=== PATIENT | female | born 1950 | race Caucasian/White ===

== ENCOUNTER 2019-10-10 17:31 | Emergency (ER) | payer MEDICARE, OTHER, SELFPAY ==
[2019-10-10 17:43] VITALS: BP 116/79; PULSE 88; RESP 16; TEMP 36.4; O2SAT 100; BMI 23.3
--- NOTE | 2019-10-10 17:59 | ED_ITS ---
Entered by Sami Constantino LPN, acting as scribe for Kendra Juarez MD HPI - General Adult General: Chief complaint: General Medical Stated complaint: LOW BLOOD SUGAR Time Seen by Provider: 10/10/19 17:56 Source: patient Mode of arrival: ambulatory Limitations: no limitations History of Present Illness: HPI narrative: 69 yo female presents with c/o increased HR around 120bpm and SOB for the past couple days. She states she was sent over by her heart doctor for evaluation before he made any med changes. She is taking Cardizem for rate control. Family reports on the way to the hospital her sugar was 49, she was not feeling well in the car so they thought they should check it. She also had a low sugar of 29 last night. Upon arrival to ER pt's sugar is 89. PCP- Johan. Cardio- Socorro. Endo- Krishna Banda Branson. Severity: moderate Associated symptoms: Reports dyspnea and palpitations (increased HR); Deny chest pain, headache(s), nausea, rash or vomiting Review of Systems Const: Reports: other (low blood sugar); Denies: fever, chills, body aches or change in appetite Eyes: Denies: blurry vision or eye discomfort ENMT: Denies: throat pain or dental pain Card: Reports: palpitations (increased HR); Denies: chest pain Resp: Reports: shortness of breath GI: Denies: abdominal pain, nausea, vomiting or diarrhea : Denies: painful urination Musc: Denies: neck pain or back pain Skin/Breast: Denies: rash Neuro: Denies: headache Jose M/Lymph: Denies: easy bruising All/Imm: Denies: hives PFSH ED PFSH: Statuses (acute, chronic, etc) shown below reflect problem list status as previously entered and may not be historically accurate Social History Smoking and tobacco status: never smoked Physical Exam Const: COMMON NORMALS: no apparent distress, oriented x3 and healthy appearing HENMT: COMMON NORMALS: normocephalic and head/scalp atraumatic HEAD & SCALP: normocephalic and atraumatic Eye: COMMON NORMALS: PERRL and EOMs intact bilaterally PUPIL: Yes PERRL Neck/C-Spine: COMMON NORMALS: full ROM and supple Chest: COMMONS NORMALS: inspection of chest normal and palpation of chest normal Resp: COMMON NORMALS: normal respiratory effort, no retractions, no use of accessory muscles and clear to auscultation bilaterally AUSCULTATION: clear to auscultation bilaterally Cardio: COMMON NORMALS: regular rate, regular rhythm and no murmurs RATE: regular rate RHYTHM: regular rhythm OTHER: HR 90bpm during exam GI: COMMON NORMALS: soft to palpation, non-tender and no masses PALPATION: Yes soft Extremity: COMMON NORMALS: normal to inspection and full ROM Neuro: COMMON NORMALS: oriented x3, moves all extremities and no focal motor deficits Psych: COMMON NORMALS: mental status grossly normal, thought process normal and cooperative THOUGHT PROCESS: normal thought process Skin: COMMON NORMALS: no rashes or lesions noted and no wounds GENERAL SKIN EXAM: no rashes or lesions noted Course Vital Signs: Vital signs: Vital Signs Temperature 97.5 F L 10/10/19 17:43 Pulse Rate 80 10/10/19 21:17 Respiratory Rate 16 10/10/19 21:17 Blood Pressure 116/76 10/10/19 21:17 Pulse Oximetry 98 10/10/19 21:17 MDM - General Adult MDM Narrative: Medical decision making narrative: Patient presents here with palpitations. Patient's EKG here shows normal sinus rhythm and has been in normal sinus rhythm the whole time here. Patient has no signs of A. fib here. Patient also had hyperglycemia that is since resolved. Patient's blood sugars here been normal. Patient is stable for discharge and is return if worsening. Lab Data: Labs: Lab Results 10/10/19 10/10/19 10/10/19 Range/Units 18:03 18:39 18:39 WBC (4.0-10.0) 10^3/ uL RBC (4.1-5.3) 10^6/u L Hgb (11.5-15.3) g/dL Hct (37.0-47.0) % MCV (81-99) fL MCH (28.0-34.0) pg MCHC (30.0-36.0) g/dL RDW (12.1-15.1) % Plt Count (130-400) 10^3/c mm MPV (7.4-10.4) fL Neut % (Auto) % Lymph % (Auto) % Wilcox % (Auto) % Eos % (Auto) % Baso % (Auto) % Neut # (Auto) (1.8-7.7) 10^3/u L Lymph # (Auto) (0.8-4.8) 10^3/u L Wilcox # (Auto) (0.2-0.9) 10^3/u L Eos # (Auto) (0.0-0.8) 10^3/u L Baso # (Auto) (0.0-0.1) 10^3/u L Nucleated RBC % (a uto) % Nucleated RBCs # /100WBC Sodium 137 (136-145) mmol/L Potassium 4.0 (3.5-5.1) mmol/L Chloride 97 L (98-107) mmol/L Carbon Dioxide 26 (22-29) mmol/L Anion Gap 18.0 (5-19) BUN 21 (8-23) mg/dL Creatinine 0.7 (0.5-0.9) mg/dL GFR Calculation 83.2 L (90-130) mL/min Glucose 74 (65-115) mg/dL POC Glucose 83 (70-110) mg/dL Calculated Osmolal ity 279 L (285-295) mOsm/k g Calcium 9.9 (8.5-10.5) mg/dL Troponin T Baselin e 11 H (0-10) ng/mL Troponin T 120 Min terrell (0-10) ng/mL Delta Troponin T (0-10) ABS# 10/10/19 10/10/19 10/10/19 Range/Units 19:36 20:22 20:56 WBC 4.9 (4.0-10.0) 10^3/ uL RBC 3.82 L (4.1-5.3) 10^6/u L Hgb 10.5 L (11.5-15.3) g/dL Hct 33.0 L (37.0-47.0) % MCV 86.4 (81-99) fL MCH 27.5 L (28.0-34.0) pg MCHC 31.8 (30.0-36.0) g/dL RDW 14.8 (12.1-15.1) % Plt Count 214 (130-400) 10^3/c mm MPV 9.3 (7.4-10.4) fL Neut % (Auto) 59.6 % Lymph % (Auto) 22.5 % Wilcox % (Auto) 10.4 % Eos % (Auto) 6.5 % Baso % (Auto) 0.8 % Neut # (Auto) 2.9 (1.8-7.7) 10^3/u L Lymph # (Auto) 1.1 (0.8-4.8) 10^3/u L Wilcox # (Auto) 0.5 (0.2-0.9) 10^3/u L Eos # (Auto) 0.3 (0.0-0.8) 10^3/u L Baso # (Auto) 0.0 (0.0-0.1) 10^3/u L Nucleated RBC % (a uto) 0 % Nucleated RBCs # 0.0 /100WBC Sodium (136-145) mmol/L Potassium (3.5-5.1) mmol/L Chloride (98-107) mmol/L Carbon Dioxide (22-29) mmol/L Anion Gap (5-19) BUN (8-23) mg/dL Creatinine (0.5-0.9) mg/dL GFR Calculation (90-130) mL/min Glucose (65-115) mg/dL POC Glucose 96 (70-110) mg/dL Calculated Osmolal ity (285-295) mOsm/k g Calcium (8.5-10.5) mg/dL Troponin T Baselin e (0-10) ng/mL Troponin T 120 Min terrell 10.32 H (0-10) ng/mL Delta Troponin T -0.68 L (0-10) ABS# Imaging Data^: CXR: Attestation: I personally reviewed and interpreted this imaging study as follows: My impression: no acute abnormality EKG Data^: EKG 1: Attestation: I personally reviewed and interpreted this EKG as follows: EKG interpretation date: 10/10/19 EKG interpretation time: 19:02 Interpretation: nsr hr [address] or t wave abnormailties qrs 105 qtc 444 Discharge Plan Discharge Patient Disposition: Home, Self-Care Clinical Impression: Hypoglycemia, Palpitations Condition: Stable Discharge Orders: Discharge Order (Routine); Ordered 10/10/19 Ordered By: Korby Ann Referrals: Vitaly Prado DO [Primary Care Provider] - 4-7 days Discharge Diet: Advance as tolerated Discharge Activity: Resume usual activity Patient Instructions: Palpitations (ED), Diabetic Hypoglycemia (ED) Discharge Date/Time: 10/10/19 21:17 Coding Level of Care Code ED Felt Carbonizer for Chg Fwd Exam Problem Focused The documentation recorded by the Vira merritt Dani Elizabeth, LPN, accurately reflects the service I personally performed and the decisions made by Ann chapa Korby, MD Oct 10, 2019 17:31
[2019-10-10 18:09] LABS: Glucose Point of Care 83 mg/dL (70-110)
--- NOTE | 2019-10-10 18:17 | XRR_ITS ---
PROCEDURE INFORMATION: Exam: XR Chest, 1 View Exam date and time: 10/10/2019 7:21 PM Age: 69 years old Clinical indication: Shortness of breath; Additional info: Palpitation TECHNIQUE: Imaging protocol: XR of the chest Views: 1 view. COMPARISON: CR Chest 1 [place] [id number] 07/25/2019 3:55 PM FINDINGS: Lungs: Unremarkable. No consolidation. Pleural space: Unremarkable. No pleural effusion. No pneumothorax. Heart/Mediastinum: Unremarkable. No cardiomegaly. Bones/joints: Unremarkable. XR/XR chest 1V portable [id number] IMPRESSION: No acute findings.
--- NOTE | 2019-10-10 18:17 | ECG_ITS ---
Measurements Intervals [place] Rate: 87 P: 59 WV: 117 QRS: 67 QRSD: 105 T: 58 QT: 399 QTc: 482 SINUS RHYTHM WITH SHORT WV INTERVAL Compared to ECG 07/25/2019 22:54:38 Short WV interval now present T-wave abnormality no longer present Possible ischemia no longer present Electronically Signed On 10-10-2019 20:03:07 DISINTEGRATOR OPERATOR by Destiny Salinas M.D. [email or web address]
[2019-10-10 19:35] LABS: Blood Urea Nitrogen 21 mg/dL (8-23); Calcium 9.9 mg/dL (8.5-10.5); Carbon Dioxide 26 mmol/L (22-29); Chloride 97 mmol/L (98-107); Glomerular Filtration Rate 83.2 mL/min (90-130); Glucose 74 mg/dL (65-115); Osmolality Calculated 279 mOsm/kg (285-295); Sodium 137 mmol/L (136-145); Troponin(5th) Baseline 11 ng/mL (0-10)
[2019-10-10 19:41] LABS: Basophils % 0.8 %; Eosinophils # 0.3 10^3/uL (0.0-0.8); Eosinophils % 6.5 %; Hemoglobin 10.5 g/dL (11.5-15.3); Lymphocytes # 1.1 10^3/uL (0.8-4.8); Lymphocytes % 22.5 %; Mean Corpuscular HGB Conc 31.8 g/dL (30.0-36.0); Mean Corpuscular Hemoglobin 27.5 pg (28.0-34.0); Mean Corpuscular Volume 86.4 fL (81-99); Mean Platelet Volume 9.3 fL (7.4-10.4); Monocytes # 0.5 10^3/uL (0.2-0.9); Monocytes % 10.4 %; Neutrophils # 2.9 10^3/uL (1.8-7.7); Neutrophils % 59.6 %; Nucleated Red Blood Cells % 0 %; Platelet Count 214 10^3/cmm (130-400); Red Blood Count 3.82 10^6/uL (4.1-5.3); Red Cell Distribution Width 14.8 % (12.1-15.1); White Blood Count 4.9 10^3/uL (4.0-10.0)
[2019-10-10 20:43] LABS: Troponin 5 2HR 10.32 ng/mL (0-10)
[2019-10-10 20:58] LABS: Troponin 5 2HR Delta -0.68 ABS# (0-10)
--- NOTE | 2019-10-10 20:59 | PC.NURSE ---
Blood glucose 96, Dr. Juarez advised, okayed to discharge patient
[2019-10-10 21:00] LABS: Glucose Point of Care 96 mg/dL (70-110)
[2019-10-10 21:17] VITALS: BP 116/76; PULSE 80; RESP 16; O2SAT 98
== END 2019-10-10 21:17 | disposition home or self-care (01) ==
PROVIDERS: Emergency Provider Emergency Medicine; Family Provider Electrodiagnostic Medicine; PCP Electrodiagnostic Medicine
DX: R00.2 Palpitations (principal); E16.2 Hypoglycemia, unspecified
CPT/HCPCS: 36415; 36416; 71045; 80048; 82962; 84484; 85025; 93005; 99282; 99283

== ENCOUNTER 2020-05-09 13:11 | Outpatient (CLI) | payer MEDICARE, OTHER, SELFPAY ==
[2020-05-09 14:10] LABS: Estmated Average Glucose 174; Hemoglobin A1C 7.7 % (4.0-6.0)
[2020-05-09 14:17] LABS: Anion Gap 16.1 (5-19); Blood Urea Nitrogen 19 mg/dL (8-23); Calcium 9.7 mg/dL (8.5-10.5); Carbon Dioxide 24 mmol/L (22-29); Chloride 101 mmol/L (98-107); Glomerular Filtration Rate 83.2 mL/min (90-130); Glucose 193 mg/dL (65-115); Osmolality Calculated 286 mOsm/kg (285-295); Potassium 4.1 mmol/L (3.5-5.1); Sodium 137 mmol/L (136-145); Thyroid Stimulating Hormone 1.73 uIU/mL (0.27-4.20)
== END 2020-05-09 13:12 | disposition home or self-care (01) ==
LOC: LAB 13:16
PROVIDERS: PCP Nurse Practitioner Family; Visit Provider Nurse Practitioner Family
DX: E03.9 Hypothyroidism, unspecified (principal); E10.65 Type 1 diabetes mellitus with hyperglycemia
CPT/HCPCS: 36415; 80048; 83036; 84439; 84443

== ENCOUNTER 2020-06-03 14:48 | Outpatient (CLI) | payer MEDICARE, OTHER, SELFPAY ==
--- NOTE | 2020-06-03 14:55 | MM_ITS ---
WS: [id number] Bilateral screening digital mammogram, 06/03/2020 Clinical Data: SCREENING Comparison: 03/18/2015, 11/25/2010, 07/05/2003. Findings: The breast parenchymal pattern shows fibroglandular tissue No spiculated masses or clustered calcific ations are seen. There are no secondary signs of carcinoma. MM/[id number] Impression: 1. Negative bilateral mammogram unchanged. 2. Recommend annual screening mammograms. BIRADS: 1-Negative FOLLOW UP: 1 Year Follow-up The [facility] [facility] was used.
--- NOTE | 2020-06-03 15:35 | XR_ITS ---
WS: [id number] Bone mineral density performed on a [employer], [place]. Clinical data: ASYMPTOMATIC MENOPAUSAL STATE, SPECIFIED DISORDERS OF BONE S Findings: The first 4 lumbar vertebral bodies demonstrated the bone mineral density of 0.925 g/cm2 for a young adult T score of -2.1. Measurement of the left hip reveals a bone mineral density of 0.719 g/cm2 with a young adult T score of -2.3. Measurement of the right hip reveals the bone mineral density of 0.742 g/cm2 for young adult T score of -2.1. XR/XR DEXA axial skeleton* [id number] Impression: Osteopenia of the lumbar spine and both hips.
== END 2020-06-03 14:49 | disposition home or self-care (01) ==
LOC: RADSHAW 14:53
PROVIDERS: PCP Nurse Practitioner Family; Visit Provider Nurse Practitioner Family
DX: Z12.31 Encounter for screening mammogram for malignant neoplasm of breast (principal); Z78.0 Asymptomatic menopausal state
CPT/HCPCS: 77067; 77080

== ENCOUNTER → 2020-06-06 10:34 | Outpatient (BNVA) | payer MEDICARE, OTHER, SELFPAY | PROVIDERS: PCP Nurse Practitioner Family; Visit Provider Nurse Practitioner Family | DX: Z11.59 Encounter for screening for other viral diseases (principal); Z20.828 Contact with and (suspected) exposure to other viral communicable diseases; J06.9 Acute upper respiratory infection, unspecified | CPT/HCPCS: 87635 ==

== ENCOUNTER 2020-06-16 22:28 | Inpatient (IN) | payer MEDICARE, OTHER, SELFPAY ==
[2020-06-16] VITALS (7 sets, daily range): BP systolic 105–112; BP diastolic 60–74; PULSE 83–87; RESP 10–18; TEMP 36.8; O2SAT 90–99; BMI 26.2
--- NOTE | 2020-06-16 23:06 | XRR_ITS ---
PROCEDURE INFORMATION: Exam: XR Chest, 1 View Exam date and time: 06/16/2020 11:39 PM Age: 69 years old Clinical indication: Shortness of breath; Patient HX: N/v, SOB, covid + TECHNIQUE: Imaging protocol: XR of the chest Views: 1 view. COMPARISON: CR XR chest 1V portable [id number] 10/10/2019 7:11 PM FINDINGS: Lungs: Unremarkable. No consolidation. Pleural space: Unremarkable. No pleural effusion. No pneumothorax. Heart/Mediastinum: Unremarkable. No cardiomegaly. Bones/joints: Unremarkable. XR/XR chest 1V portable [id number] IMPRESSION: No acute findings.
[2020-06-16 23:29] LABS: ABG PCO2 36.4 mmHg (35-45); ABG PH Result 7.17 (7.35-7.45); Base Excess ABG -14.5 mmol/L (-2.0-2.0); Blood Gas Allen Test Pos; Blood Gas Sample Site Radial, left; Blood Gas Sample Type Arterial; HCO3 ABG 13.2 mmol/L (22-26); Oxygen Device NC
[2020-06-16] MEDS: ondansetron 2 mg/ML SDV 2 mL 4 MG IVP (23:32)
[2020-06-16] MEDS: sodium chloride 0.9% 1,000 ML 999 ML IV (23:32)
[2020-06-16] MEDS: insulin regular-human 100 units/1 mL 10 UNIT IVP (23:33)
[2020-06-16 23:34] LABS: Basophils % 0.2 %; Hematocrit 39.7 % (37.0-47.0); Hemoglobin 12.5 g/dL (11.5-15.3); Lymphocytes # 1.1 10^3/uL (0.8-4.8); Lymphocytes % 12.9 %; Mean Corpuscular HGB Conc 31.5 g/dL (30.0-36.0); Mean Corpuscular Hemoglobin 29.3 pg (28.0-34.0); Monocytes # 0.5 10^3/uL (0.2-0.9); Monocytes % 5.9 %; Neutrophils # 6.59 10^3/uL (1.8-7.7); Neutrophils % 79.8 %; Nucleated Red Blood Cells % 0 %; Platelet Count 172 10^3/cmm (130-400); Red Blood Count 4.27 10^6/uL (4.1-5.3); Red Cell Distribution Width 14.1 % (12.1-15.1); White Blood Count 8.3 10^3/uL (4.0-10.0)
--- NOTE | 2020-06-16 23:40 | W.ED.NAVMDI ---
HPI - Nausea/Vomiting/Diarrhea General: Chief complaint: Nausea/Vomiting/Diarrhea Stated complaint: N/V Time Seen by Provider: 06/16/20 22:37 History of Present Illness: HPI Narrative: 69-year-old female with a history of insulin-dependent diabetes presents with nausea and vomiting. She tested positive for COVID on the eighth of this month as well. She is not experiencing significant shortness of breath, but has been experiencing significant nausea and vomiting multiple times the last couple of days. She states that her blood sugars have been high, at least in the 400s. She has an insulin pump that appears to be functioning. She had taken steroids for her COVID-19 last week. She denies any fever for the past 48 hours at least. MD elicited complaint: nausea, vomiting and diarrhea Associated nausea: Yes Associated symtoms: Reports nausea; Denies anxiety, change in vision, chest pain, dizziness, dysuria, headache(s) or palpitations Review of Systems Const: Denies: fever(s) Eyes: Denies: change in vision ENMT: Denies: odynophagia, swelling of lips/tongue, post nasal drip or sinus pain Card: Denies: chest pain, palpitations or irregular heart rhythm Resp: Denies: dyspnea, productive cough or wheezing GI: Reports: abdominal pain, nausea and vomiting; Denies: rectal pain : Denies: dysuria or hematuria Musc: Denies: back pain or joint warmth Skin/Breast: Denies: rash or erythema Neuro: Denies: headache(s), dizziness or vertigo Psych: Denies: anxiety PFSH ED PFSH: Medical History Atrial fibrillation Dyslipidemia HTN (hypertension) Hypothyroidism Mitral regurgitation Scleroderma Family History Father CAD (coronary artery disease) Mother Hypertension CAD (coronary artery disease) Hyperlipidemia Sister Hypertension Diabetes Grandfather CAD (coronary artery disease) PATERNAL Social History Smoking and tobacco status: never smoked Physical Exam Const: GENERAL APPEARANCE: cooperative and ill appearing ORIENTATION/CONSCIOUSNESS: Yes oriented to person, Yes oriented to place and Yes oriented to time HENMT: COMMON NORMALS: normocephalic, external ears normal and Normal external nose present HEAD & SCALP: normocephalic FACE & SINUS: normal facial exam NOSE: Normal external nose present and No nasal discharge present EXTERNAL EAR: Yes external ears normal Eye: COMMON NORMALS: Equal, round and reactive pupils present, EOMs intact bilaterally and conjunctivae normal EYELID: eyelids normal CONJUNCTIVA: Yes conjunctivae normal PUPIL: Yes Equal, round and reactive pupils present Neck/C-Spine: GENERAL: No tracheal deviation Chest: COMMONS NORMALS: normal inspection of the chest CHEST: No tenderness Resp: COMMON NORMALS: clear to auscultation bilaterally EFFORT & INSPECTION: No tachypneic, No respiratory distress, No retractions, No uses accessory muscles and No tracheal deviation AUSCULTATION: clear to auscultation bilaterally, no rhonchi, no wheezes and lung sounds not diminished Cardio: COMMON NORMALS: regular rate and regular rhythm RATE: regular rate RHYTHM: regular rhythm HEART SOUNDS: no murmurs PERIPHERAL PULSES: radial pulses present GI: INSPECTION: No abdominal distension AUSCULTATION: No Hyperactive bowel sounds present and No Hypoactive bowel sounds present PALPATION: No Guarding due to palpation present (GI) and No Rigid due to palpation PERCUSSION: no dullness to percussion and no tympanic to percussion Neuro: SENSORIUM/ORIENTATION: Yes oriented to person, Yes oriented to place and Yes oriented to time Psych: COMMON NORMALS: mental status grossly normal Skin: COMMON NORMALS: no rashes or lesions noted GENERAL SKIN EXAM: no rashes or lesions noted Course Consultations: Consultation #1: angel Time: 01:03 Vital Signs: Vital signs: Vital Signs Temperature 98.3 F 06/16/20 22:36 Pulse Rate 80 06/17/20 01:00 Respiratory Rate 18 06/17/20 01:13 Blood Pressure 120/70 06/17/20 01:00 Pulse Oximetry 97 06/17/20 01:13 MDM - Nausea/Vomiting/Diarrhea MDM Narrative: Medical decision making narrative: 69-year-old female with a history of insulin-dependent diabetes on insulin pump. She also has had COVID, but is clearing no symptoms, she has not had a fever in more than 48 hours. She presents with vomiting and some diarrhea. She has blood sugars in the 400s. It does not appear that her insulin pump was turned on are working appropriately. She was given IV insulin, IV fluids, for pH of 7.17 with serum ketones present. She has early DKA. Her bicarbonate level is 13. Her blood sugar is coming down nicely. Hopefully we will be able to get her off the insulin drip and back onto her pump insulin quickly as her gap closes. Lab Data: Labs: Lab Results 06/16/20 06/16/20 06/16/20 Range/Units 22:00 22:00 23:20 WBC 8.3 (4.0-10.0) 10^3/ uL RBC 4.27 (4.1-5.3) 10^6/u L Hgb 12.5 (11.5-15.3) g/dL Hct 39.7 (37.0-47.0) % MCV 93.0 (81-99) fL MCH 29.3 (28.0-34.0) pg MCHC 31.5 (30.0-36.0) g/dL RDW 14.1 (12.1-15.1) % Plt Count 172 (130-400) 10^3/c mm MPV 11.0 H (7.4-10.4) fL Neut % (Auto) 79.8 % Lymph % (Auto) 12.9 % [place] % (Auto) 5.9 % Eos % (Auto) 0.0 % Baso % (Auto) 0.2 % Neut # (Auto) 6.59 (1.8-7.7) 10^3/u L Lymph # (Auto) 1.1 (0.8-4.8) 10^3/u L [place] # (Auto) 0.5 (0.2-0.9) 10^3/u L Eos # (Auto) 0.0 (0.0-0.8) 10^3/u L Baso # (Auto) 0.0 (0.0-0.1) 10^3/u L Nucleated RBC % (a uto) 0 % Nucleated RBCs # 0.0 /100WBC Specimen Type Arterial Sample Site Radial, left ABG pH 7.17 L* (7.35-7.45) ABG pCO2 36.4 (35-45) mmHg ABG pO2 172.0 H (80.0-100.0) mmH g ABG HCO3 13.2 L (22-26) mmol/L ABG Base Excess -14.5 L (-2.0-2.0) mmol/ L Stephen Test Pos Hematocrit 35.0 L (37-47) % O2 Delivery Device Nc O2 Liters/Min 2.0 % Bell Attendant ID [email or web address] Sodium 133 L (136-145) mmol/L Potassium 4.8 (3.5-5.1) mmol/L Chloride 95 L (98-107) mmol/L Carbon Dioxide 13 L (22-29) mmol/L Anion Gap 29.8 H (5-19) BUN 28 H (8-23) mg/dL Creatinine 0.7 (0.5-0.9) mg/dL GFR Calculation 83.2 L (90-130) mL/min Glucose 402 H (65-115) mg/dL Calculated Osmolal ity 298 H (285-295) mOsm/k g Lactate (0.5-2.2) mmol/L Calcium 9.1 (8.5-10.5) mg/dL Magnesium 1.9 (1.7-2.3) mg/dL Total Bilirubin 0.4 (0.15-1.2) mg/dL AST 27 (0-32) U/L ALT 15 (0-33) U/L Alkaline Phosphata se 74 (35-105) IU/L C-Reactive Protein 14.5 H (0.0-4.9) mg/L Total Protein 7.0 (6.6-8.7) g/dL Albumin 3.9 (3.5-5.2) g/dL Globulin 3.1 (1.3-4.6) g/dL Lipase 13 (13-60) U/L Procalcitonin 0.08 (0-0.5) ng/mL Urine Color (Yellow) Urine Appearance (CLEAR) Urine pH (5-7) Ur Specific Gravit y (1.005-1.030) Urine Protein (Negative) Urine Glucose (UA) (Normal) Urine Ketones (Negative) Urine Blood (Negative) Urine Nitrate (Negative) Urine Bilirubin (Negative) Urine Urobilinogen (Negative) mg/dL Ur Leukocyte Abimbola ase (Negative) Serum Ketones Positive H (Negative) 06/16/20 06/17/20 Range/Units 23:53 01:00 WBC (4.0-10.0) 10^3/ uL RBC (4.1-5.3) 10^6/u L Hgb (11.5-15.3) g/dL Hct (37.0-47.0) % MCV (81-99) fL MCH (28.0-34.0) pg MCHC (30.0-36.0) g/dL RDW (12.1-15.1) % Plt Count (130-400) 10^3/c mm MPV (7.4-10.4) fL Neut % (Auto) % Lymph % (Auto) % [place] % (Auto) % Eos % (Auto) % Baso % (Auto) % Neut # (Auto) (1.8-7.7) 10^3/u L Lymph # (Auto) (0.8-4.8) 10^3/u L [place] # (Auto) (0.2-0.9) 10^3/u L Eos # (Auto) (0.0-0.8) 10^3/u L Baso # (Auto) (0.0-0.1) 10^3/u L Nucleated RBC % (a uto) % Nucleated RBCs # /100WBC Specimen Type Sample Site ABG pH (7.35-7.45) ABG pCO2 (35-45) mmHg ABG pO2 (80.0-100.0) mmH g ABG HCO3 (22-26) mmol/L ABG Base Excess (-2.0-2.0) mmol/ L Stephen Test Hematocrit (37-47) % O2 Delivery Device O2 Liters/Min % Bell Attendant ID Sodium (136-145) mmol/L Potassium (3.5-5.1) mmol/L Chloride (98-107) mmol/L Carbon Dioxide (22-29) mmol/L Anion Gap (5-19) BUN (8-23) mg/dL Creatinine (0.5-0.9) mg/dL GFR Calculation (90-130) mL/min Glucose (65-115) mg/dL Calculated Osmolal ity (285-295) mOsm/k g Lactate 1.6 (0.5-2.2) mmol/L Calcium (8.5-10.5) mg/dL Magnesium (1.7-2.3) mg/dL Total Bilirubin (0.15-1.2) mg/dL AST (0-32) U/L ALT (0-33) U/L Alkaline Phosphata se (35-105) IU/L C-Reactive Protein (0.0-4.9) mg/L Total Protein (6.6-8.7) g/dL Albumin (3.5-5.2) g/dL Globulin (1.3-4.6) g/dL Lipase (13-60) U/L Procalcitonin (0-0.5) ng/mL Urine Color Yellow (Yellow) Urine Appearance Clear (CLEAR) Urine pH 5 (5-7) Ur Specific Gravit y 1.020 (1.005-1.030) Urine Protein Neg (Negative) Urine Glucose (UA) 4+ H (Normal) Urine Ketones 3+ H (Negative) Urine Blood Neg (Negative) Urine Nitrate Negative (Negative) Urine Bilirubin Neg (Negative) Urine Urobilinogen Norm (Negative) mg/dL Ur Leukocyte Abimbola ase Negative (Negative) Serum Ketones (Negative) Discharge Plan Discharge Patient Disposition: Admitted As Inpatient Clinical Impression: Diabetic ketoacidosis Qualifiers: Diabetes mellitus type: type 1 Diabetes mellitus complication detail: without coma Qualified Code(s): E10.10 - Type 1 diabetes mellitus with ketoacidosis without coma Condition: Stable Referrals: Abilio Romero RN, PALLIATIVE CARE PHYSICIAN [Primary Care Provider] - Coding Level of Care Code ED Mattress Filling Machine Tender for [facility] Fwd Exam Comprehensive
[2020-06-16 23:44] LABS: Ketone (Acetest) Serum Positive (Negative)
[2020-06-17] VITALS (29 sets, daily range): BP systolic 93–162; BP diastolic 47–90; PULSE 78–103; RESP 5–20; TEMP 37.2–37.4; O2SAT 91–98
[2020-06-17 00:22] LABS: Lactate (Lactic Acid level) 1.6 mmol/L (0.5-2.2)
[2020-06-17 00:29] LABS: Procalcitonin 0.08 ng/mL (0-0.5)
[2020-06-17 00:49] LABS: Alanine Aminotransferase 15 U/L (0-33); Albumin Level 3.9 g/dL (3.5-5.2); Alkaline Phosphatase 74 IU/L (35-105); Aspartate Amino Transferase 27 U/L (0-32); Blood Urea Nitrogen 28 mg/dL (8-23); C Reactive Protein 14.5 mg/L (0.0-4.9); Calcium 9.1 mg/dL (8.5-10.5); Carbon Dioxide 13 mmol/L (22-29); Chloride 95 mmol/L (98-107); Globulin 3.1 g/dL (1.3-4.6); Glomerular Filtration Rate 83.2 mL/min (90-130); Glucose 402 mg/dL (65-115); Lipase 13 U/L (13-60); Magnesium 1.9 mg/dL (1.7-2.3); Osmolality Calculated 298 mOsm/kg (285-295); Sodium 133 mmol/L (136-145); Total Bilirubin 0.4 mg/dL (0.15-1.2)
[2020-06-17 00:50] LABS: Anion Gap 29.8 (5-19); Potassium 4.8 mmol/L (3.5-5.1)
[2020-06-17] MEDS: insulin regular-human 250 UNIT in sodium chloride 0.9% 250 ML IV (01:02)
--- NOTE | 2020-06-17 01:02 | P.HP_ITS ---
Providers/Chief Complaint Primary Care Provider: Abilio Romero RN, ASSOCIATE MEDIA DIRECTOR Chief Complaint: N/V History of Present Illness Kaylee Cardoso is a 69 year old female with history of type 1 diabetes, hypothyroidism, atrial fibrillation not on anticoagulation, came in today for recurrent episodes of nausea and vomiting. Patient is stating that she contracted COVID-19 pneumonia on 06/06, after attending a , she was put on Decadron, recently also finished doxycycline for her facial ulcer. She has insulin pump for management of type 1 diabetes. She is endorsing that for last few days she has not been paying attention to blood sugar levels, today started experiencing recurrent episodes of nausea and vomiting, and total she had 3-4 episodes she is denying fever, dysuria, chest pain, shortness of breath. Diagnosis in the ER revealed DKA, her blood sugar improved within hours, however as still high anion gap for which she is on insulin gtt, I have started D5 half- normal with [id number] because of rapid decrease in blood sugar, Covid antigen positive, no source of infection, procalcitonin normal, no signs of UTI, chest x-ray unremarkable, she has been requiring 2 L of nasal cannula to keep her saturation above 90, no active distress Review of Systems Const: Reports: chills, body aches and fatigue; Denies: fever(s) Eyes: Denies: change in vision ENMT: Denies: throat pain Card: Denies: chest pain Resp: Denies: dyspnea GI: Reports: abdominal pain, nausea and vomiting : Denies: flank pain Musc: Denies: neck pain Skin/Breast: Denies: rash Neuro: Denies: headache(s) Psych: Reports: anxiety Endo: Denies: polyuria Jose M/Lymph: Denies: easy bruising All/Imm: Denies: urticaria Medications/Allergies Home Medications Medication Instructions Recorded Confirmed Last Taken Type aspirin 81 mg tablet,delayed 81 mg PO DAILY 10/24/19 05/27/20 Unknown History release insulin NPH isoph U-100 human 100 See Rx Instructions SUBCUT DAILY 10/24/19 05/27/20 Unknown History unit/mL subcutaneous suspension nitroglycerin 0.4 mg sublingual 0.4 mg SUBLINGUAL Q5M PRN 10/24/19 05/27/20 Unknown History tablet psyllium PO DAILY PRN 10/24/19 05/27/20 Unknown History insulin degludec 100 unit/mL (3 26 unit SUBCUT DAILY ml 10/26/19 05/27/20 Unknown History mL) subcutaneous pen carvedilol 3.125 mg tablet 12.5 mg PO BID tab 05/27/20 05/27/20 Unknown History doxycycline hyclate 100 mg 200 mg PO DAILY tab 05/27/20 05/27/20 Unknown History tablet,delayed release duloxetine 60 mg capsule,delayed 60 mg PO DAILY 05/27/20 05/27/20 Unknown History release furosemide 20 mg tablet 40 mg PO QAM PRN tab 05/27/20 05/27/20 Unknown History levothyroxine 175 mcg capsule 125 mcg PO DAILY cap 05/27/20 05/27/20 Unknown History ondansetron HCl 4 mg tablet 4 mg PO Q8H 05/27/20 05/27/20 Unknown History sertraline 50 mg tablet 100 mg PO DAILY tab 05/27/20 05/27/20 Unknown History Allergies Allergy/AdvReac Type Severity Reaction Status Date / Time diphenhydramine Allergy ADR-Muscle Verified 06/06/20 09:20 [From Benadryl] Pain Penicillins Allergy ALGY-Anaphy Verified 06/06/20 09:20 laxis Tetanus Vaccines and Toxoid Allergy ALGY-Rash Verified 06/06/20 09:20 trazodone Allergy ALGY-Joint Verified 06/06/20 09:20 Pain zolpidem [From Ambien] Allergy Unconscious Verified 06/06/20 09:20 PFSH Acute PFSH: Medical History (Updated 06/17/20 @ 03:06 by Abida Dolan MD) Atrial fibrillation DVT (deep venous thrombosis) Dyslipidemia HTN (hypertension) Hypothyroidism Mild cognitive impairment Mitral regurgitation Peripheral vascular disease Scleroderma Type 1 diabetes Surgical History (Updated 06/17/20 @ 03:06 by Abida Dolan MD) H/O cardiac catheterization 2015, moderate disease no flow-limiting H/O dilation and curettage Status post endovenous radiofrequency ablation of saphenous vein Family History Father CAD (coronary artery disease) Mother Hypertension CAD (coronary artery disease) Hyperlipidemia Sister Hypertension Diabetes Grandfather CAD (coronary artery disease) PATERNAL Social History (Updated 06/17/20 @ 03:06 by Abida Dolan MD) Smoking and tobacco status: never smoked Alcohol intake: never Substance/Drug Use: never Lives independently: Yes Housing: House Vitals/I&O/Wt Last Vital Signs Temp 98.3 F 06/16/20 22:36 Pulse 82 06/17/20 00:30 Resp 13 06/17/20 00:30 BP 110/64 06/17/20 00:30 Pulse Ox 96 06/17/20 00:30 Weight last 48 hrs Weight 71.668 kg Physical Exam Narrative: EXAM NARRATIVE: This is a pleasant middle-age female Currently not in any active distress sitting comfortably in her bed Saturating well on 2 L nasal cannula Insulin pump patient blood sugar 253 Appears stated age, no signs of dehydration S1, S2 variable in normal hemodynamics Abdomen soft nontender Neurologically no focal deficit Mood appears to be anxious and irritable Lower extremity no edema gangrene or ulcer EOMI, PERRLA Malar rash face Data : 06/16/20 22:00 06/16/20 22:00 A&P Assessment and plan (1) Diabetic ketoacidosis: Status: Acute Qualifiers: Diabetes mellitus complication detail: without coma Diabetes mellitus type: type 1 Qualified Code(s): E10.10 - Type 1 diabetes mellitus with ketoacidosis without coma (2) Type 1 diabetes: Status: Acute (3) Viral URI: Status: Acute (4) COVID-19 determined by clinical diagnostic criteria: Status: Acute Additional A&P Information DKA secondary to Decadron use Blood sugar improved quickly with fluid resuscitation and insulin regimen, high anion gap metabolic acidosis, I have started her on D5 half-normal saline 40 mEq KCl for rapid decline in blood sugar Continue insulin GTT until anion gap closes, n.p.o. for now, I have asked her to turn off her insulin pump in order to avoid erroneous insulin administration Check A1c level, No chest pain dysuria or abdominal pain She will need investigation of her insulin pump, kindly consider endocrinology consult in the morning Positive COVID-19 antigen Status post steroid regimen at home No acute distress however requiring 2 L nasal cannula at rest Paroxysmal A. fib without anticoagulation Patient has refused anticoagulant usage has seen Dr. Quintanilla and Dr. Carrasquillo this year Currently heart rate 70, variable, continue AV cliff blocking agent Full code N.p.o. DVT prophylaxis Lovenox Attestations Medical Necessity Statement*: Patient requiring insulin drip for DKA, an ticipating stay in the hospital cross more than 2 midnights continued ICU, Covid antigen positive as well Time Spent in Patient Care: (>than 50% of time spent in counselling and/or direct pt care on unit) . 50mins Coding Level of Care Code Acute Production Laborer for g Fwd Diagnoses Diabetic ketoacidosis E10.10 Diabetes mellitus complication detail: without coma Diabetes mellitus type: type 1 Type 1 diabetes E10.9 Viral URI J06.9 COVID-19 determined by clinical diagnostic criteria U07.1
[2020-06-17 01:09] LABS: Add Urine Microscopic? NO
--- NOTE | 2020-06-17 01:09 | PC.NURSE ---
when insulin drip started pts glucose on her implanted monitor was 277. will recheck in 15 minutes.
[2020-06-17 01:10] LABS: Urine Appearance Clear (CLEAR); Urine Color Yellow (Yellow); pH Urine 5 (5-7)
[2020-06-17 01:11] LABS: Bilirubin Urine Neg (Negative); Blood Urine Neg (Negative); Glucose Urine UA 4+ (Normal); Ketones Urine 3+ (Negative); Leukocyte Esterase Urine Negative (Negative); Nitrate Urine Negative (Negative); Protein Urine Neg (Negative); Urobilinogen Urine Norm (Negative)
[2020-06-17] MEDS: sodium chloride 0.9% 1,000 ML 999 ML IV (01:12)
[2020-06-17] MEDS: morphine 4 mg/mL SDV 1 mL IVP (01:13)
[2020-06-17] MEDS: ondansetron 2 mg/ML SDV 2 mL 4 MG IVP ×4 (01:13→22:22)
--- NOTE | 2020-06-17 01:51 | PC.NURSE ---
Pts blood sugar per implanted device is 272 at this time. stopped new liter of NS and stopped insulin drip.
[2020-06-17 01:52] LABS: SARS Covid-2 Antigen Positive (Negative)
[2020-06-17 01:53] LABS: Glucose Point of Care 253 mg/dL (70-110)
[2020-06-17] MEDS: dextrose 5%-ns 0.45% + KCl 40 1,000 ML 100 MEQ IV (03:22)
[2020-06-17 03:55] LABS: Anion Gap 18.4 (5-19); Blood Urea Nitrogen 25 mg/dL (8-23); Calcium 8.1 mg/dL (8.5-10.5); Carbon Dioxide 18 mmol/L (22-29); Chloride 106 mmol/L (98-107); Glomerular Filtration Rate 99.4 mL/min (90-130); Glucose 241 mg/dL (65-115); Osmolality Calculated 298 mOsm/kg (285-295); Potassium 4.4 mmol/L (3.5-5.1); Sodium 138 mmol/L (136-145)
[2020-06-17 06:46] LABS: Glucose Point of Care 259 mg/dL (70-110)
[2020-06-17] MEDS: sodium chloride 0.9% 1,000 ML 75 ML IV (08:06)
[2020-06-17] MEDS: enoxaparin 40 mg/0.4 mL Syringe SUBCUT (08:07)
[2020-06-17] MEDS: acetaminophen-codeine 300-30mg Tablet 1 TAB PO ×3 (08:19→22:34)
--- NOTE | 2020-06-17 10:11 | PC.CHAP ---
Pastoral Care Encounter/Spiritual Assessment Type of Contact [] Declined software requirements engineer visit [] Patient/Family/Request visit [] Outpatient visit [] Follow-up visit [] Physician referral [] Code/Alert [x] Routine visit [] Staff referral [] Actively dying [] Patient sleeping [] Family support [] [] Out of room [] Palliative care [] [x] Receiving care in room [] Pre-surgical visit [] Trauma [] Long length of stay [] ICU visit [] Other: Relational/Emotional Strength [] Patient feels connected with others/family/visitors/staff [] Distress [] Loneliness/isolation [] Abandonment Spirituality of Patient [] Person of [place] [] Attends Mosque of their [place] [] Believes in Prayer [] Reads Bible or Hoahaoism materials [] There are Spiritual issues to be addressed Hi Lo Driver Interventions [x] Prayer [] Active listening [] Non-anxious presence [] Spiritual/emotional support [] Crisis/trauma care [] Spiritual counseling [] Bereavement support [] Provided bereavement packet [] Provided Bible/devotional materials [] Provided toy/stuffed animal, coloring book to patient or family member [] Provided Communion [] Anointing/[place] [] Salvation [x] Completed spiritual assessment [] Other: Impact on Illness or Injury [] Angry [] Fearful [] Anxious [] Often cries [] Exhaustion [] Unable to work [] Unable to attend religious [] Unable to walk/stand [] Unable to read [] Unable to drive [] Unable to eat/drink [] Unable to sleep [] Unable to be with family [] Patient intubated [] Other: Summary patient tested positive... 2nd time around Time spent with patient 5 min
[2020-06-17 11:25] LABS: Glucose Point of Care 206 mg/dL (70-110)
--- NOTE | 2020-06-17 12:08 | PM.PN ---
Subjective Subjective: Interval history: She is still complaining of nausea and chronic back pain. Insulin drip has been discontinued. Currently on medium dose sliding scale insulin. Vitals and labs have been reviewed. Medications: Reviewed: Yes Vitals/I&O/Wt Last Vital Signs Temp 98.9 F 06/17/20 08:00 Pulse 92 06/17/20 08:00 Resp 18 06/17/20 08:00 BP 162/90 06/17/20 08:00 Pulse Ox 98 06/17/20 08:00 06/16/20 06/17/20 06/17/20 22:59 06:59 14:59 Intake Total 1635.1 / 1635.1 Balance 1635.1 / 1635.1 Weight last 48 hrs Weight 71.668 kg Physical Exam Const: COMMON NORMALS: patient oriented x3 HENMT: COMMON NORMALS: normocephalic, atraumatic, hearing grossly normal bilaterally and external ears normal HEAD & SCALP: normocephalic and atraumatic EXTERNAL EAR: Yes external ears normal Eye: COMMON NORMALS: no scleral icterus GENERAL EYE: appearance normal, both eyes and all related structures Chest: COMMONS NORMALS: normal inspection of the chest and normal palpation of entire chest wall CHEST: Yes Symmetrical chest wall rise Resp: COMMON NORMALS: normal respiratory effort, No retractions, No use of accessory muscles and clear to auscultation bilaterally EFFORT & INSPECTION: Yes symmetric chest movement AUSCULTATION: clear to auscultation bilaterally Cardio: COMMON NORMALS: regular rate, regular rhythm, S1 normal heart sound present, S2 normal heart sound present, No gallops present (Cardio), No murmurs present (Cardio), No rub (Cardio) and Peripheral pulses 2+ throughout RATE: regular rate RHYTHM: regular rhythm HEART SOUNDS: S1 normal heart sound present and S2 normal heart sound present PERIPHERAL PULSES: Peripheral pulses 2+ throughout GI: COMMON NORMALS: Normal to inspection, nondistended, normoactive bowel sounds present, Soft to palpation, non-tender, No hepatosplenomegaly present and no masses AUSCULTATION: Yes normoactive bowel sounds PALPATION: Yes Soft to palpation and Yes No hepatosplenomegaly present RECTAL EXAM: deferred Extremity: COMMON NORMALS: no clubbing, cyanosis or edema and no pedal edema Neuro: COMMON NORMALS: patient oriented x3 Data : 06/16/20 22:00 10/19/20 03:33 A&P Assessment and plan (1) Type 1 diabetes: Status: Acute (2) Viral URI: Status: Acute (3) Diabetic ketoacidosis: Status: Acute Qualifiers: Diabetes mellitus complication detail: without coma Diabetes mellitus type: type 1 Qualified Code(s): E10.10 - Type 1 diabetes mellitus with ketoacidosis without coma (4) COVID-19 determined by clinical diagnostic criteria: Status: Acute Additional A&P Information DKA secondary to Decadron use: Resolved: Insulin drip has been discontinued: Currently on medium dose sliding scale insulin. Check A1c level, No chest pain dysuria or abdominal pain insulin pump is working: She has cartridge at home. Positive COVID-19 antigen Rapid Covid test: Is positive Status post steroid regimen at home Currently saturating well on room air. No need to start steroids. Paroxysmal A. fib without anticoagulation Patient has refused anticoagulant usage has seen Dr. Quintanilla and Dr. Carrasquillo this year Currently heart rate 70, variable, continue AV cliff blocking agent Full code DVT prophylaxis Lovenox Attestations Medical Necessity Statement*: Patient is to be in hospital for management uncontrolled diabetes likely secondary to steroid use. Coding Level of Care Code Acute Tar Distributor Operator for [facility] Fwd Diagnoses Type 1 diabetes E10.9 Viral URI J06.9 Diabetic ketoacidosis E10.10 Diabetes mellitus complication detail: without coma Diabetes mellitus type: type 1 COVID-19 determined by clinical diagnostic criteria U07.1
[2020-06-17 16:40] LABS: Glucose Point of Care 56 mg/dL (70-110)
--- NOTE | 2020-06-17 17:06 | PC.NURSE ---
Just learned that patient's blood sugar is 56. Patient is A&Ox3. 2 Rains Juices given at this time. Patient is able to drink them and is talking to this nurse at this time. Patient has her own insulin pump which she states is turned off. Patient states that she does not feel like she can get because she is to nauseated. Nausea mediation given to patient before the orange juice. Asked patient to eat a sandwich at this time to which she replied, I do not feel like I could hold it down so I am not going to eat it. Patient returned to 68 after 8 ounces of orange juice 1715 25 mg of Dextrose given at this time. Will continue to monitor patient and recheck sugar in 15 minutes.
[2020-06-17] MEDS: dextrose 50% syringe 50 mL 25 ML IVP (17:15)
[2020-06-17 17:33] LABS: Glucose Point of Care 117 mg/dL (70-110)
--- NOTE | 2020-06-17 19:16 | PC.NURSE ---
Report to Martha FOUNTAIN
[2020-06-17 21:32] LABS: Glucose Point of Care 312 mg/dL (70-110)
[2020-06-17] MEDS: dextrose 5%-sod chloride 0.45% 1,000 ML 50 ML IV (22:35)
[2020-06-18] VITALS: BP 101/67; PULSE 99; RESP 18; TEMP 36.6; O2SAT 95
[2020-06-18] MEDS: acetaminophen-codeine 300-30mg Tablet 1 TAB PO ×3 (02:02→17:50)
[2020-06-18] MEDS: ondansetron 2 mg/ML SDV 2 mL 4 MG IVP ×2 (02:27→12:20)
[2020-06-18 04:00] VITALS: BP 105/57; PULSE 81; RESP 19; TEMP 37.1; O2SAT 95
[2020-06-18 04:58] LABS: Glucose Point of Care 163 mg/dL (70-110)
[2020-06-18 05:54] LABS: Basophils % 0.1 %; Hematocrit 31.9 % (37.0-47.0); Hemoglobin 10.3 g/dL (11.5-15.3); Lymphocytes # 0.8 10^3/uL (0.8-4.8); Lymphocytes % 7.2 %; Mean Corpuscular HGB Conc 32.3 g/dL (30.0-36.0); Mean Corpuscular Hemoglobin 29.3 pg (28.0-34.0); Mean Corpuscular Volume 90.9 fL (81-99); Monocytes # 0.2 10^3/uL (0.2-0.9); Monocytes % 1.8 %; Neutrophils % 90.4 %; Nucleated Red Blood Cells % 0 %; Platelet Count 144 10^3/cmm (130-400); Red Blood Count 3.51 10^6/uL (4.1-5.3); Red Cell Distribution Width 14.1 % (12.1-15.1); White Blood Count 10.5 10^3/uL (4.0-10.0)
[2020-06-18] MEDS: ibuprofen 800 mg tablet PO (06:25)
[2020-06-18] MEDS: metoclopramide 5 mg/mL SDV 2 mL 10 MG IVP (06:25)
[2020-06-18 06:45] LABS: Glucose Point of Care 170 mg/dL (70-110)
[2020-06-18 06:49] LABS: Estmated Average Glucose 183
[2020-06-18 08:00] VITALS: BP 109/64; PULSE 79; RESP 18; TEMP 37.6; O2SAT 95
[2020-06-18] MEDS: carvedilol 12.5 mg Tablet PO ×2 (09:38→17:40)
[2020-06-18] MEDS: duloxetine 60 mg Capsule PO (09:38)
[2020-06-18] MEDS: levothyroxine 125 mcg Tablet PO (09:38)
[2020-06-18] MEDS: aspirin 81 mg EC Tablet PO (09:38)
[2020-06-18] MEDS: enoxaparin 40 mg/0.4 mL Syringe SUBCUT (09:38)
--- NOTE | 2020-06-18 11:04 | P.DS_ITS ---
Discharge Providers Date of Admission: 06/17/20 19:04 Date of Discharge: June 18, 2020 Attending Provider at Admission: Abida Dolan MD Attending Provider at Discharge: Nathaniel Zazueta MD Primary Care Provider: Abilio Romero RN, SUPERVISOR TOY PARTS FORMER Diagnoses at Discharge Discharge Diagnosis (1) Type 1 diabetes: Status: Chronic (2) Viral URI: Status: Resolved (3) Diabetic ketoacidosis: Status: Resolved Qualifiers: Diabetes mellitus complication detail: without coma Diabetes mellitus type: type 1 Qualified Code(s): E10.10 - Type 1 diabetes mellitus with ketoacidosis without coma (4) COVID-19 determined by clinical diagnostic criteria: Status: Resolved Reason for Visit Reason for Visit: N/V Hospital Course Hospital Course: 69-year-old female with past medical history of hypertension, uncontrolled type 1 diabetes, atrial fibrillation(not on anticoagulation) , hypothyroidism, PVD, DVT, Covid pneumonia, was admitted with complaint of recurrent nausea and vomiting. She was diagnosed with DKA on arrival in the ER likely secondary to dexamethasone use upon discharge for Covid.She was managed as per DKA protocol. She had no symptoms of ongoing Covid pneumonia. Hence she is not being discharged on any steroid. She will continue to use the inhaler at home. Patient is being discharged in stable condition. Physical Exam Const: COMMON NORMALS: patient oriented x3 HENMT: COMMON NORMALS: normocephalic, atraumatic, hearing grossly normal bilaterally and external ears normal HEAD & SCALP: normocephalic and atraumatic EXTERNAL EAR: Yes external ears normal Eye: COMMON NORMALS: no scleral icterus GENERAL EYE: appearance normal, both eyes and all related structures Chest: COMMONS NORMALS: normal inspection of the chest and normal palpation of entire chest wall CHEST: Yes Symmetrical chest wall rise Resp: COMMON NORMALS: normal respiratory effort, No retractions, No use of accessory muscles and clear to auscultation bilaterally EFFORT & INSPECTION: Yes symmetric chest movement AUSCULTATION: clear to auscultation bilaterally Cardio: COMMON NORMALS: regular rate, regular rhythm, S1 normal heart sound present, S2 normal heart sound present, No gallops present (Cardio), No murmurs present (Cardio), No rub (Cardio) and Peripheral pulses 2+ throughout RATE: regular rate RHYTHM: regular rhythm HEART SOUNDS: S1 normal heart sound present and S2 normal heart sound present PERIPHERAL PULSES: Peripheral pulses 2+ throughout GI: COMMON NORMALS: Normal to inspection, nondistended, normoactive bowel sounds present, Soft to palpation, non-tender, No hepatosplenomegaly present and no masses AUSCULTATION: Yes normoactive bowel sounds PALPATION: Yes Soft to palpation and Yes No hepatosplenomegaly present RECTAL EXAM: deferred Extremity: COMMON NORMALS: no clubbing, cyanosis or edema and no pedal edema Neuro: COMMON NORMALS: patient oriented x3 Discharge Data Data Completed and Pending: Completed Studies During Hospitalization Category Date Time Status XR chest 1V yessi ble [id number] Urgent Exams 06/16/20 23:06 Completed Labs from last 24 hours 06/18/20 06/18/20 06/18/20 06:40 05:00 05:00 WBC 10.5 H RBC 3.51 L Hgb 10.3 L Hct 31.9 L MCV 90.9 MCH 29.3 MCHC 32.3 RDW 14.1 Plt Count 144 MPV 10.0 Neut % (Auto) 90.4 Lymph % (Auto) 7.2 [place] % (Auto) 1.8 Eos % (Auto) 0.0 Baso % (Auto) 0.1 Neut # (Auto) 9.50 H Lymph # (Auto) 0.8 [place] # (Auto) 0.2 Eos # (Auto) 0.0 Baso # (Auto) 0.0 Nucleated RBC % (a uto) 0 Nucleated RBCs # 0.0 POC Glucose 170 Estimat Average Gl ucose 183 Hemoglobin A1c 8.0 H 06/18/20 06/17/20 06/17/20 04:48 21:09 17:30 WBC RBC Hgb Hct MCV MCH MCHC RDW Plt Count MPV Neut % (Auto) Lymph % (Auto) [place] % (Auto) Eos % (Auto) Baso % (Auto) Neut # (Auto) Lymph # (Auto) [place] # (Auto) Eos # (Auto) Baso # (Auto) Nucleated RBC % (a uto) Nucleated RBCs # POC Glucose 163 312 117 Estimat Average Gl ucose Hemoglobin A1c 06/17/20 06/17/20 16:36 11:15 WBC RBC Hgb Hct MCV MCH MCHC RDW Plt Count MPV Neut % (Auto) Lymph % (Auto) [place] % (Auto) Eos % (Auto) Baso % (Auto) Neut # (Auto) Lymph # (Auto) [place] # (Auto) Eos # (Auto) Baso # (Auto) Nucleated RBC % (a uto) Nucleated RBCs # POC Glucose 56 206 Estimat Average Gl ucose Hemoglobin A1c Vitals: Last Vital Signs Temp 99.7 F H 06/18/20 08:00 Pulse 79 06/18/20 08:00 Resp 18 06/18/20 08:00 BP 109/64 06/18/20 08:00 Pulse Ox 95 06/18/20 08:00 Discharge Plan Discharge Patient Disposition: Home Condition: Stable Prescriptions: Continued nitroglycerin [Nitrostat] 0.4 mg tablet, sublingual 0.4 mg SUBLINGUAL Q5M PRNRF: 0 Novolin N NPH U-100 Insulin 100 unit/mL suspension See Rx Instructions SUBCUT DAILY RF: 0 aspirin [Aspir-81] 81 mg tablet,delayed release (DR/EC) 81 mg PO DAILY RF: 0 psyllium PO DAILY PRNRF: 0 furosemide 20 mg tablet 40 mg PO QAM PRNRF: 0 levothyroxine 175 mcg capsule 125 mcg PO DAILY RF: 0 sertraline 50 mg tablet 100 mg PO DAILY RF: 0 Tresiba FlexTouch U-100 100 unit/mL (3 mL) insulin pen 26 unit SUBCUT DAILY RF: 0 carvedilol 3.125 mg tablet 12.5 mg PO BID RF: 0 ondansetron HCl 4 mg tablet 4 mg PO Q8H RF: 0 duloxetine 60 mg capsule,delayed release(DR/EC) 60 mg PO DAILY RF: 0 Discontinued doxycycline hyclate 100 mg tablet,delayed release (DR/EC) 200 mg PO DAILY RF: 0 Discharge Orders: Discharge Order (Routine); Ordered 06/19/20 Ordered By: Nathaniel Zazueta Referrals: Abilio Romero RN, SUPERVISOR TOY PARTS FORMER [Primary Care Provider] - 2 weeks (follow up with Dr Karl Romero on WednesdayJuly 05 at 10:45) Discharge Diet: Diabetic Discharge Activity: Resume usual activity Patient Instructions: Type 2 Diabetes, Diabetic Ketoacidosis (GEN), Meal Planning with Diabetes Exchanges (GEN) Discharge Attestations Time Spent in Discharge Care*: greater than 30 min Specific Discharge Activities: Specific discharge activities: educating patient, educating and/or supporting family/caregiver, discussing with upper caser/social workers/dc planners, documenting/other paperwork and evaluating patient/reviewing data Status at Discharge: Cognitive status at discharge: cognitively intact , Behavioral status at discharge: cooperative , Functional status at discharge: independent ambulation Overall status at discharge: patient is back to baseline Quality Metrics Clinical Quality Measures During this hospital stay, did patient experience: None Coding Level of Care Code Acute Stonecutter Apprentice Hand for g Fwd Diagnoses Type 1 diabetes E10.9 Viral URI J06.9 Diabetic ketoacidosis E10.10 Diabetes mellitus complication detail: without coma Diabetes mellitus type: type 1 COVID-19 determined by clinical diagnostic criteria U07.1
[2020-06-18 11:10] LABS: Glucose Point of Care 407 mg/dL (70-110)
[2020-06-18 11:13] VITALS: BP 111/67; PULSE 77; RESP 18; TEMP 37.3; O2SAT 96
[2020-06-18 15:56] VITALS: BP 109/62; PULSE 77; RESP 17; TEMP 37.2; O2SAT 95
[2020-06-18 17:52] LABS: Glucose Point of Care 147 mg/dL (70-110)
[2020-06-18] MEDS: dextrose 5%-sod chloride 0.45% 1,000 ML 50 ML IV (17:56)
--- NOTE | 2020-06-18 19:04 | P.PN_ITS ---
Subjective Subjective: Interval history: Patient was not complaining of any nausea vomiting this morning. She has started tolerating diet we will advance the diet as tolerated. Vitals and labs have been reviewed. Medications: Reviewed: Yes Vitals/I&O/Wt Last Vital Signs Temp 99.0 F 06/18/20 15:56 Pulse 77 06/18/20 15:56 Resp 17 06/18/20 15:56 BP 109/62 06/18/20 15:56 Pulse Ox 95 06/18/20 15:56 06/18/20 06/18/20 06/18/20 06:59 14:59 22:59 Intake Total 540 / 540 967.5 / 1507.5 Output Total 1500 / 2300 Balance -1500 / -2300 540 / 540 967.5 / 1507.5 Weight last 48 hrs Weight 71.668 kg Physical Exam 2 Const: COMMON NORMALS: patient oriented x3 HENMT: COMMON NORMALS: normocephalic, atraumatic, hearing grossly normal bilaterally and external ears normal HEAD & SCALP: normocephalic and atraumatic EXTERNAL EAR: Yes external ears normal Eye: COMMON NORMALS: no scleral icterus GENERAL EYE: appearance normal, both eyes and all related structures Chest: COMMONS NORMALS: normal inspection of the chest and normal palpation of entire chest wall CHEST: Yes Symmetrical chest wall rise Resp: COMMON NORMALS: normal respiratory effort, No retractions, No use of accessory muscles and clear to auscultation bilaterally EFFORT & INSPECTION: Yes symmetric chest movement AUSCULTATION: clear to auscultation bilaterally Cardio: COMMON NORMALS: regular rate, regular rhythm, S1 normal heart sound present, S2 normal heart sound present, No gallops present (Cardio), No murmurs present (Cardio), No rub (Cardio) and Peripheral pulses 2+ throughout RATE: regular rate RHYTHM: regular rhythm HEART SOUNDS: S1 normal heart sound present and S2 normal heart sound present PERIPHERAL PULSES: Peripheral pulses 2+ throughout GI: COMMON NORMALS: Normal to inspection, nondistended, normoactive bowel s ounds present, Soft to palpation, non-tender, No hepatosplenomegaly present and no masses AUSCULTATION: Yes normoactive bowel sounds PALPATION: Yes Soft to palpation and Yes No hepatosplenomegaly present RECTAL EXAM: deferred Extremity: COMMON NORMALS: no clubbing, cyanosis or edema and no pedal edema Neuro: COMMON NORMALS: patient oriented x3 Data : 06/18/20 05:00 06/17/20 03:33 A&P Assessment and plan (1) Type 1 diabetes: Status: Acute (2) Viral URI: Status: Acute (3) Diabetic ketoacidosis: Status: Acute Qualifiers: Diabetes mellitus complication detail: without coma Diabetes mellitus type: type 1 Qualified Code(s): E10.10 - Type 1 diabetes mellitus with ketoacidosis without coma (4) COVID-19 determined by clinical diagnostic criteria: Status: Acute Additional A&P Information DKA secondary to Decadron use: Resolved: Insulin drip has been discontinued: Currently on medium dose sliding scale insulin. Check A1c :8 No chest pain dysuria or abdominal pain insulin pump is working: She has cartridge at home. Positive COVID-19 antigen Rapid Covid test: Is positive Status post steroid regimen at home Currently saturating well on room air. No need to start steroids. Paroxysmal A. fib without anticoagulation Patient has refused anticoagulant usage has seen Dr. Quintanilla and Dr. Carrasquillo this year Currently heart rate 70, variable, continue AV cliff blocking agent Full code DVT prophylaxis Lovenox Attestations Medical Necessity Statement*: Patient needs to be in hospital for management of uncontrolled diabetes. Coding Level of Care Code Acute Stripping Machine Operator for [facility] Diagnoses Type 1 diabetes E10.9 Viral URI J06.9 Diabetic ketoacidosis E10.10 Diabetes mellitus complication detail: without coma Diabetes mellitus type: type 1 COVID-19 determined by clinical diagnostic criteria U07.1
[2020-06-18 19:29] VITALS: BP 96/60; PULSE 76; RESP 17; TEMP 37; O2SAT 94
[2020-06-18 21:21] LABS: Glucose Point of Care 126 mg/dL (70-110)
[2020-06-19] VITALS: BP 129/70; PULSE 76; RESP 16; TEMP 37.1; O2SAT 93
[2020-06-19] MEDS: acetaminophen-codeine 300-30mg Tablet 1 TAB PO (01:55)
[2020-06-19 04:00] VITALS: BP 143/79; PULSE 77; RESP 18; TEMP 36.9; O2SAT 90
[2020-06-19 06:41] LABS: Glucose Point of Care 480 mg/dL (70-110)
[2020-06-19 08:00] VITALS: BP 147/82; PULSE 81; RESP 18; TEMP 37.2; O2SAT 91
[2020-06-19] MEDS: carvedilol 12.5 mg Tablet PO (08:32)
[2020-06-19] MEDS: aspirin 81 mg EC Tablet PO (08:32)
[2020-06-19] MEDS: duloxetine 60 mg Capsule PO (08:32)
[2020-06-19] MEDS: levothyroxine 125 mcg Tablet PO (08:32)
[2020-06-19] MEDS: enoxaparin 40 mg/0.4 mL Syringe SUBCUT (08:32)
[2020-06-19 10:19] VITALS: BP 147/82; PULSE 81; RESP 18; TEMP 37.2; O2SAT 91
[2020-06-19 11:40] VITALS: BP 136/74; PULSE 77; RESP 18; TEMP 37.1; O2SAT 93
== END 2020-06-19 12:43 | disposition home or self-care (01) | DRG 637 ==
LOC: ER 06-17 01:26 → MEDSURG 06-17 08:00
PROVIDERS: Admitting Provider Internal Medicine; Emergency Provider Emergency Medicine; PCP Nurse Practitioner Family; Visit Provider Internal Medicine
DX: E10.10 Type 1 diabetes mellitus with ketoacidosis without coma (principal); U07.1 COVID-19; J12.89 Other viral pneumonia; I10 Essential (primary) hypertension; I48.91 Unspecified atrial fibrillation; E03.9 Hypothyroidism, unspecified; Z86.718 Personal history of other venous thrombosis and embolism; Z79.82 Long term (current) use of aspirin
CPT/HCPCS: 12345; 36415; 36416; 36600; 71045; 80048; 80053; 81003; 82009; 82803; 82962; 83036; 83605; 83690; 83735; 84145; 85025; 86140; 87426; 96372; 96375; 99284; G0378; J1650; J1815; J2270; J2405; J2765; J7030; J7050; J7799

== ENCOUNTER 2020-06-22 22:20 | Inpatient (IN) | payer MEDICARE, OTHER, SELFPAY ==
[2020-06-22 22:32] VITALS: BP 112/66; PULSE 93; RESP 16; TEMP 36.7; O2SAT 97; BMI 22.4
--- NOTE | 2020-06-22 22:40 | XRR_ITS ---
PROCEDURE INFORMATION: Exam: XR Chest, 1 View Exam date and time: 06/22/2020 10:43 PM Age: 69 years old Clinical indication: Other: Weakness TECHNIQUE: Imaging protocol: XR of the chest Views: 1 view. COMPARISON: CR XR chest 1V portable [id number] 06/16/2020 11:26 PM FINDINGS: Lungs: Unremarkable. No consolidation. Pleural space: Unremarkable. No pleural effusion. No pneumothorax. Heart/Mediastinum: Unremarkable. No cardiomegaly. Bones/joints: Unremarkable. XR/XR chest 1V portable [id number] IMPRESSION: No acute findings.
[2020-06-22 22:41] LABS: Glucose Point of Care 589 mg/dL (70-110)
--- NOTE | 2020-06-22 22:41 | ECG_ITS ---
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 Measurements Intervals [place] Rate: 94 P: 76 OH: 148 QRS: 85 QRSD: 90 T: 53 QT: 370 QTc: 463 Interpretive Statements SINUS RHYTHM ST DEVIATION AND MODERATE T-WAVE ABNORMALITY, CONSIDER INFERIOR ISCHEMIA [-0.1+ mV T WAVE IN II/aVF] Compared to ECG 10/10/2019 19:02:20 T-wave abnormality now present Possible ischemia now present Short OH interval no longer present Electronically Signed On 06-23-2020 14:26:40 CDT by Sandee Mark M.D. [id number]
[2020-06-22] MEDS: ondansetron 2 mg/ML SDV 2 mL 4 MG IM (22:50)
[2020-06-22] MEDS: insulin regular-human 100 units/1 mL 12 UNIT IVP (22:51)
[2020-06-22 22:58] VITALS: BP 112/66; PULSE 97; RESP 16; O2SAT 96
[2020-06-22 23:05] LABS: Basophils % 0.2 %; Hematocrit 40.1 % (37.0-47.0); Hemoglobin 11.8 g/dL (11.5-15.3); Lymphocytes # 0.5 10^3/uL (0.8-4.8); Lymphocytes % 4.5 %; Mean Corpuscular HGB Conc 29.4 g/dL (30.0-36.0); Mean Corpuscular Hemoglobin 28.9 pg (28.0-34.0); Monocytes # 0.2 10^3/uL (0.2-0.9); Monocytes % 1.8 %; Neutrophils # 10.61 10^3/uL (1.8-7.7); Neutrophils % 92.9 %; Nucleated Red Blood Cells % 0 %; Platelet Count 262 10^3/cmm (130-400); Red Blood Count 4.09 10^6/uL (4.1-5.3); Red Cell Distribution Width 14.7 % (12.1-15.1); White Blood Count 11.4 10^3/uL (4.0-10.0)
[2020-06-22] MEDS: sodium chloride 0.9% 1,000 ML 999 ML IV (23:07)
[2020-06-22 23:30] LABS: Ketone (Acetest) Serum Positive (Negative)
[2020-06-22 23:41] LABS: ABG PCO2 32.1 mmHg (35-45); Arterial Blood Gas Hematocrit 39.7 % (37-47); Base Excess ABG -16.8 mmol/L (-2.0-2.0); Blood Gas Sample Type Arterial; PO2 ABG 81.1 mmHg (80.0-100.0)
[2020-06-22 23:42] LABS: Alanine Aminotransferase 12 U/L (0-33); Albumin Level 3.5 g/dL (3.5-5.2); Alkaline Phosphatase 82 IU/L (35-105); Anion Gap 35.4 (5-19); Aspartate Amino Transferase 14 U/L (0-32); Blood Urea Nitrogen 32 mg/dL (8-23); Carbon Dioxide 14 mmol/L (22-29); Chloride 101 mmol/L (98-107); Globulin 3.2 g/dL (1.3-4.6); Glomerular Filtration Rate 40.7 mL/min (90-130); Magnesium 2.2 mg/dL (1.7-2.3); Osmolality Calculated 341 mOsm/kg (285-295); Potassium 5.4 mmol/L (3.5-5.1); Sodium 145 mmol/L (136-145); Total Bilirubin 0.2 mg/dL (0.15-1.2); Total Protein 6.7 g/dL (6.6-8.7)
[2020-06-22 23:42] LABS: Blood Gas Sample Site Brachial, left; Fractionated Inspired Oxygen 0.2 %; Oxygen Device ROOM AIR
[2020-06-22 23:43] LABS: ABG PH Result 7.14 (7.35-7.45)
[2020-06-22 23:44] LABS: Glucose 709 mg/dL (65-115)
--- NOTE | 2020-06-22 23:55 | PM.HP ---
Providers/Chief Complaint Primary Care Provider: Abilio Romero RN, RESIDENTIAL SPECIALIST Chief Complaint: WEAKNESS History of Present Illness Kaylee Cardoso is a 69 year old female with a history of type 1 diabetes, currently on insulin pump was recently discharged from the hospital after management of DKA, she was tested positive for COVID-19 on 06/06 and again on 19 s/pdexamethasone, at the time of discharge she was given instructions to continue Tresiba(26 units) along her short acting insulin pump came back today for worsening lethargy, fatigue and diarrhea. Patient is very lethargic and fatigued, sister is at the bedside who is endorsing that she has been having diarrhea since her discharge from the hospital, she is not sure whether her insulin pump is working correctly at this time, she has not followed up with psychologists yet, patient is stating that she has not noticed any fever, she experienced 1 episode of emesis today, she has been having 2-3 loose stools every day, she is denying dysuria, chest pain, shortness of breath, endorsing headache. Her sugar has been fluctuating between low was 57 to high as 400s, mostly in the morning her blood sugar was staying 50s and then run high all day. Diagnosis in the ER revealed normal hemodynamics, she is afebrile, mild leukocytosis, Covid antigen positive, DKA, on arrival blood sugar 709, after fluid resuscitation at the time of evaluation blood sugar 253, we just started insulin drip, Review of Systems Const: Reports: chills, body aches, change in appetite, fatigue and malaise; Denies: fever(s) Eyes: Denies: change in vision ENMT: Denies: throat pain Card: Denies: chest pain, swelling of feet/ankles or orthopnea Resp: Denies: dyspnea GI: Reports: abdominal pain, nausea, vomiting and diarrhea; Denies: constipation : Denies: flank pain, dysuria, urinary urgency or urinary hesitancy Musc: Denies: neck pain Skin/Breast: Denies: rash Neuro: Reports: headache(s); Denies: confusion Psych: Reports: sleeping more Endo: Denies: polyuria Jose M/Lymph: Denies: easy bruising All/Imm: Denies: urticaria Medications/Allergies Home Medications Medication Instructions Recorded Confirmed Last Taken Type aspirin 81 mg tablet,delayed 81 mg PO DAILY 10/24/19 06/17/20 06/16/20 History release insulin NPH isoph U-100 human 100 See Rx Instructions SUBCUT DAILY 10/24/19 05/27/20 Unknown History unit/mL subcutaneous suspension nitroglycerin 0.4 mg sublingual 0.4 mg SUBLINGUAL Q5M PRN 10/24/19 05/27/20 Unknown History tablet psyllium PO DAILY PRN 10/24/19 05/27/20 Unknown History insulin degludec 100 unit/mL (3 26 unit SUBCUT DAILY ml 10/26/19 05/27/20 Unknown History mL) subcutaneous pen carvedilol 3.125 mg tablet 12.5 mg PO BID tab 05/27/20 05/27/20 Unknown History duloxetine 60 mg capsule,delayed 60 mg PO DAILY 05/27/20 05/27/20 Unknown History release furosemide 20 mg tablet 40 mg PO QAM PRN tab 05/27/20 05/27/20 Unknown History levothyroxine 175 mcg capsule 125 mcg PO DAILY cap 05/27/20 05/27/20 Unknown History ondansetron HCl 4 mg tablet 4 mg PO Q8H 05/27/20 05/27/20 Unknown History sertraline 50 mg tablet 100 mg PO DAILY tab 05/27/20 05/27/20 Unknown History Allergies Allergy/AdvReac Type Severity Reaction Status Date / Time diphenhydramine Allergy ADR-Muscle Verified 06/22/20 22:37 [From Benadryl] Pain Penicillins Allergy ALGY-Anaphy Verified 06/22/20 22:37 laxis Tetanus Vaccines and Toxoid Allergy ALGY-Rash Verified 06/22/20 22:37 trazodone Allergy ALGY-Joint Verified 06/22/20 22:37 Pain zolpidem [From Ambien] Allergy Unconscious Verified 06/22/20 22:37 PFSH Acute PFSH: Medical History Atrial fibrillation COVID-19 determined by clinical diagnostic criteria Diabetic ketoacidosis DVT (deep venous thrombosis) Dyslipidemia HTN (hypertension) Hypothyroidism Mild cognitive impairment Mitral regurgitation Peripheral vascular disease Scleroderma Type 1 diabetes Viral URI Surgical History H/O cardiac catheterization 2015, moderate disease no flow-limiting H/O dilation and curettage Status post endovenous radiofrequency ablation of saphenous vein Family History Father CAD (coronary artery disease) Mother Hypertension CAD (coronary artery disease) Hyperlipidemia Sister Hypertension Diabetes Grandfather CAD (coronary artery disease) PATERNAL Social History Smoking and tobacco status: never smoked Alcohol intake: never Lives independently: Yes Housing: House Vitals/I&O/Wt Last Vital Signs Temp 98.0 F 06/22/20 22:32 Pulse 97 06/22/20 22:58 Resp 16 06/22/20 22:58 BP 112/66 06/22/20 22:58 Pulse Ox 96 06/22/20 22:58 06/22/20 06/22/20 06/23/20 14:59 22:59 06:59 Intake Total 1000 / 1000 Balance 1000 / 1000 Weight last 48 hrs Weight 61.235 kg Physical Exam Narrative: EXAM NARRATIVE: Very lethargic and fatigued middle-aged female lying comfortably in her bed Saturating well on room air Normal hemodynamics She is afebrile No acute respiratory distress Looks mildly dehydrated Variable S1-S2 no tachyarrhythmia EOMI, PERRLA She appears lethargic however response to verbal commands appropriately, oriented times place person No meningeal signs Facial rash has improved from last admission, Lower extremity no edema gangrene or ulcer Abdomen soft, I have asked to turn off her insulin pump, mild left lower quadrant tenderness on deep palpation Data : 06/22/20 22:55 06/22/20 22:55 A&P Assessment and plan (1) DKA, type 1: Status: Acute (2) Hypothyroidism: Status: Acute (3) Hyperkalemia: Status: Acute (4) OPAL (acute kidney injury): Status: Acute (5) Dehydration: Status: Acute Additional A&P Information DKA Patient is type I diabetic Second admission in last 2 weeks I do suspect insulin pump malfunctioning at this point, patient is endorsing labile blood sugar lowest 57, highest 400mg/dl She has not been using long-acting insulin at all Mild leukocytosis no signs of sepsis, with diarrhea I would obtain CT abdomen pelvis without contrast to rule out gastroenteritis, will check C. difficile panel No active chest pain, check troponin No symptoms of UTI Would recommend endocrinology consult Hyperkalemia with OPAL Most likely cause is dehydration due to diarrhea N.p.o. Continue fluid resuscitation for now Obtain UA Dehydration secondary to diarrhea Anticipating improvement with fluid resuscitation Full code DVT prophylaxis Heparin N.p.o. A. fib without RVR: Patient has refused anticoagulant agents, would continue AV cliff blocking agent once she is able to tolerate diet Hypothyroidism: Continue levothyroxine dose once she is able to tolerate p.o. diet, TSH normal check 05/09 Attestations Medical Necessity Statement*: Anticipating stay in the hospital cross more than 2 midnights continued management for DKA, Covid antigen positive, OPAL, Time Spent in Patient Care: (>than 50% of time spent in counselling and/or direct pt care on unit). 50mins Coding Level of Care Code Acute Stoker Installation Mechanic for Chg Fwd Diagnoses DKA, type 1 E10.10 Hypothyroidism E03.9 Hyperkalemia E87.5 OPAL (acute kidney injury) N17.9 Dehydration E86.0
[2020-06-23] VITALS (60 sets, daily range): BP systolic 93–144; BP diastolic 55–87; PULSE 83–111; RESP 0–143; TEMP 36.3–37.3; O2SAT 79–98
[2020-06-23] MEDS: sodium chloride 0.9% 1,000 ML 999 ML IV (00:10)
[2020-06-23 00:11] LABS: Glucose Point of Care 497 mg/dL (70-110)
[2020-06-23] MEDS: insulin regular-human 250 UNIT in sodium chloride 0.9% 250 ML 10 UNIT IV (00:48)
[2020-06-23 00:50] LABS: SARS Covid-2 Antigen Positive (Negative)
--- NOTE | 2020-06-23 00:56 | PC.NURSE ---
0050 FSBS 483 mg/dl Insulin drip started at 10/hr Dr Zazueta in room patients confusion persists
--- NOTE | 2020-06-23 01:28 | PC.NURSE ---
FSBS 340mg/dl
[2020-06-23 01:29] LABS: Glucose Point of Care 340 mg/dL (70-110)
--- NOTE | 2020-06-23 01:54 | ED_ITS ---
HPI - General Adult General: Chief complaint: General Medical Stated complaint: WEAKNESS Time Seen by Provider: 06/22/20 22:40 History of Present Illness: HPI narrative: 69-year-old diabetic female presenting with generalized weakness and lethargy as well as multiple episodes of vomiting today. He was admitted last week for diabetic ketoacidosis. She has felt weak since her discharge, but got much worse today. No fever. She is not had overt shortness of breath. She tested positive for COVID-19 on 06/06, but does not carry any evidence of active virulence or infection now. Onset (ago): day(s) Location: back and abdomen Radiation: non-radiation Quality: other Relieving factors: none Exacerbating factors: none Associated symptoms: Reports confusion, decreased appetite, nausea and vomiting; Deny chest pain, cough, dyspnea, fevers/chills, headache(s), rash or palpitations Review of Systems Const: Denies: fever(s) or chills Eyes: Denies: change in vision ENMT: Denies: odynophagia, swelling of lips/tongue, post nasal drip or sinus pain Card: Denies: chest pain, palpitations, irregular heart rhythm or dyspnea on exertion Resp: Denies: dyspnea GI: Reports: nausea and vomiting : Reports: urinary frequency; Denies: dysuria or hematuria Musc: Reports: back pain; Denies: neck pain Skin/Breast: Denies: rash or erythema Neuro: Reports: dizziness and confusion; Denies: headache(s), vertigo or seizure-like activity Psych: Denies: anxiety PFS ED PFSH: Medical History (Updated 06/23/20 @ 01:59 by Aaron Garcia DO) Atrial fibrillation Patient refused anticoagulant agents in the past currently following up with heart care service COVID-19 determined by clinical diagnostic criteria Diabetic ketoacidosis DVT (deep venous thrombosis) Dyslipidemia HTN (hypertension) Hypothyroidism Mild cognitive impairment Mitral regurgitation Peripheral vascular disease Scleroderma Type 1 diabetes Viral URI Surgical History H/O cardiac catheterization 2014, moderate disease no flow-limiting H/O dilation and curettage Status post endovenous radiofrequency ablation of saphenous vein Family History Father CAD (coronary artery disease) Mother Hypertension CAD (coronary artery disease) Hyperlipidemia Sister Hypertension Diabetes Grandfather CAD (coronary artery disease) PATERNAL Social History Smoking and tobacco status: never smoked Alcohol intake: never Lives independently: Yes Housing: House Physical Exam Const: GENERAL APPEARANCE: lethargic and ill appearing ORIENTATION/CONSCIOUSNESS: Yes oriented to person, Yes oriented to place, Yes oriented to time and Yes lethargic HENMT: COMMON NORMALS: normocephalic, external ears normal and Normal external nose present HEAD & SCALP: normocephalic FACE & SINUS: normal facial exam NOSE: Normal external nose present and No nasal discharge present EXTERNAL EAR: Yes external ears normal Eye: COMMON NORMALS: Equal, round and reactive pupils present, EOMs intact bilaterally and conjunctivae normal EYELID: eyelids normal CONJUNCTIVA: Yes conjunctivae normal PUPIL: Yes Equal, round and reactive pupils present Neck/C-Spine: GENERAL: No tracheal deviation CERVICAL SPINE: Yes normal cervical lordosis and No Cervical spine tenderness Chest: COMMONS NORMALS: normal inspection of the chest CHEST: No tenderness Resp: COMMON NORMALS: clear to auscultation bilaterally EFFORT & INSPECTION : Yes tachypneic, No respiratory distress, No retractions, No uses accessory muscles and No tracheal deviation AUSCULTATION: clear to auscultation bilaterally, no rhonchi, no wheezes and lung sounds not diminished Cardio: COMMON NORMALS: regular rate and regular rhythm RATE: regular rate RHYTHM: regular rhythm HEART SOUNDS: no murmurs PERIPHERAL PULSES: radial pulses present GI: INSPECTION: No abdominal distension AUSCULTATION: No Hyperactive bowel sounds present and No Hypoactive bowel sounds present PALPATION: No Guarding due to palpation present (GI) and No Rigid due to palpation PERCUSSION: no dullness to percussion and no tympanic to percussion Neuro: SENSORIUM/ORIENTATION: Yes oriented to person, Yes oriented to place, Yes oriented to time and Yes lethargic Psych: COMMON NORMALS: mental status grossly normal Skin: COMMON NORMALS: no rashes or lesions noted GENERAL SKIN EXAM: no rashes or lesions noted Course Vital Signs: Vital signs: Vital Signs Temperature 99.1 F 06/23/20 01:37 Pulse Rate 96 06/23/20 01:37 Respiratory Rate 143 H 06/23/20 01:37 Blood Pressure 93/55 06/23/20 01:37 Pulse Oximetry 92 06/23/20 01:37 MDM - General Adult MDM Narrative: Medical decision making narrative: pH 7.14. Serum ketones are positive. Her blood sugars in the 700s. Her bicarbonate level is low. She is obviously in DKA again. She was given 12 units of IV insulin, 2 L of fluid, and started on insulin drip in an attempt to close her gap. She will go to the ICU. Lab Data: Labs: Lab Results 06/22/20 06/22/20 06/22/20 Range/Units 22:31 22:55 22:55 WBC 11.4 H (4.0-10.0) 10^3/ uL RBC 4.09 L (4.1-5.3) 10^6/u L Hgb 11.8 (11.5-15.3) g/dL Hct 40.1 (37.0-47.0) % MCV 98.0 (81-99) fL MCH 28.9 (28.0-34.0) pg MCHC 29.4 L (30.0-36.0) g/dL RDW 14.7 (12.1-15.1) % Plt Count 262 (130-400) 10^3/c mm MPV 10.0 (7.4-10.4) fL Neut % (Auto) 92.9 % Lymph % (Auto) 4.5 % Craig % (Auto) 1.8 % Eos % (Auto) 0.0 % Baso % (Auto) 0.2 % Neut # (Auto) 10.61 H (1.8-7.7) 10^3/u L Lymph # (Auto) 0.5 L (0.8-4.8) 10^3/u L Craig # (Auto) 0.2 (0.2-0.9) 10^3/u L Eos # (Auto) 0.0 (0.0-0.8) 10^3/u L Baso # (Auto) 0.0 (0.0-0.1) 10^3/u L Nucleated RBC % (a uto) 0 % Nucleated RBCs # 0.0 /100WBC Specimen Type Sample Site ABG pH (7.35-7.45) ABG pCO2 (35-45) mmHg ABG pO2 (80.0-100.0) mmH g ABG HCO3 (22-26) mmol/L ABG Base Excess (-2.0-2.0) mmol/ L Stephen Test Hematocrit (37-47) % O2 Delivery Device FiO2 % Extrusion Operator ID Sodium 145 (136-145) mmol/L Potassium 5.4 H (3.5-5.1) mmol/L Chloride 101 (98-107) mmol/L Carbon Dioxide 14 L (22-29) mmol/L Anion Gap 35.4 H (5-19) BUN 32 H (8-23) mg/dL Creatinine 1.3 H (0.5-0.9) mg/dL GFR Calculation 40.7 L (90-130) mL/min Glucose 709 H* (65-115) mg/dL POC Glucose 589 (70-110) mg/dL Calculated Osmolal ity 341 H (285-295) mOsm/k g Calcium 10.0 (8.5-10.5) mg/dL Phosphorus 6.0 H (2.5-4.5) mg/dL Magnesium 2.2 (1.7-2.3) mg/dL Total Bilirubin 0.2 (0.15-1.2) mg/dL AST 14 (0-32) U/L ALT 12 (0-33) U/L Alkaline Phosphata se 82 (35-105) IU/L Total Protein 6.7 (6.6-8.7) g/dL Albumin 3.5 (3.5-5.2) g/dL Globulin 3.2 (1.3-4.6) g/dL Serum Ketones Positive H (Negative) 06/22/20 06/23/20 Range/Units 23:30 00:07 WBC (4.0-10.0) 10^3/ uL RBC (4.1-5.3) 10^6/u L Hgb (11.5-15.3) g/dL Hct (37.0-47.0) % MCV (81-99) fL MCH (28.0-34.0) pg MCHC (30.0-36.0) g/dL RDW (12.1-15.1) % Plt Count (130-400) 10^3/c mm MPV (7.4-10.4) fL Neut % (Auto) % Lymph % (Auto) % Craig % (Auto) % Eos % (Auto) % Baso % (Auto) % Neut # (Auto) (1.8-7.7) 10^3/u L Lymph # (Auto) (0.8-4.8) 10^3/u L Craig # (Auto) (0.2-0.9) 10^3/u L Eos # (Auto) (0.0-0.8) 10^3/u L Baso # (Auto) (0.0-0.1) 10^3/u L Nucleated RBC % (a uto) % Nucleated RBCs # /100WBC Specimen Type Arterial Sample Site Brachial, left ABG pH 7.14 L* (7.35-7.45) ABG pCO2 32.1 L (35-45) mmHg ABG pO2 81.1 (80.0-100.0) mmH g ABG HCO3 11.0 L (22-26) mmol/L ABG Base Excess -16.8 L (-2.0-2.0) mmol/ L Stephen Test N/a Hematocrit 39.7 (37-47) % O2 Delivery Device Room air FiO2 0.2 % Extrusion Operator ID [email or web address] Sodium (136-145) mmol/L Potassium (3.5-5.1) mmol/L Chloride (98-107) mmol/L Carbon Dioxide (22-29) mmol/L Anion Gap (5-19) BUN (8-23) mg/dL Creatinine (0.5-0.9) mg/dL GFR Calculation (90-130) mL/min Glucose (65-115) mg/dL POC Glucose 497 (70-110) mg/dL Calculated Osmolal ity (285-295) mOsm/k g Calcium (8.5-10.5) mg/dL Phosphorus (2.5-4.5) mg/dL Magnesium (1.7-2.3) mg/dL Total Bilirubin (0.15-1.2) mg/dL AST (0-32) U/L ALT (0-33) U/L Alkaline Phosphata se (35-105) IU/L Total Protein (6.6-8.7) g/dL Albumin (3.5-5.2) g/dL Globulin (1.3-4.6) g/dL Serum Ketones (Negative) Discharge Plan Discharge Patient Disposition: Admitted As Inpatient Admit Provider: Abida Dolan Clinical Impression: DKA, type 1 Qualifiers: Diabetes mellitus complication detail: without coma Qualified Code(s): E10.10 - Type 1 diabetes mellitus with ketoacidosis without coma Condition: Stable Interventions: ED Discharge Assessment Last Done: 06/23/20 01:37 ED Charges Last Done: 06/23/20 01:37 Coding Level of Care Code ED Dock Boss for Chg Fwd Exam Comprehensive
[2020-06-23] MEDS: sodium chloride 0.9% 1,000 ML 100 ML IV (03:08)
[2020-06-23] MEDS: heparin 5,000 unit/mL INJ 1 mL 5000 UNIT SUBCUT ×3 (03:08→17:50)
[2020-06-23 03:19] LABS: Glucose Point of Care 272 mg/dL (70-110)
[2020-06-23] MEDS: dextrose 5%-sod chloride 0.45% 1,000 ML 100 ML IV (03:55)
[2020-06-23 04:09] LABS: Glucose Point of Care 237 mg/dL (70-110)
[2020-06-23 04:09] LABS: Add Urine Microscopic? NO
[2020-06-23 04:25] LABS: Bilirubin Urine Neg (Negative); Blood Urine Neg (Negative); Glucose Urine UA 4+ (Normal); Ketones Urine 3+ (Negative); Leukocyte Esterase Urine Negative (Negative); Nitrate Urine Negative (Negative); Protein Urine Neg (Negative); Urine Appearance Clear (CLEAR); Urine Color Yellow (Yellow); Urobilinogen Urine Norm (Negative); pH Urine 5 (5-7)
[2020-06-23 05:08] LABS: Basophils % 0.2 %; Hematocrit 35.8 % (37.0-47.0); Hemoglobin 11.6 g/dL (11.5-15.3); Lymphocytes # 0.7 10^3/uL (0.8-4.8); Mean Corpuscular HGB Conc 32.4 g/dL (30.0-36.0); Mean Corpuscular Hemoglobin 29.1 pg (28.0-34.0); Mean Corpuscular Volume 89.7 fL (81-99); Mean Platelet Volume 9.6 fL (7.4-10.4); Monocytes # 0.7 10^3/uL (0.2-0.9); Monocytes % 5.7 %; Neutrophils # 10.66 10^3/uL (1.8-7.7); Neutrophils % 87.4 %; Nucleated Red Blood Cells % 0 %; Platelet Count 238 10^3/cmm (130-400); Red Blood Count 3.99 10^6/uL (4.1-5.3); Red Cell Distribution Width 14.6 % (12.1-15.1); White Blood Count 12.2 10^3/uL (4.0-10.0)
[2020-06-23 05:41] LABS: Anion Gap 21.8 (5-19); Blood Urea Nitrogen 25 mg/dL (8-23); Calcium 9.3 mg/dL (8.5-10.5); Carbon Dioxide 19 mmol/L (22-29); Chloride 113 mmol/L (98-107); Glomerular Filtration Rate 55.1 mL/min (90-130); Glucose 229 mg/dL (65-115); Osmolality Calculated 322 mOsm/kg (285-295); Potassium 3.8 mmol/L (3.5-5.1); Sodium 150 mmol/L (136-145)
[2020-06-23 05:45] LABS: Glucose Point of Care 181 mg/dL (70-110)
[2020-06-23] MEDS: potassium chloride premix 100 ML 25 MEQ IV (06:30)
[2020-06-23 06:47] LABS: Glucose Point of Care 160 mg/dL (70-110)
[2020-06-23 08:10] LABS: Glucose Point of Care 140 mg/dL (70-110)
[2020-06-23] MEDS: insulin glargine 100 units/1 mL 20 UNIT SUBCUT ×2 (08:15→22:12)
[2020-06-23 09:03] LABS: Glucose Point of Care 85 mg/dL (70-110)
[2020-06-23 11:00] LABS: Blood Urea Nitrogen 24 mg/dL (8-23); Calcium 8.7 mg/dL (8.5-10.5); Carbon Dioxide 22 mmol/L (22-29); Chloride 113 mmol/L (98-107); Glomerular Filtration Rate 83.2 mL/min (90-130); Glucose 125 mg/dL (65-115); Osmolality Calculated 310 mOsm/kg (285-295); Sodium 147 mmol/L (136-145)
[2020-06-23 11:54] LABS: Glucose Point of Care 158 mg/dL (70-110)
[2020-06-23 16:37] LABS: Glucose Point of Care 216 mg/dL (70-110)
[2020-06-23] MEDS: sodium chloride 0.9% 500 ML 250 ML IV (18:29)
--- NOTE | 2020-06-23 18:45 | PC.NURSE ---
Received report on patient from Carmine FOUNTAIN. Assumed care at this time.
[2020-06-23 20:42] LABS: Glucose Point of Care 148 mg/dL (70-110)
--- NOTE | 2020-06-23 21:44 | PM.PN ---
Subjective Subjective: Interval history: Complaining of back pain.AG has closed she has been transitioned to long and short acting insulin.Insulin Drip is off. Has no nausea,vomiting,is tolerating diet well. Vitals and labs have been reviewed Medications: Reviewed: Yes Vitals/I&O/Wt Last Vital Signs Temp 97.5 F L 06/23/20 16:00 Pulse 102 H 06/23/20 18:00 Resp 18 06/23/20 18:00 BP 144/87 06/23/20 18:00 Pulse Ox 93 06/23/20 18:00 06/23/20 06/23/20 06/23/20 06:59 14:59 22:59 Intake Total 1022.333 / 6959.951 9457.000 / 1444.000 250 / 1694.000 Output Total 150 / 150 0 / 0 0 / 0 Balance 872.333 / 807.769 8093.000 / 1444.000 250 / 1694.000 Weight last 48 hrs Weight 61.235 kg Physical Exam Const: COMMON NORMALS: patient oriented x3 HENMT: COMMON NORMALS: normocephalic, atraumatic, hearing grossly normal bilaterally and external ears normal HEAD & SCALP: normocephalic and atraumatic EXTERNAL EAR: Yes external ears normal Eye: COMMON NORMALS: no scleral icterus GENERAL EYE: appearance normal, both eyes and all related structures Chest: COMMONS NORMALS: normal inspection of the chest and normal palpation of entire chest wall CHEST: Yes Symmetrical chest wall rise Resp: COMMON NORMALS: normal respiratory effort, No retractions, No use of accessory muscles and clear to auscultation bilaterally EFFORT & INSPECTION: Yes symmetric chest movement AUSCULTATION: clear to auscultation bilaterally Cardio: COMMON NORMALS: regular rate, regular rhythm, S1 normal heart sound present, S2 normal heart sound present, No gallops present (Cardio), No murmurs present (Cardio), No rub (Cardio) and Peripheral pulses 2+ throughout RATE: regular rate RHYTHM: regular rhythm HEART SOUNDS: S1 normal heart sound present and S2 normal heart sound present PERIPHERAL PULSES: Peripheral pulses 2+ throughout GI: COMMON NORMALS: Normal to inspection, nondistended, normoactive bowel sounds present, Soft to palpation, non-tender, No hepatosplenomegaly present and no masses AUSCULTATION: Yes normoactive bowel sounds PALPATION: Yes Soft to palpation and Yes No hepatosplenomegaly present RECTAL EXAM: deferred Extremity: COMMON NORMALS: no clubbing, cyanosis or edema and no pedal edema Neuro: COMMON NORMALS: patient oriented x3 Data : 06/24/20 04:20 06/23/20 09:23 A&P Assessment and plan (1) DKA, type 1: Status: Acute Qualifiers: Diabetes mellitus complication detail: without coma Qualified Code(s): E10.10 - Type 1 diabetes mellitus with ketoacidosis without coma (2) Hypothyroidism: Status: Acute (3) Hyperkalemia: Status: Acute (4) OPAL (acute kidney injury): Status: Acute (5) Dehydration: Status: Acute Additional A&P Information Type 1 DM : Currently on lantus 20 u LDSSI Monitor FSG Diabetic diet #DKA ( Resolved ) Second admission in last 2 weeks Possible insulin pump malfunctioning. Diabetes management Training. Consider endocrine consult. #Mild leukocytosis: Likely 2/2 to dehydration due to DKA. No concern for sepsis. #Hyperkalemia:Resolved #OPAL:Resolved #Hypothyroidism: Continue levothyroxine 175mcg oral daily #H/O A. fib : Currently rate controlled Continue Carvedilol 3.125 mg q12 h daily Patient has refused anticoagulant agents in past #DVT prophylaxis Heparin #Full code Attestations Medical Necessity Statement*: She needs to be in hospital for management of DKA Coding Level of Care Code Acute Rounding And Backing Machine Operator for [facility] Diagnoses DKA, type 1 E10.10 Diabetes mellitus complication detail: without coma Hypothyroidism E03.9 Hyperkalemia E87.5 OPAL (acute kidney injury) N17.9 Dehydration E86.0
[2020-06-24] VITALS (30 sets, daily range): BP systolic 116–160; BP diastolic 64–103; PULSE 74–94; RESP 0–19; TEMP 36.6–37.3; O2SAT 89–97
[2020-06-24] MEDS: sodium chloride 0.9% 1,000 ML 100 ML IV (02:18)
[2020-06-24] MEDS: heparin 5,000 unit/mL INJ 1 mL 5000 UNIT SUBCUT ×3 (02:18→17:53)
[2020-06-24 04:31] LABS: Basophils % 0.2 %; Eosinophils # 0.1 10^3/uL (0.0-0.8); Eosinophils % 0.8 %; Hematocrit 28.1 % (37.0-47.0); Hemoglobin 8.9 g/dL (11.5-15.3); Lymphocytes # 1.3 10^3/uL (0.8-4.8); Lymphocytes % 19.5 %; Mean Corpuscular HGB Conc 31.7 g/dL (30.0-36.0); Mean Corpuscular Hemoglobin 29.1 pg (28.0-34.0); Mean Corpuscular Volume 91.8 fL (81-99); Mean Platelet Volume 9.8 fL (7.4-10.4); Monocytes # 0.4 10^3/uL (0.2-0.9); Monocytes % 5.3 %; Neutrophils # 4.86 10^3/uL (1.8-7.7); Neutrophils % 73.9 %; Nucleated Red Blood Cells % 0 %; Platelet Count 206 10^3/cmm (130-400); Red Blood Count 3.06 10^6/uL (4.1-5.3); Red Cell Distribution Width 14.6 % (12.1-15.1); White Blood Count 6.6 10^3/uL (4.0-10.0)
[2020-06-24 04:54] LABS: Anion Gap 9.4 (5-19); Blood Urea Nitrogen 16 mg/dL (8-23); Calcium 8.1 mg/dL (8.5-10.5); Carbon Dioxide 27 mmol/L (22-29); Chloride 109 mmol/L (98-107); Glomerular Filtration Rate 99.4 mL/min (90-130); Glucose 165 mg/dL (65-115); Osmolality Calculated 299 mOsm/kg (285-295); Potassium 3.4 mmol/L (3.5-5.1); Sodium 142 mmol/L (136-145)
[2020-06-24 07:38] LABS: Glucose Point of Care 152 mg/dL (70-110)
[2020-06-24] MEDS: carvedilol 3.125 mg Tablet PO ×2 (07:48→17:53)
[2020-06-24] MEDS: levothyroxine 25 mcg Tablet PO (07:49)
[2020-06-24] MEDS: levothyroxine 150 mcg Tablet PO (07:49)
--- NOTE | 2020-06-24 09:35 | PC.CHAP ---
Pastoral Care Encounter/Spiritual Assessment Type of Contact [] Declined nps visit [] Patient/Family/Request visit [] Outpatient visit [] Follow-up visit [] Physician referral [] Code/Alert [] Routine visit [] Staff referral [] Actively dying [] Patient sleeping [] Family support [] [] Out of room [] Palliative care [] [] Receiving care in room [] Pre-surgical visit [] Trauma [] Long length of stay [] ICU visit [] Other: Relational/Emotional Strength [] Patient feels connected with others/family/visitors/staff [] Distress [] Loneliness/isolation [] Abandonment Spirituality of Patient [] Person of Andreea [] Attends Denominational of their Andreea [] Believes in Prayer [] Reads Bible or Confucianism materials [] There are Spiritual issues to be addressed Shoe Sewing Machine Operator And Tender Interventions [x] Prayer [] Active listening [] Non-anxious presence [] Spiritual/emotional support [] Crisis/trauma care [] Spiritual counseling [] Bereavement support [] Provided bereavement packet [] Provided Bible/devotional materials [] Provided toy/stuffed animal, coloring book to patient or family member [] Provided Communion [] Anointing/[place] [] Salvation [x] Completed spiritual assessment [] Other: Impact on Illness or Injury [] Angry [] Fearful [] Anxious [] Often cries [] Exhaustion [] Unable to work [] Unable to attend buddhism [] Unable to walk/stand [] Unable to read [] Unable to drive [] Unable to eat/drink [] Unable to sleep [] Unable to be with family [] Patient intubated [] Other: Summary patient resting Time spent with patient
--- NOTE | 2020-06-24 10:24 | PC.NURSE ---
patient very tired today. patient wanted lights out so she could rest this morning. video games storywriter woke patient up 3 times to tell her her breakfast was here. video games storywriter now has turned on the lights and positioned patient in bed to eat.
[2020-06-24 10:53] LABS: Glucose Point of Care 96 mg/dL (70-110)
[2020-06-24] MEDS: dextrose 5%-sod chloride 0.45% 1,000 ML 100 ML IV (13:33)
--- NOTE | 2020-06-24 15:34 | P.PN_ITS ---
Subjective Subjective: Interval history: Resting quietly in bed, no apparent distress, no acute overnight events reported. Inquiring about using her insulin pump as she has her supplies with her. Accucheks reviewed, switched to D5 as BG < 250 to avoid hypoglycemia. Medications: Reviewed: Yes Medication Review Details: Active Medications Generic Name Dose Route Start Last Admin Trade Name Freq PRN Reason Stop Dose Admin Carvedilol 3.125 mg 06/24/20 09:00 06/24/20 07:48 Coreg PO 3.125 mg BID KARMA Administration Dextrose 25 ml 06/23/20 03:33 D50w IVP ONCE PRN hypoglycemia prot ocol Protocol Dextrose 50 ml 06/23/20 03:33 D50w IVP PRN PRN hypoglycemia prot ocol Protocol Glucagon 1 mg 06/23/20 03:33 Glucagen IM ONCE PRN Adult Acute Hypog lycemia Prot. Protocol Heparin Sodium (Be ef Lung) 5,000 unit 06/23/20 02:39 06/24/20 11:00 Heparin SUBCUT 5,000 unit Q8H KARMA Administration Insulin Human Regu lar 250 unit 252.5 mls @ 0 mls /hr 06/22/20 23:45 06/23/20 09:05 / Sodium Chlorid e IV 0 mls/hr .Q0M KARMA Infusion Protocol As Directed Sodium Chloride 1,000 mls @ 100 m ls/hr 06/23/20 02:39 06/24/20 13:33 Sodium Chloride 0.9% IV Not Given .Q10H KARMA Dextrose/Sodium Ch loride 1,000 mls @ 100 m ls/hr 06/23/20 03:45 06/24/20 13:33 Dextrose 5%-Sod Chloride 0.45% IV 100 mls/hr .Q10H KARMA Administration Dextrose 500 mls @ 100 mls /hr 06/23/20 03:33 D5w IV ONCE PRN Adult Acute Hypog lycemia Prot Protocol Insulin Aspart 0 unit 06/23/20 08:00 06/24/20 11:02 Novolog SUBCUT Not Given WM&BEDTIME KARMA Protocol Insulin Glargine 20 unit 06/23/20 07:00 06/23/20 22:12 Lantus SUBCUT 20 unit BEDTIME KARMA Administration Levothyroxine Sodi um 150 mcg 06/24/20 09:00 06/24/20 07:49 Synthroid PO 150 mcg DAILY KARMA Administration Levothyroxine Sodi um 25 mcg 06/24/20 09:00 06/24/20 07:49 Synthroid PO 25 mcg DAILY KARMA Administration diphenhydramine [From Benadryl] Allergy (Verified 06/22/20 22:37) ADR-Muscle Pain Penicillins Allergy (Verified 06/22/20 22:37) ALGY-Anaphylaxis Tetanus Vaccines and Toxoid Allergy (Verified 06/22/20 22:37) ALGY-Rash trazodone Allergy (Verified 06/22/20 22:37) ALGY-Joint Pain zolpidem [From Ambien] Allergy (Verified 06/22/20 22:37) Unconscious Vitals/I&O/Wt Last Vital Signs Temp 98.3 F 06/24/20 10:55 Pulse 75 06/24/20 14:00 Resp 13 06/24/20 14:00 BP 145/82 06/24/20 14:00 Pulse Ox 93 06/24/20 14:00 06/24/20 06/24/20 06/24/20 06:59 14:59 22:59 Intake Total 250 / 2194.000 360 / 360 Output Total 500 / 500 Balance -250 / 1694.000 360 / 360 Weight last 48 hrs Weight 61.235 kg Physical Exam Const: COMMON NORMALS: no acute distress, patient oriented x3 and alert GENERAL APPEARANCE: cooperative and comfortable ORIENTATION/CONSCIOUSNESS: Yes awake HENMT: COMMON NORMALS: normocephalic, atraumatic, hearing grossly normal bilaterally and moist oral mucous membranes HEAD & SCALP: normocephalic and atraumatic Eye: COMMON NORMALS: Equal, round and reactive pupils present, EOMs intact bilaterally and conjunctivae normal CONJUNCTIVA: Yes conjunctivae normal PUPIL: Yes Equal, round and reactive pupils present Neck/C-Spine: COMMON NORMALS: full ROM GENERAL: Yes normal visual inspection and Yes trachea midline Resp: COMMON NORMALS: normal respiratory effort, No retractions, No use of acc essory muscles and clear to auscultation bilaterally EFFORT & INSPECTION: Yes able to speak in complete sentences, Yes symmetric chest movement and No tachypneic AUSCULTATION: clear to auscultation bilaterally Cardio: COMMON NORMALS: regular rate, regular rhythm, S1 normal heart sound present, S2 normal heart sound present and No murmurs present (Cardio) RATE: regular rate RHYTHM: regular rhythm HEART SOUNDS: S1 normal heart sound present and S2 normal heart sound present GI: COMMON NORMALS: Normal to inspection, nondistended, normoactive bowel sounds present, Soft to palpation and non-tender PALPATION: Yes Soft to palpation Extremity: COMMON NORMALS: normal to inspection, full ROM and no clubbing, cyanosis or edema; negative for no pedal edema Neuro: COMMON NORMALS: patient oriented x3, moves all extremities, no focal motor deficits, no sensory deficits noted and gait normal SENSORIUM/ORIENTATION: Yes alert Psych: COMMON NORMALS: mental status grossly normal, Normal thought process present, cooperative and speech normal SPEECH: Yes normal speech MOOD & AFFECT: Yes Flat affect present THOUGHT PROCESS: Normal thought process present Skin: COMMON NORMALS: no rashes or lesions noted, no jaundice, no petechiae and no mottling GENERAL SKIN EXAM: no rashes or lesions noted Data : 06/24/20 04:20 06/24/20 04:20 A&P Assessment and plan (1) DKA, type 1: -steroid induced, given IV steroids due to COVID-19 infection -AG closed, electrolytes improving -switched to D5 -weaned off insulin drip -has insulin pump -A1c earlier this month-8.0 -Accucheks Status: Acute Qualifiers: Diabetes mellitus complication detail: without coma Qualified Code(s): E10.10 - Type 1 diabetes mellitus with ketoacidosis without coma (2) Hypothyroidism: -continue levothyroxine Status: Chronic Qualifiers: Hypothyroidism type: unspecified Qualified Code(s): E03.9 - Hypothyroidism, unspecified (3) HTN (hypertension): -VSS; continue to monitor -continue oral antihypertensives Status: Chronic Qualifiers: Hypertension type: essential hypertension Qualified Code(s): I10 - Essential (primary) hypertension (4) Atrial fibrillation: -rate controlled -telemetry monitoring -has previously declined AC; follows up with cardiology Status: Chronic Qualifiers: Atrial fibrillation type: paroxysmal Qualified Code(s): I48.0 - Paroxysmal atrial fibrillation (5) COVID-19 virus infection: -previously treated Status: Acute (6) Dyslipidemia: Status: Chronic Additional A&P Information -Depression, recent loss of spouse -Hypothyroidism -hx of DVT, PE; not on AC per her preference -hx of CAD -Peripheral vascular disease -CKD stage 2; baseline Cr wnl -DVT ppx with heparin -Dispo: home -Code status: FULL code Attestations Medical Necessity Statement*: Patient requires hospitalization for continued treatment of DKA and type 1 diabetes, weaned off insulin drip, currently on long and short acting insulin with need for continued monitoring of blood glucose levels. Time Spent in Patient Care: Greater than 35 minutes (>than 50% of time spent in counselling and/or direct pt care on unit) . Coding Level of Care Code Acute Basin Finish Operator Tig Welder for g Fwd Exam Comprehensive Diagnoses DKA, type 1 E10.10 Diabetes mellitus complication detail: without coma Hypothyroidism E03.9 Hypothyroidism type: unspecified HTN (hypertension) I10 Hypertension type: essential hypertension Atrial fibrillation I48.0 Atrial fibrillation type: paroxysmal COVID-19 virus infection U07.1 Dyslipidemia E78.5
[2020-06-24 17:45] LABS: Glucose Point of Care 303 mg/dL (70-110)
[2020-06-24] MEDS: potassium chloride ER 10 mEq Tablet 40 MEQ PO (17:53)
--- NOTE | 2020-06-24 18:45 | PC.NURSE ---
Received report on patient from Sybil FOUNTAIN. Assumed care at this time.
[2020-06-24 20:20] LABS: Glucose Point of Care 285 mg/dL (70-110)
[2020-06-25] VITALS (16 sets, daily range): BP systolic 114–154; BP diastolic 67–97; PULSE 72–92; RESP 6–22; TEMP 36.8–37.2; O2SAT 88–95
[2020-06-25] MEDS: heparin 5,000 unit/mL INJ 1 mL 5000 UNIT SUBCUT (02:42)
[2020-06-25 05:46] LABS: Basophils % 0.2 %; Eosinophils # 0.1 10^3/uL (0.0-0.8); Hematocrit 29.1 % (37.0-47.0); Hemoglobin 9.3 g/dL (11.5-15.3); Lymphocytes # 1.1 10^3/uL (0.8-4.8); Mean Corpuscular Hemoglobin 29.2 pg (28.0-34.0); Mean Corpuscular Volume 91.2 fL (81-99); Mean Platelet Volume 10.1 fL (7.4-10.4); Monocytes # 0.3 10^3/uL (0.2-0.9); Monocytes % 7.2 %; Neutrophils # 2.57 10^3/uL (1.8-7.7); Neutrophils % 63.6 %; Nucleated Red Blood Cells % 0 %; Platelet Count 203 10^3/cmm (130-400); Red Blood Count 3.19 10^6/uL (4.1-5.3); Red Cell Distribution Width 14.3 % (12.1-15.1)
[2020-06-25 06:07] LABS: Anion Gap 8.4 (5-19); Blood Urea Nitrogen 6 mg/dL (8-23); Calcium 8.6 mg/dL (8.5-10.5); Carbon Dioxide 28 mmol/L (22-29); Chloride 110 mmol/L (98-107); Glomerular Filtration Rate 158.7 mL/min (90-130); Glucose 189 mg/dL (65-115); Osmolality Calculated 299 mOsm/kg (285-295); Potassium 3.4 mmol/L (3.5-5.1); Sodium 143 mmol/L (136-145)
[2020-06-25 06:28] LABS: Glucose Point of Care 86 mg/dL (70-110)
[2020-06-25 07:30] LABS: Glucose Point of Care 48 mg/dL (70-110)
[2020-06-25 08:04] LABS: Glucose Point of Care 73 mg/dL (70-110)
[2020-06-25 08:31] LABS: Glucose Point of Care 121 mg/dL (70-110)
--- NOTE | 2020-06-25 08:36 | PC.NURSE ---
Patient called out this morning and stated her glucose is reading low on her insulin pump. Our glucometer came back with a 48mg/dl. Patient was A and O x4. I gave her some peanut butter, crackers, and a carton of milk. Shortly after that breakfast trays came. A recheck approximately 30 minutes later showed a glucose in the low 70s. I rechecked it approximately 35 minutes later and it was in the 120s. Patient feels better with the exception of a little abdominal pain which patient stated is not uncommon. She stated she has been seen multiple times for that in the past. Patient resting comfortably at this time. Will recheck glucose again before lunch.
[2020-06-25] MEDS: levothyroxine 25 mcg Tablet PO (09:02)
[2020-06-25] MEDS: levothyroxine 150 mcg Tablet PO (09:02)
[2020-06-25] MEDS: carvedilol 3.125 mg Tablet PO (09:02)
[2020-06-25 11:40] LABS: Glucose Point of Care 257 mg/dL (70-110)
--- NOTE | 2020-06-25 11:40 | P.DS_ITS ---
Discharge Providers Date of Admission: 06/23/20 00:17 Date of Discharge: June 25, 2020 Attending Provider at Admission: Abida Dolan MD Attending Provider at Discharge: Rula Matias MD Consults: None Primary Care Provider: Abilio Romero RN, INSTALLER TECHNICIAN Diagnoses at Discharge Discharge Diagnosis (1) DKA, type 1: Status: Resolved Problem details: -steroid induced, given IV steroids due to COVID-19 infection -AG closed, electrolytes improving -switched to D5 -weaned off insulin drip -has insulin pump -A1c earlier this month-8.0 -Accucheks Qualifiers: Diabetes mellitus complication detail: without coma Qualified Code(s): E10.10 - Type 1 diabetes mellitus with ketoacidosis without coma (2) Hypothyroidism: Status: Chronic Problem details: -continue levothyroxine Qualifiers: Hypothyroidism type: unspecified Qualified Code(s): E03.9 - Hypothyroidism, unspecified (3) HTN (hypertension): Status: Chronic Problem details: -VSS; continue to monitor -continue oral antihypertensives Qualifiers: Hypertension type: essential hypertension Qualified Code(s): I10 - Essential (primary) hypertension (4) Atrial fibrillation: Status: Chronic Problem details: -rate controlled -telemetry monitoring -has previously declined AC; follows up with cardiology Qualifiers: Atrial fibrillation type: paroxysmal Qualified Code(s): I48.0 - Paroxysmal atrial fibrillation (5) COVID-19 virus infection: Status: Acute Problem details: -previously treated; recovering; has consistently been on RA, afebrile (6) Dyslipidemia: Status: Chronic Other Information Additional DC diagnoses/information: -Depression, recent loss of spouse -hx of DVT, PE; not on AC per her preference -hx of CAD -Peripheral vascular disease -CKD stage 2; baseline Cr wnl Reason for Visit Reason for Visit: WEAKNESS Hospital Course Hospital Course: Patient was admitted to the viral ICU secondary to having been found to be positive for COVID-19 earlier this month and developed DKA secondary to steroid treatment. She was covered with an insulin drip, IV fluid hydration and monitoring of electrolytes with subsequent improvement in her hyperglycemia as well as her symptoms. Patient uses an insulin pump, has been on this for about 4 months and once blood glucose was more stable resumed use of her insulin pump with continued monitoring of her blood glucose. She did have some episodes of hypoglycemia which were rapidly corrected and she feels more comfortable continuing to use this with continued monitoring of her blood glucose levels. She is aware of what she would need to do should her blood sugar drop too low or trend too high. In terms of her respiratory status, she has consistently been on room air, afebrile and generally feeling well. She feels comfortable going home today and has adequate support from family and friends as needed. She will continue to follow-up with her primary care provider and is encouraged to continue monitoring her symptoms, frequent and proper hand hygiene, mask wearing and social distancing particularly when out in the community, and instructed on when she would need to seek medical attention immediately. Discharge Summary: -Patient to follow up with primary care provider within 1 week Physical Exam Const: COMMON NORMALS: no acute distress, patient oriented x3 and alert GENERAL APPEARANCE: cooperative and comfortable ORIENTATION/CONSCIOUSNESS: Yes awake HENMT: COMMON NORMALS: normocephalic, atraumatic, hearing grossly normal bilaterally and moist oral mucous membranes HEAD & SCALP: normocephalic and atraumatic Eye: COMMON NORMALS: Equal, round and reactive pupils present, EOMs intact bilaterally and conjunctivae normal CONJUNCTIVA: Yes conjunctivae normal PUPIL: Yes Equal, round and reactive pupils present Neck/C-Spine: COMMON NORMALS: full ROM GENERAL: Yes normal visual inspection and Yes trachea midline Resp: COMMON NORMALS: normal respiratory effort, No retractions, No use of accessory muscles and clear to auscultation bilaterally EFFORT & INSPECTION: Yes able to speak in complete sentences, Yes symmetric chest movement and No tachypneic AUSCULTATION: clear to auscultation bilaterally Cardio: COMMON NORMALS: regular rate, regular rhythm, S1 normal heart sound present, S2 normal heart sound present and No murmurs present (Cardio) RATE: regular rate RHYTHM: regular rhythm HEART SOUNDS: S1 normal heart sound present and S2 normal heart sound present GI: COMMON NORMALS: Normal to inspection, nondistended, normoactive bowel sounds present, Soft to palpation and non-tender PALPATION: Yes Soft to palpation Extremity: COMMON NORMALS: normal to inspection, full ROM and no clubbing, cyanosis or edema; negative for no pedal edema Neuro: COMMON NORMALS: patient oriented x3, moves all extremities, no focal motor deficits, no sensory deficits noted and gait normal SENSORIUM/ORIENTATION: Yes alert Psych: COMMON NORMALS: mental status grossly normal, Normal thought process present, cooperative and speech normal SPEECH: Yes normal speech MOOD & AFFECT: Yes Flat affect present THOUGHT PROCESS: Normal thought process present Skin: COMMON NORMALS: no rashes or lesions noted, no jaundice, no petechiae and no mottling GENERAL SKIN EXAM: no rashes or lesions noted Discharge Data Data Completed and Pending: Completed Studies During Hospitalization Category Date Time Status XR chest 1V yessi ble [id number] Urgent Exams 06/22/20 22:40 Completed Pending at discharge Category Date Time Status BMP [Basic [employer] lic Panel] AM LABS Lab 06/26/20 04:00 Ordered CBC Auto Diff [Co mplete Blood Count w/Auto] AM LABS Lab 06/26/20 04:00 Ordered Clostridioides Di fficile PCR Routin e Lab 06/23/20 02:39 Uncollected Labs from last 24 hours 06/25/20 06/25/20 06/25/20 08:27 07:56 07:27 WBC RBC Hgb Hct MCV MCH MCHC RDW Plt Count MPV Neut % (Auto) Lymph % (Auto) [place] % (Auto) Eos % (Auto) Baso % (Auto) Neut # (Auto) Lymph # (Auto) [place] # (Auto) Eos # (Auto) Baso # (Auto) Nucleated RBC % (a uto) Nucleated RBCs # Sodium Potassium Chloride Carbon Dioxide Anion Gap BUN Creatinine GFR Calculation Glucose POC Glucose 121 73 48 Calculated Osmolal ity Calcium 06/25/20 06/25/20 06/25/20 06:20 04:13 04:13 WBC 4.0 RBC 3.19 L Hgb 9.3 L Hct 29.1 L MCV 91.2 MCH 29.2 MCHC 32.0 RDW 14.3 Plt Count 203 MPV 10.1 Neut % (Auto) 63.6 Lymph % (Auto) 27.0 [place] % (Auto) 7.2 Eos % (Auto) 2.0 Baso % (Auto) 0.2 Neut # (Auto) 2.57 Lymph # (Auto) 1.1 [place] # (Auto) 0.3 Eos # (Auto) 0.1 Baso # (Auto) 0.0 Nucleated RBC % (a uto) 0 Nucleated RBCs # 0.0 Sodium 143 Potassium 3.4 L Chloride 110 H Carbon Dioxide 28 Anion Gap 8.4 BUN 6 L Creatinine 0.4 L GFR Calculation 158.7 H Glucose 189 H POC Glucose 86 Calculated Osmolal ity 299 H Calcium 8.6 06/24/20 06/24/20 20:11 17:19 WBC RBC Hgb Hct MCV MCH MCHC RDW Plt Count MPV Neut % (Auto) Lymph % (Auto) [place] % (Auto) Eos % (Auto) Baso % (Auto) Neut # (Auto) Lymph # (Auto) [place] # (Auto) Eos # (Auto) Baso # (Auto) Nucleated RBC % (a uto) Nucleated RBCs # Sodium Potassium Chloride Carbon Dioxide Anion Gap BUN Creatinine GFR Calculation Glucose POC Glucose 285 303 Calculated Osmolal ity Calcium Vitals: Last Vital Signs Temp 98.2 F 06/25/20 08:00 Pulse 84 06/25/20 11:00 Resp 20 H 06/25/20 11:00 BP 148/90 06/25/20 11:00 Pulse Ox 90 06/25/20 11:00 Discharge Plan Discharge Patient Disposition: Home Condition: Stable Prescriptions: Continued nitroglycerin [Nitrostat] 0.4 mg tablet, sublingual 0.4 mg SUBLINGUAL Q5M PRNRF: 0 Novolin N NPH U-100 Insulin 100 unit/mL suspension See Rx Instructions SUBCUT DAILY RF: 0 aspirin [Aspir-81] 81 mg tablet,delayed release (DR/EC) 81 mg PO DAILY RF: 0 psyllium PO DAILY PRNRF: 0 furosemide 20 mg tablet 40 mg PO QAM PRNRF: 0 levothyroxine 175 mcg capsule 125 mcg PO DAILY RF: 0 sertraline 50 mg tablet 100 mg PO DAILY RF: 0 Tresiba FlexTouch U-100 100 unit/mL (3 mL) insulin pen 26 unit SUBCUT DAILY RF: 0 carvedilol 3.125 mg tablet 12.5 mg PO BID RF: 0 ondansetron HCl 4 mg tablet 4 mg PO Q8H RF: 0 duloxetine 60 mg capsule,delayed release(DR/EC) 60 mg PO DAILY RF: 0 Discharge Orders: Discharge Order (Routine); Ordered 06/25/20 Ordered By: Rula Matias Referrals: Abilio Romero RN, INSTALLER TECHNICIAN [Primary Care Provider] - 4-7 days (Post hospital discharge follow up. Treated for DKA.) Discharge Diet: Diabetic Discharge Activity: Increase activity as tolerated Patient Instructions: Hypoglycemia Activity Restrictions/Additional Instructions: -Please continue to monitor your blood glucose levels and review your readings with your primary care provider -Please continue frequent and proper hand hygiene, mask wearing, social distancing -Please seek medical attention immediately if symptoms worsen Discharge Attestations Time Spent in Discharge Care*: greater than 30 min Specific Discharge Activities: Specific discharge activities: educating patient, discussing with supervisor case loading/social workers/dc planners, documenting/other paperwork and evaluating patient/reviewing data Status at Discharge: Cognitive status at discharge: cognitively intact , Behavioral status at discharge: cooperative and independent in ADL's , Functional status at discharge: independent ambulation Overall status at discharge: patient is progressing back to baseline Quality Metrics Clinical Quality Measures During this hospital stay, did patient experience: None Coding Level of Care Code Acute Building Construction Professor for g Fwd Diagnoses DKA, type 1 E10.10 Diabetes mellitus complication detail: without coma Hypothyroidism E03.9 Hypothyroidism type: unspecified HTN (hypertension) I10 Hypertension type: essential hypertension Atrial fibrillation I48.0 Atrial fibrillation type: paroxysmal COVID-19 virus infection U07.1 Dyslipidemia E78.5
--- NOTE | 2020-06-26 12:46 | PC.SOCIAL ---
Attempted to call patient at home [phone]. Again left a voicemail for the patient.
== END 2020-06-25 14:18 | disposition home or self-care (01) | DRG 637 ==
LOC: ER 22:40 → ICU 06-23 00:27
PROVIDERS: Emergency Medicine; Internal Medicine; Admitting Provider Internal Medicine; PCP Nurse Practitioner Family; Visit Provider Family Medicine
DX: E10.10 Type 1 diabetes mellitus with ketoacidosis without coma (principal); U07.1 COVID-19; N17.9 Acute kidney failure, unspecified; T38.0X5A Adverse effect of glucocorticoids and synthetic analogues, initial encounter; Z96.41 Presence of insulin pump (external) (internal); R19.7 Diarrhea, unspecified; I48.0 Paroxysmal atrial fibrillation; Z86.718 Personal history of other venous thrombosis and embolism; E78.5 Hyperlipidemia, unspecified; E10.22 Type 1 diabetes mellitus with diabetic chronic kidney disease; I12.9 Hypertensive chronic kidney disease with stage 1 through stage 4 chronic kidney disease, or unspecified chronic kidney disease; N18.2 Chronic kidney disease, stage 2 (mild); E03.9 Hypothyroidism, unspecified; I34.0 Nonrheumatic mitral (valve) insufficiency; E10.51 Type 1 diabetes mellitus with diabetic peripheral angiopathy without gangrene; E86.0 Dehydration; E87.5 Hyperkalemia; M54.9 Dorsalgia, unspecified; F32.9 Major depressive disorder, single episode, unspecified; Z63.4 Disappearance and death of family member; Z79.82 Long term (current) use of aspirin
CPT/HCPCS: 12345; 36415; 36416; 36600; 71045; 80048; 80053; 81003; 82009; 82803; 82962; 83735; 84100; 85025; 87426; 93005; 96372; 99284; J1644; J1815 ×2; J2405; J3480; J7030; J7050; J7799

== ENCOUNTER 2020-11-29 22:49 | Emergency (ER) | payer MEDICARE, SELFPAY ==
[2020-11-29 22:54] VITALS: BP 189/123; PULSE 80; RESP 18; TEMP 36.8; O2SAT 99; BMI 26.6
--- NOTE | 2020-11-29 23:00 | W.ED.SKABFB ---
HPI - Skin/Abscess/Foreign Bdy General: Chief complaint: Skin/Abscess/Foreign Body Stated complaint: infection in pump socket Time Seen by Provider: 11/29/20 23:00 Source: patient Mode of arrival: ambulatory Limitations: no limitations History of Present Illness: HPI narrative: 70-year-old female comes in with an area of tenderness and redness to the site of her insulin pump needle. Patient went to change out the site due to some discomfort and not feeling that her blood sugar was being controlled. Patient noticed 4 cm of redness surrounding the injection site when she removed it. Patient also had some purulent drainage expressed from the wound. Patient appears well. Patient denies any fever. Patient reports a mild headache. Review of Systems General: Reports: 10 or more systems reviewed and unremarkable except in HPI and below Skin/Breast: Reports: erythema PFSH ED PFSH: Medical History Atrial fibrillation -rate controlled -telemetry monitoring -has previously declined AC; follows up with cardiology COVID-19 determined by clinical diagnostic criteria Diabetic ketoacidosis DVT (deep venous thrombosis) Dyslipidemia HTN (hypertension) -VSS; continue to monitor -continue oral antihypertensives Hypothyroidism -continue levothyroxine Mild cognitive impairment Mitral regurgitation Peripheral vascular disease Scleroderma Type 1 diabetes Viral URI Surgical History H/O cardiac catheterization 2014, moderate disease no flow-limiting H/O dilation and curettage Status post endovenous radiofrequency ablation of saphenous vein Family History Father CAD (coronary artery disease) Mother Hypertension CAD (coronary artery disease) Hyperlipidemia Sister Hypertension Diabetes Grandfather CAD (coronary artery disease) PATERNAL Social History Smoking and tobacco status: never smoked Alcohol intake: never Lives independently: Yes Housing: House Physical Exam Const: COMMON NORMALS: no acute distress and patient oriented x3 GENERAL APPEARANCE: cooperative HENMT: COMMON NORMALS: normocephalic and Normal external nose present HEAD & SCALP: normal to inspection and normocephalic NOSE: Normal external nose present MOUTH: Normal oral and palatal mucosa present Eye: GENERAL EYE: appearance normal, both eyes and all related structures Neck/C-Spine: COMMON NORMALS: full ROM Lymph: LYMPHATIC: no lymphadenopathy noted Chest: COMMONS NORMALS: normal inspection of the chest Resp: COMMON NORMALS: normal respiratory effort EFFORT & INSPECTION: Yes able to speak in complete sentences Cardio: COMMON NORMALS: regular rate and regular rhythm RATE: regular rate RHYTHM: regular rhythm GI: COMMON NORMALS: non-tender Extremity: COMMON NORMALS: normal to inspection Neuro: COMMON NORMALS: patient oriented x3 and moves all extremities Psych: COMMON NORMALS: mental status grossly normal and cooperative Skin: NARRATIVE SKIN EXAM: 4 cm area of redness surrounding an injection site to her right lower abdomen. Course Vital Signs: Vital signs: Vital Signs Temperature 98.3 F 11/29/20 22:54 Pulse Rate 80 11/29/20 22:54 Respiratory Rate 18 11/29/20 22:54 Blood Pressure 189/123 11/29/20 22:54 Pulse Oximetry 99 11/29/20 22:54 MDM - Skin/Abscess/Foreign Bdy MDM Narrative: Medical decision making narrative: Patient comes in for tenderness and redness to her insertion site for her insulin pump. On exam I note an area of redness about 4 cm surrounding the injection site. No fluctuance is noted to the wound site. No significant induration is noted at this time. Vital signs are normal. Except for some elevation in blood pressure. Differential diagnosis includes cellulitis, abscess, skin reaction to insulin. We will start patient on some Bactrim for the treatment of cellulitis. Patient was also will be placed with some mupirocin to apply to the insertion site. Patient reported understanding of care plan and need for follow-up or return to the ER. Discharge Plan Discharge Patient Disposition: Home Clinical Impression: Abdominal wall cellulitis Diabetes mellitus Qualifiers: Diabetes mellitus type: type 2 Diabetes mellitus termite exterminator insulin use: with termite exterminator use Diabetes mellitus complication status: with skin complications Diabetes mellitus complication detail: with other skin complication Qualified Code(s): E11.628 - Type 2 diabetes mellitus with other skin complications Condition: Stable Prescriptions: New Bactrim DS 800-160 mg tablet 1 tab PO BID 10 Days Qty: 20 RF: 0 mupirocin 2 % ointment 1 applic topical BID Qty: 22 RF: 0 No Action nitroglycerin [Nitrostat] 0.4 mg tablet, sublingual 0.4 mg SUBLINGUAL Q5M PRNRF: 0 Novolin N NPH U-100 Insulin 100 unit/mL suspension See Rx Instructions SUBCUT DAILY RF: 0 aspirin [Aspir-81] 81 mg tablet,delayed release (DR/EC) 81 mg PO DAILY RF: 0 psyllium PO DAILY PRNRF: 0 furosemide 20 mg tablet 40 mg PO QAM PRNRF: 0 levothyroxine 175 mcg capsule 125 mcg PO DAILY RF: 0 sertraline 50 mg tablet 100 mg PO DAILY RF: 0 Tresiba FlexTouch U-100 100 unit/mL (3 mL) insulin pen 26 unit SUBCUT DAILY RF: 0 carvedilol 3.125 mg tablet 12.5 mg PO BID RF: 0 ondansetron HCl 4 mg tablet 4 mg PO Q8H RF: 0 duloxetine 60 mg capsule,delayed release(DR/EC) 60 mg PO DAILY RF: 0 Discharge Orders: Discharge ED (Routine); Ordered 11/29/20 Ordered By: Rey Mishra Referrals: Abilio Romero RN, ACCOUNTS RECEIVABLE COLLECTOR [Primary Care Provider] - Discharge Diet: Usual diet Discharge Activity: Increase activity as tolerated Patient Instructions: Cellulitis (ED), Opioid Safety Activity Restrictions/Additional Instructions: Take antibiotic. Use warm moist packs to the area. Avoid pushing on wound. Drink plenty of water with antibiotic. Use topical ointment to the wound site. Follow-up with primary care for further evaluation. Return to the emergency department for high fever or worsening symptoms. Coding Level of Care Code ED Professor Of Management for Beatriz Fwmeli Exam Comprehensive
[2020-11-29] MEDS: sulfamethoxazole-trimeth DS 160-800 mg Tablet 1 TAB PO (23:24)
[2020-11-29] MEDS: mupirocin oint 22 gm 1 APPLIC TOPICAL (23:25)
[2020-11-29 23:29] VITALS: BP 139/102; PULSE 79; RESP 18; O2SAT 99
== END 2020-11-29 23:30 | disposition home or self-care (01) ==
PROVIDERS: Emergency Provider Nurse Practitioner Family; PCP Nurse Practitioner Family
DX: L03.311 Cellulitis of abdominal wall (principal); E11.628 Type 2 diabetes mellitus with other skin complications; Z79.82 Long term (current) use of aspirin; Z79.4 Long term (current) use of insulin; I48.91 Unspecified atrial fibrillation; E78.5 Hyperlipidemia, unspecified; I10 Essential (primary) hypertension
CPT/HCPCS: 99283

== ENCOUNTER → 2021-02-13 13:28 | Outpatient (BNVA) | payer MEDICARE, SELFPAY | PROVIDERS: PCP Family Medicine Adult Medicine; Visit Provider Nurse Practitioner | DX: R50.9 Fever, unspecified (principal); N39.0 Urinary tract infection, site not specified | CPT/HCPCS: 81000 ==

== ENCOUNTER 2021-02-15 14:50 | Inpatient (IN) | payer MEDICARE, SELFPAY ==
[2021-02-15] VITALS (16 sets, daily range): BP systolic 99–177; BP diastolic 59–122; PULSE 88–117; RESP 12–22; TEMP 36.9; O2SAT 91–100; BMI 26.2
--- NOTE | 2021-02-15 15:14 | W.ED.GENADLT ---
HPI - General Adult General: Chief complaint: General Medical Stated complaint: HYPERGLYCEMIA Time Seen by Provider: 02/15/21 15:08 History of Present Illness: HPI narrative: 70-year-old female who daughter called EMS due to lethargy. Patient's blood sugars have been running high today in the 500s she does have an insulin pump however daughter gave her 15 units at 130 manually. Patient was recently diagnosed with a urinary tract infection 2 days ago. Patient also complained of pain all over and as it turns out she took one of her 's 60 mg extended release oxycodones. Upon arrival to the emergency room EMS thought her respirations had decreased from 14-8 so they gave her some intranasal Narcan which did help a little bit patient was more awake and alert however she does easily drift back off to sleep. When questioning her she says she just hurts all over she did have Covid previously this is within the year she denies any cough or shortness of breath daughter says her blood sugars go sandi high when she has infections. She is on Eliquis for A. fib No known fevers Review of Systems Narrative: General: Body aches fatigue HEENT: denies ear pain, denies nasal congestion, denies vision changes, denies sore throat Neck: denies masses or pain Resp: denies cough, denies shortness of breath, denies pleuritic pain Cardio: denies chest pain, denies edema GI: denies abdominal pain, denies N/V/D, denies black/tarry or bloody stools : denies hematuria, recent dysuria but is improving Neuro: denies headache, denies dizziness, denies motor or sensory changes, + somnolence Musculoskeletal: denies pain, denies swelling Skin: denies rashes Psych: denies SI or HI Endocrine: denies thyroid symptoms, denies lymphadenopathy all over ROS reviewed and patient denies PFSH ED PFSH: Medical History Atrial fibrillation -rate controlled -telemetry monitoring -has previously declined AC; follows up with cardiology COVID-19 determined by clinical diagnostic criteria COVID-19 virus infection -previously treated; recovering; has consistently been on RA, afebrile Diabetic ketoacidosis DVT (deep venous thrombosis) Dyslipidemia Encounter for screening laboratory testing for COVID-19 virus HTN (hypertension) -VSS; continue to monitor -continue oral antihypertensives Hypothyroidism -continue levothyroxine Mild cognitive impairment Mitral regurgitation Osteoporosis Peripheral vascular disease Scleroderma Type 1 diabetes Viral URI Surgical History H/O cardiac catheterization 2014, moderate disease no flow-limiting H/O dilation and curettage Status post endovenous radiofrequency ablation of saphenous vein Family History Father CAD (coronary artery disease) Mother Hypertension CAD (coronary artery disease) Hyperlipidemia Sister Hypertension Diabetes Grandfather CAD (coronary artery disease) PATERNAL Social History Smoking and tobacco status: never smoked Alcohol intake: never Lives independently: Yes Housing: House Physical Exam Narrative: EXAM NARRATIVE: General: a/o/3, no distress slow to respond but answers appropriately Head: atraumatic HEENT: normal eyes, normal conjunctiva, normal hearing, normal external nose, normal mouth, mucous membranes moist Neck: FROM, trachea midline Chest: normal expansion, no gross deformities Resp: normal speech, no retractions, no accessory muscle use, CTA bilaterally Cardio: regular rate and rhythm and no murmur, no peripheral edema, normal peripheral pulses GI: soft, flat non tender, no guarding normal BS : deferred Musculoskeletal: FROM, no pain or gross deformities Neuro: a/o appropriate for age, no gross motor or sensory deficits, CN II-XII grossly intact, normal coordination, normal speech, easily drifts off to sleep but is appropriate and answers questions slowly Skin: no rashes, multiple old skin lesions possible insect bites Psych: cooperative, normal mood and effect Course Vital Signs: Vital signs: Vital Signs Pulse Rate 103 H 02/15/21 15:14 Respiratory Rate 12 02/15/21 15:14 Blood Pressure 115/74 02/15/21 15:14 Pulse Oximetry 98 02/15/21 15:14 MDM - General Adult MDM Narrative: Medical decision making narrative: Patient was given intranasal Narcan by EMS while she was waiting in the riggins bed she did improve a little bit. She was placed on 2 L oxygen as precaution and remained 98% while she was in the room she complained of pain all over denies any specific abdominal pain. Patient was somnolent again after the Narcan wore off still arousable. I took her off her oxygen to see how she would do and she drops to 86%. Patient is going to require admission she took 60 mg of extended release oxycodone and will need to be monitored at least overnight for her hypoxia that responds well to oxygen. Reviewed her urinalysis from yesterday she did have positive for nitrites and leukocytes I feel she probably has a UTI she is now complaining of some low back pain right a little bit worse than left it is reproducible however with her being diabetic I will obtain a CT scan to make sure there is not any underlying abscess or other infection like pyelonephritis or kidney stone to cause her blood sugars to be so high. Her blood sugar of note was 240 on our laboratory work. We did give her a second dose of Narcan while she was in the room and she did arouse and become more awake alert and shivering and talkative. She has an unintentional opiate overdose she has uncontrolled blood sugars a urinary tract infection she is given need to be admitted for neuro checks and oxygen checks throughout the night as this is an extended release tablet Medical Records: Attestation: I reviewed the patient's medical records. Lab Data: Attestation: I reviewed the patient's lab results. Labs: Lab Results 02/15/21 02/15/21 02/15/21 Range/Units 15:50 15:50 15:50 WBC 5.5 (4.0-10.0) 10^3/ uL RBC 3.88 L (4.1-5.3) 10^6/u L Hgb 11.0 L (11.5-15.3) g/dL Hct 35.6 L (37.0-47.0) % MCV 91.8 (81-99) fL MCH 28.4 (28.0-34.0) pg MCHC 30.9 (30.0-36.0) g/dL RDW 14.6 (12.1-15.1) % Plt Count 227 (130-400) 10^3/c mm MPV 10.4 (7.4-10.4) fL Neut % (Auto) 81.2 % Lymph % (Auto) 10.9 % [place] % (Auto) 6.6 % Eos % (Auto) 0.7 % Baso % (Auto) 0.4 % Neut # (Auto) 4.46 (1.8-7.7) 10^3/u L Lymph # (Auto) 0.6 L (0.8-4.8) 10^3/u L [place] # (Auto) 0.4 (0.2-0.9) 10^3/u L Eos # (Auto) 0.0 (0.0-0.8) 10^3/u L Baso # (Auto) 0.0 (0.0-0.1) 10^3/u L Nucleated RBC % (a uto) 0 % Nucleated RBCs # 0.0 /100WBC Sodium 140 (136-145) mmol/L Potassium 4.4 (3.5-5.1) mmol/L Chloride 102 (98-107) mmol/L Carbon Dioxide 25 (22-29) mmol/L Anion Gap 17.4 (5-19) BUN 12 (8-23) mg/dL Creatinine 0.7 (0.5-0.9) mg/dL GFR Calculation 83.0 L (90-130) mL/min Glucose 241 H (65-115) mg/dL Calculated Osmolal ity 298 H (285-295) mOsm/k g Lactate 2.8 H (0.5-2.2) mmol/L Calcium 8.5 (8.5-10.5) mg/dL Total Bilirubin 0.2 (0.15-1.2) mg/dL AST 18 (0-32) U/L ALT 8 (0-33) U/L Alkaline Phosphata se 80 (35-105) IU/L Creatine Kinase 32 (26-192) U/L C-Reactive Protein 103.7 H (0.0-4.9) mg/L Total Protein 6.3 L (6.6-8.7) g/dL Albumin 3.7 (3.5-5.2) g/dL Globulin 2.6 (1.3-4.6) g/dL Amorphous Sediment Salicylates < 0.3 L (3-10) mg/dL Acetaminophen < 5.0 L (10-30) ug/mL Ethyl Alcohol < 10 (0-10) mg/dL Serum Ketones (Negative) 02/15/21 02/15/21 Range/Units 15:50 16:19 WBC (4.0-10.0) 10^3/ uL RBC (4.1-5.3) 10^6/u L Hgb (11.5-15.3) g/dL Hct (37.0-47.0) % MCV (81-99) fL MCH (28.0-34.0) pg MCHC (30.0-36.0) g/dL RDW (12.1-15.1) % Plt Count (130-400) 10^3/c mm MPV (7.4-10.4) fL Neut % (Auto) % Lymph % (Auto) % Wood[place] % (Auto) % Eos % (Auto) % Baso % (Auto) % Neut # (Auto) (1.8-7.7) 10^3/u L Lymph # (Auto) (0.8-4.8) 10^3/u L [place] # (Auto) (0.2-0.9) 10^3/u L Eos # (Auto) (0.0-0.8) 10^3/u L Baso # (Auto) (0.0-0.1) 10^3/u L Nucleated RBC % (a uto) % Nucleated RBCs # /100WBC Sodium (136-145) mmol/L Potassium (3.5-5.1) mmol/L Chloride (98-107) mmol/L Carbon Dioxide (22-29) mmol/L Anion Gap (5-19) BUN (8-23) mg/dL Creatinine (0.5-0.9) mg/dL GFR Calculation (90-130) mL/min Glucose (65-115) mg/dL Calculated Osmolal ity (285-295) mOsm/k g Lactate (0.5-2.2) mmol/L Calcium (8.5-10.5) mg/dL Total Bilirubin (0.15-1.2) mg/dL AST (0-32) U/L ALT (0-33) U/L Alkaline Phosphata se (35-105) IU/L Creatine Kinase (26-192) U/L C-Reactive Protein (0.0-4.9) mg/L Total Protein (6.6-8.7) g/dL Albumin (3.5-5.2) g/dL Globulin (1.3-4.6) g/dL Amorphous Sediment Not Reportable Salicylates (3-10) mg/dL Acetaminophen (10-30) ug/mL Ethyl Alcohol (0-10) mg/dL Serum Ketones Negative (Negative) Discharge Plan Discharge Patient Disposition: Placed in Observation Clinical Impression: Opiate overdose, Acute UTI, Hyperglycemia, Hypoxia Condition: Stable Prescriptions: No Action nitroglycerin [Nitrostat] 0.4 mg tablet, sublingual 0.4 mg SUBLINGUAL Q5M PRNRF: 0 aspirin [Aspir-81] 81 mg tablet,delayed release (DR/EC) 81 mg PO DAILY RF: 0 furosemide 20 mg tablet 40 mg PO QAM PRNRF: 0 levothyroxine 175 mcg capsule 125 mcg PO DAILY RF: 0 sertraline 50 mg tablet 100 mg PO DAILY RF: 0 Eliquis 5 mg tablet 5 mg PO BID Qty: 180 RF: 1 insulin lispro [Humalog U-100 Insulin] 100 unit/mL solution 60 unit SUBCUT DAILY Qty: 20 RF: 5 ibandronate 150 mg tablet 150 mg PO .monthly Qty: 7 RF: 0 carvedilol 3.125 mg tablet 12.5 mg PO BID RF: 0 ondansetron HCl 4 mg tablet 4 mg PO Q8H RF: 0 duloxetine 60 mg capsule,delayed release(DR/EC) 60 mg PO DAILY RF: 0 nitrofurantoin monohyd/m-cryst [Macrobid] 100 mg capsule 100 mg PO Q12H 7 Days Qty: 14 RF: 0 phenazopyridine [Pyridium] 200 mg tablet 200 mg PO TID Qty: 6 RF: 0 mupirocin 2 % ointment 1 applic topical BID Qty: 22 RF: 0 Coding Level of Care Code ED Trichologist for Chg Fwmeli
[2021-02-15 16:00] LABS: Basophils % 0.4 %; Eosinophils % 0.7 %; Hematocrit 35.6 % (37.0-47.0); Lymphocytes # 0.6 10^3/uL (0.8-4.8); Lymphocytes % 10.9 %; Mean Corpuscular HGB Conc 30.9 g/dL (30.0-36.0); Mean Corpuscular Hemoglobin 28.4 pg (28.0-34.0); Mean Corpuscular Volume 91.8 fL (81-99); Mean Platelet Volume 10.4 fL (7.4-10.4); Monocytes # 0.4 10^3/uL (0.2-0.9); Monocytes % 6.6 %; Neutrophils # 4.46 10^3/uL (1.8-7.7); Neutrophils % 81.2 %; Nucleated Red Blood Cells % 0 %; Platelet Count 227 10^3/cmm (130-400); Red Blood Count 3.88 10^6/uL (4.1-5.3); Red Cell Distribution Width 14.6 % (12.1-15.1); White Blood Count 5.5 10^3/uL (4.0-10.0)
[2021-02-15 16:16] LABS: Lactate (Lactic Acid level) 2.8 mmol/L (0.5-2.2)
[2021-02-15 16:17] LABS: Alanine Aminotransferase 8 U/L (0-33); Albumin Level 3.7 g/dL (3.5-5.2); Alkaline Phosphatase 80 IU/L (35-105); Blood Urea Nitrogen 12 mg/dL (8-23); C Reactive Protein 103.7 mg/L (0.0-4.9); Calcium 8.5 mg/dL (8.5-10.5); Carbon Dioxide 25 mmol/L (22-29); Chloride 102 mmol/L (98-107); Creatine Phosphokinase 32 U/L (26-192); Globulin 2.6 g/dL (1.3-4.6); Glucose 241 mg/dL (65-115); Osmolality Calculated 298 mOsm/kg (285-295); Sodium 140 mmol/L (136-145); Total Bilirubin 0.2 mg/dL (0.15-1.2); Total Protein 6.3 g/dL (6.6-8.7)
[2021-02-15 16:19] LABS: Ketone (Acetest) Serum Negative (Negative)
[2021-02-15 16:25] LABS: Acetaminophen < 5.0 ug/mL (10-30); Alcohol Level < 10 mg/dL (0-10); Anion Gap 17.4 (5-19); Aspartate Amino Transferase 18 U/L (0-32); Potassium 4.4 mmol/L (3.5-5.1); Salicylate < 0.3 mg/dL (3-10)
--- NOTE | 2021-02-15 16:27 | PC.NURSE ---
EMS brought Oxycontin with pt. Prescription is for pt's who is . Med count verified by this nurse and Radames Naranjo RN. Per pharmacy, medication should be counted, verified, and sent to pharmacy for proper disposal. 180 pills of 60mg Oxycontin ER counted and sent to pharmacy.
[2021-02-15] MEDS: sodium chloride 0.9% 1,000 ML 999 ML IV (16:31)
--- NOTE | 2021-02-15 16:40 | CTR_ITS ---
PROCEDURE INFORMATION: Exam: CT Abdomen And Pelvis With Contrast Exam date and time: 02/15/2021 4:40 PM Age: 70 years old Clinical indication: Abdominal pain; Flank; Right; Additional info: Right flank pain, lower back pain, diabetic, HX of stones TECHNIQUE: Imaging protocol: Computed tomography of the abdomen and pelvis with contrast. Radiation optimization: All CT scans at this facility use at least one of these dose optimization techniques: automated exposure control; mA and/or kV adjustment per patient size (includes targeted exams where dose is matched to clinical indication); or iterative reconstruction. Contrast material: OMNIPAQUE 300; Contrast volume: 95 ml; Contrast route: INTRAVENOUS (IV); COMPARISON: CT abdomen pelvis wo con [id number] 11/09/2018 7:22 PM RADIATION DOSE METRICS: Total DLP (mGy-cm): 1698.96 FINDINGS: Pleural spaces: Trace volume bilateral pleural effusions. Heart: Small volume pericardial effusion. Liver: Normal. No mass. Gallbladder and bile ducts: Cholelithiasis. Negative for inflammatory gallbladder wall thickening. Negative for biliary dilation. Pancreas: Normal. No ductal dilation. Spleen: Normal. No splenomegaly. Adrenal glands: Normal. No mass. Kidneys and ureters: Small simple bilateral renal cortical cysts. Negative for hydronephrosis. No renal stones. Stomach and bowel: Unremarkable. No obstruction. No mucosal thickening. Appendix: No evidence of appendicitis. Intraperitoneal space: Trace pelvic free fluid. Vasculature: Unremarkable. No abdominal aortic aneurysm. Lymph nodes: Unremarkable. No enlarged lymph nodes. Urinary bladder: Unremarkable as visualized. Reproductive: Unremarkable as visualized. Bones/joints: Unremarkable. No acute fracture. Soft tissues: Unremarkable. CT/CT abdomen pelvis w con* [id number] IMPRESSION: Negative for acute abdominopelvic pathology. COMMENTS: Consistent with the [employer]'s Incidental Findings Committee white paper (J Am Armando Radiol 2018): Any incidental renal lesion less than 1 cm or classified as too small to characterize, or any incidental cystic renal lesion characterized as simple-appearing, is likely benign. No follow-up imaging is recommended for these lesions per consensus recommendations based on imaging criteria. Radiation Dose CTDIVOL = (mGy): DLP = 1698.96 (mGy-cm)
[2021-02-15 16:59] LABS: Bilirubin Urine Neg (Negative); Blood Urine Neg (Negative); Glucose Urine UA 4+ (Normal); Ketones Urine 1+ (Negative); Leukocyte Esterase Urine Trace (Negative); Nitrate Urine Positive (Negative); Protein Urine Neg (Negative); Specific Gravity, Urine 1.015 (1.005-1.030); Urine Appearance Clear (CLEAR); Urine Color Straw (Yellow); Urobilinogen Urine Norm (Negative); pH Urine 5 (5-7)
[2021-02-15 17:00] LABS: Add Urine Culture? Yes; Bacteria Urine 2+ /hpf; WBC Urine 15-25 /hpf (0-5)
[2021-02-15] MEDS: ondansetron 2 mg/ML SDV 2 mL 4 MG IVP (17:14)
--- NOTE | 2021-02-15 17:14 | XRR_ITS ---
PROCEDURE INFORMATION: Exam: XR Chest Exam date and time: 02/15/2021 5:14 PM Age: 70 years old Clinical indication: Other: Hypoxia TECHNIQUE: Imaging protocol: XR of the chest. Views: 1 view. COMPARISON: CR XR chest 1V portable [id number] 06/22/2020 11:11 PM FINDINGS: Lungs: Unremarkable. No consolidation. Pleural spaces: Unremarkable. No pleural effusion. No pneumothorax. Heart/Mediastinum: Unremarkable. No cardiomegaly. Bones/joints: Unremarkable. XR/XR chest 1V portable [id number] IMPRESSION: No acute findings.
--- NOTE | 2021-02-15 17:17 | CTR_ITS ---
PROCEDURE INFORMATION: Exam: CT Head Without Contrast Exam date and time: 02/15/2021 5:17 PM Age: 70 years old Clinical indication: Altered mental status/memory loss; Confusion or disorientation; Additional info: Stat AMS, afib not on antociag TECHNIQUE: Imaging protocol: Computed tomography of the head without contrast. Radiation optimization: All CT scans at this facility use at least one of these dose optimization techniques: automated exposure control; mA and/or kV adjustment per patient size (includes targeted exams where dose is matched to clinical indication); or iterative reconstruction. COMPARISON: CT head wo con* [id number] 06/10/2019 5:45 PM RADIATION DOSE METRICS: Total DLP (mGy-cm): 932.7 FINDINGS: Brain: There is mild cerebral atrophy. No hemorrhage. Unremarkable white matter. No mass effect. Cerebral ventricles: No ventriculomegaly. Paranasal sinuses: Visualized sinuses are unremarkable. No fluid levels. Mastoid air cells: Visualized mastoid air cells are well aerated. Bones/joints: Unremarkable. No acute fracture. Soft tissues: Unremarkable. CT/CT head wo con* [id number] IMPRESSION: No acute intracranial abnormality. Radiation Dose CTDIVOL = (mGy): DLP = 932.7 (mGy-cm)
--- NOTE | 2021-02-15 17:18 | ECG_ITS ---
[facility] Test Date: 2021-02-15 Pat Name: Kaylee Cardoso Department: Room: ICU10 Gender: Female Hospital Cook: : 1950 Requested By: Jonatan Leahy Order Number: [id number] Sami MD: Destiny Salinas M.D. Measurements Intervals [place] Rate: 108 P: 65 AK: 160 QRS: 73 QRSD: 96 T: 55 QT: 309 QTc: 416 Interpretive Statements SINUS TACHYCARDIA NONSPECIFIC ST & T-WAVE ABNORMALITY ABNORMAL RHYTHM ECG Compared to ECG 06/22/2020 23:08:26 Sinus rhythm no longer present Possible ischemia no longer present T-wave abnormality still present Electronically Signed On 02-16-2021 19:03:42 CDT by Destiny Salinas M.D. [email or web address] [email or web address] [email or web address] river [email or web address] valley health system bluffton hospitalNu-Med Plus/[id number]
[2021-02-15] MEDS: dextrose 50% syringe 50 mL 25 ML IVP ×4 (17:20→20:32)
[2021-02-15 17:27] LABS: ABG PCO2 43.7 mmHg (35-45); Arterial Blood Gas Hematocrit 35.4 % (37-47); Base Excess ABG 2.1 mmol/L (-2.0-2.0); Blood Gas Allen Test Pos; Blood Gas Operator Identificat CAK; Blood Gas Sample Site Radial, left; Blood Gas Sample Type Arterial; HCO3 ABG 27.2 mmol/L (22-26); Oxygen Device ROOM AIR; PO2 ABG 76.7 mmHg (80.0-100.0)
--- NOTE | 2021-02-15 17:35 | CTR_ITS ---
PROCEDURE INFORMATION: Exam: CT Lumbar Spine Without Contrast Exam date and time: 02/15/2021 5:35 PM Age: 70 years old Clinical indication: Low back pain TECHNIQUE: Imaging protocol: Computed tomography images of the lumbar spine without contrast. Radiation optimization: All CT scans at this facility use at least one of these dose optimization techniques: automated exposure control; mA and/or kV adjustment per patient size (includes targeted exams where dose is matched to clinical indication); or iterative reconstruction. COMPARISON: CT abdomen pelvis wo con [id number] 11/09/2018 7:22 PM RADIATION DOSE METRICS: Total DLP (mGy-cm): 2480.94 FINDINGS: Vertebrae: No acute fracture. Normal alignment. L1-L2: No significant disc protrusion. No severe spinal canal stenosis. No significant neural foraminal narrowing. L2-L3: No significant disc protrusion. No severe spinal canal stenosis. No significant neural foraminal narrowing. L3-L4: No significant disc protrusion. No severe spinal canal stenosis. No significant neural foraminal narrowing. L4-L5: No significant disc protrusion. No severe spinal canal stenosis. No significant neural foraminal narrowing. L5-S1: No significant disc protrusion. No severe spinal canal stenosis. No significant neural foraminal narrowing. Soft tissues: Unremarkable. CT/CT lumbar spine wo con* [id number] IMPRESSION: Negative for acute lumbar spine abnormality. Radiation Dose CTDIVOL = (mGy): DLP = 2480.94 (mGy-cm)
--- NOTE | 2021-02-15 17:50 | PM.HP ---
Providers/Chief Complaint Chief Complaint: HYPERGLYCEMIA History of Present Illness Kaylee Cardoso is a 70 year old female with a past medical history of type 1 diabetes mellitus, with an insulin pump inject 16 units via insulin pump once daily for basal, bolus, correctional insulin, history of atrial fibrillation on Eliquis, history of DVT and PE, history of peripheral vascular disease, history of CHF, hypertension, hyperlipidemia, history of bilateral extremity edema, hypothyroidism, osteoporosis, scleroderma who presents to [facility] due to elevated blood sugar, low back pain, fevers, accidental oxycodone poisoning Patient tells me that she has type 1 diabetes, she has an issue with her blood sugars, they typically run high, she does have a history of DKA, last admission was roughly a year ago, she takes up to 60 units via basal bolus and correctional. She tells me that recently her blood sugars have been running as high as 600, this morning when it was 600, she took an extra 15 units of insulin via manual., Her blood sugars did decrease, in the emergency room they dropped to the low 70s, she was given 1 amp of D50, blood sugars improved to the 140s, being placed on D5 normal saline. Alert oriented x3. In terms of oxycodone, she has been having severe low back pain, she had a fever 2 days ago, she was diagnosed with a UTI, she is put on antibiotics but continue to have low back pain and intermittent fevers, she has a history of kidney stones, history of kidney infections. She took 60 mg of extended release oxycodone which do not think that they make, which is her medication who is , she took it at roughly 1 PM, and became lethargic, EMS was called, she got Narcan in the ambulance, she got Narcan in the emergency room. Currently she is on 4 L, alert oriented x3, but does doze off, follows all commands, can follow neurologic testing, but does frequently nod off, denies any shortness of breath blood gas shows a pH of 7.4, PCO2 43.7, PO2 76.7 on room air. I contacted poison control, the advised to continue to monitor patient, try to wean oxygen, the peak effect should be at 4 hours which she is already reached. Review of Systems Const: Reports: fever(s); Denies: chills, fatigue or malaise Eyes: Denies: change in vision or blurry vision ENMT: Denies: nasal congestion Card: Reports: irregular heart rhythm; Denies: chest pain, palpitations or edema Resp: Denies: dyspnea, productive cough, non-productive cough or wheezing GI: Denies: abdominal pain, nausea, vomiting, hematemesis, diarrhea, constipation, hematochezia or melena : Reports: flank pain; Denies: difficulty voiding, dysuria or urinary frequency Musc: Reports: back pain; Denies: neck pain Skin/Breast: Reports: rash Neuro: Denies: headache(s), dizziness or vertigo Psych: Denies: anxiety or depression Endo: Denies: polyuria or polydipsia Medications/Allergies Home Medications Medication Instructions Recorded Confirmed Last Taken Type aspirin 81 mg tablet,delayed 81 mg PO DAILY 10/24/19 02/13/21 06/16/20 History release nitroglycerin 0.4 mg sublingual 0.4 mg SUBLINGUAL Q5M PRN 10/24/19 02/13/21 Unknown History tablet carvedilol 3.125 mg tablet 12.5 mg PO BID tab 05/27/20 02/13/21 Unknown History duloxetine 60 mg capsule,delayed 60 mg PO DAILY 05/27/20 02/13/21 Unknown History release furosemide 20 mg tablet 40 mg PO QAM PRN tab 05/27/20 02/13/21 Unknown History levothyroxine 175 mcg capsule 125 mcg PO DAILY cap 05/27/20 02/13/21 Unknown History ondansetron HCl 4 mg tablet 4 mg PO Q8H 05/27/20 02/13/21 Unknown History sertraline 50 mg tablet 100 mg PO DAILY tab 05/27/20 02/13/21 Unknown History mupirocin 1 applic TOPICAL BID #22 g 11/29/20 02/13/21 Unknown Rx apixaban 5 mg tablet 5 mg PO BID #180 tab 12/27/20 02/13/21 Unknown Rx ibandronate 150 mg tablet 150 mg PO .monthly #7 tab 12/27/20 02/13/21 Unknown Rx insulin lispro 100 unit/mL 60 unit SUBCUT DAILY #20 ml 12/27/20 02/13/21 Unknown Rx subcutaneous solution nitrofurantoin 100 mg PO Q12H 7 Days #14 cap 02/13/21 02/13/21 Unknown Rx monohydrate/macrocrystals 100 mg capsule phenazopyridine 200 mg tablet 200 mg PO TID #6 tab 02/13/21 02/13/21 Unknown Rx Allergies Allergy/AdvReac Type Severity Reaction Status Date / Time diphenhydramine Allergy ADR-Muscle Verified 02/13/21 13:08 [From Benadryl] Pain Penicillins Allergy ALGY-Anaphy Verified 02/13/21 13:08 laxis Tetanus Vaccines and Toxoid Allergy ALGY-Rash Verified 02/13/21 13:08 trazodone Allergy ALGY-Joint Verified 02/13/21 13:08 Pain zolpidem [From Ambien] Allergy Unconscious Verified 02/13/21 13:08 PFSH Acute PFSH: Medical History (Updated 02/15/21 @ 18:11 by Jonatan Leahy MD) Atrial fibrillation -rate controlled -telemetry monitoring -has previously declined AC; follows up with cardiology COVID-19 determined by clinical diagnostic criteria COVID-19 virus infection -previously treated; recovering; has consistently been on RA, afebrile Diabetic ketoacidosis DVT (deep venous thrombosis) Dyslipidemia Encounter for screening laboratory testing for COVID-19 virus HTN (hypertension) -VSS; continue to monitor -continue oral antihypertensives Hypothyroidism -continue levothyroxine Mild cognitive impairment Mitral regurgitation Osteoporosis Peripheral vascular disease Scleroderma Type 1 diabetes Viral URI Surgical History H/O cardiac catheterization 2014, moderate disease no flow-limiting H/O dilation and curettage Status post endovenous radiofrequency ablation of saphenous vein Family History Father CAD (coronary artery disease) Mother Hypertension CAD (coronary artery disease) Hyperlipidemia Sister Hypertension Diabetes Grandfather CAD (coronary artery disease) PATERNAL Social History Smoking and tobacco status: never smoked Alcohol intake: never Lives independently: Yes Housing: House Vitals/I&O/Wt Last Vital Signs Pulse 117 H 02/15/21 16:53 Resp 20 H 02/15/21 16:53 BP 177/122 02/15/21 16:53 Pulse Ox 97 02/15/21 16:53 Weight last 48 hrs Weight 71.668 kg Physical Exam Const: COMMON NORMALS: no acute distress and patient oriented x3 GENERAL APPEARANCE: cooperative and comfortable Eye: COMMON NORMALS: Equal, round and reactive pupils present and EOMs intact bilaterally GENERAL EYE: appearance normal, both eyes and all related structures PUPIL: Yes Equal, round and reactive pupils present Neck/C-Spine: COMMON NORMALS: no lymphadenopathy THYROID: Thyroid normal Lymph: LYMPHATIC: no lymphadenopathy noted Resp: COMMON NORMALS: normal respiratory effort, No retractions, No use of accessory muscles and clear to auscultation bilaterally AUSCULTATION: clear to auscultation bilaterally Cardio: COMMON NORMALS: regular rate, S1 normal heart sound present, S2 normal heart sound present, No gallops present (Cardio), No clicks present (Cardio) and No murmurs present (Cardio) RATE: regular rate RHYTHM: regular rhythm HEART SOUNDS: S1 normal heart sound present and S2 normal heart sound present GI: COMMON NORMALS: Normal to inspection, nondistended, normoactive bowel sounds present, Soft to palpation and non-tender Back/Pelvis: GENERAL BACK: Yes CVA tenderness CVA tenderness: left OTHER: Does doze off, but follows all commands once reoriented Extremity: COMMON NORMALS: normal to inspection, full ROM and no pedal edema Neuro: COMMON NORMALS: patient oriented x3, CN's II-XII intact bilaterally and moves all extremities Data : 02/15/21 15:50 02/15/21 15:50 A&P Assessment and plan (1) Opiate overdose: -Poison control contacted -ABG pH 7.4, PCO2 43.7, PO2 76.7 -Denies using any other drugs, U tox negative -Chest x-ray pending -Currently on 4 L, wean as tolerated -Narcan as needed, monitor respiratory status closely -Alert oriented x3, respiratory rate 14-15, would only use if there is significant evidence of respiratory or mental depression, Status: Acute Qualifiers: Encounter type: initial encounter Injury intent: accidental or unintentional Qualified Code(s): T40.601A - Poisoning by unspecified narcotics, accidental (unintentional), initial encounter (2) Acute pyelonephritis: -No significant cytosis, but CRP 103.7, lactic acid 2.8, UA evidence of UTI, has had fevers, left flank pain -CT scan to evaluate for obstructive uropathy -Hold Eliquis until CT scan can confirm that there is no obstructive uropathy -She does have a penicillin allergy, start Primaxin, epinephrine for anaphylactic reaction, benadryl for anaphylactic reaction Status: Acute (3) Hypoxia: -likely secondary to opoid overdose -await chest cxray -does have chf -no crackles on exam - bnp, troponin pending -hold off on echo Status: Acute (4) Hypoglycemia: -Start D5 normal saline at half 100 cc an hour -Would turn off insulin pump -Start high-dose sliding scale -Monitor blood sugars Status: Acute (5) Osteoporosis: Status: Acute (6) Hypothyroidism: Status: Acute Qualifiers: Hypothyroidism type: unspecified Qualified Code(s): E03.9 - Hypothyroidism, unspecified (7) Atrial fibrillation: Telemetry monitoring, continue Eliquis after CT is confirmed that there is no obstructive uropathy, continue Coreg Status: Acute Qualifiers: Atrial fibrillation type: paroxysmal Qualified Code(s): I48.0 - Paroxysmal atrial fibrillation (8) Type 1 diabetes mellitus: We need to clarify her insulin dosing, patient is unsure, daughter is unsure Status: Acute (9) Acute encephalopathy: Secondary to opiate overdose, hypoglycemia, pyelonephritis Status: Acute Attestations Medical Necessity Statement*: Patient requires hospitalization, inpatient, ICU, greater than 2 midnights, for opiate overdose, acute pyelonephritis, hypoglycemia, hypoxia Coding Level of Care Code Acute Hide Worker for [facility] Fwd Diagnoses Opiate overdose T40.601A Encounter type: initial encounter Injury intent: accidental or unintentional Acute pyelonephritis N10 Hypoxia R09.02 Hypoglycemia E16.2 Osteoporosis M81.0 Hypothyroidism E03.9 Hypothyroidism type: unspecified Atrial fibrillation I48.0 Atrial fibrillation type: paroxysmal Type 1 diabetes mellitus E10.9 Acute encephalopathy G93.40
[2021-02-15 18:08] LABS: Glucose Point of Care 184 mg/dL (70-110)
[2021-02-15] MEDS: iohexol 300 mg/mL 100 mL Btl IV (18:20)
[2021-02-15 18:27] LABS: Troponin(5th) Baseline 12 ng/L (0-10)
[2021-02-15 18:35] LABS: NT Pro B Type Natriuretic Pept 1493 pg/mL (0-125); Procalcitonin 0.13 ng/mL (0-0.5); Thyroid Stimulating Hormone 4.24 uIU/mL (0.27-4.20)
[2021-02-15 18:45] LABS: Magnesium 1.7 mg/dL (1.7-2.3)
[2021-02-15] MEDS: dextrose 5%-sod chloride 0.9% 1,000 ML 50 ML IV (18:51)
--- NOTE | 2021-02-15 19:18 | ECG_ITS ---
[facility] Test Date: 2021-02-15 Pat Name: Kaylee Cardoso Department: Room: ICU10 Gender: Female Poly Area Supervisor: : [id number] Requested By: Jonatan Leahy Order Number: [id number] Sami MD: Destiny Salinas M.D. Measurements Intervals [place] Rate: 109 P: 64 ID: [id number] QRS: 73 QRSD: 90 T: 61 QT: 311 QTc: 420 Interpretive Statements SINUS TACHYCARDIA NONSPECIFIC ST & T-WAVE ABNORMALITY ABNORMAL RHYTHM ECG Compared to ECG 02/15/2021 18:41:38 No significant changes Electronically Signed On 02-16-2021 19:15:56 CDT by Destiny Salinas M.D. [id number]
[2021-02-15 19:51] LABS: Glucose Point of Care 81 mg/dL (70-110)
[2021-02-15 20:16] LABS: Glucose Point of Care 71 mg/dL (70-110)
[2021-02-15 20:54] LABS: Troponin 5 2HR 14.19 ng/L (0-10); Troponin 5 2HR Delta 2.19 ABS# (0-10)
--- NOTE | 2021-02-15 21:24 | PC.NURSE ---
brought from ED via bed, patient AO x3 but lethargic, blood glucose 71, patient given OJ to drink
[2021-02-15 21:31] LABS: Glucose Point of Care 71 mg/dL (70-110)
--- NOTE | 2021-02-15 21:40 | PC.NURSE ---
Blood sugar 64 after OJ with D5 running, dr. Dolan notifed, approved taking patient's insulin pump off
[2021-02-15] MEDS: apixaban 5 mg Tablet PO (21:44)
[2021-02-15 21:49] LABS: Glucose Point of Care 70 mg/dL (70-110)
[2021-02-15] MEDS: dextrose 50% syringe 50 mL IVP (21:59)
[2021-02-15 22:03] LABS: Glucose Point of Care 66 mg/dL (70-110)
--- NOTE | 2021-02-15 22:08 | PC.NURSE ---
patient still lethargic, blood glucose 66 after 8 oz OJ, amp D50 given per order
[2021-02-15 22:26] LABS: Glucose Point of Care 196 mg/dL (70-110)
--- NOTE | 2021-02-15 22:32 | PC.NURSE ---
blood glucose 196 currently after 1 amp D50
--- NOTE | 2021-02-15 23:15 | PC.NURSE ---
poison control called, patient update given per request
[2021-02-15 23:21] LABS: Glucose Point of Care 132 mg/dL (70-110)
[2021-02-16] VITALS (17 sets, daily range): BP systolic 94–148; BP diastolic 55–91; PULSE 64–81; RESP 10–20; TEMP 36.7–37.2; O2SAT 90–100
[2021-02-16 00:31] LABS: Glucose Point of Care 106 mg/dL (70-110)
[2021-02-16 01:00] LABS: Troponin 5 6HR 14.78 ng/L (0-10); Troponin 5 6HR Delta 2.78 ng/L (0-12)
[2021-02-16 01:23] LABS: Glucose Point of Care 97 mg/dL (70-110)
[2021-02-16 02:45] LABS: Glucose Point of Care 152 mg/dL (70-110)
[2021-02-16] MEDS: famotidine 20 mg/2 mL INJ IVP ×2 (05:15→18:36)
[2021-02-16 05:26] LABS: Glucose Point of Care 254 mg/dL (70-110)
[2021-02-16] MEDS: ondansetron 2 mg/ML SDV 2 mL 4 MG IVP ×2 (06:40→14:15)
[2021-02-16] MEDS: acetaminophen 325 mg Tablet 650 MG PO ×3 (06:40→21:21)
--- NOTE | 2021-02-16 06:50 | PC.NURSE ---
1 episode of emesis
[2021-02-16 07:08] LABS: Basophils % 0.5 %; Eosinophils # 0.1 10^3/uL (0.0-0.8); Eosinophils % 1.1 %; Hematocrit 32.8 % (37.0-47.0); Lymphocytes % 16.9 %; Mean Corpuscular HGB Conc 30.5 g/dL (30.0-36.0); Mean Corpuscular Hemoglobin 28.2 pg (28.0-34.0); Mean Corpuscular Volume 92.7 fL (81-99); Mean Platelet Volume 10.5 fL (7.4-10.4); Monocytes # 0.8 10^3/uL (0.2-0.9); Monocytes % 13.1 %; Neutrophils # 4.15 10^3/uL (1.8-7.7); Neutrophils % 68.1 %; Nucleated Red Blood Cells % 0 %; Platelet Count 186 10^3/cmm (130-400); Red Blood Count 3.54 10^6/uL (4.1-5.3); Red Cell Distribution Width 14.5 % (12.1-15.1); White Blood Count 6.1 10^3/uL (4.0-10.0)
[2021-02-16 07:16] LABS: INR 1.26 (0.8-1.2)
[2021-02-16 07:40] LABS: Alanine Aminotransferase 6 U/L (0-33); Alkaline Phosphatase 66 IU/L (35-105); Anion Gap 13.8 (5-19); Aspartate Amino Transferase 12 U/L (0-32); Blood Urea Nitrogen 8 mg/dL (8-23); Carbon Dioxide 25 mmol/L (22-29); Chloride 104 mmol/L (98-107); Chol HDL Ratio 2.74 mg/dL (0.0-4.40); Cholesterol 167 mg/dL (0-200); Glomerular Filtration Rate 122.3 mL/min (90-130); Glucose 292 mg/dL (65-115); HDL Cholesterol 61 mg/dL (60-100); LDL Cholesterol Calculated 89 mg/dL (50-129); LDL HDL Ratio 1.46 RATIO (0.00-3.22); Magnesium 1.7 mg/dL (1.7-2.3); NT Pro B Type Natriuretic Pept 1754 pg/mL (0-125); Osmolality Calculated 297 mOsm/kg (285-295); Phosphorus 1.7 mg/dL (2.5-4.5); Potassium 3.8 mmol/L (3.5-5.1); Sodium 139 mmol/L (136-145); Total Bilirubin 0.2 mg/dL (0.15-1.2); Triglycerides 84 mg/dL (0-150)
[2021-02-16 08:19] LABS: Estmated Average Glucose 200; Hemoglobin A1C 8.6 % (4.0-6.0)
[2021-02-16 08:53] LABS: Glucose Point of Care 380 mg/dL (70-110)
[2021-02-16] MEDS: apixaban 5 mg Tablet PO ×2 (08:57→21:25)
[2021-02-16] MEDS: carvedilol 12.5 mg Tablet PO (08:57)
[2021-02-16] MEDS: aspirin 81 mg EC Tablet PO (08:59)
[2021-02-16] MEDS: levothyroxine 125 mcg Tablet PO (08:59)
[2021-02-16 11:38] LABS: Glucose Point of Care 229 mg/dL (70-110)
[2021-02-16] MEDS: dextrose 50% syringe 50 mL IVP (14:13)
[2021-02-16 14:15] LABS: Glucose Point of Care 53 mg/dL (70-110)
--- NOTE | 2021-02-16 14:31 | PM.PN ---
Subjective Subjective: Interval history: Having pain in lower back, request for Tylenol and heating pad. Otherwise doing all right. She manages her insulin at home by insulin pump which gives her continues infusion and she also enters boluses by herself. Follows with an consultant electronics. Vitals/I&O/Wt Last Vital Signs Temp 98.0 F 02/16/21 07:00 Pulse 73 02/16/21 12:00 Resp 18 02/16/21 12:00 BP 99/55 02/16/21 12:00 Pulse Ox 90 02/16/21 12:00 02/15/21 02/16/21 02/16/21 22:59 06:59 14:59 Intake Total 100 / 100 100 / 200 200 / 200 Output Total 200 / 200 150 / 150 Balance -100 / -100 100 / 0 50 / 50 Weight last 48 hrs Weight 71.668 kg Physical Exam Const: COMMON NORMALS: no acute distress and patient oriented x3 HENMT: COMMON NORMALS: oropharynx normal Neck/C-Spine: COMMON NORMALS: no JVD Resp: COMMON NORMALS: normal respiratory effort and clear to auscultation bilaterally AUSCULTATION: clear to auscultation bilaterally Cardio: COMMON NORMALS: no JVD, regular rhythm, S1 normal heart sound present, S2 normal heart sound present and No murmurs present (Cardio) RHYTHM: regular rhythm HEART SOUNDS: S1 normal heart sound present and S2 normal heart sound present GI: COMMON NORMALS: Normal to inspection, nondistended, normoactive bowel sounds present, Soft to palpation and non-tender PALPATION: Yes Soft to palpation Extremity: COMMON NORMALS: no joint enlargement and no pedal edema Neuro: COMMON NORMALS: patient oriented x3 and moves all extremities Skin: COMMON NORMALS: no rashes or lesions noted GENERAL SKIN EXAM: no rashes or lesions noted Data : 02/16/21 06:47 02/16/21 06:47 Micro: Microbiology 02/15/21 19:51 Blood Culture - Preliminary Blood SPECIMEN COLLECTED 02/15/21 17:45 Blood Culture - Preliminary Blood SPECIMEN COLLECTED A&P Assessment and plan (1) Hypoglycemia: At the end of nitro glucose was rising up to 300 and insulin pump infusion was restarted. Boluses were kept subcutaneous. We kept insulin infusion which appears was 0.8 units, however, discontinue at this time as although did well after breakfast, is again hypoglycemic 49-53. Appetite has not been the best. Discussed with nursing staff, stop insulin pump at this time. She received D50, ate some crackers. Monitor glucose. Encourage oral intake. Continue D5W infusion. Monitor glucose. Status: Acute (2) UTI (urinary tract infection): Complicated UTI in terms of resistant organism, previously with ESBL E. coli resistant to all antibiotics except Carbapenem and amikacin. At this time growing more than 100,000 gram-negative rods in urine as per discussion with microbiology. Follow-up sensitivity. Status: Acute (3) Opiate overdose: -Poison control contacted -ABG pH 7.4, PCO2 43.7, PO2 76.7 -Denies using any other drugs, U tox negative -Chest x-ray pending -Currently on 4 L, wean as tolerated -Narcan as needed, monitor respiratory status closely -Alert oriented x3, respiratory rate 14-15, would only use if there is significant evidence of respiratory or mental depression, Status: Acute Qualifiers: Encounter type: initial encounter Injury intent: accidental or unintentional Qualified Code(s): T40.601A - Poisoning by unspecified narcotics, accidental (unintentional), initial encounter (4) Acute pyelonephritis: As above. Tolerated Primaxin so far. Status: Acute (5) Hypoxia: Resolving, 1 L of oxygen, but likely can come off it. Wean down oxygen as tolerating. Home O2 UL. Hx chf Status: Acute (6) Osteoporosis: Status: Acute (7) Hypothyroidism: TSH 4.24, minutely above upper normal. Requested free T4. Will need to follow-up with PCP for reassessment and additional adjustment of levothyroxine if needed. Status: Acute Qualifiers: Hypothyroidism type: unspecified Qualified Code(s): E03.9 - Hypothyroidism, unspecified (8) Atrial fibrillation: Telemetry monitoring, continue Eliquis, continue Coreg Status: Acute Qualifiers: Atrial fibrillation type: paroxysmal Qualified Code(s): I48.0 - Paroxysmal atrial fibrillation (9) Type 1 diabetes mellitus: A1c 8.6. Once hypoglycemia resolves, she will need to decrease the insulin infusion rate to prevent further hypoglycemia episodes. Status: Acute (10) Acute encephalopathy: Resolved. Secondary to opiate overdose, hypoglycemia, pyelonephritis Status: Acute Additional A&P Information Hypophosphatemia: replace, add dairy. Hypomagnesemia: Replace. Attestations Medical Necessity Statement*: Continue admission for assessment of management of episodes of hypoglycemia, complicated urinary tract infection, with history of MDR organism infection. Coding Level of Care Code Acute Pigment Processor for [facility] Fwd Diagnoses Hypoglycemia E16.2 UTI (urinary tract infection) N39.0 Opiate overdose T40.601A Encounter type: initial encounter Injury intent: accidental or unintentional Acute pyelonephritis N10 Hypoxia R09.02 Osteoporosis M81.0 Hypothyroidism E03.9 Hypothyroidism type: unspecified Atrial fibrillation I48.0 Atrial fibrillation type: paroxysmal Type 1 diabetes mellitus E10.9 Acute encephalopathy G93.40
[2021-02-16 14:35] LABS: Glucose Point of Care 188 mg/dL (70-110)
[2021-02-16] MEDS: phosphorus 250 mg Tablet PO ×2 (15:15→18:38)
--- NOTE | 2021-02-16 15:19 | PC.OT ---
OT note: Attempted OT evaluation at 1:36 pm. Patient sleeping soundly. Spoke to nurse who requested to defer evalaution at this time and attempt tomorrow as patient would be able to participate better.
--- NOTE | 2021-02-16 16:09 | PC.NURSE ---
THIS PT JUST ARRIVED TO THE FLOOR. PT IS DOING WELL, RESTING IN BED. NO COMPLAINTS OF PAIN. HEART AND LUNGS ARE CLEAR. NO EDEMA PRESENT. NO SKIN ISSUES. PTS BLOOD SUGAR IS CURRENTLY 159. PT IS ALERT AND ORIENTATED. WILL CONTINUE TO MONITOR PT.
[2021-02-16 16:33] LABS: Free T4 Free Thyroxine 1.02 ng/dL (0.82-1.77)
[2021-02-16 17:19] LABS: Glucose Point of Care 189 mg/dL (70-110)
[2021-02-16 19:55] LABS: Glucose Point of Care 291 mg/dL (70-110)
[2021-02-16 20:58] LABS: Glucose Point of Care 201 mg/dL (70-110)
[2021-02-16] MEDS: lidocaine 5% Patch 1 PATCH TOPICAL (21:29)
[2021-02-16] MEDS: dextrose 5%-sod chloride 0.9% 1,000 ML 50 ML IV (22:38)
--- NOTE | 2021-02-16 23:11 | PC.NURSE ---
Hold evening novolog Dr. Christina was in speaking with patient during 20:00 rounding about her blood sugar levels and the insulin pump she wears. He ordered that her evening dose of novolog be held and if her levels be checked at 21:00 and 01:00. Stated if levels get above 300 to contact the blocker automatic doctor and see if they would like for sliding scale novolog to be given. He also ordered for her insulin sliding scale be changed fro a high dose to a low dose.
[2021-02-17] VITALS: BP 115/62; PULSE 80; RESP 15; TEMP 36.8; O2SAT 95
[2021-02-17 00:41] LABS: Glucose Point of Care 365 mg/dL (70-110)
[2021-02-17 04:00] VITALS: BP 122/71; PULSE 77; RESP 15; TEMP 36.8; O2SAT 95
[2021-02-17 04:17] LABS: Glucose Point of Care 193 mg/dL (70-110)
[2021-02-17] MEDS: famotidine 20 mg/2 mL INJ IVP (05:04)
--- NOTE | 2021-02-17 05:20 | PC.NURSE ---
Patient 's family called with concerns that pt dexcom monitor was not reading. Educated family that pt had told this nurse that it at midnight and would no longer be calculating her blood sugar level. This nurse also let family know we were watching patient closely and had check blood sugar level at 4:00 and would be checking it again at 6:30
[2021-02-17 05:38] VITALS: PULSE 79
[2021-02-17] MEDS: acetaminophen 325 mg Tablet 650 MG PO (05:43)
[2021-02-17] MEDS: ondansetron 2 mg/ML SDV 2 mL 4 MG IVP (05:47)
[2021-02-17 06:24] LABS: Glucose Point of Care 267 mg/dL (70-110)
[2021-02-17 06:38] LABS: Basophils % 0.4 %; Eosinophils # 0.1 10^3/uL (0.0-0.8); Eosinophils % 2.4 %; Hematocrit 30.7 % (37.0-47.0); Hemoglobin 9.6 g/dL (11.5-15.3); Lymphocytes # 0.9 10^3/uL (0.8-4.8); Lymphocytes % 16.6 %; Mean Corpuscular HGB Conc 31.3 g/dL (30.0-36.0); Mean Corpuscular Hemoglobin 28.6 pg (28.0-34.0); Mean Corpuscular Volume 91.4 fL (81-99); Mean Platelet Volume 10.3 fL (7.4-10.4); Monocytes # 0.6 10^3/uL (0.2-0.9); Neutrophils # 3.72 10^3/uL (1.8-7.7); Neutrophils % 69.2 %; Nucleated Red Blood Cells % 0 %; Platelet Count 194 10^3/cmm (130-400); Red Blood Count 3.36 10^6/uL (4.1-5.3); Red Cell Distribution Width 14.5 % (12.1-15.1); White Blood Count 5.4 10^3/uL (4.0-10.0)
[2021-02-17 06:49] LABS: INR 1.37 (0.8-1.2)
[2021-02-17 06:56] LABS: Alanine Aminotransferase 8 U/L (0-33); Albumin Level 2.9 g/dL (3.5-5.2); Alkaline Phosphatase 70 IU/L (35-105); Aspartate Amino Transferase 14 U/L (0-32); Blood Urea Nitrogen 10 mg/dL (8-23); Calcium 8.1 mg/dL (8.5-10.5); Carbon Dioxide 25 mmol/L (22-29); Chloride 105 mmol/L (98-107); Globulin 2.8 g/dL (1.3-4.6); Glomerular Filtration Rate 122.3 mL/min (90-130); Glucose 269 mg/dL (65-115); Magnesium 1.8 mg/dL (1.7-2.3); Osmolality Calculated 303 mOsm/kg (285-295); Phosphorus 2.1 mg/dL (2.5-4.5); Sodium 142 mmol/L (136-145); Total Bilirubin 0.2 mg/dL (0.15-1.2); Total Protein 5.7 g/dL (6.6-8.7)
[2021-02-17 07:14] VITALS: BP 122/69; PULSE 76; RESP 16; TEMP 36.8; O2SAT 90
[2021-02-17] MEDS: phosphorus 250 mg Tablet PO (08:50)
[2021-02-17] MEDS: apixaban 5 mg Tablet PO (08:50)
[2021-02-17] MEDS: aspirin 81 mg EC Tablet PO (08:51)
[2021-02-17] MEDS: carvedilol 12.5 mg Tablet PO (08:51)
[2021-02-17] MEDS: levothyroxine 125 mcg Tablet PO (08:51)
[2021-02-17] MEDS: lidocaine 5% Patch 1 PATCH TOPICAL (08:51)
[2021-02-17 08:58] LABS: Glucose Point of Care 393 mg/dL (70-110)
--- NOTE | 2021-02-17 10:28 | PC.OT ---
OT NOTE: OT SCREEN COMPLETED. PATIENT DEMONSTRATES NO DEFICITS IN ADL PERFORMANCE. NO FURTHER SKILLED OT REQUIRED AT THIS TIME.
[2021-02-17 10:37] LABS: Glucose Point of Care 364 mg/dL (70-110)
[2021-02-17 11:36] VITALS: BP 148/84; PULSE 78; RESP 17; TEMP 36.9; O2SAT 95
[2021-02-17 12:49] LABS: Glucose Point of Care 215 mg/dL (70-110)
--- NOTE | 2021-02-17 12:51 | PC.CHAP ---
Pastoral Care Encounter/Spiritual Assessment Type of Contact [] Declined sr technical sales consultant visit [] Patient/Family/Request visit [] Outpatient visit [] Follow-up visit [] Physician referral [] Code/Alert [] Routine visit [] Staff referral [] Actively dying [] Patient sleeping [] Family support [] [] Out of room [] Palliative care [] [] Receiving care in room [] Pre-surgical visit [] Trauma [] Long length of stay [] ICU visit [] Other: Relational/Emotional Strength [] Patient feels connected with others/family/visitors/staff [] Distress [] Loneliness/isolation [] Abandonment Spirituality of Patient [] Person of [place] [] Attends Jew of their [place] [] Believes in Prayer [] Reads Bible or Islam materials [] There are Spiritual issues to be addressed Academic Affairs Manager Interventions [] Prayer [] Active listening [] Non-anxious presence [] Spiritual/emotional support [] Crisis/trauma care [] Spiritual counseling [] Bereavement support [] Provided bereavement packet [] Provided Bible/devotional materials [] Provided toy/stuffed animal, coloring book to patient or family member [] Provided Communion [] Anointing/[place] [] Salvation [] Completed spiritual assessment [] Other: Impact on Illness or Injury [] Angry [] Fearful [] Anxious [] Often cries [] Exhaustion [] Unable to work [] Unable to attend amish [] Unable to walk/stand [] Unable to read [] Unable to drive [] Unable to eat/drink [] Unable to sleep [] Unable to be with family [] Patient intubated [] Other: Summary Time spent with patient
--- NOTE | 2021-02-17 13:21 | PM.DCS ---
Discharge Providers Date of Admission: 02/15/21 18:05 Date of Discharge: February 17, 2021 Attending Provider at Admission: Jonatan Leahy MD Attending Provider at Discharge: Patrice Christina Diagnoses at Discharge Discharge Diagnosis (1) Hypoglycemia: Status: Acute (2) UTI (urinary tract infection): Status: Acute (3) Opiate overdose: Status: Acute Qualifiers: Encounter type: initial encounter Injury intent: accidental or unintentional Qualified Code(s): T40.601A - Poisoning by unspecified narcotics, accidental (unintentional), initial encounter (4) Acute pyelonephritis: Status: Acute (5) Hypoxia: Status: Acute (6) Osteoporosis: Status: Acute (7) Hypothyroidism: Status: Acute Permanent problem details: -continue levothyroxine Qualifiers: Hypothyroidism type: unspecified Qualified Code(s): E03.9 - Hypothyroidism, unspecified (8) Atrial fibrillation: Status: Acute Permanent problem details: -rate controlled -telemetry monitoring -has previously declined AC; follows up with cardiology Qualifiers: Atrial fibrillation type: paroxysmal Qualified Code(s): I48.0 - Paroxysmal atrial fibrillation (9) Type 1 diabetes mellitus: Status: Acute (10) Acute encephalopathy: Status: Acute Reason for Visit Reason for Visit: HYPERGLYCEMIA Hospital Course Hospital Course 70-year-old lady with history of DM1, currently with insulin therapy via insulin pump, following with endocrinology, also history of atrial fibrillation, DVT and PE, on anticoagulation with Eliquis hypothyroidism, PVD, CHF, HTN, HLD, and other medical conditions was admitted after becoming lethargic after taking her 's pain medication reported as 60 mg oxycodone ER, on presentation also with noted hypoglycemia after earlier in the day severe hyperglycemia, urinary tract infection. On presentation with new onset hypoxia with respiratory depression, required oxygen support, was monitored in intensive care unit with supportive care otherwise, with back pain, urinary tract infection, was treated for possible pyelonephritis, although CT abdomen pelvis was negative for acute abdominopelvic pathology. Due to history of ESBL E. coli UTI in the past resistant to all antibiotics except Carbapenem, amikacin was treated with Primaxin which she tolerated. Urine culture eventually is showing E. coli with resistance to ampicillin/sulbactam, gentamicin, Bactrim, intermediate sensitivity to tobramycin. She is allergic to penicillin. He will complete antibiotic course with ciprofloxacin. Her back pain is still persistent but gradually improving. She states she had noted in the past back discomfort when she gets urinary tract infection. She was additionally evaluated by CT lumbar spine which was negative for acute abnormality. Her encephalopathy resolved without recurrence with resolution of hypoxia as well. Her hospital stay was complicated by several episodes of hypoglycemia, after initial episode on presentation she was continued on a D5W infusion after receiving D50. After blood glucose started to rise that night, she was restarted on the insulin pump infusion. Subsequently with episodes of hypoglycemia again the morning of 02/16. Insulin pump infusion held again, received D50, glucose improved with oral intake. Her appetite has been poor, however. Due to recurrent episodes her insulin pump infusion rate for the basal insulin is decreased currently down to one fourth of the dose she had been receiving previously due to recurrent hypoglycemia with her usual rate. Currently for a total of just above 5 units of insulin per 24 hours of basal insulin alone, she does continue with bolus insulin dosing premeal. Currently her insulin pump is off as her glucose sensor had , but she will be resuming as soon as she gets back home. Discussed with her consideration of long-acting insulin injection instead, but she prefers to return home to resume her insulin pump infusion. She is asked to contact endocrinology within 1-2 days of glucose monitoring for additional instructions on readjustment of the insulin infusion rate, or to return to the hospital in case of any difficulties. Physical Exam Const: COMMON NORMALS: no acute distress and patient oriented x3 HENMT: COMMON NORMALS: oropharynx normal Neck/C-Spine: COMMON NORMALS: no JVD Resp: COMMON NORMALS: normal respiratory effort and clear to auscultation bilaterally AUSCULTATION: clear to auscultation bilaterally Cardio: COMMON NORMALS: no JVD, regular rhythm, S1 normal heart sound present, S2 normal heart sound present and No murmurs present (Cardio) RHYTHM: regular rhythm HEART SOUNDS: S1 normal heart sound present and S2 normal heart sound present GI: COMMON NORMALS: Normal to inspection, nondistended, normoactive bowel sounds present, Soft to palpation and non-tender PALPATION: Yes Soft to palpation and Yes Tenderness to palpation present (GI) (muscle wall tenderness reports after vomiting) Extremity: COMMON NORMALS: no joint enlargement and no pedal edema Neuro: COMMON NORMALS: patient oriented x3 and moves all extremities Skin: COMMON NORMALS: no rashes or lesions noted GENERAL SKIN EXAM: no rashes or lesions noted Discharge Data Data Completed and Pending: Completed Studies During Hospitalization Category Date Time Status CT abdomen pelvis w con* [id number] Urge nt Cat Scan 02/15/21 16:[address] head wo con* [id number] Urgent Cat Scan 02/15/21 17:[address] lumbar spine w o con* [id number] Urgen t Cat Scan 02/15/21 17:35 Completed XR chest 1V yessi ble [id number] Stat Exams 02/15/21 17:14 Completed Pending at discharge Category Date Time Status Blood Culture Sta t Lab 02/15/21 19:51 Results Complete Blood Co unt w/Auto AM LABS Lab 02/18/21 04:00 Ordered Comprehensive Met abolic Panel AM LA BS Lab 02/18/21 04:00 Ordered Magnesium AM LABS Lab 02/18/21 04:00 Ordered Phosphorus AM LAB S Lab 02/18/21 04:00 Ordered Prothrombin Time INR AM LABS Lab 02/18/21 04:00 Ordered Labs from last 24 hours 02/17/21 02/17/21 02/17/21 12:44 10:15 08:47 WBC RBC Hgb Hct MCV MCH MCHC RDW Plt Count MPV Neut % (Auto) Lymph % (Auto) [place] % (Auto) Eos % (Auto) Baso % (Auto) Neut # (Auto) Lymph # (Auto) [place] # (Auto) Eos # (Auto) Baso # (Auto) Nucleated RBC % (a uto) Nucleated RBCs # PT INR Sodium Potassium Chloride Carbon Dioxide Anion Gap BUN Creatinine GFR Calculation Glucose POC Glucose 215 H 364 H 393 H Calculated Osmolal ity Calcium Phosphorus Magnesium Total Bilirubin AST ALT Alkaline Phosphata se Total Protein Albumin Globulin Free T4 02/17/21 02/17/21 02/17/21 06:22 06:22 06:22 WBC 5.4 RBC 3.36 L Hgb 9.6 L Hct 30.7 L MCV 91.4 MCH 28.6 MCHC 31.3 RDW 14.5 Plt Count 194 MPV 10.3 Neut % (Auto) 69.2 Lymph % (Auto) 16.6 [place] % (Auto) 11.0 Eos % (Auto) 2.4 Baso % (Auto) 0.4 Neut # (Auto) 3.72 Lymph # (Auto) 0.9 [place] # (Auto) 0.6 Eos # (Auto) 0.1 Baso # (Auto) 0.0 Nucleated RBC % (a uto) 0 Nucleated RBCs # 0.0 PT 17.20 H INR 1.37 H Sodium 142 Potassium 4.0 Chloride 105 Carbon Dioxide 25 Anion Gap 16.0 BUN 10 Creatinine 0.5 GFR Calculation 122.3 Glucose 269 H POC Glucose Calculated Osmolal ity 303 H Calcium 8.1 L Phosphorus 2.1 L Magnesium 1.8 Total Bilirubin 0.2 AST 14 ALT 8 Alkaline Phosphata se 70 Total Protein 5.7 L Albumin 2.9 L Globulin 2.8 Free T4 02/17/21 02/17/21 02/17/21 06:19 04:10 00:37 WBC RBC Hgb Hct MCV MCH MCHC RDW Plt Count MPV Neut % (Auto) Lymph % (Auto) [place] % (Auto) Eos % (Auto) Baso % (Auto) Neut # (Auto) Lymph # (Auto) [place] # (Auto) Eos # (Auto) Baso # (Auto) Nucleated RBC % (a uto) Nucleated RBCs # PT INR Sodium Potassium Chloride Carbon Dioxide Anion Gap BUN Creatinine GFR Calculation Glucose POC Glucose 267 H 193 H 365 H Calculated Osmolal ity Calcium Phosphorus Magnesium Total Bilirubin AST ALT Alkaline Phosphata se Total Protein Albumin Globulin Free T4 02/16/21 02/16/21 02/16/21 20:54 19:50 17:15 WBC RBC Hgb Hct MCV MCH MCHC RDW Plt Count MPV Neut % (Auto) Lymph % (Auto) [place] % (Auto) Eos % (Auto) Baso % (Auto) Neut # (Auto) Lymph # (Auto) [place] # (Auto) Eos # (Auto) Baso # (Auto) Nucleated RBC % (a uto) Nucleated RBCs # PT INR Sodium Potassium Chloride Carbon Dioxide Anion Gap BUN Creatinine GFR Calculation Glucose POC Glucose 201 H 291 H 189 H Calculated Osmolal ity Calcium Phosphorus Magnesium Total Bilirubin AST ALT Alkaline Phosphata se Total Protein Albumin Globulin Free T4 02/16/21 02/16/21 02/16/21 14:27 14:09 06:47 WBC RBC Hgb Hct MCV MCH MCHC RDW Plt Count MPV Neut % (Auto) Lymph % (Auto) [place] % (Auto) Eos % (Auto) Baso % (Auto) Neut # (Auto) Lymph # (Auto) [place] # (Auto) Eos # (Auto) Baso # (Auto) Nucleated RBC % (a uto) Nucleated RBCs # PT INR Sodium Potassium Chloride Carbon Dioxide Anion Gap BUN Creatinine GFR Calculation Glucose POC Glucose 188 H 53 L Calculated Osmolal ity Calcium Phosphorus Magnesium Total Bilirubin AST ALT Alkaline Phosphata se Total Protein Albumin Globulin Free T4 1.02 Vitals: Last Vital Signs Temp 98.5 F 02/17/21 11:36 Pulse 78 02/17/21 11:36 Resp 17 02/17/21 11:36 BP 148/84 02/17/21 11:36 Pulse Ox 95 02/17/21 11:36 Discharge Plan Discharge Patient Disposition: Home Condition: Stable Prescriptions: New ciprofloxacin HCl 500 mg tablet 500 mg PO BID Qty: 6 RF: 0 Continued nitroglycerin [Nitrostat] 0.4 mg tablet, sublingual 0.4 mg SUBLINGUAL Q5M PRN (Reason: Chest Pain) RF: 0 Eliquis 5 mg tablet 5 mg PO BID Qty: 180 RF: 1 ibandronate 150 mg tablet 150 mg PO .monthly Qty: 7 RF: 0 ondansetron HCl 4 mg tablet 4 - 8 mg PO Q8H PRN (Reason: Nausea And Vomiting) RF: 0 nitrofurantoin monohyd/m-cryst [Macrobid] 100 mg capsule 100 mg PO Q12H 7 Days Qty: 14 RF: 0 multivitamin Tablet 1 tab PO DAILY RF: 0 furosemide 40 mg tablet 40 mg PO DAILY PRN (Reason: Edema) RF: 0 Tylenol 325 mg Tablet 975 mg PO PRN RF: 0 carvedilol 12.5 mg tablet 12.5 mg PO BEDTIME RF: 0 sertraline 100 mg tablet 100 mg PO BEDTIME RF: 0 aspirin 81 mg Tablet,Delayed Release (Dr/Ec) 81 mg PO BEDTIME RF: 0 metoclopramide HCl 5 mg tablet 5 mg PO QID RF: 0 Euthyrox 125 mcg tablet 125 mcg PO QAM RF: 0 Euthyrox 150 mcg tablet 150 mcg PO QAM RF: 0 ibuprofen 200 mg Tablet 600 mg PO PRN RF: 0 calcium carbonate 500 mg calcium (1,250 mg) Tablet,Chewable 1,000 mg PO DAILY RF: 0 Changed Humalog U-100 Insulin 100 unit/mL solution See Rx Instructions .ROUTE .COMPLEX Qty: 20 RF: 5 Discharge Orders: Discharge Order (Routine); Ordered 02/17/21 Ordered By: Patrice Christina Referrals: Abilio Romero RN, [facility] [Referring] - 4-7 days Discharge Diet: Diabetic Discharge Activity: Increase activity as tolerated and As per PT/OT instructions Patient Instructions: Diabetic Hypoglycemia (GEN), Back Pain (GEN), Opioid Safety Activity Restrictions/Additional Instructions: Please do not take any medications which were not prescribed to you. This may lead to life threatening effects. Please continue glucose boluses according to the low dose sliding scale. Glucose: 141-180 - 2 units 181-220 - 3 221-260 - 4 261-300 - 5 301-350 - 6 351-400 - 7 >400 - 8 units Please contact your bias binding folder office within 1-2 days to discuss with them your blood glucose and to seek help with adjustment of the insulin pump infusion rate. Please note your rate was decresed to 1/4th of what it was before due to hypoglycemia. Continue follow-up with your diabetes doctor. Avoid hypoglycemia. In case of sugars that are very high, or lower than 100, please contact your diabetes doctors office. In case your glucose is 70 or less, please stop the pump, have sugary snacks, recheck sugars in 15-20 minutes. If not improving, please call 911. Please seek help from your primary provider regarding your back pain. Discussed referral to pain clinic in case of a chronic problem. Use combination of topical agents like menthol cream, capsaicin cream, icy hot, or other, or lidocaine patch, in addition to Tylenol, gentle massage, heating pad. In case these therapies are not effective alone, discuss with your primary doctor whether stronger pain medication needs to be added, however, realize there are substantial risks to use of opioid pain medications. Please continue antibiotic for urinary tract infection. Include dairy products in your diet as your phosphorus level is noted low at 1.7. Please have your primary doctor recheck your phosphorus level. Please note that your TSH is very mildly elevated at 4.24. Continue levothyroxine for now, have your primary doctor follow-up your thyroid function. Discharge Attestations Time Spent in Discharge Care*: greater than 30 min Status at Discharge: Cognitive status at discharge: cognitively intact, Behavioral status at discharge: cooperative and independent in ADL's, Quality Metrics Clinical Quality Measures During this hospital stay, did patient experience: None Coding Level of Care Code Acute Chg FW DC note Diagnoses Hypoglycemia E16.2 UTI (urinary tract infection) N39.0 Opiate overdose T40.601A Encounter type: initial encounter Injury intent: accidental or unintentional Acute pyelonephritis N10 Hypoxia R09.02 Osteoporosis M81.0 Hypothyroidism E03.9 Hypothyroidism type: unspecified Atrial fibrillation I48.0 Atrial fibrillation type: paroxysmal Type 1 diabetes mellitus E10.9 Acute encephalopathy G93.40
== END 2021-02-17 14:40 | disposition home or self-care (01) | DRG 637 ==
LOC: ER 16:48 → ICU 18:12 → MEDSURG 02-16 15:43
PROVIDERS: Admitting Provider Family Medicine; Emergency Provider Emergency Medicine; Visit Provider Internal Medicine
DX: E10.649 Type 1 diabetes mellitus with hypoglycemia without coma (principal); G93.41 Metabolic encephalopathy; N39.0 Urinary tract infection, site not specified; E10.51 Type 1 diabetes mellitus with diabetic peripheral angiopathy without gangrene; Z79.4 Long term (current) use of insulin; Z96.41 Presence of insulin pump (external) (internal); I48.0 Paroxysmal atrial fibrillation; Z86.718 Personal history of other venous thrombosis and embolism; Z86.711 Personal history of pulmonary embolism; I50.9 Heart failure, unspecified; I11.0 Hypertensive heart disease with heart failure; E78.5 Hyperlipidemia, unspecified; E03.9 Hypothyroidism, unspecified; M81.0 Age-related osteoporosis without current pathological fracture; M34.9 Systemic sclerosis, unspecified; M54.5 Low back pain; T40.2X1A Poisoning by other opioids, accidental (unintentional), initial encounter; Z87.442 Personal history of urinary calculi; Z87.440 Personal history of urinary (tract) infections; Z86.16 Personal history of COVID-19; G31.84 Mild cognitive impairment of uncertain or unknown etiology; I34.0 Nonrheumatic mitral (valve) insufficiency; Z79.82 Long term (current) use of aspirin; Z79.01 Long term (current) use of anticoagulants; R09.02 Hypoxemia; B96.20 Unspecified Escherichia coli [E. coli] as the cause of diseases classified elsewhere; Z88.0 Allergy status to penicillin; N10 Acute pyelonephritis
CPT/HCPCS: 36415; 36416; 36600; 70450; 71045; 72131; 74177; 80053; 80061; 80307; 81000; 81001; 82009; 82550; 82803; 82962; 83036; 83605; 83735; 83880; 84100; 84145; 84439; 84443; 84484; 85025; 85610; 86140; 87040; 87077; 87086; 87186; 93005; 94664; 96361; 96372; 96374; 96375; 99285; J0743; J1815; J2310; J2405; J3475; J3490; J7030; Q9967

== ENCOUNTER 2021-03-18 16:17 | Inpatient (IN) | payer MEDICARE, SELFPAY ==
[2021-03-18] VITALS (8 sets, daily range): BP systolic 91–137; BP diastolic 42–95; PULSE 72–112; RESP 14–19; TEMP 36.8–38.7; O2SAT 94–97; BMI 26.4
--- NOTE | 2021-03-18 16:34 | XRR_ITS ---
PROCEDURE INFORMATION: Exam: XR Chest Exam date and time: 03/18/2021 4:34 PM Age: 70 years old Clinical indication: Shortness of breath; Additional info: Reduced breath sounds TECHNIQUE: Imaging protocol: XR of the chest. Views: 1 view. COMPARISON: CR (CHEST, ) 02/15/2021 5:19 PM FINDINGS: Lungs: Hyperinflated lungs. No focal consolidation. Pleural spaces: Unremarkable. No pleural effusion. No pneumothorax. Heart/Mediastinum: Borderline cardiomegaly. Bones/joints: Unremarkable. XR/XR chest 1V portable [id number] IMPRESSION: 1. Hyperinflated lungs, correlate for signs of obstructive lung disease. No focal consolidation. 2. Borderline cardiomegaly.
--- NOTE | 2021-03-18 16:34 | CTR_ITS ---
PROCEDURE INFORMATION: Exam: CT Abdomen And Pelvis With Contrast Exam date and time: 03/18/2021 4:34 PM Age: 70 years old Clinical indication: Fever and nausea; Other: Low back pain; Prior surgery; Surgery type: Insulin pump; Additional info: Bilateral flank pain/ fever TECHNIQUE: Imaging protocol: Computed tomography of the abdomen and pelvis with contrast. Radiation optimization: All CT scans at this facility use at least one of these dose optimization techniques: automated exposure control; mA and/or kV adjustment per patient size (includes targeted exams where dose is matched to clinical indication); or iterative reconstruction. Contrast material: OMNI 300; Contrast volume: 95 ml; Contrast route: INTRAVENOUS (IV); COMPARISON: CT abdomen pelvis w con* [id number] 02/15/2021 6:14 PM RADIATION DOSE METRICS: Total DLP (mGy-cm): 1313.04 FINDINGS: Heart: Borderline cardiomegaly. Trace pericardial effusion. Liver: Normal. No mass. Gallbladder and bile ducts: Normal. No calcified stones. No ductal dilation. Pancreas: Normal. No ductal dilation. Spleen: Punctate calcification in the spleen may relate to prior granulomatous disease. Otherwise unremarkable. Adrenal glands: Normal. No mass. Kidneys and ureters: Several cysts scattered sub cm cysts within both kidneys, left greater than right. No hydronephrosis. Stomach and bowel: Unremarkable. No obstruction. No mucosal thickening. Appendix: No evidence of appendicitis. Intraperitoneal space: Trace pelvic free fluid. Vasculature: Unremarkable. No abdominal aortic aneurysm. Lymph nodes: Unremarkable. No enlarged lymph nodes. Urinary bladder: Unremarkable as visualized. Reproductive: Unremarkable as visualized. Bones/joints: No acute fracture. Soft tissues: Foci of air in the abdominal subcutaneous tissues, likely rib in relation to injection sites. CT/CT abdomen pelvis w con* [id number] IMPRESSION: Stable exam, no acute abdominal/pelvic findings. COMMENTS: Consistent with the [employer]'s Incidental Findings Committee white paper (J Am Armando Radiol 2018): Any incidental renal lesion less than 1 cm or classified as too small to characterize, or any incidental cystic renal lesion characterized as simple-appearing, is likely benign. No follow-up imaging is recommended for these lesions per consensus recommendations based on imaging criteria. Radiation Dose CTDIVOL = (mGy): DLP = 1313.04 (mGy-cm)
--- NOTE | 2021-03-18 16:42 | ECG_ITS ---
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 Measurements Intervals [place] Rate: 110 P: [place]: QRS: 59 QRSD: 89 T: 88 QT: 297 QTc: 403 Interpretive Statements ATRIAL FIBRILLATION WITH RAPID VENTRICULAR RESPONSE NONSPECIFIC ST & T-WAVE ABNORMALITY ABNORMAL RHYTHM ECG Compared to ECG 02/15/2021 19:04:33 Sinus tachycardia no longer present T-wave abnormality still present Electronically Signed On 03-19-2021 9:26:29 CDT by Sandee Mark M.D. [id number]
[2021-03-18 17:03] LABS: Glucose Point of Care 185 mg/dL (70-110)
[2021-03-18] MEDS: sodium chloride 0.9% 1,000 ML 999 ML IV (17:18)
[2021-03-18] MEDS: acetaminophen 325 mg Tablet 1000 MG PO (17:22)
[2021-03-18 17:24] LABS: Basophils % 0.3 %; Lymphocytes # 0.7 10^3/uL (0.8-4.8); Lymphocytes % 6.1 %; Mean Corpuscular HGB Conc 29.7 g/dL (30.0-36.0); Mean Corpuscular Hemoglobin 28.5 pg (28.0-34.0); Mean Corpuscular Volume 95.9 fL (81-99); Mean Platelet Volume 10.7 fL (7.4-10.4); Monocytes % 8.9 %; Neutrophils # 9.73 10^3/uL (1.8-7.7); Neutrophils % 84.2 %; Nucleated Red Blood Cells % 0 %; Platelet Count 113 10^3/cmm (130-400); Red Blood Count 3.86 10^6/uL (4.1-5.3); Red Cell Distribution Width 14.6 % (12.1-15.1); White Blood Count 11.6 10^3/uL (4.0-10.0)
[2021-03-18] MEDS: levofloxacin-dextrose 5 % 750 MG/150 ML PREMIX 100 MG IV (17:32)
[2021-03-18 17:41] LABS: Amphetamines Screen Urine Negative (Negative); Barbiturates Screen Urine Negative (Negative); Benzodiazepines Screen Urine Negative (Negative); Cocaine Screen Urine Negative (Negative); Opiate Screen Urine Negative (Negative); PCP Screen Urine Negative (Negative); THC Screen Urine Negative (Negative)
[2021-03-18] MEDS: iohexol 300 mg/mL 100 mL Btl IV (17:51)
[2021-03-18 17:58] LABS: Alanine Aminotransferase 7 U/L (0-33); Albumin Level 3.2 g/dL (3.5-5.2); Alkaline Phosphatase 67 IU/L (35-105); Aspartate Amino Transferase 16 U/L (0-32); Blood Urea Nitrogen 13 mg/dL (8-23); Calcium 8.5 mg/dL (8.5-10.5); Carbon Dioxide 17 mmol/L (22-29); Chloride 97 mmol/L (98-107); Globulin 3.5 g/dL (1.3-4.6); Glomerular Filtration Rate 99.1 mL/min (90-130); Glucose 173 mg/dL (65-115); Lipase 9 U/L (13-60); Osmolality Calculated 282 mOsm/kg (285-295); Sodium 134 mmol/L (136-145); Total Bilirubin 0.4 mg/dL (0.15-1.2); Total Protein 6.7 g/dL (6.6-8.7)
[2021-03-18 17:59] LABS: SARS Covid-2 Antigen Negative (Negative)
[2021-03-18 18:00] LABS: Add Urine Microscopic? YES; Bilirubin Urine Neg (Negative); Blood Urine 2+ (Negative); Glucose Urine UA 1+ (Normal); Ketones Urine 2+ (Negative); Leukocyte Esterase Urine 2+ (Negative); Nitrate Urine Positive (Negative); Protein Urine Trace (Negative); Urine Appearance Clear (CLEAR); Urine Color Yellow (Yellow); Urobilinogen Urine Norm (Negative); pH Urine 5 (5-7)
[2021-03-18 18:00] LABS: Troponin(5th) Baseline 14 ng/L (0-10)
[2021-03-18 18:02] LABS: Bacteria Urine 3+ /hpf; Squamous Epithelial Cell Urine 0-4 /hpf (0-5)
[2021-03-18 18:03] LABS: Add Urine Culture? Yes
[2021-03-18 18:18] LABS: Anion Gap 23.6 (5-19); Potassium 3.6 mmol/L (3.5-5.1)
[2021-03-18 18:23] LABS: NT Pro B Type Natriuretic Pept 640 pg/mL (0-125)
--- NOTE | 2021-03-18 18:42 | ECG_ITS ---
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 Measurements Intervals [place] Rate: 80 P: 70 SC: 155 QRS: 79 QRSD: 90 T: 73 QT: 411 QTc: 477 Interpretive Statements SINUS RHYTHM WITH SINUS ARRHYTHMIA NONSPECIFIC ST & T-WAVE ABNORMALITY Compared to ECG 03/18/2021 16:45:42 Atrial fibrillation no longer present T-wave abnormality still present Electronically Signed On 03-19-2021 9:27:11 CDT by Sandee Mark M.D. [id number]
[2021-03-18 19:33] LABS: Glucose Point of Care 335 mg/dL (70-110)
[2021-03-18] MEDS: sodium chloride 0.9% 1,000 ML 250 ML IV (19:53)
--- NOTE | 2021-03-18 20:07 | W.ED.ABDPA2 ---
HPI - Abdominal Pain General: Chief Complaint: Fever Stated Complaint: LOW BACK PAIN/ FEVER Time Seen by Provider: 03/18/21 16:27 History of Present Illness: HPI narrative: The patient is a 70-year-old female who comes to the ER complaining of bilateral low back pain and has a fever of 101.6. She says it has hurt her for the past day or 2. Also nauseous and vomiting at home. She gets frequent UTIs and was admitted for pyelonephritis a month ago. She has MDRO organisms in her urine cultures. MD elicited complaint: flank pain Pertinent past history: past UTI Associated Symptoms: Denies GI cramping and diarrhea Review of Systems General: Reports: 10 or more systems reviewed and unremarkable except in HPI and below Const: Denies: fatigue Eyes: Denies: change in vision, blurry vision or eye redness ENMT: Denies: throat pain, swelling of lips/tongue, ear or mastoid pain or nasal congestion Card: Denies: chest pain, palpitations, irregular heart rhythm, edema, dyspnea on exertion or orthopnea Resp: Denies: dyspnea, productive cough or non-productive cough GI: Denies: abdominal pain, diarrhea or GI cramping : Reports: flank pain; Denies: difficulty voiding, urinary frequency or urinary urgency Musc: Reports: back pain; Denies: neck pain, extremity pain, joint pain, joint redness, limited range of motion or muscle weakness Skin/Breast: Denies: rash, pruritus, erythema, skin pain or skin tenderness Neuro: Denies: headache(s), numbness in extremities, weakness in extremities, sensory changes, difficulty walking, dizziness, confusion or Slurred speech present Psych: Denies: anxiety or depression Endo: Denies: polyuria All/Imm: Denies: urticaria, throat swelling or tongue swelling PFS ED PFSH: Medical History (Updated 03/18/21 @ 22:23 by Ran Patel MD) Atrial fibrillation -rate controlled -telemetry monitoring -has previously declined AC; follows up with cardiology COVID-19 determined by clinical diagnostic criteria COVID-19 virus infection -previously treated; recovering; has consistently been on RA, afebrile Diabetic ketoacidosis DVT (deep venous thrombosis) Dyslipidemia Encounter for screening laboratory testing for COVID-19 virus HTN (hypertension) -VSS; continue to monitor -continue oral antihypertensives Hypoglycemia Hypothyroidism -continue levothyroxine Mild cognitive impairment Mitral regurgitation Opiate overdose Osteoporosis Peripheral vascular disease Scleroderma Type 1 diabetes Type 1 diabetes mellitus Viral URI Surgical History H/O cardiac catheterization 2014, moderate disease no flow-limiting H/O dilation and curettage Status post endovenous radiofrequency ablation of saphenous vein Family History Father CAD (coronary artery disease) Mother Hypertension CAD (coronary artery disease) Hyperlipidemia Sister Hypertension Diabetes Grandfather CAD (coronary artery disease) PATERNAL Social History Smoking and tobacco status: never smoked Alcohol intake: never Lives independently: Yes Housing: House Physical Exam Const: COMMON NORMALS: no acute distress, average body habitus, patient oriented x3, no limitations, healthy appearing, alert and well nourished GENERAL APPEARANCE: cooperative, comfortable, well kempt and well developed ORIENTATION/CONSCIOUSNESS: Yes awake, Yes oriented to person, Yes oriented to place and Yes oriented to time HENMT: COMMON NORMALS: normocephalic, external ears normal and Normal external nose present HEAD & SCALP: normal to inspection and normocephalic NOSE: Normal external nose present EXTERNAL EAR: Yes external ears normal MOUTH: Normal oral and palatal mucosa present THROAT: posterior oropharynx normal Eye: COMMON NORMALS: Equal, round and reactive pupils present and EOMs intact bilaterally GENERAL EYE: appearance normal, both eyes and all related structures PUPIL: Yes Equal, round and reactive pupils present Neck/C-Spine: COMMON NORMALS: full ROM, no lymphadenopathy, no meningeal signs and no JVD GENERAL: Yes normal visual inspection Lymph: LYMPHATIC: no lymphadenopathy noted Chest: COMMONS NORMALS: normal inspection of the chest and normal palpation of entire chest wall Resp: COMMON NORMALS: normal respiratory effort, No retractions, No use of accessory muscles, clear to auscultation bilaterally and percussion normal EFFORT & INSPECTION: Yes able to speak in complete sentences AUSCULTATION: clear to auscultation bilaterally PERCUSSION: percussion normal Cardio: COMMON NORMALS: no JVD, regular rate, regular rhythm, S1 normal heart sound present, S2 normal heart sound present and Peripheral pulses 2+ throughout RATE: regular rate RHYTHM: regular rhythm HEART SOUNDS: S1 normal heart sound present and S2 normal heart sound present PERIPHERAL PULSES: Peripheral pulses 2+ throughout GI: COMMON NORMALS: Normal to inspection, nondistended, normoactive bowel sounds present, Soft to palpation, non-tender and no masses INSPECTION: Yes normal to inspection PALPATION: Yes Soft to palpation : OTHER: bilateral CVA tenderness. Back/Pelvis: COMMON NORMALS: thoracic and lumbar spine normal to inspection, no thoracic nor lumbar tenderness and thoraco-lumbar ROM normal Extremity: COMMON NORMALS: normal to inspection, full ROM, capillary refill normal, no joint enlargement and no pedal edema GENERAL: Yes normal exam except as noted Neuro: COMMON NORMALS: patient oriented x3, CN's II-XII intact bilaterally, moves all extremities, no focal motor deficits, no sensory deficits noted and gait normal SENSORIUM/ORIENTATION: Yes alert, Yes oriented to person, Yes oriented to place and Yes oriented to time MENINGEAL SIGNS: Yes no meningeal signs Psych: COMMON NORMALS: mental status grossly normal, Normal thought process present, cooperative, normal affect and speech normal APPEARANCE: Yes well kempt ATTITUDE: Yes calm SPEECH: Yes normal speech THOUGHT PROCESS: Normal thought process present Skin: COMMON NORMALS: no rashes or lesions noted GENERAL SKIN EXAM: no rashes or lesions noted Course Vital Signs: Vital signs: Vital Signs Temperature 98.4 F 03/18/21 21:54 Pulse Rate 77 03/18/21 21:54 Respiratory Rate 17 03/18/21 21:54 Blood Pressure 100/52 03/18/21 21:54 Pulse Oximetry 96 03/18/21 21:54 MDM - Abdominal Pain MDM Narrative: Medical decision making narrative: The patient is a 70-year-old female with frequent UTIs and recent admission for pyelonephritis who comes to the ER complaining of bilateral flank pain. Her white count is 11.6 and urinalysis mildly positive with white blood cells and leukocyte esterase. She was started on IV levofloxacin for her symptoms and given Toradol for pain as well as IV fluids. She had slightly low blood pressure here but stated above mean arterial pressure of 65 and was admitted to Dr. Bradford. CT was negative for any acute pathology. Lab Data: Labs: Lab Results 03/18/21 03/18/21 03/18/21 Range/Units 16:59 16:59 16:59 WBC (4.0-10.0) 10^3/ uL RBC (4.1-5.3) 10^6/u L Hgb (11.5-15.3) g/dL Hct (37.0-47.0) % MCV (81-99) fL MCH (28.0-34.0) pg MCHC (30.0-36.0) g/dL RDW (12.1-15.1) % Plt Count (130-400) 10^3/c mm MPV (7.4-10.4) fL Neut % (Auto) % Lymph % (Auto) % [place] % (Auto) % Eos % (Auto) % Baso % (Auto) % Neut # (Auto) (1.8-7.7) 10^3/u L Lymph # (Auto) (0.8-4.8) 10^3/u L [place] # (Auto) (0.2-0.9) 10^3/u L Eos # (Auto) (0.0-0.8) 10^3/u L Baso # (Auto) (0.0-0.1) 10^3/u L Nucleated RBC % (a uto) % Nucleated RBCs # /100WBC Sodium (136-145) mmol/L Potassium (3.5-5.1) mmol/L Chloride (98-107) mmol/L Carbon Dioxide (22-29) mmol/L Anion Gap (5-19) BUN (8-23) mg/dL Creatinine (0.5-0.9) mg/dL GFR Calculation (90-130) mL/min Glucose (65-115) mg/dL POC Glucose 185 H (70-110) mg/dL Calculated Osmolal ity (285-295) mOsm/k g Lactate (0.5-2.2) mmol/L Calcium (8.5-10.5) mg/dL Total Bilirubin (0.15-1.2) mg/dL AST (0-32) U/L ALT (0-33) U/L Alkaline Phosphata se (35-105) IU/L Troponin T Baselin e (0-10) ng/L Troponin T 120 Min [place] (0-10) ng/L Delta Troponin T (0-10) ABS# NT-Pro-B Natriuret Pep (0-125) pg/mL Total Protein (6.6-8.7) g/dL Albumin (3.5-5.2) g/dL Globulin (1.3-4.6) g/dL Lipase (13-60) U/L Urine Color Yellow (Yellow) Urine Appearance Clear (CLEAR) Urine pH 5 (5-7) Ur Specific Gravit y 1.010 (1.005-1.030) Urine Protein Trace (Negative) Urine Glucose (UA) 1+ (Normal) Urine Ketones 2+ H (Negative) Urine Blood 2+ H (Negative) Urine Nitrate Positive H (Negative) Urine Bilirubin Neg (Negative) Urine Urobilinogen Norm (Negative) mg/dL Ur Leukocyte Abimbola ase 2+ H (Negative) Urine RBC 10-15 H (0-2) /hpf Urine WBC 5-10 H (0-5) /hpf Ur Squamous Epith Cells 0-4 H (0-5) /hpf Amorphous Sediment Not Reportable Urine Bacteria 3+ H (NONE) /hpf Urine Opiates Scre en Negative (Negative) ng/mL Ur Barbiturates Sc reen Negative (Negative) ng/mL Ur Phencyclidine S crn Negative (Negative) ng/mL Ur Amphetamines Sc reen Negative (Negative) ng/mL U Benzodiazepines Scrn Negative (Negative) ng/mL Urine Cocaine Scre en Negative (Negative) ng/mL U Marijuana (THC) Screen Negative (Negative) ng/mL SARS-CoV-2 Ag (Rap id) (Negative) 03/18/21 03/18/21 03/18/21 Range/Units 17:10 17:10 17:10 WBC 11.6 H (4.0-10.0) 10^3/ uL RBC 3.86 L (4.1-5.3) 10^6/u L Hgb 11.0 L (11.5-15.3) g/dL Hct 37.0 (37.0-47.0) % MCV 95.9 (81-99) fL MCH 28.5 (28.0-34.0) pg MCHC 29.7 L (30.0-36.0) g/dL RDW 14.6 (12.1-15.1) % Plt Count 113 L (130-400) 10^3/c mm MPV 10.7 H (7.4-10.4) fL Neut % (Auto) 84.2 % Lymph % (Auto) 6.1 % [place] % (Auto) 8.9 % Eos % (Auto) 0.0 % Baso % (Auto) 0.3 % Neut # (Auto) 9.73 H (1.8-7.7) 10^3/u L Lymph # (Auto) 0.7 L (0.8-4.8) 10^3/u L [place] # (Auto) 1.0 H (0.2-0.9) 10^3/u L Eos # (Auto) 0.0 (0.0-0.8) 10^3/u L Baso # (Auto) 0.0 (0.0-0.1) 10^3/u L Nucleated RBC % (a uto) 0 % Nucleated RBCs # 0.0 /100WBC Sodium 134 L (136-145) mmol/L Potassium 3.6 (3.5-5.1) mmol/L Chloride 97 L (98-107) mmol/L Carbon Dioxide 17 L (22-29) mmol/L Anion Gap 23.6 H (5-19) BUN 13 (8-23) mg/dL Creatinine 0.6 (0.5-0.9) mg/dL GFR Calculation 99.1 (90-130) mL/min Glucose 173 H (65-115) mg/dL POC Glucose (70-110) mg/dL Calculated Osmolal ity 282 L (285-295) mOsm/k g Lactate 1.0 (0.5-2.2) mmol/L Calcium 8.5 (8.5-10.5) mg/dL Total Bilirubin 0.4 (0.15-1.2) mg/dL AST 16 (0-32) U/L ALT 7 (0-33) U/L Alkaline Phosphata se 67 (35-105) IU/L Troponin T Baselin e (0-10) ng/L Troponin T 120 Min [place] (0-10) ng/L Delta Troponin T (0-10) ABS# NT-Pro-B Natriuret Pep 640 H (0-125) pg/mL Total Protein 6.7 (6.6-8.7) g/dL Albumin 3.2 L (3.5-5.2) g/dL Globulin 3.5 (1.3-4.6) g/dL Lipase 9 L (13-60) U/L Urine Color (Yellow) Urine Appearance (CLEAR) Urine pH (5-7) Ur Specific Gravit y (1.005-1.030) Urine Protein (Negative) Urine Glucose (UA) (Normal) Urine Ketones (Negative) Urine Blood (Negative) Urine Nitrate (Negative) Urine Bilirubin (Negative) Urine Urobilinogen (Negative) mg/dL Ur Leukocyte [place] ase (Negative) Urine RBC (0-2) /hpf Urine WBC (0-5) /hpf Ur Squamous Epith Cells (0-5) /hpf Amorphous Sediment Urine Bacteria (NONE) /hpf Urine Opiates Scre en (Negative) ng/mL Ur Barbiturates Sc reen (Negative) ng/mL Ur Phencyclidine S crn (Negative) ng/mL Ur Amphetamines Sc reen (Negative) ng/mL U Benzodiazepines Scrn (Negative) ng/mL Urine Cocaine Scre en (Negative) ng/mL U Marijuana (THC) Screen (Negative) ng/mL SARS-CoV-2 Ag (Rap id) (Negative) 03/18/21 03/18/21 03/18/21 Range/Units 17:10 17:30 19:22 WBC (4.0-10.0) 10^3/ uL RBC (4.1-5.3) 10^6/u L Hgb (11.5-15.3) g/dL Hct (37.0-47.0) % MCV (81-99) fL MCH (28.0-34.0) pg MCHC (30.0-36.0) g/dL RDW (12.1-15.1) % Plt Count (130-400) 10^3/c mm MPV (7.4-10.4) fL Neut % (Auto) % Lymph % (Auto) % [place] % (Auto) % Eos % (Auto) % Baso % (Auto) % Neut # (Auto) (1.8-7.7) 10^3/u L Lymph # (Auto) (0.8-4.8) 10^3/u L [place] # (Auto) (0.2-0.9) 10^3/u L Eos # (Auto) (0.0-0.8) 10^3/u L Baso # (Auto) (0.0-0.1) 10^3/u L Nucleated RBC % (a uto) % Nucleated RBCs # /100WBC Sodium (136-145) mmol/L Potassium (3.5-5.1) mmol/L Chloride (98-107) mmol/L Carbon Dioxide (22-29) mmol/L Anion Gap (5-19) BUN (8-23) mg/dL Creatinine (0.5-0.9) mg/dL GFR Calculation (90-130) mL/min Glucose (65-115) mg/dL POC Glucose (70-110) mg/dL Calculated Osmolal ity (285-295) mOsm/k g Lactate (0.5-2.2) mmol/L Calcium (8.5-10.5) mg/dL Total Bilirubin (0.15-1.2) mg/dL AST (0-32) U/L ALT (0-33) U/L Alkaline Phosphata se (35-105) IU/L Troponin T Baselin e 14 H (0-10) ng/L Troponin T 120 Min [place] 13.12 H (0-10) ng/L Delta Troponin T -0.88 L (0-10) ABS# NT-Pro-B Natriuret Pep (0-125) pg/mL Total Protein (6.6-8.7) g/dL Albumin (3.5-5.2) g/dL Globulin (1.3-4.6) g/dL Lipase (13-60) U/L Urine Color (Yellow) Urine Appearance (CLEAR) Urine pH (5-7) Ur Specific Gravit y (1.005-1.030) Urine Protein (Negative) Urine Glucose (UA) (Normal) Urine Ketones (Negative) Urine Blood (Negative) Urine Nitrate (Negative) Urine Bilirubin (Negative) Urine Urobilinogen (Negative) mg/dL Ur Leukocyte [place] ase (Negative) Urine RBC (0-2) /hpf Urine WBC (0-5) /hpf Ur Squamous Epith Cells (0-5) /hpf Amorphous Sediment Urine Bacteria (NONE) /hpf Urine Opiates Scre en (Negative) ng/mL Ur Barbiturates Sc reen (Negative) ng/mL Ur Phencyclidine S crn (Negative) ng/mL Ur Amphetamines Sc reen (Negative) ng/mL U Benzodiazepines Scrn (Negative) ng/mL Urine Cocaine Scre en (Negative) ng/mL U Marijuana (THC) Screen (Negative) ng/mL SARS-CoV-2 Ag (Rap id) Negative (Negative) 03/18/21 Range/Units 19:29 WBC (4.0-10.0) 10^3/ uL RBC (4.1-5.3) 10^6/u L Hgb (11.5-15.3) g/dL Hct (37.0-47.0) % MCV (81-99) fL MCH (28.0-34.0) pg MCHC (30.0-36.0) g/dL RDW (12.1-15.1) % Plt Count (130-400) 10^3/c mm MPV (7.4-10.4) fL Neut % (Auto) % Lymph % (Auto) % [place] % (Auto) % Eos % (Auto) % Baso % (Auto) % Neut # (Auto) (1.8-7.7) 10^3/u L Lymph # (Auto) (0.8-4.8) 10^3/u L [place] # (Auto) (0.2-0.9) 10^3/u L Eos # (Auto) (0.0-0.8) 10^3/u L Baso # (Auto) (0.0-0.1) 10^3/u L Nucleated RBC % (a uto) % Nucleated RBCs # /100WBC Sodium (136-145) mmol/L Potassium (3.5-5.1) mmol/L Chloride (98-107) mmol/L Carbon Dioxide (22-29) mmol/L Anion Gap (5-19) BUN (8-23) mg/dL Creatinine (0.5-0.9) mg/dL GFR Calculation (90-130) mL/min Glucose (65-115) mg/dL POC Glucose 335 H (70-110) mg/dL Calculated Osmolal ity (285-295) mOsm/k g Lactate (0.5-2.2) mmol/L Calcium (8.5-10.5) mg/dL Total Bilirubin (0.15-1.2) mg/dL AST (0-32) U/L ALT (0-33) U/L Alkaline Phosphata se (35-105) IU/L Troponin T Baselin e (0-10) ng/L Troponin T 120 Min [place] (0-10) ng/L Delta Troponin T (0-10) ABS# NT-Pro-B Natriuret Pep (0-125) pg/mL Total Protein (6.6-8.7) g/dL Albumin (3.5-5.2) g/dL Globulin (1.3-4.6) g/dL Lipase (13-60) U/L Urine Color (Yellow) Urine Appearance (CLEAR) Urine pH (5-7) Ur Specific Gravit y (1.005-1.030) Urine Protein (Negative) Urine Glucose (UA) (Normal) Urine Ketones (Negative) Urine Blood (Negative) Urine Nitrate (Negative) Urine Bilirubin (Negative) Urine Urobilinogen (Negative) mg/dL Ur Leukocyte [place] ase (Negative) Urine RBC (0-2) /hpf Urine WBC (0-5) /hpf Ur Squamous Epith Cells (0-5) /hpf Amorphous Sediment Urine Bacteria (NONE) /hpf Urine Opiates Scre en (Negative) ng/mL Ur Barbiturates Sc reen (Negative) ng/mL Ur Phencyclidine S crn (Negative) ng/mL Ur Amphetamines Sc reen (Negative) ng/mL U Benzodiazepines Scrn (Negative) ng/mL Urine Cocaine Scre en (Negative) ng/mL U Marijuana (THC) Screen (Negative) ng/mL SARS-CoV-2 Ag (Rap id) (Negative) Discharge Plan Discharge Patient Disposition: Admitted As Inpatient Admit Provider: Héctor Bradford Clinical Impression: Acute pyelonephritis Condition: Stable Coding Level of Care Code ED Neonatal Nurse for Beatriz Ramirez
[2021-03-18 20:09] LABS: Troponin 5 2HR 13.12 ng/L (0-10); Troponin 5 2HR Delta -0.88 ABS# (0-10)
--- NOTE | 2021-03-18 20:42 | P.HP_ITS ---
Providers/Chief Complaint Admitting Physician: Héctor Bradford Primary Care Provider: Andrea Flores MD Chief Complaint: LOW BACK PAIN/ FEVER History of Present Illness 70-year-old female with a past medical history significant for anxiety, depression, peripheral vascular disease, hypothyroidism, scleroderma, osteoporosis, type 1 diabetes mellitus currently on insulin pump, paroxysmal a trial fibrillation, DVT, pulmonary embolism on Eliquis, hypothyroidism, peripheral vascular disease, hypertension, dyslipidemia, COVID-19 infection in May 2020, and E coli UTI 02/16/2021 was presented to the hospital with low back pain. Noted for past 1-2 days. Noted similar symptoms in the past when she has a UTI. Denied dysuria, frequency or urgency. Noted nausea however no emesis, subjective fever and chills. Initial vital signs on arrival showed a blood pressure of 91/46, heart rate 78, respiratory rate 19 and a temperature of 101.6?. Lab workup showed a WBC of 11.6, hemoglobin of 11.0, hematocrit 37.0 and a platelet count of 113 sodium 134, potassium 3.6, chloride 97, bicarb 17, BUN 13 and creatinine of 0.6. LFTs within normal limits. Lipase of 9 delta troponin T of-0.88. ProBNP of 640 urinalysis showed positive nitrites, 2+ leukocyte esterase. Imaging studies included chest x-ray which showed hyperinflation lungs without any evidence of focal consolidation. CT abdomen pelvis showed stable exam without any evidence of acute intra-abdominal abnormality. In emergency room patient was given Levaquin 750 mg IV x1, normal saline bolus x2 and subsequently admitted. Review of Systems General: Reports: 10 or more systems reviewed and unremarkable except in HPI and below Medications/Allergies Home Medications Medication Instructions Recorded Confirmed Last Taken Type nitroglycerin 0.4 mg sublingual 0.4 mg SUBLINGUAL Q5M PRN 10/24/19 03/18/21 Unknown History tablet ondansetron HCl 4 mg tablet 4 - 8 mg PO Q8H PRN 05/27/20 03/18/21 Unknown History apixaban 5 mg tablet 5 mg PO BID #180 tab 12/27/20 03/18/21 03/17/21 Rx acetaminophen [Tylenol] 975 mg PO PRN 02/17/21 03/18/21 03/17/21 History aspirin 81 mg PO BEDTIME 02/17/21 03/18/21 03/17/21 History calcium carbonate 1,000 mg PO DAILY 02/17/21 03/18/21 03/17/21 History carvedilol 12.5 mg PO BEDTIME 02/17/21 03/18/21 03/17/21 History furosemide 40 mg PO DAILY PRN 02/17/21 03/18/21 Unknown History ibuprofen 600 mg PO PRN 02/17/21 03/18/21 03/18/21 History insulin lispro [Humalog U-100 See Rx Instructions .ROUTE 02/17/21 03/18/21 03/18/21 Rx Insulin] .COMPLEX #20 ml levothyroxine 150 mcg PO QAM 02/17/21 03/18/21 03/17/21 History metoclopramide HCl 5 mg PO BID 02/17/21 03/18/21 03/17/21 History multivitamin 1 tab PO DAILY 02/17/21 03/18/21 03/17/21 History sertraline 100 mg PO BEDTIME 02/17/21 03/18/21 03/17/21 History ibandronate 150 mg PO Q30D 03/18/21 03/18/21 02/27/21 History Allergies Allergy/AdvReac Type Severity Reaction Status Date / Time diphenhydramine Allergy ADR-Muscle Verified 02/17/21 11:19 [From Benadryl] Pain Penicillins Allergy ALGY-Anaphy Verified 02/17/21 11:19 laxis Tetanus Vaccines and Toxoid Allergy ALGY-Rash Verified 02/17/21 11:19 trazodone Allergy ALGY-Joint Verified 02/17/21 11:19 Pain zolpidem [From Ambien] Allergy Unconscious Verified 02/17/21 11:19 PFSH Acute PFSH: Medical History (Updated 03/19/21 @ 05:48 by Héctor Bradford MD) Atrial fibrillation -rate controlled -telemetry monitoring -has previously declined AC; follows up with cardiology COVID-19 determined by clinical diagnostic criteria COVID-19 virus infection -previously treated; recovering; has consistently been on RA, afebrile Diabetic ketoacidosis DVT (deep venous thrombosis) Dyslipidemia Encounter for screening laboratory testing for COVID-19 virus HTN (hypertension) Hypoglycemia Hypothyroidism Mild cognitive impairment Mitral regurgitation Opiate overdose Osteoporosis Peripheral vascular disease Scleroderma Type 1 diabetes Type 1 diabetes mellitus Viral URI Surgical History H/O cardiac catheterization 2015, moderate disease no flow-limiting H/O dilation and curettage Status post endovenous radiofrequency ablation of saphenous vein Family History Father CAD (coronary artery disease) Mother Hypertension CAD (coronary artery disease) Hyperlipidemia Sister Hypertension Diabetes Grandfather CAD (coronary artery disease) PATERNAL Social History Smoking and tobacco status: never smoked Alcohol intake: never Lives independently: Yes Housing: House Vitals/I&O/Wt Last Vital Signs Temp 101.6 F H 03/18/21 16:21 Pulse 78 03/18/21 20:00 Resp 19 H 03/18/21 20:00 BP 91/46 03/18/21 20:00 Pulse Ox 94 03/18/21 20:00 03/18/21 03/18/21 03/18/21 06:59 14:59 22:59 Intake Total 1150 / 1150 Balance 1150 / 1150 Weight last 48 hrs Weight 74.389 kg Physical Exam Narrative: EXAM NARRATIVE: General : Alert, awake oriented x 3. NAD HEENT: Grossly unremakable CVS; RRR, no murmur Chest : CTABL ABD; No focal tenderness Ext: no edema Data : 03/18/21 17:10 03/18/21 17:10 Micro: Microbiology 03/18/21 17:15 Blood Culture - Preliminary Blood SPECIMEN COLLECTED 03/18/21 17:10 Blood Culture - Preliminary Blood SPECIMEN COLLECTED A&P Assessment and plan (1) Sepsis due to urinary tract infection: Continue [id number] mg IV daily Follow-up on urine and blood culture x2 Additional bolus of 250 Continue NS at 75 after Repeat labs in a.m. Deescalate antibiotics based on clinical course and culture results Status: Acute (2) DVT (deep venous thrombosis): Restarted on anticoagulation Currently no evidence of bleeding If bleeding of further drop in platelets may need to hold Status: Acute (3) Diabetes mellitus: Routinely patient has insulin pump however currently not using Sliding scale insulin ordered Q a.c. 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 operator insulin use: with group home use Diabetes mellitus type: type 2 Qualified Code(s): E11.628 - Type 2 diabetes mellitus with other skin c omplications; Z79.4 - assisted (current) use of insulin (4) HTN (hypertension): -Hold oral antihypertensives Status: Acute Qualifiers: Hypertension type: essential hypertension Qualified Code(s): I10 - Essential (primary) hypertension (5) Hypothyroidism: -continue levothyroxine Status: Acute Qualifiers: Hypothyroidism type: unspecified Qualified Code(s): E03.9 - Hypothyroidism, unspecified Attestations Medical Necessity Statement*: Anticipate over2 midnights stay in hospital for evaluation and treatment of sepsis likely due to urinary tract infection requiring IV antibiotics Time Spent in Patient Care: Greater than 35 minutes (>than 50% of time spent in counselling and/or direct pt care on unit) . Coding Level of Care Code Acute Nuisance Wildlife Control Operator for [facility] Fwd Diagnoses Sepsis due to urinary tract infection A41.9; N39.0 DVT (deep venous thrombosis) I82.409 Diabetes mellitus E11.628; Z79.4 Diabetes mellitus complication detail: with other skin complication Diabetes mellitus complication status: with skin complications Diabetes mellitus terminal press operator insulin use: with terminal press operator use Diabetes mellitus type: type 2 HTN (hypertension) I10 Hypertension type: essential hypertension Hypothyroidism E03.9 Hypothyroidism type: unspecified
[2021-03-18] MEDS: ketorolac 30 mg/mL INJ 15 MG IVP (21:43)
[2021-03-19] VITALS (13 sets, daily range): BP systolic 84–121; BP diastolic 49–78; PULSE 73–82; RESP 12–20; TEMP 36.7–36.8; O2SAT 91–97
[2021-03-19] MEDS: sodium chloride 0.9% 1,000 ML 75 ML IV (00:20)
[2021-03-19] MEDS: acetaminophen 325 mg Tablet 650 MG PO ×3 (00:20→16:52)
[2021-03-19 04:49] LABS: Glucose Point of Care 382 mg/dL (70-110)
--- NOTE | 2021-03-19 06:14 | PC.NURSE ---
pt transferred to ICU per doctor orders
[2021-03-19 06:18] LABS: Basophils % 0.3 %; Eosinophils % 0.1 %; Hematocrit 33.9 % (37.0-47.0); Hemoglobin 10.1 g/dL (11.5-15.3); Lymphocytes # 0.9 10^3/uL (0.8-4.8); Lymphocytes % 8.6 %; Mean Corpuscular HGB Conc 29.8 g/dL (30.0-36.0); Mean Corpuscular Hemoglobin 28.2 pg (28.0-34.0); Mean Corpuscular Volume 94.7 fL (81-99); Monocytes # 0.8 10^3/uL (0.2-0.9); Monocytes % 7.6 %; Nucleated Red Blood Cells % 0 %; Platelet Count 115 10^3/cmm (130-400); Red Blood Count 3.58 10^6/uL (4.1-5.3); Red Cell Distribution Width 14.7 % (12.1-15.1); White Blood Count 10.5 10^3/uL (4.0-10.0)
[2021-03-19] MEDS: HYDROcodone-acetaminophen 5-325 mg Tablet 1 TAB PO ×3 (06:21→21:30)
--- NOTE | 2021-03-19 06:41 | PC.NURSE ---
Patient Tranferred to ICU Patient transferred to ICU from [facility] by bed and placed in ICU room 9 at 0600. Patient on room air and has IV in the left hand upon transfer. Patient had one report of pain in the lower back, PRN Hydrocodone was given. Patient is alert and oriented x4. Levophed drip started at 2mcg/min then titrated up for low BP, it is infusing in the left hand IV site.
[2021-03-19 06:57] LABS: Anion Gap 21.8 (5-19); Blood Urea Nitrogen 14 mg/dL (8-23); Calcium 7.8 mg/dL (8.5-10.5); Carbon Dioxide 17 mmol/L (22-29); Chloride 101 mmol/L (98-107); Glucose 431 mg/dL (65-115); Osmolality Calculated 301 mOsm/kg (285-295); Potassium 3.8 mmol/L (3.5-5.1); Sodium 136 mmol/L (136-145)
--- NOTE | 2021-03-19 07:16 | PC.NURSE ---
Shift Summary Patient resting comfortably in bed. No reports of pain at this time. Levophed infusing in left hand IV site at 2mcg/min. Patient O2 sats dropped to 88%, patient placed on 2L oxygen NC. Patient alert and oriented x4.
[2021-03-19 08:02] LABS: Glucose Point of Care 331 mg/dL (70-110)
[2021-03-19] MEDS: ondansetron 2 mg/ML SDV 2 mL 4 MG IVP (08:06)
--- NOTE | 2021-03-19 10:06 | PC.CHAP ---
Pastoral Care Encounter/Spiritual Assessment Type of Contact [] Declined mantel craftsman visit [] Patient/Family/Request visit [] Outpatient visit [] Follow-up visit [] Physician referral [] Code/Alert [x] Routine visit [] Staff referral [] Actively dying [] Patient sleeping [] Family support [] [] Out of room [] Palliative care [] [] Receiving care in room [] Pre-surgical visit [] Trauma [] Long length of stay [x] ICU visit [] Other: Relational/Emotional Strength [] Patient feels connected with others/family/visitors/staff [] Distress [] Loneliness/isolation [] Abandonment Spirituality of Patient [] Person of [place]reea [] Attends Congregation of their [place]reea [] Believes in Prayer [] Reads Bible or Judaism materials [] There are Spiritual issues to be addressed Utilization Engineer Interventions [x] Prayer [] Active listening [] Non-anxious presence [] Spiritual/emotional support [] Crisis/trauma care [] Spiritual counseling [] Bereavement support [] Provided bereavement packet [] Provided Bible/devotional materials [] Provided toy/stuffed animal, coloring book to patient or family member [] Provided Communion [] Anointing/[place] [] Salvation [x] Completed spiritual assessment [] Other: Impact on Illness or Injury [] Angry [] Fearful [] Anxious [] Often cries [] Exhaustion [] Unable to work [] Unable to attend hindu [] Unable to walk/stand [] Unable to read [] Unable to drive [] Unable to eat/drink [] Unable to sleep [] Unable to be with family [] Patient intubated [] Other: Summary Time spent with patient
[2021-03-19] MEDS: pantoprazole DR 40 mg Tablet PO (10:56)
[2021-03-19] MEDS: apixaban 5 mg Tablet PO ×2 (10:56→17:18)
[2021-03-19] MEDS: levothyroxine 150 mcg Tablet PO (11:34)
[2021-03-19 11:57] LABS: Glucose Point of Care 127 mg/dL (70-110)
--- NOTE | 2021-03-19 15:27 | P.PN_ITS ---
Subjective Subjective: Interval history: Feels better. Denies chest pain or pressure. No trouble breathing. Some nausea/abdominal discomfort, nonspecific. Vomited yesterday, possibly abdominal wall discomfort after vomiting. She has left her insulin pump at home. Vitals/I&O/Wt Last Vital Signs Temp 98.1 F 03/19/21 12:00 Pulse 73 03/19/21 14:00 Resp 16 03/19/21 12:00 BP 111/58 03/19/21 12:00 Pulse Ox 97 03/19/21 12:00 03/19/21 03/19/21 03/19/21 06:59 14:59 22:59 Intake Total 1000 / 2150 159.144 / 159.144 Output Total 350 / 350 Balance 1000 / 2150 -190.856 / -190.856 Weight last 48 hrs Weight 74.389 kg Physical Exam Const: COMMON NORMALS: no acute distress and patient oriented x3 HENMT: COMMON NORMALS: oropharynx normal Neck/C-Spine: COMMON NORMALS: no JVD Resp: COMMON NORMALS: normal respiratory effort and clear to auscultation bilaterally AUSCULTATION: clear to auscultation bilaterally Cardio: COMMON NORMALS: no JVD, regular rhythm, S1 normal heart sound present, S2 normal heart sound present and No murmurs present (Cardio) RHYTHM: regular rhythm HEART SOUNDS: S1 normal heart sound present and S2 normal heart sound present GI: COMMON NORMALS: Normal to inspection, nondistended, normoactive bowel sounds present, Soft to palpation and non-tender PALPATION: Yes Soft to palpation Extremity: COMMON NORMALS: no joint enlargement and no pedal edema Neuro: COMMON NORMALS: patient oriented x3 and moves all extremities Skin: COMMON NORMALS: no rashes or lesions noted GENERAL SKIN EXAM: no rashes or lesions noted Data : 03/19/21 06:07 03/19/21 06:07 Micro: Microbiology 03/18/21 17:15 Blood Culture - Preliminary Blood SPECIMEN COLLECTED 03/18/21 17:10 Blood Culture - Preliminary Blood SPECIMEN COLLECTED A&P Assessment and plan (1) Sepsis due to urinary tract infection: Transient septic shock, required Levophed, but has so far weaned off. Blood pressure soft, but 100s-1 teens systolic. Monitor. Continue IV antibiotic for complicated UTI with sepsis, hyperglycemia, possibly mild DKA. Follow-up culture. Previously E. coli sensitive to fluoroquinolones. No obstruction on CT abdomen pelvis. Tried several times to reach daughter, listed cell phone for an update. Status: Acute (2) Diabetes mellitus: Discussed with her concern regarding possible mild ketoacidosis on presentation, with positive urine ketones, noted metabolic acidosis with bicarbonate 17, elevated anion gap 23.6. This appears to be improving, anion gap down to 21. Blood glucose improving with started Lantus. SSI. Continue rehydration with IVF. Recheck electrolytes. Discussed with her she has left her insulin pump at home. Her insulin pump was recently adjusted by her rn community. Increased frequency of blood glucose checks, as well as added as needed. Status: Acute Qualifiers: Diabetes mellitus complication detail: with other skin complication Diabetes mellitus complication status: with skin complications Diabetes me [facility] insulin use: with terminal supervisor use Diabetes mellitus type: type 2 Qualified Code(s): E11.628 - Type 2 diabetes mellitus with other skin complications; Z79.4 - watermaster (current) use of insulin (3) DVT (deep venous thrombosis): Cont anticoagulation Status: Acute (4) HTN (hypertension): -Hold oral antihypertensives Status: Acute Qualifiers: Hypertension type: essential hypertension Qualified Code(s): I10 - Essential (primary) hypertension (5) Hypothyroidism: -continue levothyroxine Status: Acute Qualifiers: Hypothyroidism type: unspecified Qualified Code(s): E03.9 - Hypothyroidism, unspecified Attestations Medical Necessity Statement*: Continue admission for assessment management of sepsis, complicated urinary tract infection, possible mild DKA Coding Level of Care Code Acute Photography Coordinator for [facility] Diagnoses Sepsis due to urinary tract infection A41.9; N39.0 Diabetes mellitus E11.628; Z79.4 Diabetes mellitus complication detail: with other skin complication Diabetes mellitus complication status: with skin complications Diabetes mellitus [facility] insulin use: with [facility] use Diabetes mellitus type: type 2 DVT (deep venous thrombosis) I82.409 HTN (hypertension) I10 Hypertension type: essential hypertension Hypothyroidism E03.9 Hypothyroidism type: unspecified
[2021-03-19] MEDS: lactated ringers 1,000 ML 75 ML IV (16:16)
[2021-03-19 17:27] LABS: Glucose Point of Care 201 mg/dL (70-110)
[2021-03-19] MEDS: levofloxacin-dextrose 5 % 750 MG/150 ML PREMIX 100 MG IV (17:43)
[2021-03-19 17:53] LABS: Blood Urea Nitrogen 10 mg/dL (8-23); Calcium 8.1 mg/dL (8.5-10.5); Carbon Dioxide 20 mmol/L (22-29); Chloride 103 mmol/L (98-107); Glomerular Filtration Rate 99.1 mL/min (90-130); Glucose 213 mg/dL (65-115); Osmolality Calculated 287 mOsm/kg (285-295); Sodium 136 mmol/L (136-145)
[2021-03-19 17:54] LABS: Anion Gap 16.7 (5-19); Potassium 3.7 mmol/L (3.5-5.1)
[2021-03-19 21:25] LABS: Glucose Point of Care 211 mg/dL (70-110)
[2021-03-19] MEDS: sertraline 100 mg Tablet PO (21:30)
[2021-03-19] MEDS: insulin glargine 100 units/1 mL 20 UNIT SUBCUT (21:31)
[2021-03-20] VITALS (10 sets, daily range): BP systolic 99–136; BP diastolic 51–91; PULSE 68–77; RESP 14–25; TEMP 36.8; O2SAT 90–100
[2021-03-20] MEDS: acetaminophen 325 mg Tablet 650 MG PO (03:27)
[2021-03-20] MEDS: lactated ringers 1,000 ML 75 ML IV (04:24)
[2021-03-20 06:00] LABS: Basophils % 0.7 %; Eosinophils # 0.1 10^3/uL (0.0-0.8); Eosinophils % 1.8 %; Hematocrit 33.5 % (37.0-47.0); Hemoglobin 9.7 g/dL (11.5-15.3); Lymphocytes # 0.6 10^3/uL (0.8-4.8); Lymphocytes % 10.6 %; Mean Corpuscular Hemoglobin 28.9 pg (28.0-34.0); Mean Corpuscular Volume 99.7 fL (81-99); Mean Platelet Volume 10.7 fL (7.4-10.4); Monocytes # 0.4 10^3/uL (0.2-0.9); Neutrophils # 4.88 10^3/uL (1.8-7.7); Neutrophils % 80.6 %; Nucleated Red Blood Cells % 0 %; Platelet Count 122 10^3/cmm (130-400); Red Blood Count 3.36 10^6/uL (4.1-5.3); Red Cell Distribution Width 14.7 % (12.1-15.1); White Blood Count 6.1 10^3/uL (4.0-10.0)
[2021-03-20] MEDS: levothyroxine 150 mcg Tablet PO (06:02)
[2021-03-20] MEDS: metoclopramide 10 mg Tablet 5 MG PO (06:02)
[2021-03-20 06:21] LABS: Anion Gap 16.4 (5-19); Blood Urea Nitrogen 10 mg/dL (8-23); Calcium 8.3 mg/dL (8.5-10.5); Carbon Dioxide 22 mmol/L (22-29); Chloride 105 mmol/L (98-107); Glomerular Filtration Rate 122.3 mL/min (90-130); Glucose 164 mg/dL (65-115); Osmolality Calculated 293 mOsm/kg (285-295); Potassium 3.4 mmol/L (3.5-5.1); Sodium 140 mmol/L (136-145)
[2021-03-20 07:31] LABS: Glucose Point of Care 210 mg/dL (70-110)
[2021-03-20] MEDS: pantoprazole DR 40 mg Tablet PO (08:08)
[2021-03-20] MEDS: apixaban 5 mg Tablet PO (08:08)
[2021-03-20] MEDS: potassium chloride ER 20 mEq Tablet 40 MEQ PO (08:08)
--- NOTE | 2021-03-20 08:21 | PC.CHAP ---
Pastoral Care Encounter/Spiritual Assessment Type of Contact [] Declined nuclear physicist visit [] Patient/Family/Request visit [] Outpatient visit [] Follow-up visit [] Physician referral [] Code/Alert [x] Routine visit [] Staff referral [] Actively dying [] Patient sleeping [] Family support [] [] Out of room [] Palliative care [] [] Receiving care in room [] Pre-surgical visit [] Trauma [] Long length of stay [x] ICU visit [] Other: Relational/Emotional Strength [] Patient feels connected with others/family/visitors/staff [] Distress [] Loneliness/isolation [] Abandonment Spirituality of Patient [x] Person of [place]reea [] Attends Orthodoxy of their [place]a [] Believes in Prayer [] Reads Bible or Judaism materials [] There are Spiritual issues to be addressed [employer] Support Interventions [x] Prayer [x] Active listening [x] Non-anxious presence [x] Spiritual/emotional support [] Crisis/trauma care [] Spiritual counseling [] Bereavement support [] Provided bereavement packet [] Provided Bible/devotional materials [] Provided toy/stuffed animal, coloring book to patient or family member [] Provided Communion [] Anointing/[place] [] Salvation [x] Completed spiritual assessment [] Other: Impact on Illness or Injury [] Angry [] Fearful [] Anxious [] Often cries [] Exhaustion [] Unable to work [] Unable to attend sabianism [] Unable to walk/stand [] Unable to read [] Unable to drive [] Unable to eat/drink [] Unable to sleep [] Unable to be with family [] Patient intubated [] Other: Summary patient rested well... hopeful to go home today with meds... Time spent with patient 15 min
--- NOTE | 2021-03-20 08:29 | P.DS_ITS ---
Discharge Providers Date of Admission: 03/18/21 19:41 Date of Discharge: March 20, 2021 Attending Provider at Admission: Héctor Bradford Attending Provider at Discharge: Patrice Christina Primary Care Provider: Andrea Flores MD Diagnoses at Discharge Discharge Diagnosis (1) Sepsis due to urinary tract infection: Status: Acute (2) Diabetes mellitus: Status: Acute Qualifiers: Diabetes mellitus complication detail: with other skin complication Diabetes mellitus complication status: with skin complications Diabetes mellitus usp insulin use: with usp use Diabetes mellitus type: type 2 Qualified Code(s): E11.628 - Type 2 diabetes mellitus with other skin complications; Z79.4 - [facility] (current) use of insulin (3) DVT (deep venous thrombosis): Status: Acute (4) HTN (hypertension): Status: Acute Qualifiers: Hypertension type: essential hypertension Qualified Code(s): I10 - Essential (primary) hypertension (5) Hypothyroidism: Status: Acute Qualifiers: Hypothyroidism type: unspecified Qualified Code(s): E03.9 - Hypothyroidism, unspecified Reason for Visit Reason for Visit: LOW BACK PAIN/ FEVER Hospital Course Hospital Course 70-year-old lady with DM1, usually on insulin pump, following with respiratory therapy director, additional medical comorbidities was admitted for assessment management after presenting with fever, low back pain, presentation noted with urinary tract infection fever 101.6, leukocytosis 11.6, was admitted for treatment of sepsis, also found hypotensive, and septic shock, requiring transient pressor support with Levophed up to 4 mcg/min. She had nausea, vomiting at home, mild abdominal discomfort on presentation. CT abdomen pelvis on admission showed stable exam compared to prior with no acute abnormality. She was noted dehydrated, received IV fluids. With noted metabolic acidosis, bicarbonate 17, anion gap 23.6, with positive urine ketones, thought to be unlikely in early ketoacidosis as well. Admission she was started on insulin Lantus, sliding scale insulin, this was continued. She was treated with Levaquin for complicated urinary tract infection. Her symptoms had resolved, with improvement in hypotension after prompt weaning of pressor. Metabolic acidosis resolved. She had no recurrence of nausea or vomiting, and has been tolerating oral diet well. This morning's glucose noted 164, bicarbonate up to 22, anion gap 16.4. She is feeling much better. Blood pressure 133/69. And she is feeling much better she feels good about returning home. Discussed with her for now we will empirically continue on Levaquin pending additional urine culture results. So far we are seeing gram-negative rods on Gram stain this morning. During prior visit urine culture had grown E. coli resistant to Unasyn, gentamicin, Bactrim, intermediate to Augmentin and tobramycin. Sensitive to fluoroquinolones. She understands that in case there are changes to antibiotic that are needed she may be contacted. Please follow-up final urine cultures. With nausea vomiting prior to presentation she is also asked to discontinue ibuprofen in case there was component of ibuprofen induced gastritis. In case of persistence of symptoms, please consider referral for additional endoscopic evaluation. She will be resuming insulin pump at home. She is asked to contact her respiratory therapy director. Physical Exam Const: COMMON NORMALS: no acute distress and patient oriented x3 OTHER: She feels much better. Denies any concerns. Feels good about returning home. HENMT: COMMON NORMALS: oropharynx normal Neck/C-Spine: COMMON NORMALS: no JVD Resp: COMMON NORMALS: normal respiratory effort and clear to auscultation bilaterally AUSCULTATION: clear to auscultation bilaterally Cardio: COMMON NORMALS: no JVD, regular rhythm, S1 normal heart sound present, S2 normal heart sound present and No murmurs present (Cardio) RHYTHM: regular rhythm HEART SOUNDS: S1 normal heart sound present and S2 normal heart sound present GI: COMMON NORMALS: Normal to inspection, nondistended, normoactive bowel sounds present and Soft to palpation PALPATION: Yes Soft to palpation and Yes Tenderness to palpation present (GI) (minimal abdominal wall soreness) Extremity: COMMON NORMALS: no joint enlargement and no pedal edema Neuro: COMMON NORMALS: patient oriented x3 and moves all extremities Skin: COMMON NORMALS: no rashes or lesions noted GENERAL SKIN EXAM: no rashes or lesions noted Discharge Data Data Completed and Pending: Completed Studies During Hospitalization Category Date Time Status CT abdomen pelvis w con* [id number] Urge nt Cat Scan 03/18/21 16:34 Completed XR chest 1V yessi ble [id number] Urgent Exams 03/18/21 16:34 Completed Pending at discharge Category Date Time Status Basic Metabolic P michelle AM LABS Lab 03/21/21 04:00 Ordered Blood Culture Sta t Lab 03/18/21 17:15 Results Complete Blood Co unt w/Auto AM LABS Lab 03/21/21 04:00 Ordered Urine Culture Sta t Lab 03/18/21 16:59 Results Labs from last 24 hours 03/20/21 03/20/21 03/20/21 07:27 04:22 04:22 WBC 6.1 RBC 3.36 L Hgb 9.7 L Hct 33.5 L MCV 99.7 H D MCH 28.9 MCHC 29.0 L RDW 14.7 Plt Count 122 L MPV 10.7 H Neut % (Auto) 80.6 Lymph % (Auto) 10.6 Nye % (Auto) 6.0 Eos % (Auto) 1.8 Baso % (Auto) 0.7 Neut # (Auto) 4.88 Lymph # (Auto) 0.6 L Nye # (Auto) 0.4 Eos # (Auto) 0.1 Baso # (Auto) 0.0 Nucleated RBC % (a uto) 0 Nucleated RBCs # 0.0 Sodium 140 Potassium 3.4 L Chloride 105 Carbon Dioxide 22 Anion Gap 16.4 BUN 10 Creatinine 0.5 GFR Calculation 122.3 Glucose 164 H POC Glucose 210 H Calculated Osmolal ity 293 Calcium 8.3 L 03/19/21 03/19/21 03/19/21 21:22 17:25 17:13 WBC RBC Hgb Hct MCV MCH MCHC RDW Plt Count MPV Neut % (Auto) Lymph % (Auto) Nye % (Auto) Eos % (Auto) Baso % (Auto) Neut # (Auto) Lymph # (Auto) Nye # (Auto) Eos # (Auto) Baso # (Auto) Nucleated RBC % (a uto) Nucleated RBCs # Sodium 136 Potassium 3.7 Chloride 103 Carbon Dioxide 20 L Anion Gap 16.7 BUN 10 Creatinine 0.6 GFR Calculation 99.1 Glucose 213 H POC Glucose 211 H 201 H Calculated Osmolal ity 287 Calcium 8.1 L 03/19/21 11:33 WBC RBC Hgb Hct MCV MCH MCHC RDW Plt Count MPV Neut % (Auto) Lymph % (Auto) Nye % (Auto) Eos % (Auto) Baso % (Auto) Neut # (Auto) Lymph # (Auto) Nye # (Auto) Eos # (Auto) Baso # (Auto) Nucleated RBC % (a uto) Nucleated RBCs # Sodium Potassium Chloride Carbon Dioxide Anion Gap BUN Creatinine GFR Calculation Glucose POC Glucose 127 H Calculated Osmolal ity Calcium Vitals: Last Vital Signs Temp 98.3 F 03/20/21 07:00 Pulse 68 03/20/21 08:00 Resp 17 03/20/21 08:00 BP 133/69 03/20/21 08:00 Pulse Ox 92 03/20/21 08:00 Discharge Plan Discharge Patient Disposition: Home Condition: Stable Prescriptions: New levofloxacin 750 mg tablet 750 mg PO DAILY 5 Days RF: 0 Continued nitroglycerin [Nitrostat] 0.4 mg tablet, sublingual 0.4 mg SUBLINGUAL Q5M PRN (Reason: Chest Pain) RF: 0 Eliquis 5 mg tablet 5 mg PO BID Qty: 180 RF: 1 ondansetron HCl 4 mg tablet 4 - 8 mg PO Q8H PRN (Reason: Nausea And Vomiting) RF: 0 multivitamin Tablet 1 tab PO DAILY RF: 0 acetaminophen [Tylenol] 325 mg Tablet 975 mg PO PRN RF: 0 carvedilol 12.5 mg tablet 12.5 mg PO BEDTIME RF: 0 sertraline 100 mg tablet 100 mg PO BEDTIME RF: 0 aspirin 81 mg Tablet,Delayed Release (Dr/Ec) 81 mg PO BEDTIME RF: 0 metoclopramide HCl 5 mg tablet 5 mg PO BID RF: 0 levothyroxine 150 mcg tablet 150 mcg PO QAM RF: 0 calcium carbonate 500 mg calcium (1,250 mg) Tablet,Chewable 1,000 mg PO DAILY RF: 0 insulin lispro [Humalog U-100 Insulin] 100 unit/mL solution See Rx Instructions .ROUTE .COMPLEX Qty: 20 RF: 5 ibandronate 150 mg tablet 150 mg PO Q30D RF: 0 Held furosemide 40 mg tablet 40 mg PO DAILY PRN (Reason: Edema) RF: 0 Hold Instructions: Resume on 03/27/21. Discontinued ibuprofen 200 mg Tablet 600 mg PO PRN RF: 0 Discharge Orders: Discharge Order (Routine); Ordered 03/20/21 Ordered By: Patrice Christina Referrals: Andrea Flores MD [Primary Care Provider] - 4-7 days Discharge Diet: Diabetic Discharge Activity: Increase activity as tolerated Patient Instructions: Dehydration (GEN), Urinary Tract Infection in Women (GEN), Diabetic Ketoacidosis (GEN), Hypotension (GEN) Activity Restrictions/Additional Instructions: Please hold your diuretic for the next week. Avoid dehydration. Please resume insulin pump at home. Please note you got a dose of long-acting insulin last night which will be on board until this evening 9 PM. Please resume insulin pump boluses today during the day, subsequently resume basal infusion this evening. Please contact your respiratory therapy director Discussed with them your admission, finding of elevated glucose, positive ketones in urine, possible early ketoacidosis. Please note you are continued on current for urinary tract infection. Culture results may take several days, in case there is need for change of antibiotic you may be contacted about that. Please avoid taking ibuprofen, it may cause stomach irritation, nausea, vomiting as you has had at presentation. Consider using Tylenol if needed. Do not exceed more than 3000 mg of Tylenol in a day. Discharge Attestations Time Spent in Discharge Care*: greater than 30 min Status at Discharge: Cognitive status at discharge: cognitively intact , Behavioral status at discharge: cooperative and independent in ADL's , Quality Metrics Clinical Quality Measures During this hospital stay, did patient experience: None Coding Level of Care Code Acute [facility] note Diagnoses Sepsis due to urinary tract infection A41.9; N39.0 Diabetes mellitus E11.628; Z79.4 Diabetes mellitus complication detail: with other skin complication Diabetes mellitus complication status: with skin complications 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
--- NOTE | 2021-03-20 09:34 | PC.NURSE ---
Discharge instructions given, pt verbalized understanding. IV removed, catheter intact. Pressure dressing applied, pt tolerated well. Pt taken to POV via wheelchair. Prescriptions called in to [facility] pharmacy.
== END 2021-03-20 09:30 | disposition home or self-care (01) | DRG 871 ==
LOC: ER 17:06 → MEDSURG 20:26 → ICU 03-19 06:16 → ER IP 03-19 06:20 → MEDSURG 03-19 06:21 → ICU 03-19 06:34
PROVIDERS: Admitting Provider Hospitalist; Emergency Provider Family Medicine; PCP Family Medicine Adult Medicine; Visit Provider Internal Medicine
DX: A41.9 Sepsis, unspecified organism (principal); R65.21 Severe sepsis with septic shock; N39.0 Urinary tract infection, site not specified; I82.409 Acute embolism and thrombosis of unspecified deep veins of unspecified lower extremity; I10 Essential (primary) hypertension; E03.9 Hypothyroidism, unspecified; I95.9 Hypotension, unspecified; E10.51 Type 1 diabetes mellitus with diabetic peripheral angiopathy without gangrene; E10.628 Type 1 diabetes mellitus with other skin complications; E86.0 Dehydration; I48.0 Paroxysmal atrial fibrillation; E78.5 Hyperlipidemia, unspecified; M81.0 Age-related osteoporosis without current pathological fracture; Z79.01 Long term (current) use of anticoagulants; Z79.4 Long term (current) use of insulin; Z79.82 Long term (current) use of aspirin; Z87.440 Personal history of urinary (tract) infections; Z86.16 Personal history of COVID-19; Z86.718 Personal history of other venous thrombosis and embolism
CPT/HCPCS: 36415; 36416; 71045; 74177; 80048; 80053; 80306; 81001; 82962; 83605; 83690; 83880; 84484; 85025; 87040; 87077; 87086; 87186; 87205; 87426; 93005; 96361; 96372; 96374; 99285; J1815 ×2; J1885; J1956; J2405; J7030; J8597; Q9967

== ENCOUNTER → 2021-12-25 13:17 | Outpatient (BNVA) | payer MEDICARE, SELFPAY | PROVIDERS: PCP Family Medicine Adult Medicine; Referring Provider Family Medicine Adult Medicine; Visit Provider Surgery | DX: Z86.010 Personal history of colon polyps (principal) | CPT/HCPCS: 99203 ==

== ENCOUNTER 2022-01-15 23:30 | Inpatient (IN) | payer MEDICARE, SELFPAY ==
[2022-01-15 23:32] VITALS: BP 105/59; PULSE 96; RESP 16; O2SAT 97; BMI 26.9
--- NOTE | 2022-01-15 23:35 | W.ED.WEAKNES ---
HPI - Weakness General: Chief complaint: General Medical Stated complaint: WEAKNESS Time Seen by Provider: 01/15/22 23:31 History of Present Illness: Ms. Cardoso is a 71-year-old lady with history of scleroderma, valvular heart disease, type 1 diabetes, hypertension, atrial fibrillation who presents to the emergency department due to generalized symptoms. She she apparently has had diarrhea with liquid stools for a number of weeks however over the past week symptoms have worsened. She notes severe symptoms today including generalized weakness. Nausea, vomiting, and generalized malaise. She does have flank pain which is typical of prior urinary tract infections. She additionally endorses aching in the lower abdominal quadrants. Overall course of symptoms has worsened. Intensity moderate to severe. No other specific changes in health, exacerbating, or alleviating factors identified. Onset (ago): week(s) Duration: progressively worsening Severity: moderate Exacerbating factors: exertion Associated symptoms: Reports decreased appetite, dysuria, nausea and vomiting Review of Systems General: Reports: 10 or more systems reviewed and unremarkable except in HPI and below GI: Reports: nausea and vomiting : Reports: dysuria PFSH ED PFSH: Medical History Acute pyelonephritis Anxiety and depression Atrial fibrillation -rate controlled -telemetry monitoring -has previously declined AC; follows up with cardiology COVID-19 Positive test 06/17/2020 and 06/23/2020. Diabetic ketoacidosis Diverticulosis DVT (deep venous thrombosis) Dyslipidemia Encounter for screening laboratory testing for COVID-19 virus History of colon polyps on colonoscopy 2017 HTN (hypertension) Hypothyroidism Mild cognitive impairment Mitral regurgitation Opiate overdose Osteoporosis Participant in health and wellness plan Peripheral vascular disease Scleroderma Type 1 diabetes Surgical History H/O cardiac catheterization 2015, moderate disease no flow-limiting H/O dilation and curettage Status post endovenous radiofrequency ablation of saphenous vein Family History Father CAD (coronary artery disease) Mother Hypertension CAD (coronary artery disease) Hyperlipidemia Sister Hypertension Diabetes Grandfather CAD (coronary artery disease) PATERNAL Social History Smoking and tobacco status: never smoked Alcohol intake: never Lives independently: Yes Housing: House Physical Exam Const: COMMON NORMALS: alert GENERAL APPEARANCE: cooperative, well developed and ill appearing HENMT: COMMON NORMALS: normocephalic and atraumatic HEAD & SCALP: normocephalic and atraumatic THROAT: posterior oropharynx normal Eye: COMMON NORMALS: conjunctivae normal CONJUNCTIVA: Yes conjunctivae normal SCLERA: sclerae normal Neck/C-Spine: COMMON NORMALS: supple GENERAL: Yes trachea midline Resp: COMMON NORMALS: clear to auscultation bilaterally EFFORT & INSPECTION: Yes able to speak in complete sentences AUSCULTATION: clear to auscultation bilaterally Cardio: COMMON NORMALS: regular rate and regular rhythm RATE: regular rate RHYTHM: regular rhythm GI: COMMON NORMALS: Soft to palpation PALPATION: Yes Soft to palpation, Yes Tenderness to palpation present (GI), No Guarding due to palpation present (GI) and No Rigid due to palpation PERCUSSION: normal to percussion (Right CVA tenderness) Extremity: GENERAL: Yes normal exam except as noted and No edema Neuro: COMMON NORMALS: moves all extremities SENSORIUM/ORIENTATION: Yes alert and No Orientation impaired Psych: COMMON NORMALS: mental status grossly normal and Normal thought process present THOUGHT PROCESS: Normal thought process present Course ED course: - Patient was seen and evaluated by me at bedside - Patient placed on cardiac monitors, IV access obtained - Initial evaluation notable for exam as above, somewhat ill appearance - Labs and xrays personally interpreted by me -Fluids given - Labs notable for no leukocytosis, near baseline normocytic anemia. Metabolic panel with mild hypokalemia, replenishment ordered. Magnesium also low end replenishment ordered. TSH elevated with mildly decreased free T4. Urinalysis concerning for urinary tract infection given constellation with physical exam findings and reported history. -Rocephin ordered, patient reports history of tolerance in the past. - Imaging notable for right pyelonephritis - Upon serial reexamination after treatment the patient was mildly improved - Based on patient history, evaluation, and testing as interpreted the most likely cause of the patient's condition is pyelonephritis - The results of ED evaluation were discussed with the patient including possible disposition options. Patient has history of severe illness related to urinary tract infection/pyelonephritis including sepsis requiring ICU admission, therefore it is reasonable to observe the patient in the hospital and administer IV antibiotics. I discussed plan for admission due to requirement for level of care not available if discharged to prevent significant worsening/deterioration. - Admitting service was contacted and Dr Silva with the hospitalist service agreed to admit the patient. He may have morning hospitalist team see patient given shift change - Patient was admitted without further deterioration or significant events. Note: Click bubbles or prepopulated fung in note writing are used for assistance with data collection and billing and are inherently more limited than narrative and other text portions of this note. Please use narrative for additional clinical history and defer to narrative/free test for any case of contradictory information. If information appears in only free text or click bubble it should be considered present or absent as reported. Please contact note comic writer for clarifications of clinical information or contradictory information. MDM is a brief summary, contradictory or erroneous seeming information should be clarified and full note should be reviewed. Vital Signs: Vital signs: Vital Signs Temperature 98.9 F 01/15/22 23:43 Pulse Rate 72 01/16/22 06:35 Respiratory Rate 15 01/16/22 06:35 Blood Pressure 109/58 01/16/22 06:35 Pulse Oximetry 98 01/16/22 06:35 MDM - Weakness Medical Decision Making 71-year-old lady with history of diabetes and history of complicated urinary tract infections resulting in sepsis presenting with generalized symptoms including flank pain and generalized illness. Found to have likely urinary tract infection with pyelonephritis identified on CT scan. Antibiotics administered. Patient to be admitted for observation. Medical Records I reviewed the patient's medical records. Lab Data I reviewed the patient's lab results. : 01/16/22 07:43 01/15/22 23:03 Radiology Impressions Chest X-Ray 01/15/22 23:44 IMPRESSION: 1. No acute abnormality demonstrated. 2. There is no interval change from the prior examination. Abdomen/Pelvis CT 01/16/22 02:36 IMPRESSION: 1. Stable, tiny pericardial effusion without changes of tamponade. 2. Tiny left pleural effusion. 3. Diverticulosis without diverticulitis. 4. There is right-sided perinephric fat stranding, nonspecific but may be seen with pyelonephritis. 5. Mild fat stranding at the head of the pancreas which could be secondary to pancreatitis. Laboratory Results WBC 9.3 10^3/uL (4.0-10.0) 01/15/22 23:03 RBC 3.73 10^6/uL (4.1-5.3) L 01/15/22 23:03 Hgb 9.9 g/dL (11.5-15.3) L 01/15/22 23:03 Hct 31.6 % (37.0-47.0) L 01/15/22 23:03 MCV 84.7 fl (81-99) 01/15/22 23:03 MCH 26.5 pg (28.0-34.0) L 01/15/22 23:03 MCHC 31.3 g/dL (30.0-36.0) 01/15/22 23:03 RDW 18.1 % (12.1-15.1) H 01/15/22 23:03 Plt Count 143 10^3/cmm (130-400) 01/15/22 23:03 MPV 11.8 fL (7.4-10.4) H 01/15/22 23:03 Neut % (Auto) 93.1 % 01/15/22 23: Lymph % (Auto) 3.8 % 01/15/22 23: [place] % (Auto) 2.4 % 01/15/22 23:03 Eos % (Auto) 0.1 % 01/15/22 23: Baso % (Auto) 0.2 % 01/15/22 23:03 Neut # (Auto) 8.65 10^3/uL (1.8-7.7) H 01/15/22 23:03 Lymph # (Auto) 0.4 10^3/uL (0.8-4.8) L 01/15/22 23:03 [place] # (Auto) 0.2 10^3/uL (0.2-0.9) 01/15/22 23:03 Eos # (Auto) 0.0 10^3/uL (0.0-0.8) 01/15/22 23:03 Baso # (Auto) 0.0 10^3/uL (0.0-0.1) 01/15/22 23:03 Nucleated RBC % (auto) 0 % 01/15/22 23: Nucleated RBCs # 0.0 /100WBC 01/15/22 23: Sodium 137 mmol/L (136-145) 01/15/22 23: Potassium 3.4 mmol/L (3.5-5.1) L 01/15/22 23:03 Chloride 102 mmol/L (98-107) 01/15/22 23:03 Carbon Dioxide 22 mmol/L (22-29) 01/15/22 23:03 Anion Gap 16.4 (5-19) 01/15/22 23:03 BUN 12 mg/dL (8-23) 01/15/22 23:03 Creatinine 0.5 mg/dL (0.5-0.9) 01/15/22 23:03 GFR Calculation 122.0 mL/min (90-130) 01/15/22 23:03 Glucose 161 mg/dL (65-115) H 01/15/22 23:03 POC Glucose 262 mg/dL (70-110) H 01/16/22 05:15 Calculated Osmolality 287 mOsm/kg (285-295) 01/15/22 23:03 Lactic Acid 0.7 mmol/L (0.5-2.2) 01/16/22 03:00 Calcium 8.2 mg/dL (8.5-10.5) L 01/15/22 23:03 Magnesium 1.6 mg/dL (1.7-2.3) L 01/15/22 23:03 Total Bilirubin 0.6 mg/dL (0.15-1.2) 01/15/22 23:03 AST 20 U/L (0-32) 01/15/22 23:03 ALT 8 U/L (0-33) 01/15/22 23:03 Alkaline Phosphatase 77 IU/L (35-105) 01/15/22 23:03 Total Protein 5.8 g/dL (6.6-8.7) L 01/15/22 23:03 Albumin 3.1 g/dL (3.5-5.2) L 01/15/22 23:03 Globulin 2.7 g/dL (1.3-4.6) 01/15/22 23:03 Lipase 20 U/L (13-60) 01/15/22 23:03 TSH 12.06 uIU/mL (0.27-4.20) H 01/15/22 23:03 Free T4 0.75 ng/dL (0.82-1.77) L 01/15/22 23:03 Urine Color Yellow (Yellow) 01/16/22 03:41 Urine Appearance Cloudy (CLEAR) 01/16/22 03:41 Urine pH 5 (5-7) 01/16/22 03:41 Ur Specific [place] 1.010 (1.005-1.030) 01/16/22 03:41 Urine Protein Trace (Negative) 01/16/22 03:41 Urine Glucose (UA) Norm (Normal) 01/16/22 03:41 Urine Ketones 1+ (Negative) H 01/16/22 03:41 Urine Blood 2+ (Negative) H 01/16/22 03:41 Urine Nitrate Negative (Negative) 01/16/22 03:41 Urine Bilirubin Neg (Negative) 01/16/22 03:41 Urine Urobilinogen Norm mg/dL (Negative) 01/16/22 03:41 Ur Leukocyte Esterase 2+ (Negative) H 01/16/22 03:41 Urine RBC 5-10 /hpf (0-2) H 01/16/22 03:41 Urine WBC 80-100 /hpf (0-5) H 01/16/22 03:41 Ur Squamous Epith Cells 5-10 /hpf (0-5) H 01/16/22 03:41 Amorphous Sediment Not Reportable 01/16/22 03:41 Urine Bacteria 3+ /hpf (NONE) H 01/16/22 03:41 Discharge Plan Discharge Patient Disposition: Placed in Observation Admit Provider: Hermila Silva Clinical Impression: Acute pyelonephritis Coding Level of Care Code ED Cost Accounting Manager for Beatriz Ramirez
[2022-01-15 23:43] VITALS: BP 105/59; PULSE 96; RESP 21; TEMP 37.2; O2SAT 98
--- NOTE | 2022-01-15 23:44 | ECG_ITS ---
[facility] Test Date: 2022-01-16 Pat Name: Kaylee Cardoso Department: Room: Gender: Female Ed Manager: : 1950 Requested By: Bennie Huddleston Order Number: [id number] Sami MD: Sandee Mark M.D. Measurements Intervals [place] Rate: 99 P: 58 ID: [id number] QRS: 74 QRSD: 94 T: 73 QT: 350 QTc: 449 Interpretive Statements SINUS RHYTHM WITH SINUS ARRHYTHMIA ST DEVIATION AND MODERATE T-WAVE ABNORMALITY, CONSIDER ANTERIOR ISCHEMIA [-0.1+ mV T-WAVE IN V3/V4] Compared to ECG 03/18/2021 19:23:02 Possible ischemia now present T-wave abnormality still present Electronically Signed On 01-16-2022 16:21:43 CDT by Sandee Mark M.D. [email or web address].[employer]/[email or web address]/NU/[email or web address]/[email or web address]/[id number] f
--- NOTE | 2022-01-15 23:44 | XRR_ITS ---
PROCEDURE INFORMATION: Exam: XR Chest Exam date and time: 01/15/2022 11:51 PM Age: 71 years old Clinical indication: Shortness of breath; Prior surgery; Surgery date: 6+ months; Surgery type: Cardiac catheterization; Patient HX: SOB with general weakness. History of afib and mitral regurgitation. TECHNIQUE: Imaging protocol: XR of the chest. Views: 1 view. COMPARISON: CR XR chest 1V portable [id number] 03/18/2021 5:23 PM FINDINGS: Lungs: No consolidation. Pleural spaces: No pleural effusion. No pneumothorax. Heart/Mediastinum: No cardiomegaly. Vasculature: The thoracic aorta is atherosclerotic. Bones/joints: Unremarkable. XR/XR chest 1V portable [id number] IMPRESSION: 1. No acute abnormality demonstrated. 2. There is no interval change from the prior examination.
[2022-01-15 23:55] LABS: Basophils % 0.2 %; Eosinophils % 0.1 %; Hematocrit 31.6 % (37.0-47.0); Hemoglobin 9.9 g/dL (11.5-15.3); Lymphocytes # 0.4 10^3/uL (0.8-4.8); Lymphocytes % 3.8 %; Mean Corpuscular HGB Conc 31.3 g/dL (30.0-36.0); Mean Corpuscular Hemoglobin 26.5 pg (28.0-34.0); Mean Corpuscular Volume 84.7 fl (81-99); Mean Platelet Volume 11.8 fL (7.4-10.4); Monocytes # 0.2 10^3/uL (0.2-0.9); Monocytes % 2.4 %; Neutrophils # 8.65 10^3/uL (1.8-7.7); Neutrophils % 93.1 %; Nucleated Red Blood Cells % 0 %; Platelet Count 143 10^3/cmm (130-400); Red Blood Count 3.73 10^6/uL (4.1-5.3); Red Cell Distribution Width 18.1 % (12.1-15.1); White Blood Count 9.3 10^3/uL (4.0-10.0)
[2022-01-16] VITALS (17 sets, daily range): BP systolic 82–131; BP diastolic 38–80; PULSE 72–110; RESP 12–18; TEMP 36.7–38.8; O2SAT 91–100
[2022-01-16 00:23] LABS: Alanine Aminotransferase 8 U/L (0-33); Albumin Level 3.1 g/dL (3.5-5.2); Alkaline Phosphatase 77 IU/L (35-105); Blood Urea Nitrogen 12 mg/dL (8-23); Calcium 8.2 mg/dL (8.5-10.5); Carbon Dioxide 22 mmol/L (22-29); Chloride 102 mmol/L (98-107); Globulin 2.7 g/dL (1.3-4.6); Glucose 161 mg/dL (65-115); Magnesium 1.6 mg/dL (1.7-2.3); Osmolality Calculated 287 mOsm/kg (285-295); Sodium 137 mmol/L (136-145); Thyroid Stimulating Hormone 12.06 uIU/mL (0.27-4.20); Total Bilirubin 0.6 mg/dL (0.15-1.2); Total Protein 5.8 g/dL (6.6-8.7)
[2022-01-16 00:26] LABS: Anion Gap 16.4 (5-19); Potassium 3.4 mmol/L (3.5-5.1)
[2022-01-16 00:27] LABS: Aspartate Amino Transferase 20 U/L (0-32)
[2022-01-16] MEDS: sodium chloride 0.9% 1,000 ML 999 ML IV ×2 (00:32→02:21)
[2022-01-16 00:58] LABS: Free T4 Free Thyroxine 0.75 ng/dL (0.82-1.77)
[2022-01-16] MEDS: potassium chloride oral liq 20 mEq/15 mL UDC 40 MEQ PO (01:59)
[2022-01-16] MEDS: ondansetron 2 mg/ML SDV 2 mL 4 MG IVP ×4 (02:21→23:58)
[2022-01-16] MEDS: fentaNYL 50 mcg/mL INJ 2mL IVP (02:21)
--- NOTE | 2022-01-16 02:36 | CTR_ITS ---
PROCEDURE INFORMATION: Exam: CT Abdomen And Pelvis Without Contrast Exam date and time: 01/16/2022 3:05 AM Age: 71 years old Clinical indication: Nausea and vomiting; Abdominal pain; Generalized; Prior surgery; Surgery type: Cardiac catheterization; Patient HX: C/O abd/back pain with n/v. States this is how she feels when she had a kidney infection. Patient is a diabetic with history of dka. ; Additional info: Abd pain, n/v/d TECHNIQUE: Imaging protocol: Computed tomography of the abdomen and pelvis without contrast. Radiation optimization: All CT scans at this facility use at least one of these dose optimization techniques: automated exposure control; mA and/or kV adjustment per patient size (includes targeted exams where dose is matched to clinical indication); or iterative reconstruction. COMPARISON: CT abdomen pelvis w con* [id number] 03/18/2021 5:46 PM RADIATION DOSE METRICS: Total DLP (mGy-cm): 1363.89 FINDINGS: Lungs: The lung bases are clear. No effusion Pleural spaces: Tiny left pleural effusion. Heart: Stable, tiny pericardial effusion without changes of tamponade. Liver: Normal. No mass. Gallbladder and bile ducts: No wall thickening, pericholecystic fluid or stones. Pancreas: Mild fat stranding at the head of the pancreas which could be secondary to pancreatitis. Spleen: Normal. No splenomegaly. Adrenal glands: Normal. No mass. Kidneys and ureters: There is right-sided perinephric fat stranding, nonspecific but may be seen with pyelonephritis. Stomach and bowel: Diverticulosis without diverticulitis. Appendix: No evidence of appendicitis. Intraperitoneal space: Unremarkable. No free air. No significant fluid collection. Vasculature: Unremarkable. No abdominal aortic aneurysm. Lymph nodes: Unremarkable. No enlarged lymph nodes. Urinary bladder: Unremarkable as visualized. Reproductive: Unremarkable as visualized. Bones/joints: Unremarkable. No acute fracture. Soft tissues: Unremarkable. CT/CT abdomen pelvis wo con [id number] IMPRESSION: 1. Stable, tiny pericardial effusion without changes of tamponade. 2. Tiny left pleural effusion. 3. Diverticulosis without diverticulitis. 4. There is right-sided perinephric fat stranding, nonspecific but may be seen with pyelonephritis. 5. Mild fat stranding at the head of the pancreas which could be secondary to pancreatitis.
[2022-01-16 03:22] LABS: Lactic Sepsis W/Reflex 0.7 mmol/L (0.5-2.2)
[2022-01-16 03:54] LABS: Add Urine Microscopic? YES; Bilirubin Urine Neg (Negative); Blood Urine 2+ (Negative); Glucose Urine UA Norm (Normal); Ketones Urine 1+ (Negative); Leukocyte Esterase Urine 2+ (Negative); Nitrate Urine Negative (Negative); Protein Urine Trace (Negative); Urine Appearance Cloudy (CLEAR); Urine Color Yellow (Yellow); Urobilinogen Urine Norm (Negative); pH Urine 5 (5-7)
[2022-01-16 03:59] LABS: Bacteria Urine 3+ /hpf; WBC Urine 80-100 /hpf (0-5)
[2022-01-16 04:00] LABS: Add Urine Culture? Yes
[2022-01-16 05:17] LABS: Glucose Point of Care 262 mg/dL (70-110)
[2022-01-16] MEDS: cefTRIAXone 1,000 MG in sodium chloride 0.9% (plus) 50 ML 100 MG IV (05:25)
--- NOTE | 2022-01-16 07:18 | P.HP_ITS ---
Providers/Chief Complaint Admitting Physician: Paul Riggs MD, hospitalist Primary Care Provider: Andrea Flores MD Chief Complaint: WEAKNESS History of Present Illness Kaylee Cardoso is a 71 year old female who presents from home with history of fatigue, chills, abdominal pain, nausea vomiting, as well as diarrhea. She reports 4 loose stools yesterday. She has had history of complicated UTI in the past. She reports no particular dysuria. She has had decreased p.o. intake, and reports she only urinated 1 time yesterday. She denies any blood in her vomit, or stool, or black or tarry stool. She still feels very weak. In the emergency department she received IV fluids, potassium, morphine and fentanyl, and ceftriaxone. There is concern for UTI, pyelonephritis. CT scan also showed some inflammation near the pancreas. Review of Systems General: Reports: 10 or more systems reviewed and unremarkable except in HPI and below Const: Reports: chills and malaise; Denies: fever(s) Eyes: Denies: change in vision ENMT: Denies: throat pain Card: Denies: chest pain Resp: Denies: dyspnea GI: Reports: abdominal pain, nausea, vomiting and diarrhea : Reports: flank pain; Denies: dysuria Musc: Reports: back pain; Denies: neck pain Skin/Breast: Denies: rash Neuro: Denies: headache(s) Psych: Denies: anxiety or depression Endo: Denies: polyuria Jose M/Lymph: Denies: easy bruising All/Imm: Denies: urticaria Medications/Allergies Home Medications Medication Instructions Recorded Confirmed Last Taken Type nitroglycerin 0.4 mg sublingual 0.4 mg SUBLINGUAL Q5M PRN 10/24/19 12/25/21 Unknown History tablet (Nitrostat) ondansetron HCl 4 mg tablet 4 - 8 mg PO Q8H PRN 05/27/20 12/25/21 Unknown His tory acetaminophen 325 mg tablet 975 mg PO PRN 02/17/21 12/25/21 03/17/21 History (Tylenol) aspirin 81 mg tablet,delayed 81 mg PO BEDTIME 02/17/21 12/25/21 03/17/21 History release calcium carbonate 500 mg calcium 1,000 mg PO DAILY 02/17/21 12/25/21 03/17/21 History (1,250 mg) chewable tablet carvedilol 12.5 mg tablet 12.5 mg PO BEDTIME 02/17/21 12/25/21 03/17/21 History furosemide 40 mg tablet 40 mg PO DAILY PRN 02/17/21 12/25/21 Unknown History metoclopramide HCl 5 mg tablet 5 mg PO BID 02/17/21 12/25/21 03/17/21 History multivitamin 1 tab PO DAILY 02/17/21 12/25/21 03/17/21 History sertraline 100 mg tablet 100 mg PO BEDTIME 02/17/21 12/25/21 03/17/21 History apixaban 5 mg tablet 5 mg PO BID #60 tab 12/05/21 12/25/21 Unknown Rx blood-glucose sensor (Dexcom G6 12/05/21 12/25/21 Unknown History Sensor) ibandronate 150 mg tablet 150 mg PO Q30D #12 tab 12/05/21 12/25/21 Unknown Rx insulin lispro 100 unit/mL See Rx Instructions .ROUTE 12/05/21 12/25/21 Unknown Rx subcutaneous solution (Humalog .COMPLEX #30 ml U-100 Insulin) levothyroxine 175 mcg tablet 175 mcg PO .COMPLEX 12/05/21 12/25/21 Unknown History Allergies Allergy/AdvReac Type Severity Reaction Status Date / Time diphenhydramine Allergy ADR-Muscle Verified 12/25/21 17:26 [From Benadryl] Pain Penicillins Allergy ALGY-Anaphy Verified 12/25/21 17:26 laxis Tetanus Vaccines and Toxoid Allergy ALGY-Rash Verified 12/25/21 17:26 trazodone Allergy ALGY-Joint Verified 12/25/21 17:26 Pain zolpidem [From Ambien] Allergy Unconscious Verified 12/25/21 17:26 PFSH Acute PFSH: Medical History Acute pyelonephritis Anxiety and depression Atrial fibrillation -rate controlled -telemetry monitoring -has previously declined AC; follows up with cardiology COVID-19 Positive test 06/17/2020 and 06/23/2020. Diabetic ketoacidosis Diverticulosis DVT (deep venous thrombosis) Dyslipidemia Encounter for screening laboratory testing for COVID-19 virus History of colon polyps on colonoscopy 2017 HTN (hypertension) Hypothyroidism Mild cognitive impairment Mitral regurgitation Opiate overdose Osteoporosis Participant in health and wellness plan Peripheral vascular disease Scleroderma Type 1 diabetes Surgical History H/O cardiac catheterization 2014, moderate disease no flow-limiting H/O dilation and curettage Status post endovenous radiofrequency ablation of saphenous vein Family History Father CAD (coronary artery disease) Mother Hypertension CAD (coronary artery disease) Hyperlipidemia Sister Hypertension Diabetes Grandfather CAD (coronary artery disease) PATERNAL Social History Smoking and tobacco status: never smoked Alcohol intake: never Lives independently: Yes Housing: House Vitals/I&O/Wt Last Vital Signs Temp 98.9 F 01/15/22 23:43 Pulse 72 01/16/22 06:35 Resp 15 01/16/22 06:35 BP 109/58 01/16/22 06:35 Pulse Ox 98 01/16/22 06:35 01/15/22 01/16/22 01/16/22 22:59 06:59 14:59 Intake Total 1052 / 1052 Balance 1052 / 1052 Weight last 48 hrs Weight 75.75 kg Physical Exam Narrative: General exam is a white female, conversant, currently in no distress HEENT: Pupils equally round. Oropharynx clear. Mucous membranes dry. Neck is supple no lymphadenopathy or thyromegaly Cardiovascular regular rate and rhythm without murmur, no S3 or S4 Lungs clear no wheezing or crackles Abdomen is soft with positive bowel sounds. Some slight tenderness. exam is deferred Extremities no cyanosis clubbing or edema, cap refill brisk Skin no rash Neuro no obvious focal deficits. Data : 01/15/22 23:03 01/15/22 23:03 Other Labs: Magnesium 1.6, calcium 8.2, LFTs normal, TSH 12.06, lactic acid 0.7 Urinalysis 80-100 white blood cells, 5-10 red blood cells Abdominal pelvis CT with tiny stable pericardial effusion, teeny left effusion, diverticulosis without diverticulitis, right-sided perinephric stranding, fat stranding head of pancreas EKG demonstrates sinus rhythm, normal axis, nonspecific ST-T wave changes. A&P Assessment and plan (1) Acute pyelonephritis: Concern of pyelonephritis on CT. Urinalysis consistent with this. Will draw blood cultures Await urine cultures Rocephin IV Hydration No evidence of obstruction on CT Status: Acute (2) Hypokalemia: Supplemented in the emergency department, recheck. Status: Acute (3) Hypomagnesemia: Will initiate supplementation. 2 g IV now. Recheck in the morning. Status: Acute (4) Atrial fibrillation: Currently in sinus rhythm. Continue chronic anticoagulation. Continue home medications. Status: Acute Qualifiers: Atrial fibrillation type: paroxysmal Qualified Code(s): I48.0 - Paroxysmal atrial fibrillation (5) Hypothyroidism: TSH elevated. Increase thyroid hormone slightly. Status: Acute Qualifiers: Hypothyroidism type: unspecified Qualified Code(s): E03.9 - Hypothyroidism, unspecified (6) Type 1 diabetes: Sliding scale insulin. We will discussed with patient her insulin pump, and either continue this or transition to long-acting insulin. Status: Acute (7) Scleroderma: Status: Acute Plan Multiple other medical problems as outlined in past medical history Full code Apixaban will suffice for DVT prophylaxis. Attestations Medical Necessity Statement*: Will need less than 2 midnight stay for evaluation and treatment of pyelonephritis Coding Level of Care Code Acute Ecommerce Marketing Specialist for [facility] James Diagnoses Acute pyelonephritis N10 Hypokalemia E87.6 Hypomagnesemia E83.42 Atrial fibrillation I48.0 Atrial fibrillation type: paroxysmal Hypothyroidism E03.9 Hypothyroidism type: unspecified Type 1 diabetes E10.9 Scleroderma M34.9
[2022-01-16 07:43] LABS: Lipase 20 U/L (13-60)
[2022-01-16 08:06] LABS: Basophils % 0.2 %; Eosinophils % 0.1 %; Hematocrit 29.5 % (37.0-47.0); Hemoglobin 8.8 g/dL (11.5-15.3); Lymphocytes # 0.6 10^3/uL (0.8-4.8); Lymphocytes % 5.5 %; Mean Corpuscular HGB Conc 29.8 g/dL (30.0-36.0); Mean Corpuscular Hemoglobin 26.8 pg (28.0-34.0); Mean Corpuscular Volume 89.9 fl (81-99); Mean Platelet Volume 11.4 fL (7.4-10.4); Monocytes # 0.5 10^3/uL (0.2-0.9); Monocytes % 4.3 %; Neutrophils # 9.24 10^3/uL (1.8-7.7); Neutrophils % 88.9 %; Nucleated Red Blood Cells % 0 %; Platelet Count 117 10^3/cmm (130-400); Red Blood Count 3.28 10^6/uL (4.1-5.3); White Blood Count 10.4 10^3/uL (4.0-10.0)
--- NOTE | 2022-01-16 08:21 | PC.NURSE ---
report given to adria mittal.
[2022-01-16 08:22] LABS: Alanine Aminotransferase < 5 U/L (0-33); Albumin Level 2.4 g/dL (3.5-5.2); Alkaline Phosphatase 66 IU/L (35-105); Anion Gap 15.3 (5-19); Aspartate Amino Transferase 9 U/L (0-32); Blood Urea Nitrogen 13 mg/dL (8-23); Calcium 6.8 mg/dL (8.5-10.5); Carbon Dioxide 19 mmol/L (22-29); Chloride 107 mmol/L (98-107); Globulin 2.3 g/dL (1.3-4.6); Glucose 286 mg/dL (65-115); Osmolality Calculated 297 mOsm/kg (285-295); Potassium 3.3 mmol/L (3.5-5.1); Sodium 138 mmol/L (136-145); Total Bilirubin 0.2 mg/dL (0.15-1.2); Total Protein 4.7 g/dL (6.6-8.7)
[2022-01-16] MEDS: insulin lispro 100 unit/1 mL SUBCUT ×3 (09:07→21:37)
[2022-01-16] MEDS: sodium chloride 0.9% 1,000 ML 75 ML IV ×2 (09:08→21:24)
[2022-01-16] MEDS: pantoprazole 40 mg SDV IVP (09:09)
[2022-01-16] MEDS: lidocaine 1% 5 ML in potassium chloride premix 100 ML 25 ML IV (10:19)
[2022-01-16] MEDS: morphine 4 mg/mL SDV 1 mL 2 MG IVP ×3 (10:30→21:26)
[2022-01-16 11:08] LABS: Glucose Point of Care 292 mg/dL (70-110)
[2022-01-16] MEDS: acetaminophen 325 mg Tablet 650 MG PO (15:26)
--- NOTE | 2022-01-16 16:09 | PC.NURSE ---
nurse alerted to high temp
[2022-01-16] MEDS: carvedilol 12.5 mg Tablet PO (17:00)
[2022-01-16] MEDS: metoclopramide 10 mg Tablet 5 MG PO (17:00)
[2022-01-16] MEDS: apixaban 5 mg Tablet PO (17:00)
[2022-01-16 17:10] LABS: Glucose Point of Care 202 mg/dL (70-110)
[2022-01-16 17:10] LABS: Glucose Point of Care 54 mg/dL (70-110)
[2022-01-16 17:10] LABS: Glucose Point of Care 57 mg/dL (70-110)
[2022-01-16 17:10] LABS: Glucose Point of Care 209 mg/dL (70-110)
--- NOTE | 2022-01-16 18:56 | PC.NURSE ---
Patient AAOx4, HR elevated off/on throughout shift, remaining VSS. Blood sugars brittle requiring corrections for low and high. Did not administer dinner insulin in fear of over correcting and becoming hypoglycemic again. Patient states it is always one or the other she can never get her sugars right. Sister at bedside states that this is always how her DKA starts out. Also sister found a dog tick on patient and killed it on napkin and left on window seal. Patient has had N/V during shift. OOBT BSC, patient repositions self frequently, room clean and clutter free with call light in reach. Good UOP, and drinking well but gets nauseas immediately after taking anything orally. C/o pain to abdomen, back and head. Will report at bedside to oncoming nurse.
[2022-01-16 19:28] LABS: Glucose Point of Care 154 mg/dL (70-110)
[2022-01-16 21:09] LABS: Glucose Point of Care 272 mg/dL (70-110)
[2022-01-16] MEDS: aspirin 81 mg EC Tablet PO (21:22)
[2022-01-16] MEDS: sertraline 100 mg Tablet PO (21:22)
--- NOTE | 2022-01-16 22:40 | PC.NURSE ---
Patients blood glucose was 272 this evening, order was for patient to receive 8 units of Humalog. Patient was concerned about her blood glucose dropping too low as she had an episode earlier of hypoglycemia after receiving 8 units of insulin. The patient requested to only receive 2units, has a snack at bedside, and will call nurse if she feels her blood glucose is dropping too low.
[2022-01-17] VITALS (14 sets, daily range): BP systolic 76–122; BP diastolic 40–75; PULSE 70–97; RESP 14–18; TEMP 36.6–37.4; O2SAT 92–96
[2022-01-17 04:12] LABS: Basophils % 0.2 %; Eosinophils % 0.2 %; Hematocrit 32.1 % (37.0-47.0); Hemoglobin 9.3 g/dL (11.5-15.3); Lymphocytes # 0.7 10^3/uL (0.8-4.8); Lymphocytes % 7.7 %; Mean Corpuscular Hemoglobin 26.9 pg (28.0-34.0); Mean Corpuscular Volume 92.8 fl (81-99); Mean Platelet Volume 11.4 fL (7.4-10.4); Monocytes # 0.5 10^3/uL (0.2-0.9); Monocytes % 5.8 %; Neutrophils # 7.22 10^3/uL (1.8-7.7); Neutrophils % 85.6 %; Nucleated Red Blood Cells % 0 %; Platelet Count 122 10^3/cmm (130-400); Red Blood Count 3.46 10^6/uL (4.1-5.3); Red Cell Distribution Width 18.6 % (12.1-15.1); White Blood Count 8.4 10^3/uL (4.0-10.0)
[2022-01-17 04:30] LABS: Alanine Aminotransferase 7 U/L (0-33); Albumin Level 2.4 g/dL (3.5-5.2); Alkaline Phosphatase 74 IU/L (35-105); Anion Gap 16.8 (5-19); Aspartate Amino Transferase 11 U/L (0-32); Blood Urea Nitrogen 15 mg/dL (8-23); Calcium 7.2 mg/dL (8.5-10.5); Carbon Dioxide 18 mmol/L (22-29); Chloride 104 mmol/L (98-107); Globulin 2.7 g/dL (1.3-4.6); Glomerular Filtration Rate 98.8 mL/min (90-130); Glucose 243 mg/dL (65-115); Osmolality Calculated 289 mOsm/kg (285-295); Potassium 3.8 mmol/L (3.5-5.1); Sodium 135 mmol/L (136-145); Total Bilirubin 0.2 mg/dL (0.15-1.2); Total Protein 5.1 g/dL (6.6-8.7)
[2022-01-17] MEDS: acetaminophen 325 mg Tablet 650 MG PO (04:52)
[2022-01-17] MEDS: cefTRIAXone 1,000 MG in sodium chloride 0.9% (plus) 50 ML 100 MG IV (04:55)
--- NOTE | 2022-01-17 06:18 | PC.NURSE ---
Patient has been having back pain, will not position on her back for blood pressure readings. Readings are with patient positioning on her side.
[2022-01-17] MEDS: morphine 4 mg/mL SDV 1 mL 2 MG IVP ×3 (06:27→21:16)
[2022-01-17 07:47] LABS: Glucose Point of Care 403 mg/dL (70-110)
[2022-01-17] MEDS: ondansetron 2 mg/ML SDV 2 mL 4 MG IVP ×4 (07:52→21:17)
[2022-01-17] MEDS: sodium chloride 0.9% 1,000 ML 75 ML IV (07:53)
[2022-01-17] MEDS: levothyroxine 200 mcg Tablet PO (08:37)
[2022-01-17] MEDS: pantoprazole 40 mg SDV IVP (08:37)
[2022-01-17] MEDS: apixaban 5 mg Tablet PO ×2 (08:38→17:31)
[2022-01-17] MEDS: carvedilol 12.5 mg Tablet PO (08:38)
[2022-01-17] MEDS: insulin lispro 100 unit/1 mL SUBCUT ×2 (08:38→12:46)
[2022-01-17] MEDS: metoclopramide 10 mg Tablet 5 MG PO ×2 (08:38→17:32)
[2022-01-17] MEDS: insulin glargine 100 units/1 mL 10 UNIT SUBCUT (09:14)
[2022-01-17 10:48] LABS: Iron 7 ug/dL (37-145); Percent Saturation 4.2 % (20-50); Total Iron Binding Capacity 166 mcg/dl; Unsaturated Iron Binding 159 ug/dL (112-347)
[2022-01-17 10:54] LABS: Procalcitonin 0.51 ng/mL (0-0.5)
[2022-01-17 11:35] LABS: Estmated Average Glucose 157; Hemoglobin A1C 7.1 % (4.0-6.0)
[2022-01-17 12:34] LABS: Glucose Point of Care 268 mg/dL (70-110)
--- NOTE | 2022-01-17 13:09 | P.PN_ITS ---
Subjective Subjective: Hospital course, labs appreciated. On examination lying comfortably in bed. States he is feeling horrible because of back pain, abdominal discomfort. Complaining of dizziness on standing up. Denies any chest pain, nausea, vomiting. Blood pressures today morning slightly on the lower side. Vitals/I&O/Wt Last Vital Signs Temp 98.7 F 01/17/22 11:15 Pulse 78 01/17/22 12:40 Resp 16 01/17/22 11:15 BP 89/50 01/17/22 11:15 Pulse Ox 94 01/17/22 12:40 01/16/22 01/17/22 01/17/22 22:59 06:59 14:59 Intake Total 1555 / 2857 290 / 3147 786.25 / 786.25 Output Total 680 / 680 Balance 875 / 2177 290 / 2467 786.25 / 786.25 Weight last 48 hrs Weight 75.75 kg Physical Exam Narrative: General exam is a white female, conversant, currently in no distress HEENT: Pupils equally round. Oropharynx clear. Mucous membranes dry. Neck is supple no lymphadenopathy or thyromegaly Cardiovascular regular rate and rhythm without murmur, no S3 or S4 Lungs clear no wheezing or crackles Abdomen is soft with positive bowel sounds. Some slight tenderness. exam is deferred Extremities no cyanosis clubbing or edema, cap refill brisk Skin no rash Neuro no obvious focal deficits. Data : 01/17/22 03:41 01/17/22 03:41 Micro: Microbiology 01/16/22 11:15 Blood Culture - Preliminary Blood NEGATIVE TO DATE 01/16/22 03:41 Urine Culture - Preliminary Urine,Clean Catch Gram Negative Rods 01/16/22 07:43 Blood Culture - Preliminary Blood NEGATIVE TO DATE A&P Assessment and plan (1) Sepsis: Not present on admission. Secondary to pyelonephritis. Hypotensive today. Status: Acute (2) Acute pyelonephritis: Follow-up blood cultures. Urine culture growing gram-negative rods. History of E. coli in the past. Continue with IV Rocephin. IV hydration with normal saline at 75 cc/h. No obstructive nephropathy on CT abdomen pelvis. Status: Acute (3) Type 1 diabetes: Check A1c. Insulin sliding scale to moderate dose protocol. Lantus at 10 units daily. At home uses insulin pump. Unable to use currently. Status: Acute (4) Atrial fibrillation: Currently in sinus rhythm. Continue chronic anticoagulation. Continue home medications. Last echocardiogram 2019 shows an EF of 60%, no regional motion more abnormality, increased LA size with the stress test done in 2019 also negative for any acute ischemia or CAD. Status: Acute Qualifiers: Atrial fibrillation type: paroxysmal Qualified Code(s): I48.0 - Paroxysmal atrial fibrillation (5) Hypothyroidism: TSH elevated with low free T4. Levothyroxine increased to 200 mcg. We will need to repeat in 6 months. Status: Acute Qualifiers: Hypothyroidism type: unspecified Qualified Code(s): E03.9 - Hypothyroidism, unspecified (6) Scleroderma: Status: Acute (7) Hypokalemia: Resolved. Status: Acute (8) Hypomagnesemia: Resolved. Status: Acute Plan Hypertension: Goal blood pressure less than 140/90 mmHg with mean over 65. Blood pressure soft today. Hold off on carvedilol. Continue to monitor. Full code Apixaban will suffice for DVT prophylaxis. Attestations Medical Necessity Statement*: Kaylee Cardoso is being changed to inpatient status as stay will now exceed 2 midnights. Ongoing hospital care is necessary for sepsis secondary pyelonephritis leading to hypotension. 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
[2022-01-17 16:51] LABS: Glucose Point of Care 87 mg/dL (70-110)
[2022-01-17 20:17] LABS: Glucose Point of Care 131 mg/dL (70-110)
[2022-01-17] MEDS: sertraline 100 mg Tablet PO (21:01)
[2022-01-17] MEDS: aspirin 81 mg EC Tablet PO (21:01)
[2022-01-18] VITALS (12 sets, daily range): BP systolic 99–127; BP diastolic 61–77; PULSE 65–152; RESP 17–19; TEMP 36.2–37.5; O2SAT 91–98
[2022-01-18] MEDS: sodium chloride 0.9% 1,000 ML 75 ML IV ×2 (00:24→11:14)
[2022-01-18 04:21] LABS: Basophils % 0.2 %; Eosinophils # 0.1 10^3/uL (0.0-0.8); Hematocrit 28.6 % (37.0-47.0); Hemoglobin 8.2 g/dL (11.5-15.3); Lymphocytes # 0.7 10^3/uL (0.8-4.8); Lymphocytes % 11.3 %; Mean Corpuscular HGB Conc 28.7 g/dL (30.0-36.0); Mean Corpuscular Hemoglobin 26.7 pg (28.0-34.0); Mean Corpuscular Volume 93.2 fl (81-99); Mean Platelet Volume 11.7 fL (7.4-10.4); Monocytes # 0.5 10^3/uL (0.2-0.9); Monocytes % 7.6 %; Neutrophils # 4.73 10^3/uL (1.8-7.7); Neutrophils % 79.4 %; Nucleated Red Blood Cells % 0 %; Platelet Count 128 10^3/cmm (130-400); Red Blood Count 3.07 10^6/uL (4.1-5.3); Red Cell Distribution Width 18.5 % (12.1-15.1)
[2022-01-18] MEDS: dilTIAZem 5 mg/mL SDV 5 mL 10 MG IVP (04:23)
[2022-01-18 04:30] LABS: Glucose Point of Care 130 mg/dL (70-110)
[2022-01-18 04:40] LABS: Alanine Aminotransferase 6 U/L (0-33); Albumin Level 2.3 g/dL (3.5-5.2); Alkaline Phosphatase 92 IU/L (35-105); Anion Gap 11.6 (5-19); Aspartate Amino Transferase 22 U/L (0-32); Blood Urea Nitrogen 17 mg/dL (8-23); Calcium 7.5 mg/dL (8.5-10.5); Carbon Dioxide 21 mmol/L (22-29); Chloride 107 mmol/L (98-107); Chol HDL Ratio 3.61 mg/dL (0.0-4.40); Cholesterol 112 mg/dL (0-200); Globulin 2.9 g/dL (1.3-4.6); Glucose 135 mg/dL (65-115); HDL Cholesterol 31 mg/dL (60-100); LDL Cholesterol Calculated 56 mg/dL (50-129); Osmolality Calculated 286 mOsm/kg (285-295); Potassium 3.6 mmol/L (3.5-5.1); Sodium 136 mmol/L (136-145); Total Bilirubin 0.2 mg/dL (0.15-1.2); Total Protein 5.2 g/dL (6.6-8.7); Triglycerides 127 mg/dL (0-150); VLDL Cholestrol Calculation 25 mg/dL (0-30)
[2022-01-18] MEDS: cefTRIAXone 1,000 MG in sodium chloride 0.9% (plus) 50 ML 100 MG IV (04:47)
[2022-01-18 06:35] LABS: Glucose Point of Care 139 mg/dL (70-110)
[2022-01-18] MEDS: metoclopramide 10 mg Tablet 5 MG PO ×2 (08:40→17:13)
[2022-01-18] MEDS: apixaban 5 mg Tablet PO ×2 (08:40→17:13)
[2022-01-18] MEDS: levothyroxine 200 mcg Tablet PO (08:40)
[2022-01-18] MEDS: insulin glargine 100 units/1 mL 10 UNIT SUBCUT (08:40)
[2022-01-18] MEDS: pantoprazole 40 mg SDV IVP (08:41)
[2022-01-18] MEDS: fluticasone nasal spray 16gm Btl 1 SPRAY NASAL (08:41)
--- NOTE | 2022-01-18 09:53 | P.PN_ITS ---
Subjective Subjective: No events overnight. Patient has remained afebrile. On examination today laying comfortably in bed. States she is continues to feel extremely weak. States she is able to walk better whenever she gets up she feels nauseous so she does not feel like walking at this time. We discussed the need for getting out of bed and sitting in the chair for as long as possible. We discussed that patient should not be using bedside commode and should be going to the bathroom whenever she needs to. We discussed the importance of mobility to prevent from clots or deconditioning. Has been hemodynamically stable other than occasional episodes of tachycardia. Vitals/I&O/Wt Last Vital Signs Temp 98.1 F 01/18/22 08:00 Pulse 81 01/18/22 08:51 Resp 18 01/18/22 08:00 BP 114/71 01/18/22 08:00 Pulse Ox 96 01/18/22 08:51 01/17/22 01/18/22 01/18/22 22:59 06:59 14:59 Intake Total 750 / 1776.25 820 / 2596.25 Output Total 800 / 800 300 / 1100 Balance -50 / 976.25 520 / 1496.25 Physical Exam Narrative: General exam is a white female, conversant, currently in no dis tress HEENT: Pupils equally round. Oropharynx clear. Mucous membranes dry. Neck is supple no lymphadenopathy or thyromegaly Cardiovascular regular rate and rhythm without murmur, no S3 or S4 Lungs clear no wheezing or crackles Abdomen is soft with positive bowel sounds. Some slight tenderness. exam is deferred Extremities no cyanosis clubbing or edema, cap refill brisk Skin no rash Neuro no obvious focal deficits. Data : 01/18/22 03:42 01/18/22 03:42 Micro: Microbiology 01/16/22 03:41 Urine Culture - Final Urine,Clean Catch Escherichia coli 01/16/22 11:15 Blood Culture - Preliminary Blood NEGATIVE TO DATE 01/16/22 07:43 Blood Culture - Preliminary Blood NEGATIVE TO DATE A&P Assessment and plan (1) Sepsis: Present on admission. Secondary to pyelonephritis. Blood pressure is better today. Status: Acute (2) Acute pyelonephritis: Follow-up blood cultures. Urine culture growing gram-negative rods. History of E. coli in the past. Continue with IV Rocephin. IV hydration with normal saline at 75 cc/h. No obstructive nephropathy on CT abdomen pelvis. Status: Acute (3) Type 1 diabetes: Check A1c. Insulin sliding scale to moderate dose protocol. Lantus at 10 units daily. At home uses insulin pump. Unable to use currently. Status: Acute (4) Atrial fibrillation: Currently in sinus rhythm. Continue chronic anticoagulation. Continue home medications. Last echocardiogram 2019 shows an EF of 60%, no regional motion more abnormality, increased LA size with the stress test done in 2019 also negative for any acute ischemia or CAD. Status: Acute Qualifiers: Atrial fibrillation type: paroxysmal Qualified Code(s): I48.0 - Paroxysmal atrial fibrillation (5) Hypothyroidism: TSH elevated with low free T4. Levothyroxine increased to 200 mcg. We will need to repeat in 6 months. Status: Acute Qualifiers: Hypothyroidism type: unspecified Qualified Code(s): E03.9 - Hypothyroidism, unspecified (6) Scleroderma: Status: Acute (7) Hypokalemia: Resolved. Status: Acute (8) Hypomagnesemia: Resolved. Status: Acute (9) Physical deconditioning: Status: Acute Plan Hypertension: Goal blood pressure less than 140/90 mmHg with mean over 65. Blood pressure soft today. Hold off on carvedilol. Continue to monitor. Full code Apixaban will suffice for DVT prophylaxis. Plan for today: Follow-up urine cultures. Change antibiotics accordingly. Physical therapy evaluation. Out of bed to chair. Remove bedside commode. Start on low-dose beta-valentina with metoprolol 25 mg twice daily. Discharge planning: Plan to discharge in next 24 hours to home with home health versus SNF depending on physical therapy evaluation. Patient states she lives by herself. Case management has been alerted. Can discharge on oral Levaquin to finish overall 7-day course. 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
[2022-01-18 10:57] LABS: Glucose Point of Care 262 mg/dL (70-110)
[2022-01-18] MEDS: metoprolol tartrate 25 mg Tablet PO ×2 (11:13→20:43)
[2022-01-18] MEDS: insulin lispro 100 unit/1 mL SUBCUT ×2 (11:14→21:36)
[2022-01-18] MEDS: ondansetron 2 mg/ML SDV 2 mL 4 MG IVP ×2 (13:10→21:07)
[2022-01-18 17:08] LABS: Glucose Point of Care 112 mg/dL (70-110)
[2022-01-18] MEDS: morphine 4 mg/mL SDV 1 mL 2 MG IVP (17:13)
[2022-01-18] MEDS: aspirin 81 mg EC Tablet PO (20:43)
[2022-01-18] MEDS: sertraline 100 mg Tablet PO (20:43)
[2022-01-18 21:21] LABS: Glucose Point of Care 239 mg/dL (70-110)
[2022-01-19] VITALS (8 sets, daily range): BP systolic 125–154; BP diastolic 59–84; PULSE 66–80; RESP 13–18; TEMP 36.4–36.9; O2SAT 82–97
[2022-01-19] MEDS: cefTRIAXone 1,000 MG in sodium chloride 0.9% (plus) 50 ML 100 MG IV (04:45)
[2022-01-19] MEDS: sodium chloride 0.9% 1,000 ML 75 ML IV (04:48)
[2022-01-19 04:56] LABS: Basophils % 0.2 %; Eosinophils # 0.1 10^3/uL (0.0-0.8); Eosinophils % 1.8 %; Hematocrit 28.6 % (37.0-47.0); Hemoglobin 8.7 g/dL (11.5-15.3); Lymphocytes # 0.8 10^3/uL (0.8-4.8); Lymphocytes % 17.9 %; Mean Corpuscular HGB Conc 30.4 g/dL (30.0-36.0); Mean Corpuscular Hemoglobin 26.6 pg (28.0-34.0); Mean Corpuscular Volume 87.5 fl (81-99); Mean Platelet Volume 11.2 fL (7.4-10.4); Monocytes # 0.5 10^3/uL (0.2-0.9); Monocytes % 11.3 %; Neutrophils # 3.02 10^3/uL (1.8-7.7); Neutrophils % 68.6 %; Nucleated Red Blood Cells % 0 %; Platelet Count 141 10^3/cmm (130-400); Red Blood Count 3.27 10^6/uL (4.1-5.3); Red Cell Distribution Width 18.5 % (12.1-15.1); White Blood Count 4.4 10^3/uL (4.0-10.0)
[2022-01-19 05:12] LABS: Alanine Aminotransferase 11 U/L (0-33); Albumin Level 2.6 g/dL (3.5-5.2); Alkaline Phosphatase 86 IU/L (35-105); Anion Gap 12.2 (5-19); Aspartate Amino Transferase 17 U/L (0-32); Blood Urea Nitrogen 11 mg/dL (8-23); Carbon Dioxide 23 mmol/L (22-29); Chloride 108 mmol/L (98-107); Globulin 3.2 g/dL (1.3-4.6); Glomerular Filtration Rate 157.8 mL/min (90-130); Glucose 55 mg/dL (65-115); Osmolality Calculated 287 mOsm/kg (285-295); Potassium 3.2 mmol/L (3.5-5.1); Sodium 140 mmol/L (136-145); Total Bilirubin 0.2 mg/dL (0.15-1.2); Total Protein 5.8 g/dL (6.6-8.7)
[2022-01-19] MEDS: morphine 4 mg/mL SDV 1 mL 2 MG IVP (05:27)
[2022-01-19 06:52] LABS: Glucose Point of Care 63 mg/dL (70-110)
[2022-01-19] MEDS: metoprolol tartrate 25 mg Tablet PO (09:20)
[2022-01-19] MEDS: apixaban 5 mg Tablet PO (09:20)
[2022-01-19] MEDS: levothyroxine 200 mcg Tablet PO (09:20)
[2022-01-19] MEDS: metoclopramide 10 mg Tablet 5 MG PO (09:21)
[2022-01-19] MEDS: pantoprazole 40 mg SDV IVP (09:21)
[2022-01-19] MEDS: fluticasone nasal spray 16gm Btl 1 SPRAY NASAL (09:22)
[2022-01-19] MEDS: insulin glargine 100 units/1 mL 10 UNIT SUBCUT (09:32)
[2022-01-19] MEDS: acetaminophen 325 mg Tablet 650 MG PO (09:32)
[2022-01-19 09:43] LABS: Glucose Point of Care 116 mg/dL (70-110)
--- NOTE | 2022-01-19 10:30 | PC.CHAP ---
Pastoral Care Encounter/Spiritual Assessment Type of Contact [] Declined form tamper visit [] Patient/Family/Request visit [] Outpatient visit [] Follow-up visit [] Physician referral [] Code/Alert [x] Routine visit [] Staff referral [] Actively dying [] Patient sleeping [] Family support [] [] Out of room [] Palliative care [] [] Receiving care in room [] Pre-surgical visit [] Trauma [] Long length of stay [] ICU visit [] Other: Relational/Emotional Strength [] Patient feels connected with others/family/visitors/staff [] Distress [] Loneliness/isolation [] Abandonment Spirituality of Patient [x] Person of [place] [] Attends Temple of their [place] [] Believes in Prayer [] Reads Bible or Jew materials [] There are Spiritual issues to be addressed Rn Angiography Interventions [x] Prayer [x] Active listening [] Non-anxious presence [] Spiritual/emotional support [] Crisis/trauma care [] Spiritual counseling [] Bereavement support [] Provided bereavement packet [] Provided Bible/devotional materials [] Provided toy/stuffed animal, coloring book to patient or family member [] Provided Communion [] Anointing/[place] [] Salvation [x] Completed spiritual assessment [] Other: Impact on Illness or Injury [] Angry [] Fearful [] Anxious [] Often cries [] Exhaustion [] Unable to work [] Unable to attend episcopalian [] Unable to walk/stand [] Unable to read [] Unable to drive [] Unable to eat/drink [] Unable to sleep [] Unable to be with family [] Patient intubated [] Other: Summary Time spent with patient 20 min
[2022-01-19 11:35] LABS: Glucose Point of Care 154 mg/dL (70-110)
[2022-01-19] MEDS: insulin lispro 100 unit/1 mL SUBCUT (12:11)
--- NOTE | 2022-01-19 13:13 | PM.DCS ---
Discharge Providers Date of Admission: 01/17/22 10:13 Date of Discharge: January 19, 2022 Attending Provider at Admission: Hermila Silva DO Attending Provider at Discharge: Vamsi Carson MD Primary Care Provider: Andrea Flores MD Diagnoses at Discharge Discharge Diagnosis (1) Sepsis: Status: Acute (2) Acute pyelonephritis: Status: Acute (3) Type 1 diabetes: Status: Acute (4) Atrial fibrillation: Status: Acute Qualifiers: Atrial fibrillation type: paroxysmal Qualified Code(s): I48.0 - Paroxysmal atrial fibrillation Permanent problem details: -rate controlled -telemetry monitoring -has previously declined AC; follows up with cardiology (5) Hypothyroidism: Status: Acute Qualifiers: Hypothyroidism type: unspecified Qualified Code(s): E03.9 - Hypothyroidism, unspecified (6) Scleroderma: Status: Acute (7) Hypokalemia: Status: Acute (8) Hypomagnesemia: Status: Acute (9) Physical deconditioning: Status: Acute Reason for Visit Reason for Visit: WEAKNESS Brief History: History as per HPI: Kaylee Cardoso is a 71 year old female who presents from home with history of fatigue, chills, abdominal pain, nausea vomiting, as well as diarrhea.? She reports 4 loose stools yesterday.? She has had history of complicated UTI in the past.? She reports no particular dysuria.? She has had decreased p.o. intake, and reports she only urinated 1 time yesterday.? She denies any blood in her vomit, or stool, or black or tarry stool.? She still feels very weak. In the emergency department she received IV fluids, potassium, morphine and fentanyl, and ceftriaxone.? There is concern for UTI, pyelonephritis.? CT scan also showed some inflammation near the pancreas. Hospital Course Hospital Course Patient was admitted to the hospital for further evaluation and management of sepsis secondary to acute pyelonephritis. She was started on broad-spectrum antibiotics which were later transitioned to oral Levaquin as per culture sensitivities. Urine cultures grew E. coli. Blood cultures remain negative. During hospitalization patient did have episode of hypotension for which her antihypertensives were first held and then later adjusted. During hospitalization patient was complaining of excessive weakness and fatigue from his physical therapy evaluation was done. Patient is been discharged in medically stable condition back home with home health as per physical therapy recommendations to take Levaquin for next 5 days. She is to take carvedilol 6.25 mg twice daily going forward. She is to check her blood pressure daily and maintain a blood pressure diary for next 2 weeks for further adjustment of antihypertensives with a primary care provider. There was some concerns of pancreatitis on CT abdomen pelvis for which she is to take mechanical soft/brat diet going forward for next 1 week and then advance gradually. Physical Exam Narrative: General exam is a white female, conversant, currently in no distress HEENT: Pupils equally round. Oropharynx clear. Mucous membranes dry. Neck is supple no lymphadenopathy or thyromegaly Cardiovascular regular rate and rhythm without murmur, no S3 or S4 Lungs clear no wheezing or crackles Abdomen is soft with positive bowel sounds. Some slight tenderness. exam is deferred Extremities no cyanosis clubbing or edema, cap refill brisk Skin no rash Neuro no obvious focal deficits. Discharge Data Studies Completed and Pending Completed Studies During Hospitalization Category Date Time Status CT abdomen pelvis wo con [id number] Urgent Cat Scan 01/16/22 02:36 Completed XR chest 1V portable [id number] Urgent Exams 01/15/22 23:44 Completed Pending at discharge Category Date Time Status Blood Culture Stat Lab 01/16/22 11:15 Results Radiology Impressions Chest X-Ray 01/15/22 23:44 IMPRESSION: 1. No acute abnormality demonstrated. 2. There is no interval change from the prior examination. Abdomen/Pelvis CT 01/16/22 02:36 IMPRESSION: 1. Stable, tiny pericardial effusion without changes of tamponade. 2. Tiny left pleural effusion. 3. Diverticulosis without diverticulitis. 4. There is right-sided perinephric fat stranding, nonspecific but may be seen with pyelonephritis. 5. Mild fat stranding at the head of the pancreas which could be secondary to pancreatitis. Microbiology 01/16/22 03:41 Urine,Clean Catch Urine Culture - Final Escherichia coli 01/16/22 11:15 Blood Blood Culture - Preliminary NEGATIVE TO DATE 01/16/22 07:43 Blood Blood Culture - Preliminary NEGATIVE TO DATE Laboratory Results WBC 4.4 10^3/uL (4.0-10.0) 01/19/22 04:30 RBC 3.27 10^6/uL (4.1-5.3) L 01/19/22 04:30 Hgb 8.7 g/dL (11.5-15.3) L 01/19/22 04:30 Hct 28.6 % (37.0-47.0) L 01/19/22 04:30 MCV 87.5 fl (81-99) D 01/19/22 04:30 MCH 26.6 pg (28.0-34.0) L 01/19/22 04:30 MCHC 30.4 g/dL (30.0-36.0) D 01/19/22 04:30 RDW 18.5 % (12.1-15.1) H 01/19/22 04:30 Plt Count 141 10^3/cmm (130-400) 01/19/22 04:30 MPV 11.2 fL (7.4-10.4) H 01/19/22 04:30 Neut % (Auto) 68.6 % 01/19/22 04:30 Lymph % (Auto) 17.9 % 01/19/22 04:30 [place] % (Auto) 11.3 % 01/19/22 04:30 Eos % (Auto) 1.8 % 01/19/22 04:30 Baso % (Auto) 0.2 % 01/19/22 04:30 Neut # (Auto) 3.02 10^3/uL (1.8-7.7) 01/19/22 04:30 Lymph # (Auto) 0.8 10^3/uL (0.8-4.8) 01/19/22 04:30 [place] # (Auto) 0.5 10^3/uL (0.2-0.9) 01/19/22 04:30 Eos # (Auto) 0.1 10^3/uL (0.0-0.8) 01/19/22 04:30 Baso # (Auto) 0.0 10^3/uL (0.0-0.1) 01/19/22 04:30 Nucleated RBC % (auto) 0 % 01/19/22 04:30 Nucleated RBCs # 0.0 /100WBC 01/19/22 04:30 Sodium 140 mmol/L (136-145) 01/19/22 04:30 Potassium 3.2 mmol/L (3.5-5.1) L 01/19/22 04:30 Chloride 108 mmol/L (98-107) H 01/19/22 04:30 Carbon Dioxide 23 mmol/L (22-29) 01/19/22 04:30 Anion Gap 12.2 (5-19) 01/19/22 04:30 BUN 11 mg/dL (8-23) 01/19/22 04:30 Creatinine 0.4 mg/dL (0.5-0.9) L 01/19/22 04:30 GFR Calculation 157.8 mL/min (90-130) H 01/19/22 04:30 Glucose 55 mg/dL (65-115) L 01/19/22 04:30 POC Glucose 154 mg/dL (70-110) H 01/19/22 11:06 Estimat Average Glucose 157 01/17/22 03:41 Hemoglobin A1c 7.1 % (4.0-6.0) H 01/17/22 03:41 Calculated Osmolality 287 mOsm/kg (285-295) 01/19/22 04:30 Lactic Acid 0.7 mmol/L (0.5-2.2) 01/16/22 03:00 Calcium 8.0 mg/dL (8.5-10.5) L 01/19/22 04:30 Magnesium 2.0 mg/dL (1.7-2.3) 01/17/22 03:41 Iron 7 ug/dL (37-145) L 01/17/22 03:41 TIBC 166 mcg/dl 01/17/22 03:41 % Saturation 4.2 % (20-50) L 01/17/22 03:41 Unsat Iron Binding 159 ug/dL (112-347) 01/17/22 03:41 Total Bilirubin 0.2 mg/dL (0.15-1.2) 01/19/22 04:30 AST 17 U/L (0-32) 01/19/22 04:30 ALT 11 U/L (0-33) 01/19/22 04:30 Alkaline Phosphatase 86 IU/L (35-105) 01/19/22 04:30 Total Protein 5.8 g/dL (6.6-8.7) L 01/19/22 04:30 Albumin 2.6 g/dL (3.5-5.2) L 01/19/22 04:30 Globulin 3.2 g/dL (1.3-4.6) 01/19/22 04:30 Triglycerides 127 mg/dL (0-150) 01/18/22 03:42 Cholesterol 112 mg/dL (0-200) 01/18/22 03:42 LDL Cholesterol, Calc 56 mg/dL (50-129) 01/18/22 03:42 Total VLDL Cholesterol 25 mg/dL (0-30) 01/18/22 03:42 HDL Cholesterol 31 mg/dL (60-100) L 01/18/22 03:42 Cholesterol/HDL Ratio 3.61 mg/dL (0.0-4.40) 01/18/22 03:42 Lipase 20 U/L (13-60) 01/15/22 23:03 Procalcitonin 0.51 ng/mL (0-0.5) H 01/17/22 03:41 TSH 12.06 uIU/mL (0.27-4.20) H 01/15/22 23:03 Free T4 0.75 ng/dL (0.82-1.77) L 01/15/22 23:03 Urine Color Yellow (Yellow) 01/16/22 03:41 Urine Appearance Cloudy (CLEAR) 01/16/22 03:41 Urine pH 5 (5-7) 01/16/22 03:41 Ur Specific [place] 1.010 (1.005-1.030) 01/16/22 03:41 Urine Protein Trace (Negative) 01/16/22 03:41 Urine Glucose (UA) Norm (Normal) 01/16/22 03:41 Urine Ketones 1+ (Negative) H 01/16/22 03:41 Urine Blood 2+ (Negative) H 01/16/22 03:41 Urine Nitrate Negative (Negative) 01/16/22 03:41 Urine Bilirubin Neg (Negative) 01/16/22 03:41 Urine Urobilinogen Norm mg/dL (Negative) 01/16/22 03:41 Ur Leukocyte Esterase 2+ (Negative) H 01/16/22 03:41 Urine RBC 5-10 /hpf (0-2) H 01/16/22 03:41 Urine WBC 80-100 /hpf (0-5) H 01/16/22 03:41 Ur Squamous Epith Cells 5-10 /hpf (0-5) H 01/16/22 03:41 Amorphous Sediment Not Reportable 01/16/22 03:41 Urine Bacteria 3+ /hpf (NONE) H 01/16/22 03:41 Vitals Last Vital Signs Temp 98.4 F 01/19/22 11:07 Pulse 69 01/19/22 11:07 Resp 13 01/19/22 11:07 BP 125/67 01/19/22 11:07 Pulse Ox 95 01/19/22 11:07 Discharge Plan Discharge Patient Disposition: Home Condition: Stable Prescriptions: New levothyroxine 200 mcg Tablet 200 mcg PO DAILY Qty: 30 0RF levofloxacin 500 mg tablet 500 mg PO Q24H 5 Days Qty: 5 0RF tramadol 50 mg tablet 50 mg PO Q8H PRN (Reason: pain) Qty: 10 0RF Continued (DME) Dexcom G6 Sensor Device See Rx Instructions .Route 0RF Rx Instructions: As directed apixaban 5 mg tablet 5 mg PO BID Qty: 60 3RF insulin lispro [Humalog U-100 Insulin] 100 unit/mL solution See Rx Instructions .ROUTE .COMPLEX Qty: 30 5RF Rx Instructions: inject up to 50 units via insulin pump once daily for basal, bolus and correctional insulin. 340B medication ibandronate 150 mg tablet 150 mg PO Q30D Qty: 12 0RF Rx Instructions: take one tablet each month for 7 months multivitamin Tablet 1 tab PO BEDTIME 0RF furosemide 40 mg tablet 40 mg PO DAILY PRN (Reason: Edema) 0RF Hold Instructions: Resume on 03/27/21. sertraline 100 mg tablet 100 mg PO BEDTIME 0RF aspirin 81 mg Tablet,Delayed Release (Dr/Ec) 81 mg PO BEDTIME 0RF metoclopramide HCl 5 mg tablet 5 mg PO BID 0RF Rx Instructions: BEFORE A MEAL AND HS calcium carbonate 500 mg calcium (1,250 mg) Tablet,Chewable 1,000 mg PO DAILY 0RF nitroglycerin [Nitrostat] 0.4 mg Tablet, Sublingual 0.4 mg SUBLINGUAL Q5M PRN (Reason: Chest Pain) 0RF Rx Instructions: do not exceed 3 doses per episode ondansetron HCl 4 mg tablet 4 - 8 mg PO Q8H PRN (Reason: Nausea And Vomiting) Qty: 10 0RF Changed carvedilol 12.5 mg tablet 6.25 mg PO BID Qty: 0 0RF Discontinued levothyroxine 175 mcg tablet 175 mcg PO QAM 0RF Discharge Orders: Discharge Order (Routine); Ordered 01/19/22 Ordered By: Vamsi Carson Referrals: [facility] ([facility]) [Outside] Andrea Flores MD [Primary Care Provider] - 01/27/22 10:00 am (also already has appointment they are going to keep on march 05 ) Discharge Diet: Usual diet, Cardiac and Diabetic Discharge Activity: Resume usual activity and Increase activity as tolerated Patient Instructions: Levothyroxine (By mouth), Levofloxacin (By mouth), Urinary Tract Infection in Women (GEN), Opioid Safety Activity Restrictions/Additional Instructions: Please take GI soft/brat diet going forward for next 1 week and then advance gradually to a regular diet within next 1 week. Please take multiple small meals. He can take bananas, applesauce, toast, mashed potatoes, broth. Levaquin is the antibiotic which you should take once daily for next 5 days. Please check your blood pressure daily and maintain a blood pressure diary at home and follow-up with your primary care provider within next 1 week for further evaluation and management of antihypertensives. Carvedilol dose has been changed to 6.25 mg twice daily for now. Levothyroxine dose has been increased to 200 mcg daily. Repeat TSH within next 6 months. Discharge Attestations Time Spent in Discharge Care*: greater than 30 min Specific Discharge Activities: educating patient, educating and/or supporting family/caregiver, discussing with case management assistant/social workers/dc planners, documenting/other paperwork and evaluating patient/reviewing data Status at Discharge: Cognitive status at discharge: cognitively intact, Behavioral status at discharge: cooperative and independent in ADL's, Functional status at discharge: uses cane/walker, Overall status at discharge: patient is progressing back to baseline Quality Metrics Clinical Quality Measures [ No reported AMI, CVA or VTE this stay] Coding Level of Care Code Acute g [facility] note Diagnoses Sepsis A41.9 Acute pyelonephritis N10 Type 1 diabetes E10.9 Atrial fibrillation I48.0 Atrial fibrillation type: paroxysmal Hypothyroidism E03.9 Hypothyroidism type: unspecified Scleroderma M34.9 Hypokalemia E87.6 Hypomagnesemia E83.42 Physical deconditioning R53.81
[2022-01-19 16:44] LABS: Glucose Point of Care 82 mg/dL (70-110)
== END 2022-01-19 17:28 | disposition home health service (06) | DRG 872 ==
LOC: ER 01-16 06:33 → MEDSURG 01-16 07:28
PROVIDERS: Internal Medicine; Admitting Provider Internal Medicine; Emergency Provider Emergency Medicine; PCP Family Medicine Adult Medicine; Visit Provider Student in an Organized Health Care Education/Training Program
DX: A41.9 Sepsis, unspecified organism (principal); N10 Acute pyelonephritis; E87.6 Hypokalemia; Z87.440 Personal history of urinary (tract) infections; F41.8 Other specified anxiety disorders; I48.0 Paroxysmal atrial fibrillation; Z86.16 Personal history of COVID-19; Z86.718 Personal history of other venous thrombosis and embolism; K57.90 Diverticulosis of intestine, part unspecified, without perforation or abscess without bleeding; I10 Essential (primary) hypertension; E03.9 Hypothyroidism, unspecified; I34.0 Nonrheumatic mitral (valve) insufficiency; M81.0 Age-related osteoporosis without current pathological fracture; E10.51 Type 1 diabetes mellitus with diabetic peripheral angiopathy without gangrene; E83.42 Hypomagnesemia; M34.9 Systemic sclerosis, unspecified; I95.9 Hypotension, unspecified; B96.20 Unspecified Escherichia coli [E. coli] as the cause of diseases classified elsewhere; Z79.82 Long term (current) use of aspirin
CPT/HCPCS: 36415; 36416; 71045; 74176; 80053; 80061; 81001; 82962; 83036; 83540; 83550; 83605; 83690; 83735; 84145; 84439; 84443; 85025; 87040; 87077; 87086; 87186; 93005; 96365; 96366; 96367; 96372; 96375; 97110; 97161; 99285; C9113; G0378; J0696; J1815 ×2; J2270; J2405; J3010; J3475; J3480; J3490; J7030; J8597

== ENCOUNTER → 2022-02-10 13:17 | Outpatient (BNVA) | payer MEDICARE, SELFPAY | PROVIDERS: PCP Family Medicine Adult Medicine; Visit Provider Registered Nurse Neonatal Intensive Care | DX: N39.0 Urinary tract infection, site not specified (principal) | CPT/HCPCS: 81000; 87086 ==

== ENCOUNTER → 2022-02-19 08:45 | Outpatient (BNVA) | payer MEDICARE, SELFPAY | PROVIDERS: PCP Family Medicine Adult Medicine; Visit Provider Family Medicine Adult Medicine | DX: K52.9 Noninfective gastroenteritis and colitis, unspecified (principal); M54.50 Low back pain, unspecified; I95.1 Orthostatic hypotension; E03.9 Hypothyroidism, unspecified | CPT/HCPCS: 80053; 81000; 84443; 85025; 87493 ==

== ENCOUNTER 2022-03-01 22:45 | Emergency (ER) | payer MEDICARE, SELFPAY ==
[2022-03-01 23:12] VITALS: BP 112/64; PULSE 104; RESP 17; TEMP 36.2; O2SAT 100; BMI 25.7
--- NOTE | 2022-03-02 00:08 | W.ED.FEMALGU ---
HPI - Female Genitourinary General: Chief complaint: Urogenital-Female Stated complaint: Lower back pain Time Seen by Provider: 03/01/22 23:20 History of Present Illness: Patient is a 71-year-old female comes to the ED with right flank pain. Patient was hospitalized here at [facility] for pyelonephritis back on January 16, 2022. Since discharge from hospital on January 17 she has had right flank pain that is constant. She went and saw her PCP a little over 2 weeks ago and was diagnosed with a UTI and took a round of antibiotics. She is still continue to have the right flank pain. Pain radiates into right lower quadrant of the abdomen. Over the last 48 hours her flank pain has gotten more severe. She rates it currently a 10 out of 10. She endorses a little nausea with pain. Denies any fevers, dysuria, hematuria, vomiting or bowel symptoms. She states she has a history of kidney stones and feels like this pain is similar to her past kidney stone. Associated symptoms: Deny abdominal pain, headache(s) or nausea Review of Systems Const: Denies: fever(s), chills or fatigue Eyes: Denies: change in vision or eye discomfort ENMT: Denies: throat pain, odynophagia, nasal discharge or nasal congestion Card: Denies: chest pain, palpitations, edema, swelling of feet/ankles, dyspnea on exertion or orthopnea Resp: Denies: dyspnea, productive cough or non-productive cough GI: Denies: abdominal pain, nausea, vomiting, diarrhea, constipation or hematochezia : Reports: flank pain (Right flank); Denies: dysuria or hematuria Musc: Reports: back pain; Denies: neck pain or extremity swelling Skin/Breast: Denies: rash or new lesions Neuro: Denies: headache(s), numbness in extremities or weakness in extremities PFSH ED PFSH: Medical History Acute pyelonephritis Anxiety and depression Atrial fibrillation -rate controlled -telemetry monitoring -has previously declined AC; follows up with cardiology Chronic diarrhea of unknown origin COVID-19 Positive test 06/17/2020 and 06/23/2020. Diabetic ketoacidosis Diverticulosis DVT (deep venous thrombosis) Dyslipidemia Encounter for screening laboratory testing for COVID-19 virus History of colon polyps on colonoscopy 2018 History of colon polyps HTN (hypertension) Hypothyroidism Low back pain Mild cognitive impairment Mitral regurgitation Opiate overdose Osteoporosis Peripheral vascular disease Scleroderma Syncope due to orthostatic hypotension Type 1 diabetes Surgical History H/O cardiac catheterization 2015, moderate disease no flow-limiting H/O dilation and curettage History of colonoscopy Status post endovenous radiofrequency ablation of saphenous vein Family History Father CAD (coronary artery disease) Mother Hypertension CAD (coronary artery disease) Hyperlipidemia Sister Hypertension Diabetes Grandfather CAD (coronary artery disease) PATERNAL Social History Smoking and tobacco status: never smoked Alcohol intake: never Lives independently: Yes Housing: House Physical Exam Const: COMMON NORMALS: patient oriented x3 and alert GENERAL APPEARANCE: cooperative HENMT: COMMON NORMALS: normocephalic HEAD & SCALP: normocephalic MOUTH: Normal oral and palatal mucosa present THROAT: posterior oropharynx normal and uvula midline Neck/C-Spine: COMMON NORMALS: supple GENERAL: Yes normal visual inspection Resp: COMMON NORMALS: normal respiratory effort, No retractions, No use of accessory muscles and clear to auscultation bilaterally AUSCULTATION: clear to auscultation bilaterally Cardio: COMMON NORMALS: regular rate, regular rhythm, S1 normal heart sound present, S2 normal heart sound present, No gallops present (Cardio), No clicks present (Cardio), No murmurs present (Cardio) and Peripheral pulses 2+ throughout RATE: regular rate RHYTHM: regular rhythm HEART SOUNDS: S1 normal heart sound present and S2 normal heart sound present PERIPHERAL PULSES: Peripheral pulses 2+ throughout GI: COMMON NORMALS: Normal to inspection, nondistended, normoactive bowel sounds present, Soft to palpation, non-tender and no masses PALPATION: Yes Soft to palpation : BLADDER/KIDNEY EXAM: Yes CVA tenderness on the right Back/Pelvis: GENERAL BACK: Yes CVA tenderness THORACIC SPINE/UPPER BACK: Yes paraspinal muscle tenderness Thoracic paraspinal muscle tenderness: right Right thoracic paraspinal muscle tenderness: T8, T9 and T10 and Yes other soft tissue findings Other thoracic soft tissue findings laterality: right Right other thoracic soft tissue findings details: tenderness (Muscular tenderness) Extremity: COMMON NORMALS: normal to inspection Neuro: COMMON NORMALS: patient oriented x3 and moves all extremities SENSORIUM/ORIENTATION: Yes alert Skin: GENERAL SKIN EXAM: dry skin Course Vital Signs: Vital signs: Vital Signs Temperature 97.9 F 03/02/22 04:02 Pulse Rate 74 03/02/22 04:02 Respiratory Rate 16 03/02/22 04:02 Blood Pressure 101/67 03/02/22 04:02 Pulse Oximetry 97 03/02/22 04:02 MDM - Female Medical Decision Making Patient is a 71-year-old female comes to the ED with right flank pain. Patient has been having right flank pain for over a month and a half. She went and saw her PCP a little over 2 weeks ago and was diagnosed with a UTI and took a round of antibiotics. She is still continue to have the right flank pain. Vital stable. Exam of patient shows right CVA tenderness and right thoracic paraspinal muscle tenderness as well. Rest of exam is benign. Patient's hemoglobin is 9.5 which is close to her baseline when comparing past lab values. The rest of her CBC and CMP are unremarkable. UA shows no blood or any signs of infection. CT of abdomen pelvis shows likely metastatic lesions in the liver and pancreatic cystic lesion. Outpatient MRI for further evaluation recommended. I talked with Dr. Juarez about patient case and an order was placed with case management for patient to be set up with Dr. Rascon for metastatic liver lesions and further evaluation and follow-up. I told patient about CT findings and made her aware of the lesions and that she needs further work-up to find out if they are metastatic or benign. She was stable for discharge home and sent home with a prescription for hydrocodone for pain. I told her to follow-up with her PCP as well to discuss liver lesion findings. Patient understood and agreed with plan. Lab Data I reviewed the patient's lab results. : 03/02/22 00:25 03/02/22 00:25 Radiology Impressions Abdomen/Pelvis CT 03/02/22 01:20 IMPRESSION: 1. There are multiple low-attenuation lesions of the liver, largest measures approximately 1.4 cm. Findings may be secondary to metastatic disease. Consider further evaluation with MRI. 2. Pancreatic edema which may be secondary to pancreatitis. There is a 1.9 x 1.8 cm cystic lesion of the pancreatic head. Consider further evaluation with outpatient MRI to exclude the possibility of neoplasm. Laboratory Results WBC 4.1 10^3/uL (4.0-10.0) 03/02/22 00:25 RBC 3.28 10^6/uL (4.1-5.3) L 03/02/22 00:25 Hgb 9.5 g/dL (11.5-15.3) L 03/02/22 00:25 Hct 29.7 % (37.0-47.0) L 03/02/22 00:25 MCV 90.5 fl (81-99) 03/02/22 00:25 MCH 29.0 pg (28.0-34.0) 03/02/22 00:25 MCHC 32.0 g/dL (30.0-36.0) 03/02/22 00:25 RDW 18.6 % (12.1-15.1) H 03/02/22 00:25 Plt Count 163 10^3/cmm (130-400) 03/02/22 00:25 MPV 10.3 fL (7.4-10.4) 03/02/22 00:25 Neut % (Auto) 58.5 % 03/02/22 00:25 Lymph % (Auto) 30.8 % 03/02/22 00:25 Holmes % (Auto) 7.1 % 03/02/22 00:25 Eos % (Auto) 2.9 % 03/02/22 00:25 Baso % (Auto) 0.5 % 03/02/22 00:25 Neut # (Auto) 2.39 10^3/uL (1.8-7.7) 03/02/22 00:25 Lymph # (Auto) 1.3 10^3/uL (0.8-4.8) 03/02/22 00:25 Holmes # (Auto) 0.3 10^3/uL (0.2-0.9) 03/02/22 00:25 Eos # (Auto) 0.1 10^3/uL (0.0-0.8) 03/02/22 00:25 Baso # (Auto) 0.0 10^3/uL (0.0-0.1) 03/02/22 00:25 Nucleated RBC % (auto) 0 % 03/02/22 00:25 Nucleated RBCs # 0.0 /100WBC 03/02/22 00:25 Sodium 138 mmol/L (136-145) 03/02/22 00:25 Potassium 3.8 mmol/L (3.5-5.1) 03/02/22 00:25 Chloride 103 mmol/L (98-107) 03/02/22 00:25 Carbon Dioxide 24 mmol/L (22-29) 03/02/22 00:25 Anion Gap 14.8 (5-19) 03/02/22 00:25 BUN 10 mg/dL (8-23) 03/02/22 00:25 Creatinine 0.6 mg/dL (0.5-0.9) 03/02/22 00:25 GFR Calculation 98.8 mL/min (90-130) 03/02/22 00:25 Glucose 191 mg/dL (65-115) H 03/02/22 00:25 Calculated Osmolality 290 mOsm/kg (285-295) 03/02/22 00:25 Calcium 7.9 mg/dL (8.5-10.5) L 03/02/22 00:25 Total Bilirubin 0.2 mg/dL (0.15-1.2) 03/02/22 00:25 AST 19 U/L (0-32) 03/02/22 00:25 ALT 10 U/L (0-33) 03/02/22 00:25 Alkaline Phosphatase 109 IU/L (35-105) H 03/02/22 00:25 Total Protein 4.8 g/dL (6.6-8.7) L 03/02/22 00:25 Albumin 2.4 g/dL (3.5-5.2) L 03/02/22 00:25 Globulin 2.4 g/dL (1.3-4.6) 03/02/22 00:25 Lipase 4 U/L (13-60) L 03/02/22 00:25 Urine Color Yellow (Yellow) 03/02/22 01:30 Urine Appearance Clear (CLEAR) 03/02/22 01:30 Urine pH 5 (5-7) 03/02/22 01:30 Ur Specific [place] 1.015 (1.005-1.030) 03/02/22 01:30 Urine Protein Neg (Negative) 03/02/22 01:30 Urine Glucose (UA) Norm (Normal) 03/02/22 01:30 Urine Ketones Negative (Negative) 03/02/22 01:30 Urine Blood Neg (Negative) 03/02/22 01:30 Urine Nitrate Negative (Negative) 03/02/22 01:30 Urine Bilirubin Neg (Negative) 03/02/22 01:30 Urine Urobilinogen Norm mg/dL (Negative) 03/02/22 01:30 Ur Leukocyte Esterase Negative (Negative) 03/02/22 01:30 Discharge Plan Discharge Patient Disposition: Home Clinical Impression: Lesion of liver, Pancreas cyst, Right flank pain, Chronic anemia Condition: Stable Prescriptions: No Action (DME) Dexcom G6 Sensor Device See Rx Instructions .Route 0RF Rx Instructions: As directed apixaban 5 mg tablet 5 mg PO BID Qty: 60 3RF insulin lispro [Humalog U-100 Insulin] 100 unit/mL solution See Rx Instructions .ROUTE .COMPLEX Qty: 30 5RF Rx Instructions: inject up to 50 units via insulin pump once daily for basal, bolus and correctional insulin. 340B medication ibandronate 150 mg tablet 150 mg PO Q30D Qty: 12 0RF Rx Instructions: take one tablet each month for 7 months levothyroxine 25 mcg tablet 25 mcg PO DAILY Qty: 30 5RF Rx Instructions: Add this to the 200 mcg so she is taking 225 mcg daily. levothyroxine 200 mcg tablet 200 mcg PO DAILY Qty: 30 5RF Rx Instructions: Add to the 25 mcg so she is taking 225 mcg daily calcium polycarbophil [FiberCon] 625 mg tablet 1,250 mg PO BID Qty: 60 1RF multivitamin Tablet 1 tab PO BEDTIME 0RF sertraline 100 mg tablet 100 mg PO BEDTIME 0RF aspirin 81 mg Tablet,Delayed Release (Dr/Ec) 81 mg PO BEDTIME 0RF calcium carbonate 500 mg calcium (1,250 mg) Tablet,Chewable 1,000 mg PO DAILY 0RF nitroglycerin [Nitrostat] 0.4 mg Tablet, Sublingual 0.4 mg SUBLINGUAL Q5M PRN (Reason: Chest Pain) 0RF Rx Instructions: do not exceed 3 doses per episode carvedilol 12.5 mg tablet 6.25 mg PO BID Qty: 0 0RF ondansetron HCl 4 mg tablet 4 - 8 mg PO Q8H PRN (Reason: Nausea And Vomiting) Qty: 10 0RF Discharge Orders: Discharge ED (Routine); Ordered 03/02/22 Ordered By: Jona Espinal Referrals: Andrea Flores MD [Primary Care Provider] - Discharge Diet: Regular Discharge Activity: Increase activity as tolerated Patient Instructions: Opioid Safety Activity Restrictions/Additional Instructions: Follow-up with medical provider as directed. Case management should be contacting you in the next several days to set up an appoint with Dr. Rascon the oncologist for further evaluation of liver lesions. Contact your PCP as well and set up an appoint with them in the next week for reevaluation and to keep them informed on recent liver lesion findings. Take medications as prescribed. Return to the ER or your medical provider if condition worsens. Please read and understand discharge instructions. Thank you for choosing [facility] for your healthcare needs today. Please realize this is an emergency room and that we are providing you with a medical screening exam and this may not be complete and all inclusive of all the testing and or work up that you may need to determine your ailment or severity of your illness. It is very important that you follow up as instructed or that you return to the Emergency Department should you have concerns or if your condition changes or worsens in any way. Coding Level of Care Code ED [employer] for Chg Fwd Exam Comprehensive
[2022-03-02 00:28] VITALS: RESP 18; O2SAT 98
[2022-03-02] MEDS: ondansetron 2 mg/ML SDV 2 mL 4 MG IVP (00:28)
[2022-03-02] MEDS: morphine 4 mg/mL SDV 1 mL IVP ×2 (00:28→03:57)
[2022-03-02 00:29] VITALS: BP 121/69; PULSE 91; RESP 18; O2SAT 97
[2022-03-02 00:40] LABS: Basophils % 0.5 %; Eosinophils # 0.1 10^3/uL (0.0-0.8); Eosinophils % 2.9 %; Hematocrit 29.7 % (37.0-47.0); Hemoglobin 9.5 g/dL (11.5-15.3); Lymphocytes # 1.3 10^3/uL (0.8-4.8); Lymphocytes % 30.8 %; Mean Corpuscular Volume 90.5 fl (81-99); Mean Platelet Volume 10.3 fL (7.4-10.4); Monocytes # 0.3 10^3/uL (0.2-0.9); Monocytes % 7.1 %; Neutrophils # 2.39 10^3/uL (1.8-7.7); Neutrophils % 58.5 %; Nucleated Red Blood Cells % 0 %; Platelet Count 163 10^3/cmm (130-400); Red Blood Count 3.28 10^6/uL (4.1-5.3); Red Cell Distribution Width 18.6 % (12.1-15.1); White Blood Count 4.1 10^3/uL (4.0-10.0)
[2022-03-02 01:00] LABS: Alanine Aminotransferase 10 U/L (0-33); Albumin Level 2.4 g/dL (3.5-5.2); Alkaline Phosphatase 109 IU/L (35-105); Anion Gap 14.8 (5-19); Aspartate Amino Transferase 19 U/L (0-32); Blood Urea Nitrogen 10 mg/dL (8-23); Calcium 7.9 mg/dL (8.5-10.5); Carbon Dioxide 24 mmol/L (22-29); Chloride 103 mmol/L (98-107); Globulin 2.4 g/dL (1.3-4.6); Glomerular Filtration Rate 98.8 mL/min (90-130); Glucose 191 mg/dL (65-115); Lipase 4 U/L (13-60); Osmolality Calculated 290 mOsm/kg (285-295); Potassium 3.8 mmol/L (3.5-5.1); Sodium 138 mmol/L (136-145); Total Bilirubin 0.2 mg/dL (0.15-1.2); Total Protein 4.8 g/dL (6.6-8.7)
--- NOTE | 2022-03-02 01:20 | CTR_ITS ---
PROCEDURE INFORMATION: Exam: CT Abdomen And Pelvis Without Contrast Exam date and time: 03/02/2022 2:03 AM Age: 71 years old Clinical indication: Abdominal pain; Generalized; Additional info: Right flank pain TECHNIQUE: Imaging protocol: Computed tomography of the abdomen and pelvis without contrast. Radiation optimization: All CT scans at this facility use at least one of these dose optimization techniques: automated exposure control; mA and/or kV adjustment per patient size (includes targeted exams where dose is matched to clinical indication); or iterative reconstruction. COMPARISON: CT abdomen pelvis con [id number] 01/16/2022 3:05 AM RADIATION DOSE METRICS: Total DLP (mGy-cm): 1303.59 FINDINGS: Lungs: The lung bases are clear. No effusion Liver: There are multiple low-attenuation lesions of the liver, largest measures approximately 1.4 cm. Gallbladder and bile ducts: No wall thickening, pericholecystic fluid or stones. Pancreas: There is peripancreatic fat stranding. 1.9 x 1.8 cm cystic lesion of the pancreatic head. Spleen: Normal. No splenomegaly. Adrenal glands: Normal. No mass. Kidneys and ureters: Normal. No hydronephrosis. Stomach and bowel: Unremarkable. No obstruction. No mucosal thickening. Appendix: No evidence of appendicitis. Intraperitoneal space: Small amount of free fluid in the pelvis. Vasculature: Unremarkable. No abdominal aortic aneurysm. Lymph nodes: Unremarkable. No enlarged lymph nodes. Urinary bladder: Unremarkable as visualized. Reproductive: Unremarkable as visualized. Bones/joints: Unremarkable. No acute fracture. Soft tissues: Unremarkable. CT/CT abdomen pelvis con [id number] IMPRESSION: 1. There are multiple low-attenuation lesions of the liver, largest measures approximately 1.4 cm. Findings may be secondary to metastatic disease. Consider further evaluation with MRI. 2. Pancreatic edema which may be secondary to pancreatitis. There is a 1.9 x 1.8 cm cystic lesion of the pancreatic head. Consider further evaluation with outpatient MRI to exclude the possibility of neoplasm.
[2022-03-02 01:37] LABS: Add Urine Microscopic? NO; Charge for UA Resulting for Rev
[2022-03-02 01:46] LABS: Bilirubin Urine Neg (Negative); Blood Urine Neg (Negative); Glucose Urine UA Norm (Normal); Ketones Urine Negative (Negative); Leukocyte Esterase Urine Negative (Negative); Nitrate Urine Negative (Negative); Protein Urine Neg (Negative); Specific Gravity, Urine 1.015 (1.005-1.030); Urine Appearance Clear (CLEAR); Urine Color Yellow (Yellow); Urobilinogen Urine Norm (Negative); pH Urine 5 (5-7)
[2022-03-02 03:57] VITALS: RESP 18; O2SAT 97
[2022-03-02] MEDS: HYDROcodone-acetaminophen 7.5-325 mg Tablet 2 TAB PO (04:01)
[2022-03-02 04:02] VITALS: BP 101/67; PULSE 74; RESP 16; TEMP 36.6; O2SAT 97
--- NOTE | 2022-03-03 09:54 | DCPLANNER ---
Addendum entered by Mesha Gonsalves 03/23/22 14:27: Patient was admitted to hospital before biopsy was performed, Dr. Rascon seen patient in hospital. Patient was transferred to [facility], patient will have treatment there. Original Note: media analytics manager had message to refer patient to Dr. Rascon for metastatic liver lesions. media analytics manager called [facility] at the cancer treatment center to refer patient to Dr. Rascon. media analytics manager was told that patients information would be printed for Dr. Rascon to review. If patient needs to be seen somewhere before being seen by Dr. Rascon, rn case mgr will be contacted and will be told where patient needs to be seen for further workup.
== END 2022-03-02 04:04 | disposition home or self-care (01) ==
PROVIDERS: Emergency Medicine; Emergency Provider Physician Assistant; PCP Family Medicine Adult Medicine
DX: K76.9 Liver disease, unspecified (principal); K86.2 Cyst of pancreas; D53.9 Nutritional anemia, unspecified; Z79.82 Long term (current) use of aspirin; Z79.4 Long term (current) use of insulin; E78.5 Hyperlipidemia, unspecified; I10 Essential (primary) hypertension; E10.9 Type 1 diabetes mellitus without complications
CPT/HCPCS: 74176; 80053; 81003; 83690; 85025; 96374; 96375; 96376; 99284; J2270; J2405

== ENCOUNTER 2022-03-07 10:08 | Observation (INO) | payer MEDICARE, SELFPAY ==
[2022-03-07] VITALS (7 sets, daily range): BP systolic 165–200; BP diastolic 95–121; PULSE 74–107; RESP 14–26; TEMP 36.5; O2SAT 93–100; BMI 25.0; BMI 26.2
--- NOTE | 2022-03-07 10:30 | CTR_ITS ---
PROCEDURE INFORMATION: Exam: CT Head Without Contrast Exam date and time: 03/07/2022 11:15 AM Age: 71 years old Clinical indication: Injury or trauma; Fall; Blunt trauma (contusions or hematomas); Additional info: Fall eliquis TECHNIQUE: Imaging protocol: Computed tomography of the head without contrast. Radiation optimization: All CT scans at this facility use at least one of these dose optimization techniques: automated exposure control; mA and/or kV adjustment per patient size (includes targeted exams where dose is matched to clinical indication); or iterative reconstruction. COMPARISON: CT head wo con* [id number] 02/15/2021 6:07 PM RADIATION DOSE METRICS: Total DLP (mGy-cm): 1097.08 FINDINGS: Brain: Calcified plaque is present within the intracranial vasculature. There is diffuse cerebral atrophy present, consistent with this patient's age. Periventricular and subcortical white matter low densities are present which at this age likely represent microvascular ischemic change. Benign globus pallidus calcifications are present. Cerebral ventricles: No ventriculomegaly. Paranasal sinuses: Visualized sinuses are unremarkable. No fluid levels. Mastoid air cells: Visualized mastoid air cells are well aerated. Bones/joints: Unremarkable. No acute fracture. Soft tissues: Unremarkable. Other findings: No evidence for large acute ischemic infarction. Please note acute ischemia can be occult by head CT. CT/CT head wo con* [id number] IMPRESSION: There are senescent changes of the brain as described above. No evidence for large acute ischemic infarction or acute intracranial injury.
--- NOTE | 2022-03-07 10:30 | CTR_ITS ---
PROCEDURE INFORMATION: Exam: CT Lumbar Spine Without Contrast Exam date and time: 03/07/2022 11:18 AM Age: 71 years old Clinical indication: Injury or trauma; Fall; Blunt trauma (contusions or hematomas); Additional info: Fall back pain TECHNIQUE: Imaging protocol: Computed tomography of the lumbar spine without contrast. Radiation optimization: All CT scans at this facility use at least one of these dose optimization techniques: automated exposure control; mA and/or kV adjustment per patient size (includes targeted exams where dose is matched to clinical indication); or iterative reconstruction. COMPARISON: CT lumbar spine wo con* [id number] 02/15/2021 6:10 PM RADIATION DOSE METRICS: Total DLP (mGy-cm): 1111.1 FINDINGS: Bones/joints: No acute fracture. Normal alignment. There are degenerative changes throughout the visualized spine including marginal osteophyte formations, endplate degenerative changes, and facet arthropathy.Multilevel disc space narrowing. Incidental benign hemangioma in the S1 sacral segment. Well-circumscribed sclerotic density in the L5 vertebra has a benign appearance. L1-L2: No significant disc protrusion. No severe spinal canal stenosis. No significant neural foraminal narrowing. L2-L3: No significant disc protrusion. No severe spinal canal stenosis. No significant neural foraminal narrowing. L3-L4: No significant disc protrusion. No severe spinal canal stenosis. No significant neural foraminal narrowing. L4-L5: Minimal disc bulge. No significant canal or neural foramina stenosis. L5-S1: No significant disc protrusion. No severe spinal canal stenosis. No significant neural foraminal narrowing. Liver: Please see the CT scan of the abdomen/pelvis dated 03/02/2022 for description of the pancreas and liver. Soft tissues: Unremarkable. CT/CT lumbar spine wo con* [id number] IMPRESSION: There are degenerative changes in the visualized spine. No evidence for acute fracture. Please see the CT scan of the abdomen/pelvis dated 03/02/2022 for description of the pancreas and liver lesions.
--- NOTE | 2022-03-07 10:31 | W.ED.FALL ---
HPI - Fall General: Chief Complaint: Nausea/Vomiting/Diarrhea Stated Complaint: N/V; HYPOGLYCEMIA Time Seen by Provider: 03/07/22 10:16 Source: patient Mode of arrival: EMS Limitations: no limitations History of Present Illness: 71-year-old female comes in complaining of back pain. She fell at home she had some nausea and vomiting. The patient states that she has had diarrhea for 2 months. She reports being hypoglycemic EMS had a blood sugar on a D stick at 51 her self monitor was in the 90s. I did give her 2 g of glucose. She denies any dysuria urgency or frequency. She has had some chronic diarrhea. No shortness of breath no chest pain mild abdominal discomfort. With persistent nausea and vomiting. Patient was seen here few days ago to pancreatic mass with what appears to be metastatic lesions to the liver. MD complaint: fall Onset (ago): hour(s) Fall from: standing Place fall occurred: home Loss of consciousness: None Prolonged down time: no Symptoms prior to fall: lightheadedness and dizziness Location of injury: back Quality: aching Associated symptoms-after fall: Reports other (Back pain); Denies abdominal pain, chest pain, confusion, difficulty walking, headache(s), hematuria, lightheadedness, neck pain, numbness, short of breath, vertigo or weakness Review of Systems Const: Denies: fever(s), chills, body aches, change in appetite, fatigue or malaise ENMT: Denies: throat pain, ear or mastoid pain, nasal discharge or nasal congestion Card: Denies: chest pain or lightheadedness Resp: Denies: dyspnea, productive cough or non-productive cough GI: Reports: nausea, vomiting and diarrhea; Denies: abdominal pain, hematemesis, coffee ground emesis or hematochezia : Denies: flank pain, difficulty voiding, dysuria, urinary frequency, urinary urgency or hematuria Musc: Denies: neck pain or back pain Skin/Breast: Denies: rash or pruritus Neuro: Denies: headache(s), difficulty walking, vertigo or confusion PFSH ED PFSH: Medical History Acute pyelonephritis Anxiety and depression Atrial fibrillation -rate controlled -telemetry monitoring -has previously declined AC; follows up with cardiology Chronic diarrhea of unknown origin COVID-19 Positive test 06/17/2020 and 06/23/2020. Diabetic ketoacidosis Diverticulosis DVT (deep venous thrombosis) Dyslipidemia Encounter for screening laboratory testing for COVID-19 virus History of colon polyps on colonoscopy 2018 History of colon polyps HTN (hypertension) Hypothyroidism Lesion of liver Low back pain Mild cognitive impairment Mitral regurgitation Nausea & vomiting Opiate overdose Osteoporosis Pancreas cyst Peripheral vascular disease Scleroderma Syncope due to orthostatic hypotension Type 1 diabetes Surgical History H/O cardiac catheterization 2014, moderate disease no flow-limiting H/O dilation and curettage History of colonoscopy Status post endovenous radiofrequency ablation of saphenous vein Family History Father CAD (coronary artery disease) Mother Hypertension CAD (coronary artery disease) Hyperlipidemia Sister Hypertension Diabetes Grandfather CAD (coronary artery disease) PATERNAL Social History Smoking and tobacco status: never smoked Alcohol intake: never Lives independently: Yes Housing: House Physical Exam Const: GENERAL APPEARANCE: cooperative ORIENTATION/CONSCIOUSNESS: Yes awake, Yes oriented to person, Yes oriented to place and Yes oriented to time HENMT: COMMON NORMALS: normocephalic, atraumatic and hearing grossly normal bilaterally HEAD & SCALP: normocephalic and atraumatic Resp: COMMON NORMALS: normal respiratory effort, No retractions, No use of accessory muscles and clear to auscultation bilaterally AUSCULTATION: clear to auscultation bilaterally Cardio: COMMON NORMALS: regular rate, regular rhythm and No murmurs present (Cardio) RATE: regular rate RHYTHM: regular rhythm GI: COMMON NORMALS: No hepatosplenomegaly present AUSCULTATION: Yes normoactive bowel sounds PALPATION: Yes Tenderness to palpation present (GI) (Epigastric right upper quadrant), No Guarding due to palpation present (GI) and Yes No hepatosplenomegaly present : COMMON NORMALS: Yes no CVA tenderness BLADDER/KIDNEY EXAM: Yes no CVA tenderness Back/Pelvis: COMMON NORMALS: no CVA tenderness Extremity: COMMON NORMALS: normal to inspection, capillary refill normal, no clubbing, cyanosis or edema, no calf tenderness and no pedal edema Neuro: SENSORIUM/ORIENTATION: Yes oriented to person, Yes oriented to place and Yes oriented to time Skin: COMMON NORMALS: no rashes or lesions noted GENERAL SKIN EXAM: no rashes or lesions noted Course Vital Signs: Vital signs: Vital Signs Temperature 98.0 F 03/08/22 08:00 Pulse Rate 100 03/08/22 08:00 Respiratory Rate 17 03/08/22 13:10 Blood Pressure 161/89 03/08/22 08:00 Pulse Oximetry 94 03/08/22 08:00 MDM - Fall Medical Decision Making Pancreatic mass concerning for cancer with liver mets with persistent nausea and vomiting. Discussed with Dr. Zazueta who will admit for IV fluids and further evaluation. Medical Records I reviewed the patient's medical records. Lab Data I reviewed the patient's lab results. : 03/08/22 03:10 03/08/22 03:[address] 03/07/22 10:30 IMPRESSION: There are senescent changes of the brain as described above. No evidence for large acute ischemic infarction or acute intracranial injury. Lumbar Spine CT 03/07/22 10:30 IMPRESSION: There are degenerative changes in the visualized spine. No evidence for acute fracture. Please see the CT scan of the abdomen/pelvis dated 03/02/2022 for description of the pancreas and liver lesions. Abdomen/Pelvis CT 03/07/22 12:38 IMPRESSION: 1. There is a heterogeneous lesion in the pancreatic head which cannot be differentiated from the adjacent duodenum, concerning pancreatic carcinoma. Hazy stranding surrounding the pancreas raises concern for superimposed pancreatitis. Please correlate with pancreatic laboratory values. 2. There are multiple ill-defined hepatic lesions consistent with metastatic disease. 3. There is mucosal thickening of the rectosigmoid colon. Differential includes nonspecific colitis and neoplasm. 4. There is mucosal thickening of the distal esophagus, stomach, and duodenum. Differential includes nonspecific esophagitis/enteritis and neoplasm. 5. There are ill-defined hypoenhancing lesions in the right kidney. Differential includes metastatic disease and pyelonephritis. 6. Colonic constipation is present. ADDENDUM: 03/07/22 1353 CRITICAL RESULT: The study was personally discussed on the telephone with JAMIE Wright on 03/07/2022 1:52 PM CDT. The results were understood and acknowledged. Laboratory Results WBC 4.5 10^3/uL (4.0-10.0) 03/07/22 10:45 RBC 3.20 10^6/uL (4.1-5.3) L 03/07/22 10:45 Hgb 9.5 g/dL (11.5-15.3) L 03/07/22 10:45 Hct 29.8 % (37.0-47.0) L 03/07/22 10:45 MCV 93.1 fl (81-99) 03/07/22 10:45 MCH 29.7 pg (28.0-34.0) 03/07/22 10:45 MCHC 31.9 g/dL (30.0-36.0) 03/07/22 10:45 RDW 17.9 % (12.1-15.1) H 03/07/22 10:45 Plt Count 112 10^3/cmm (130-400) L 03/07/22 10:45 MPV 10.7 fL (7.4-10.4) H 03/07/22 10:45 Neut % (Auto) 76.7 % 03/07/22 10:45 Lymph % (Auto) 16.7 % 03/07/22 10:45 [place] % (Auto) 5.8 % 03/07/22 10:45 Eos % (Auto) 0.4 % 03/07/22 10:45 Baso % (Auto) 0.2 % 03/07/22 10:45 Neut # (Auto) 3.44 10^3/uL (1.8-7.7) 03/07/22 10:45 Lymph # (Auto) 0.8 10^3/uL (0.8-4.8) 03/07/22 10:45 [place] # (Auto) 0.3 10^3/uL (0.2-0.9) 03/07/22 10:45 Eos # (Auto) 0.0 10^3/uL (0.0-0.8) 03/07/22 10:45 Baso # (Auto) 0.0 10^3/uL (0.0-0.1) 03/07/22 10:45 Nucleated RBC % (auto) 0 % 03/07/22 10:45 Nucleated RBCs # 0.0 /100WBC 03/07/22 10:45 Sodium 138 mmol/L (136-145) 03/07/22 10:45 Potassium 3.4 mmol/L (3.5-5.1) L 03/07/22 10:45 Chloride 103 mmol/L (98-107) 03/07/22 10:45 Carbon Dioxide 23 mmol/L (22-29) 03/07/22 10:45 Anion Gap 15.4 (5-19) 03/07/22 10:45 BUN 8 mg/dL (8-23) 03/07/22 10:45 Creatinine 0.3 mg/dL (0.5-0.9) L 03/07/22 10:45 GFR Calculation 219.9 mL/min (90-130) H 03/07/22 10:45 Glucose 70 mg/dL (65-115) 03/07/22 10:45 POC Glucose 70 mg/dL (70-110) 03/07/22 10:30 Calculated Osmolality 283 mOsm/kg (285-295) L 03/07/22 10:45 Calcium 7.5 mg/dL (8.5-10.5) L 03/07/22 10:45 Total Bilirubin 0.2 mg/dL (0.15-1.2) 03/07/22 10:45 AST 25 U/L (0-32) 03/07/22 10:45 ALT 10 U/L (0-33) 03/07/22 10:45 Alkaline Phosphatase 114 IU/L (35-105) H 03/07/22 10:45 Total Protein 4.9 g/dL (6.6-8.7) L 03/07/22 10:45 Albumin 2.4 g/dL (3.5-5.2) L 03/07/22 10:45 Globulin 2.5 g/dL (1.3-4.6) 03/07/22 10:45 Lipase 4 U/L (13-60) L 03/07/22 10:45 Urine Color Straw (Yellow) 03/07/22 12:29 Urine Appearance Clear (CLEAR) 03/07/22 12:29 Urine pH 8 (5-7) H 03/07/22 12:29 Ur Specific Baudette 1.005 (1.005-1.030) 03/07/22 12:29 Urine Protein Neg (Negative) 03/07/22 12:29 Urine Glucose (UA) Norm (Normal) 03/07/22 12:29 Urine Ketones 1+ (Negative) H 03/07/22 12:29 Urine Blood Neg (Negative) 03/07/22 12:29 Urine Nitrate Negative (Negative) 03/07/22 12:29 Urine Bilirubin Neg (Negative) 03/07/22 12:29 Prot Sulfosalicylic Acd Negative (Negative) 03/07/22 12:29 Urine Urobilinogen Norm mg/dL (Negative) 03/07/22 12:29 Ur Leukocyte Esterase Negative (Negative) 03/07/22 12:29 Discharge Plan Discharge Patient Disposition: Admitted As Inpatient Admit Provider: Nathaniel Zazueta Clinical Impression: Nausea & vomiting, Type 1 diabetes, Lesion of liver, Mass of pancreas Condition: Stable Discharge Orders: Discharge Order (Routine); Ordered 03/08/22 Ordered By: Nathaniel Zazueta Discharge ED (Routine); Ordered 03/07/22 Ordered By: Jamie Carrillo Discharge Diet: Diabetic Discharge Activity: Increase activity as tolerated Coding Level of Care Code ED Ladle Liner for [place]ic[place] James
[2022-03-07 10:32] LABS: Glucose Point of Care 70 mg/dL (70-110)
[2022-03-07 10:52] LABS: Basophils % 0.2 %; Eosinophils % 0.4 %; Hematocrit 29.8 % (37.0-47.0); Hemoglobin 9.5 g/dL (11.5-15.3); Lymphocytes # 0.8 10^3/uL (0.8-4.8); Lymphocytes % 16.7 %; Mean Corpuscular HGB Conc 31.9 g/dL (30.0-36.0); Mean Corpuscular Hemoglobin 29.7 pg (28.0-34.0); Mean Corpuscular Volume 93.1 fl (81-99); Mean Platelet Volume 10.7 fL (7.4-10.4); Monocytes # 0.3 10^3/uL (0.2-0.9); Monocytes % 5.8 %; Neutrophils # 3.44 10^3/uL (1.8-7.7); Neutrophils % 76.7 %; Nucleated Red Blood Cells % 0 %; Platelet Count 112 10^3/cmm (130-400); Red Cell Distribution Width 17.9 % (12.1-15.1); White Blood Count 4.5 10^3/uL (4.0-10.0)
[2022-03-07] MEDS: sodium chloride 0.9% 1,000 ML 999 ML IV ×2 (10:56→14:01)
[2022-03-07] MEDS: ondansetron 2 mg/ML SDV 2 mL 4 MG IVP (10:56)
[2022-03-07] MEDS: morphine 4 mg/mL SDV 1 mL 2 MG IVP (10:56)
[2022-03-07 11:12] LABS: Alanine Aminotransferase 10 U/L (0-33); Albumin Level 2.4 g/dL (3.5-5.2); Alkaline Phosphatase 114 IU/L (35-105); Anion Gap 15.4 (5-19); Aspartate Amino Transferase 25 U/L (0-32); Blood Urea Nitrogen 8 mg/dL (8-23); Calcium 7.5 mg/dL (8.5-10.5); Carbon Dioxide 23 mmol/L (22-29); Chloride 103 mmol/L (98-107); Globulin 2.5 g/dL (1.3-4.6); Glomerular Filtration Rate 219.9 mL/min (90-130); Glucose 70 mg/dL (65-115); Osmolality Calculated 283 mOsm/kg (285-295); Potassium 3.4 mmol/L (3.5-5.1); Sodium 138 mmol/L (136-145); Total Bilirubin 0.2 mg/dL (0.15-1.2); Total Protein 4.9 g/dL (6.6-8.7)
[2022-03-07 11:14] LABS: Creatinine Clr Calc Pharmacy 63.4415
[2022-03-07] MEDS: promethazine 25 mg/mL SDV 1 mL IM ×2 (11:53→20:46)
--- NOTE | 2022-03-07 12:12 | PC.PHAR ---
PT AND PTS SISTER ISMAEL UNABLE TO VERIFY PTS MEDICATIONS-ISMAEL STATES SHE IS UNSURE OF ALL THE NAMES OF MEDICATOINS THE PT IS TAKING-STATES SHE THINKS THE PT IS ONLY TAKING LEVOTHYROXINE 200MCG DAILY EXT MED HISTORY SHOWS 25MCG AND 200MCG DAILY FILLED ON 02/20/22-MEDICATIONS ENTERED ARE MEDICATIONS FROM PREVIOUS ENTERED MED LIST AND WHAT EXT MED HISTORY SHOWS HAS BEEN FILLED RECENTLY-NOTES ARE MADE IN THE PHARMACY COMMENTS
--- NOTE | 2022-03-07 12:38 | CTR_ITS ---
PROCEDURE INFORMATION: Exam: CT Abdomen And Pelvis With Contrast Exam date and time: 03/07/2022 1:14 PM Age: 71 years old Clinical indication: Abdominal pain; Generalized; TECHNIQUE: Imaging protocol: Computed tomography of the abdomen and pelvis with contrast. Radiation optimization: All CT scans at this facility use at least one of these dose optimization techniques: automated exposure control; mA and/or kV adjustment per patient size (includes targeted exams where dose is matched to clinical indication); or iterative reconstruction. Contrast material: OMNIPAQUE 350; Contrast volume: 95 ml; Contrast route: INTRAVENOUS (IV); COMPARISON: CT abdomen pelvis wo con [id number] 03/02/2022 2:[address] scan abdomen/pelvis dated 01/16/2022. RADIATION DOSE METRICS: Total DLP (mGy-cm): 985.38 FINDINGS: Mediastinal space: There is mucosal thickening of the distal esophagus and stomach with hazy stranding in the adjacent mesentery. Liver: Multiple ill-defined heterogeneously enhancing hepatic lesions, consistent with metastatic disease, similar to the prior study. Gallbladder and bile ducts: Normal. No calcified stones. No ductal dilation. Pancreas: Heterogeneous lesion involving the pancreatic head and uncinate process measures 4.2 x 4.2 cm in AP/transverse dimensions and was seen on the prior CT scan as well. This lesion cannot be differentiated from the adjacent duodenal mucosa. There is surrounding stranding. Pancreatic duct is dilated. Spleen: Normal. No splenomegaly. Adrenal glands: Normal. No mass. Kidneys and ureters: There are ill-defined hypoenhancing lesions in the right kidney at the superior pole and lateral aspect of the midpole the larger of which measures 2.7 cm in the transverse dimension at the lateral aspect of the midpole. There are multiple cystic lesions with benign features in the kidneys the larger of which measures 16 mm at the inferior pole of the right kidney. Stomach and bowel: Colonic constipation is present. There is mucosal thickening of the rectosigmoid colon. There is mucosal thickening of the duodenum with adjacent mesenteric stranding. Appendix: A normal appendix is identified. Intraperitoneal space: There is a small amount of free intraperitoneal fluid in the pelvis. Vasculature: Unremarkable. No abdominal aortic aneurysm. Lymph nodes: There are multiple lymph nodes surrounding the pancreatic head some of which appear abnormal in morphology/rounded and heterogeneous. Urinary bladder: Unremarkable as visualized. Reproductive: Unremarkable as visualized. Bones/joints: Unremarkable. No acute fracture. Soft tissues: Unremarkable. CT/CT abdomen pelvis w con* [id number] IMPRESSION: 1. There is a heterogeneous lesion in the pancreatic head which cannot be differentiated from the adjacent duodenum, concerning pancreatic carcinoma. Hazy stranding surrounding the pancreas raises concern for superimposed pancreatitis. Please correlate with pancreatic laboratory values. 2. There are multiple ill-defined hepatic lesions consistent with metastatic disease. 3. There is mucosal thickening of the rectosigmoid colon. Differential includes nonspecific colitis and neoplasm. 4. There is mucosal thickening of the distal esophagus, stomach, and duodenum. Differential includes nonspecific esophagitis/enteritis and neoplasm. 5. There are ill-defined hypoenhancing lesions in the right kidney. Differential includes metastatic disease and pyelonephritis. 6. Colonic constipation is present.
[2022-03-07 12:40] LABS: Add Urine Microscopic? NO; Charge for UA Resulting for Rev
[2022-03-07 13:15] LABS: Bilirubin Urine Neg (Negative); Blood Urine Neg (Negative); Glucose Urine UA Norm (Normal); Ketones Urine 1+ (Negative); Leukocyte Esterase Urine Negative (Negative); Nitrate Urine Negative (Negative); Protein Urine Neg (Negative); Specific Gravity, Urine 1.005 (1.005-1.030); Sulfosalicylic Acid Urine Negative (Negative); Urine Appearance Clear (CLEAR); Urine Color Straw (Yellow); Urobilinogen Urine Norm (Negative); pH Urine 8 (5-7)
[2022-03-07] MEDS: iohexol 350 mg/mL 100 mL Btl IV (13:19)
[2022-03-07 13:20] LABS: Lipase 4 U/L (13-60)
[2022-03-07] MEDS: LORazepam 2 mg/mL INJ 1 mL IVP (15:23)
--- NOTE | 2022-03-07 16:43 | P.HP_ITS ---
Providers/Chief Complaint Admitting Physician: Nathaniel Zazueta MD Primary Care Provider: Andrea Flores MD Chief Complaint: N/V; HYPOGLYCEMIA History of Present Illness Kaylee Cardoso is a 71 year old female with PMH OF HTN, hypothyroidism, atrila fib, chronic diarrhea, DM ,DVT came to the ER with c/o after experiencing fall at home today early in the morning, post fall she was complaining of back pain, history was also provided by patient's sister, she states that she has also been having nausea as well as vomiting at home, and has been sick for quite some time. She has denied any fever cough shortness of breath. upon arrival in the ER she was worked up for above mention complain. Pertinent Imaging studies: C.T Abdomen and Pelvis with Contrast : heterogeneous lesion in the pancreatic head. multiple ill-defined hepatic lesions consistent with metastatic disease. ?mucosal thickening of the rectosigmoid colon, mucosal thickening of the distal esophagus, stomach, and duodenum. ?ill-defined hypoenhancing lesions in the right kidney C.T Head without Contrast : No acute intra cranial pathology CT lumbar spine wo con: No evidence for acute fracture. Pertinent Labs : WBC : H&h : 9.5/29 PLT: 112 , Na: 138 ,K : 3.4 BUN/SCR : 8/.3 RBS : 70 , AST : 25 ALT : 10 ALP : 114 , T.B: 0.2 Patient was given dextrose by EMS as well as in ER. Review of Systems General: Reports: 10 or more systems reviewed and unremarkable except in HPI and below Const: Denies: fever(s), chills or body aches Card: Denies: palpitations, edema, swelling of feet/ankles, dyspnea on exertion, orthopnea or leg pain with exertion Resp: Denies: dyspnea, productive cough, wheezing or pain on inspiration GI: Reports: nausea, vomiting and diarrhea; Denies: abdominal pain or constipation : Denies: flank pain Musc: Reports: back pain; Denies: extremity pain or extremity swelling Neuro: Denies: headache(s), difficulty walking or confusion Medications/Allergies Home Medications Medication Instructions Recorded Confirmed Last Taken Type aspirin 81 mg tablet,delayed 81 mg PO DAILY 02/17/21 03/07/22 03/17/21 History release calcium carbonate 500 mg calcium 1,000 mg PO DAILY 02/17/21 03/07/22 03/17/21 History (1,250 mg) chewable tablet sertraline 100 mg tablet 100 mg PO BEDTIME 02/17/21 03/07/22 03/17/21 History apixaban 5 mg tablet 5 mg PO BID #60 tab 12/05/21 03/07/22 10 Days Ago Rx ~01/06/22 see pharmacy comment blood-glucose sensor (Dexcom G6 12/05/21 03/07/22 Unknown History Sensor) ibandronate 150 mg tablet 150 mg PO Q30D #12 tab 12/05/21 03/07/22 Unknown Rx insulin lispro 100 unit/mL See Rx Instructions .ROUTE 12/05/21 03/07/22 Unknown Rx subcutaneous solution (Humalog .COMPLEX #30 ml U-100 Insulin) nitroglycerin 0.4 mg sublingual 0.4 mg SUBLINGUAL Q5M PRN 01/16/22 03/07/22 Unknown History tablet (Nitrostat) carvedilol 12.5 mg tablet 6.25 mg PO BID #0 tab 01/19/22 03/07/22 03/17/21 Rx ondansetron HCl 4 mg tablet 4 - 8 mg PO Q8H PRN #10 tab 01/19/22 03/07/22 Unknown Rx calcium polycarbophil 625 mg 1,250 mg PO BID #60 tab 02/20/22 03/07/22 Unknown Rx tablet (FiberCon) levothyroxine 200 mcg tablet 200 mcg PO DAILY #30 tab 02/20/22 03/07/22 Unknown Rx levothyroxine 25 mcg tablet 25 mcg PO DAILY #30 tab 02/20/22 03/07/22 Unknown Rx baclofen 10 mg tablet 10 mg PO TID #90 tab 03/06/22 03/07/22 Unknown Rx hydrocodone 7.5 mg-acetaminophen 1 tab PO TID PRN 30 Days #90 tab 03/06/22 03/07/22 Unknown Rx 325 mg tablet ibuprofen 800 mg tablet 800 mg PO TID PRN 03/07/22 03/07/22 Unknown History Allergies Allergy/AdvReac Type Severity Reaction Status Date / Time diphenhydramine Allergy ADR-Muscle Verified 03/07/22 11:50 [From Benadryl] Pain Penicillins Allergy ALGY-Anaphy Verified 03/07/22 11:50 laxis Tetanus Vaccines and Toxoid Allergy ALGY-Rash Verified 03/07/22 11:50 trazodone Allergy ALGY-Joint Verified 03/07/22 11:50 Pain zolpidem [From Ambien] Allergy Unconscious Verified 03/07/22 11:50 PFSH Acute PFSH: Medical History (Updated 03/07/22 @ 16:46 by Nathaniel Zazueta MD) Acute pyelonephritis Anxiety and depression Atrial fibrillation -rate controlled -telemetry monitoring -has previously declined AC; follows up with cardiology Chronic diarrhea of unknown origin COVID-19 Positive test 06/17/2020 and 06/23/2020. Diabetic ketoacidosis Diverticulosis DVT (deep venous thrombosis) Dyslipidemia Encounter for screening laboratory testing for COVID-19 virus History of colon polyps on colonoscopy 2018 History of colon polyps HTN (hypertension) Hypothyroidism Low back pain Mild cognitive impairment Mitral regurgitation Opiate overdose Osteoporosis Peripheral vascular disease Scleroderma Syncope due to orthostatic hypotension Type 1 diabetes Surgical History H/O cardiac catheterization 2014, moderate disease no flow-limiting H/O dilation and curettage History of colonoscopy Status post endovenous radiofrequency ablation of saphenous vein Family History Father CAD (coronary artery disease) Mother Hypertension CAD (coronary artery disease) Hyperlipidemia Sister Hypertension Diabetes Grandfather CAD (coronary artery disease) PATERNAL Social History Smoking and tobacco status: never smoked Alcohol intake: never Lives independently: Yes Housing: House Vitals/I&O/Wt Last Vital Signs Pulse 74 03/07/22 14:38 Resp 18 03/07/22 14:38 BP 169/114 03/07/22 14:38 Pulse Ox 93 03/07/22 14:38 03/07/22 03/07/22 03/07/22 06:59 14:59 22:59 Intake Total 1000 / 1000 1000 / 1999 Balance 1000 / 1000 1000 / 2000 Weight last 48 hrs Weight 68.039 kg Physical Exam HENMT: COMMON NORMALS: normocephalic and atraumatic HEAD & SCALP: normocephalic and atraumatic Resp: COMMON NORMALS: clear to auscultation bilaterally EFFORT & INSPECTIO N: Yes symmetric chest movement AUSCULTATION: clear to auscultation bilaterally Cardio: COMMON NORMALS: regular rate, regular rhythm, S1 normal heart sound present, S2 normal heart sound present, No gallops present (Cardio), No murmurs present (Cardio), No rub (Cardio) and Peripheral pulses 2+ throughout RATE: regular rate RHYTHM: regular rhythm HEART SOUNDS: S1 normal heart sound present and S2 normal heart sound present PERIPHERAL PULSES: Peripheral pulses 2+ throughout GI: COMMON NORMALS: Normal to inspection, nondistended, normoactive bowel sounds present, Soft to palpation, non-tender, No hepatosplenomegaly present and no masses AUSCULTATION: Yes normoactive bowel sounds PALPATION: Yes Soft to palpation and Yes No hepatosplenomegaly present RECTAL EXAM: deferred Extremity: COMMON NORMALS: no clubbing, cyanosis or edema and no pedal edema Data : 03/07/22 10:45 03/07/22 10:45 A&P Assessment and plan (1) Nausea & vomiting: Status: Acute (2) Lesion of liver: Status: Acute (3) Hypothyroidism: Status: Acute Qualifiers: Hypothyroidism type: unspecified Qualified Code(s): E03.9 - Hypothyroidism, unspecified (4) Chronic diarrhea of unknown origin: Status: Acute (5) Type 1 diabetes: Status: Acute (6) HTN (hypertension): Status: Acute Qualifiers: Hypertension type: essential hypertension Qualified Code(s): I10 - Essential (primary) hypertension (7) Atrial fibrillation: Status: Acute Qualifiers: Atrial fibrillation type: paroxysmal Qualified Code(s): I48.0 - Paroxysmal atrial fibrillation (8) Pancreas cyst: Status: Acute Plan 71 year old female with PMH OF HTN, hypothyroidism, atrila fib, chronic diarrhea, DM ,DVT came to the ER with c/o after experiencing fall at home today early in the morning, post fall she was complaining of back pain, history was also provided by patient's sister, she states that she has also been having nausea as well as vomiting at home, and has been sick for quite some time. Assessment : Pancreatic Lesion most likely neoplasm Heterogeneous lesion in the pancreatic head Likely Neoplasm multiple ill-defined hepatic lesions consistent with metastatic disease. ? Mucosal thickening of the rectosigmoid colon, Mucosal thickening of the distal esophagus, stomach, and duodenum. ? Ill-defined hypoenhancing lesions in the right kidney Hypoglycemia S/P Fall HTN hypothyroidism, Atrial fib Chronic diarrhea, DM DVT Plan : Continue I.V Hydration with D5 1/2 NS @ 100CC/HR, monitor FSG Pain control Zofran as needed Ortho static Vital sign check Physical Therapy Oncology follow up as outpatient for further work up of most likely would appears to be widespread neoplasm Continue hypothyroidism will hold eliquis for now, Continue Aspirin and Carvedilol DVT PPX: On lovenox Attestations Medical Necessity Statement*: Patient needs to be in hospital for management of nausea,vomitting ,sp fall, need for safe discharge. Time Spent in Patient Care: Greater than 35 minutes (>than 50% of time spent in counselling and/or direct pt care on unit) . Coding Level of Care Code Acute Systems Applications Programming Lead for Chg Fwd Exam Detailed Diagnoses Nausea & vomiting R11.2 Lesion of liver K76.9 Hypothyroidism E03.9 Hypothyroidism type: unspecified Chronic diarrhea of unknown origin K52.9 Type 1 diabetes E10.9 HTN (hypertension) I10 Hypertension type: essential hypertension Atrial fibrillation I48.0 Atrial fibrillation type: paroxysmal Pancreas cyst K86.2
--- NOTE | 2022-03-07 17:51 | PC.NURSE ---
This nurse called for report on patient to med/surg. Nurse did not answer.
[2022-03-07 19:06] LABS: Glucose Point of Care 240 mg/dL (70-110)
[2022-03-07] MEDS: carvedilol 12.5 mg Tablet 6.25 MG PO (19:26)
[2022-03-07] MEDS: D5-NS 0.45% + KCL 20 mEq 20 MEQ/1,000 ML BAG 100 MEQ IV (19:27)
[2022-03-07] MEDS: enoxaparin 40 mg/0.4 mL Syringe SUBCUT (19:27)
[2022-03-07 20:32] LABS: Glucose Point of Care 255 mg/dL (70-110)
[2022-03-08] VITALS: BP 172/103; PULSE 112; RESP 17; TEMP 36.8; O2SAT 97
[2022-03-08 02:49] LABS: Glucose Point of Care 87 mg/dL (70-110)
[2022-03-08 02:52] LABS: Glucose Point of Care 125 mg/dL (70-110)
[2022-03-08 04:00] VITALS: BP 161/94; PULSE 98; RESP 17; TEMP 36.8; O2SAT 100
[2022-03-08 04:00] LABS: Basophils % 0.4 %; Eosinophils % 0.2 %; Hematocrit 35.1 % (37.0-47.0); Hemoglobin 10.7 g/dL (11.5-15.3); Lymphocytes % 17.9 %; Mean Corpuscular HGB Conc 30.5 g/dL (30.0-36.0); Mean Corpuscular Hemoglobin 29.3 pg (28.0-34.0); Mean Corpuscular Volume 96.2 fl (81-99); Mean Platelet Volume 10.7 fL (7.4-10.4); Monocytes # 0.3 10^3/uL (0.2-0.9); Monocytes % 6.2 %; Neutrophils # 3.99 10^3/uL (1.8-7.7); Neutrophils % 74.9 %; Nucleated Red Blood Cells % 0 %; Platelet Count 158 10^3/cmm (130-400); Red Blood Count 3.65 10^6/uL (4.1-5.3); White Blood Count 5.3 10^3/uL (4.0-10.0)
[2022-03-08 04:27] LABS: Alanine Aminotransferase 17 U/L (0-33); Alkaline Phosphatase 141 IU/L (35-105); Anion Gap 16.3 (5-19); Aspartate Amino Transferase 30 U/L (0-32); Blood Urea Nitrogen 6 mg/dL (8-23); Calcium 7.3 mg/dL (8.5-10.5); Carbon Dioxide 23 mmol/L (22-29); Chloride 98 mmol/L (98-107); Globulin 3.1 g/dL (1.3-4.6); Glomerular Filtration Rate 157.8 mL/min (90-130); Glucose 71 mg/dL (65-115); Osmolality Calculated 274 mOsm/kg (285-295); Potassium 3.3 mmol/L (3.5-5.1); Sodium 134 mmol/L (136-145); Total Bilirubin 0.3 mg/dL (0.15-1.2); Total Protein 6.1 g/dL (6.6-8.7)
[2022-03-08 04:41] VITALS: RESP 18
[2022-03-08] MEDS: morphine 4 mg/mL SDV 1 mL IM ×2 (04:41→10:55)
[2022-03-08 06:31] LABS: Glucose Point of Care 70 mg/dL (70-110)
[2022-03-08 07:51] LABS: Glucose Point of Care 131 mg/dL (70-110)
[2022-03-08 07:51] LABS: Glucose Point of Care 74 mg/dL (70-110)
[2022-03-08 08:00] VITALS: BP 161/89; PULSE 100; RESP 16; TEMP 36.7; O2SAT 94
[2022-03-08 09:10] LABS: Glucose Point of Care 232 mg/dL (70-110)
[2022-03-08] MEDS: carvedilol 12.5 mg Tablet 6.25 MG PO (10:11)
[2022-03-08] MEDS: levothyroxine 25 mcg Tablet PO (10:11)
[2022-03-08] MEDS: insulin lispro 100 unit/1 mL 8 UNIT SUBCUT (10:11)
[2022-03-08] MEDS: aspirin 81 mg EC Tablet PO (10:12)
--- NOTE | 2022-03-08 10:45 | PM.DCS ---
Discharge Providers Date of Admission: 03/07/22 15:09 Date of Discharge: March 08, 2022 Attending Provider at Admission: Nathaniel Zazueta MD Attending Provider at Discharge: Nathaniel Zazueta MD Primary Care Provider: Andrea Flores MD Diagnoses at Discharge Discharge Diagnosis (1) Nausea & vomiting: (2) Lesion of liver: Status: Acute (3) Hypothyroidism: Qualifiers: Hypothyroidism type: unspecified Qualified Code(s): E03.9 - Hypothyroidism, unspecified (4) Chronic diarrhea of unknown origin: (5) Type 1 diabetes: (6) HTN (hypertension): Qualifiers: Hypertension type: essential hypertension Qualified Code(s): I10 - Essential (primary) hypertension (7) Atrial fibrillation: Qualifiers: Atrial fibrillation type: paroxysmal Qualified Code(s): I48.0 - Paroxysmal atrial fibrillation Permanent problem details: -rate controlled -telemetry monitoring -has previously declined AC; follows up with cardiology (8) Pancreas cyst: Reason for Visit Reason for Visit: N/V; HYPOGLYCEMIA Hospital Course Hospital Course HPI: Kaylee Cardoso is a 71 year old female with PMH OF HTN, hypothyroidism, atrila fib, chronic diarrhea, DM ,DVT came to the ER with c/o after experiencing fall at home today early in the morning, post fall she was complaining of back pain, history was also provided by patient's sister, she states that she has also been having nausea as well as vomiting at home, and has been sick for quite some time.? She has denied any fever cough shortness of breath. upon arrival in the ER she was worked up for above mention complain. Pertinent Imaging studies: C.T Abdomen and Pelvis with Contrast : heterogeneous lesion in the pancreatic head. multiple ill-defined hepatic lesions consistent with metastatic disease. ?mucosal thickening of the rectosigmoid colon, mucosal thickening of the distal esophagus, stomach, and duodenum. ?ill-defined hypoenhancing lesions in the right kidney C.T Head without Contrast : No acute intra cranial pathology CT lumbar spine wo con: No evidence for acute fracture. Pertinent Labs : WBC : H&h :? 9.5/29 PLT: 112? , Na: 138? ,K : 3.4? BUN/SCR : 8/.3? RBS : 70 , AST : 25 ALT : 10? ALP : 114 , T.B: 0.2 Patient was given dextrose by EMS as well as in ER. Hospital course : She was admitted for the management of Pancreatic Lesion most likely neoplasm,Heterogeneous lesion in the pancreatic head Likely Neoplasm? multiple ill-defined hepatic lesions consistent with metastatic disease. Mucosal thickening of the rectosigmoid colon,Mucosal thickening of the distal esophagus, stomach, and duodenum. Ill-defined hypoenhancing lesions in the right kidney.Dehydration, nausea,vomitting , Hypoglycemia,S/P Fall, HTN, hypothyroidism,, Atrial fib, Chronic diarrhea,DM, severe abdominal pain.She was kept on I.V Hydration, Pain control, Zofran as needed, to which she responded well and she was discharged next day on oral morphine sulfate, as well as she was asked to continue with hydrocodon and tylenolol combination as needed.She was also discharged on increased strengt of zofran as needed for her nausea and vomiting.She has been asked to follow up with oncology as outpatient for further work up above defined lesion highly suspicious for malignancy. Physical Exam HENMT: COMMON NORMALS: normocephalic and atraumatic HEAD & SCALP: normocephalic and atraumatic Resp: COMMON NORMALS: clear to auscultation bilaterally EFFORT & INSPECTION: Yes symmetric chest movement AUSCULTATION: clear to auscultation bilaterally Cardio: COMMON NORMALS: regular rate, regular rhythm, S1 normal heart sound present, S2 normal heart sound present, No gallops present (Cardio), No murmurs present (Cardio), No rub (Cardio) and Peripheral pulses 2+ throughout RATE: regular rate RHYTHM: regular rhythm HEART SOUNDS: S1 normal heart sound present and S2 normal heart sound present PERIPHERAL PULSES: Peripheral pulses 2+ throughout GI: COMMON NORMALS: Normal to inspection, nondistended, normoactive bowel sounds present, Soft to palpation, non-tender, No hepatosplenomegaly present and no masses AUSCULTATION: Yes normoactive bowel sounds PALPATION: Yes Soft to palpation and Yes No hepatosplenomegaly present RECTAL EXAM: deferred Extremity: COMMON NORMALS: no clubbing, cyanosis or edema and no pedal edema Discharge Data Studies Completed and Pending Completed Studies During Hospitalization Category Date Time Status CT abdomen pelvis w con* [id number] Stat Cat Scan 03/07/22 12:[address] head wo con* [id number] Stat Cat Scan 03/07/22 10:[address] lumbar spine wo con* [id number] Stat Cat Scan 03/07/22 10:30 Completed Pending at discharge Category Date Time Status Complete Blood Count w/Auto AM LABS Lab 03/09/22 04:00 Ordered Complete Blood Count w/Auto AM LABS Lab 03/10/22 04:00 Ordered Comprehensive Metabolic Panel AM LABS Lab 03/09/22 04:00 Ordered Comprehensive Metabolic Panel AM LABS Lab 03/10/22 04:00 Ordered Radiology Impressions Head CT 03/07/22 10:30 IMPRESSION: There are senescent changes of the brain as described above. No evidence for large acute ischemic infarction or acute intracranial injury. Lumbar Spine CT 03/07/22 10:30 IMPRESSION: There are degenerative changes in the visualized spine. No evidence for acute fracture. Please see the CT scan of the abdomen/pelvis dated 03/02/2022 for description of the pancreas and liver lesions. Abdomen/Pelvis CT 03/07/22 12:38 IMPRESSION: 1. There is a heterogeneous lesion in the pancreatic head which cannot be differentiated from the adjacent duodenum, concerning pancreatic carcinoma. Hazy stranding surrounding the pancreas raises concern for superimposed pancreatitis. Please correlate with pancreatic laboratory values. 2. There are multiple ill-defined hepatic lesions consistent with metastatic disease. 3. There is mucosal thickening of the rectosigmoid colon. Differential includes nonspecific colitis and neoplasm. 4. There is mucosal thickening of the distal esophagus, stomach, and duodenum. Differential includes nonspecific esophagitis/enteritis and neoplasm. 5. There are ill-defined hypoenhancing lesions in the right kidney. Differential includes metastatic disease and pyelonephritis. 6. Colonic constipation is present. ADDENDUM: 03/07/22 [id number] CRITICAL RESULT: The study was personally discussed on the telephone with TONY Wright on 03/07/2022 1:52 PM CDT. The results were understood and acknowledged. Laboratory Results WBC 5.3 10^3/uL (4.0-10.0) 03/08/22 03:10 RBC 3.65 10^6/uL (4.1-5.3) L 03/08/22 03:10 Hgb 10.7 g/dL (11.5-15.3) L 03/08/22 03:10 Hct 35.1 % (37.0-47.0) L 03/08/22 03:10 MCV 96.2 fl (81-99) 03/08/22 03:10 MCH 29.3 pg (28.0-34.0) 03/08/22 03:10 MCHC 30.5 g/dL (30.0-36.0) 03/08/22 03:10 RDW 18.0 % (12.1-15.1) H 03/08/22 03:10 Plt Count 158 10^3/cmm (130-400) D 03/08/22 03:10 MPV 10.7 fL (7.4-10.4) H 03/08/22 03:10 Neut % (Auto) 74.9 % 03/08/22 03:10 Lymph % (Auto) 17.9 % 03/08/22 03:10 [place] % (Auto) 6.2 % 03/08/22 03:10 Eos % (Auto) 0.2 % 03/08/22 03:10 Baso % (Auto) 0.4 % 03/08/22 03:10 Neut # (Auto) 3.99 10^3/uL (1.8-7.7) 03/08/22 03:10 Lymph # (Auto) 1.0 10^3/uL (0.8-4.8) 03/08/22 03:10 [place] # (Auto) 0.3 10^3/uL (0.2-0.9) 03/08/22 03:10 Eos # (Auto) 0.0 10^3/uL (0.0-0.8) 03/08/22 03:10 Baso # (Auto) 0.0 10^3/uL (0.0-0.1) 03/08/22 03:10 Nucleated RBC % (auto) 0 % 03/08/22 03:10 Nucleated RBCs # 0.0 /100WBC 03/08/22 03:10 Sodium 134 mmol/L (136-145) L 03/08/22 03:10 Potassium 3.3 mmol/L (3.5-5.1) L 03/08/22 03:10 Chloride 98 mmol/L (98-107) 03/08/22 03:10 Carbon Dioxide 23 mmol/L (22-29) 03/08/22 03:10 Anion Gap 16.3 (5-19) 03/08/22 03:10 BUN 6 mg/dL (8-23) L 03/08/22 03:10 Creatinine 0.4 mg/dL (0.5-0.9) L 03/08/22 03:10 GFR Calculation 157.8 mL/min (90-130) H 03/08/22 03:10 Glucose 71 mg/dL (65-115) 03/08/22 03:10 POC Glucose 232 mg/dL (70-110) H 03/08/22 09:00 Calculated Osmolality 274 mOsm/kg (285-295) L 03/08/22 03:10 Calcium 7.3 mg/dL (8.5-10.5) L 03/08/22 03:10 Total Bilirubin 0.3 mg/dL (0.15-1.2) 03/08/22 03:10 AST 30 U/L (0-32) 03/08/22 03:10 ALT 17 U/L (0-33) 03/08/22 03:10 Alkaline Phosphatase 141 IU/L (35-105) H 03/08/22 03:10 Total Protein 6.1 g/dL (6.6-8.7) L D 03/08/22 03:10 Albumin 3.0 g/dL (3.5-5.2) L 03/08/22 03:10 Globulin 3.1 g/dL (1.3-4.6) 03/08/22 03:10 Lipase 4 U/L (13-60) L 03/07/22 10:45 Urine Color Straw (Yellow) 03/07/22 12:29 Urine Appearance Clear (CLEAR) 03/07/22 12:29 Urine pH 8 (5-7) H 03/07/22 12:29 Ur Specific [place] 1.005 (1.005-1.030) 03/07/22 12:29 Urine Protein Neg (Negative) 03/07/22 12:29 Urine Glucose (UA) Norm (Normal) 03/07/22 12:29 Urine Ketones 1+ (Negative) H 03/07/22 12:29 Urine Blood Neg (Negative) 03/07/22 12:29 Urine Nitrate Negative (Negative) 03/07/22 12:29 Urine Bilirubin Neg (Negative) 03/07/22 12:29 Prot Sulfosalicylic Acd Negative (Negative) 03/07/22 12:29 Urine Urobilinogen Norm mg/dL (Negative) 03/07/22 12:29 Ur Leukocyte Esterase Negative (Negative) 03/07/22 12:29 Vitals Last Vital Signs Temp 98.0 F 03/08/22 08:00 Pulse 100 03/08/22 08:00 Resp 16 03/08/22 08:00 BP 161/89 03/08/22 08:00 Pulse Ox 94 03/08/22 08:00 Discharge Plan Discharge Patient Disposition: Home Condition: Stable Prescriptions: New morphine 30 mg tablet extended release 30 mg PO BID@08,16 10 Days Qty: 20 0RF Continued baclofen 10 mg tablet 10 mg PO TID Qty: 90 1RF hydrocodone-acetaminophen 7.5-325 mg tablet 1 tab PO TID PRN (Reason: abdominal pain) 30 Days Qty: 90 0RF Rx Instructions: new Liver and pancreatic lesions (DME) Dexcom G6 Sensor Device See Rx Instructions .Route 0RF Rx Instructions: As directed insulin lispro [Humalog U-100 Insulin] 100 unit/mL solution See Rx Instructions .ROUTE .COMPLEX Qty: 30 5RF Rx Instructions: inject up to 50 units via insulin pump once daily for basal, bolus and correctional insulin. 340B medication levothyroxine 25 mcg tablet 25 mcg PO DAILY Qty: 30 5RF Rx Instructions: Add this to the 200 mcg so she is taking 225 mcg daily. levothyroxine 200 mcg tablet 200 mcg PO DAILY Qty: 30 5RF Rx Instructions: Add to the 25 mcg so she is taking 225 mcg daily calcium polycarbophil [FiberCon] 625 mg tablet 1,250 mg PO BID Qty: 60 1RF sertraline 100 mg tablet 100 mg PO BEDTIME 0RF aspirin 81 mg Tablet,Delayed Release (Dr/Ec) 81 mg PO DAILY 0RF calcium carbonate 500 mg calcium (1,250 mg) Tablet,Chewable 1,000 mg PO DAILY 0RF nitroglycerin [Nitrostat] 0.4 mg Tablet, Sublingual 0.4 mg SUBLINGUAL Q5M PRN (Reason: Chest Pain) 0RF Rx Instructions: do not exceed 3 doses per episode carvedilol 12.5 mg tablet 6.25 mg PO BID Qty: 0 0RF ondansetron HCl 4 mg tablet 4 - 8 mg PO Q8H PRN (Reason: Nausea And Vomiting) Qty: 10 0RF No Action ibuprofen 800 mg tablet 800 mg PO TID PRN (Reason: Pain) Qty: 90 1RF Boniva 150 mg tablet 150 mg PO Q30D 0RF apixaban 5 mg tablet 5 mg PO DAILY 0RF Discharge Orders: Discharge Order (Routine); Ordered 03/08/22 Ordered By: Nathaniel Zazueta Referrals: Andrea Flores MD [Primary Care Provider] - 2 weeks (please call Wednesday to schedule a follow up appointment.) eGoffrey Rascon MD [Hospitalist] - 1 week (Please call Wednesday to schedule a follow up appointment.) Discharge Diet: Diabetic Discharge Activity: Increase activity as tolerated Patient Instructions: Ondansetron (By mouth), Acute Nausea and Vomiting (GEN), Opioid Safety Discharge Attestations Time Spent in Discharge Care*: less than 30 min Status at Discharge: Cognitive status at discharge: cognitively intact, Behavioral status at discharge: cooperative and independent in ADL's, Quality Metrics Clinical Quality Measures [ No reported AMI, CVA or VTE this stay] Coding Level of Care Code Acute Chg FW DC note Diagnoses Nausea & vomiting R11.2 Lesion of liver K76.9 Hypothyroidism E03.9 Hypothyroidism type: unspecified Chronic diarrhea of unknown origin K52.9 Type 1 diabetes E10.9 HTN (hypertension) I10 Hypertension type: essential hypertension Atrial fibrillation I48.0 Atrial fibrillation type: paroxysmal Pancreas cyst K86.2
[2022-03-08 10:55] VITALS: RESP 17
[2022-03-08] MEDS: promethazine 25 mg/mL SDV 1 mL IM (10:57)
[2022-03-08] MEDS: lanolin oint 7 gm 1 APPLIC TOPICAL (11:10)
[2022-03-08 11:22] LABS: Glucose Point of Care 216 mg/dL (70-110)
[2022-03-08 13:10] VITALS: RESP 17
== END 2022-03-08 12:50 | disposition home or self-care (01) ==
LOC: ER 13:06 → MEDSURG 16:40
PROVIDERS: Admitting Provider Internal Medicine; Emergency Provider Family Medicine; PCP Family Medicine Adult Medicine; Visit Provider Internal Medicine
DX: R11.2 Nausea with vomiting, unspecified (principal); K76.9 Liver disease, unspecified; E03.9 Hypothyroidism, unspecified; K52.9 Noninfective gastroenteritis and colitis, unspecified; E10.9 Type 1 diabetes mellitus without complications; I10 Essential (primary) hypertension; I48.0 Paroxysmal atrial fibrillation; K86.2 Cyst of pancreas; Z86.718 Personal history of other venous thrombosis and embolism; Z79.82 Long term (current) use of aspirin; F41.9 Anxiety disorder, unspecified; F32.9 Major depressive disorder, single episode, unspecified; Z86.16 Personal history of COVID-19; E78.5 Hyperlipidemia, unspecified; M81.0 Age-related osteoporosis without current pathological fracture; Z82.49 Family history of ischemic heart disease and other diseases of the circulatory system
CPT/HCPCS: 36415; 36416; 70450; 72131; 74177; 80053; 81003; 82962; 83690; 85025; 96361; 96365; 96372; 96375; 99285; G0378; J1650; J1815; J2060; J2270; J2405; J2550; J7030; Q9967

== ENCOUNTER 2022-03-18 10:01 | Inpatient (IN) | payer MEDICARE, SELFPAY ==
[2022-03-18] VITALS (13 sets, daily range): BP systolic 106–180; BP diastolic 67–102; PULSE 105–113; RESP 16–22; TEMP 36.7; O2SAT 93–100; BMI 25.0
[2022-03-18 10:59] LABS: Basophils % 0.5 %; Eosinophils % 0.7 %; Hemoglobin 10.7 g/dL (11.5-15.3); Lymphocytes # 0.6 10^3/uL (0.8-4.8); Mean Corpuscular HGB Conc 31.5 g/dL (30.0-36.0); Mean Corpuscular Volume 95.2 fl (81-99); Monocytes # 0.4 10^3/uL (0.2-0.9); Monocytes % 7.1 %; Neutrophils # 4.45 10^3/uL (1.8-7.7); Neutrophils % 81.3 %; Nucleated Red Blood Cells % 0 %; Platelet Count 239 10^3/cmm (130-400); Red Blood Count 3.57 10^6/uL (4.1-5.3); Red Cell Distribution Width 17.8 % (12.1-15.1); White Blood Count 5.5 10^3/uL (4.0-10.0)
[2022-03-18] MEDS: haloperidol inj 5 mg/mL INJ 1 mL 2.5 MG IVP (11:31)
[2022-03-18] MEDS: sodium chloride 0.9% 1,000 ML 999 ML IV ×2 (11:32→14:08)
[2022-03-18 12:02] LABS: Alanine Aminotransferase 107 U/L (0-33); Albumin Level 2.5 g/dL (3.5-5.2); Alkaline Phosphatase 412 IU/L (35-105); Anion Gap 13.1 (5-19); Aspartate Amino Transferase 157 U/L (0-32); Blood Urea Nitrogen 15 mg/dL (8-23); Calcium 8.5 mg/dL (8.5-10.5); Carbon Dioxide 29 mmol/L (22-29); Chloride 96 mmol/L (98-107); Creatinine Clr Calc Pharmacy 63.4415; Globulin 2.8 g/dL (1.3-4.6); Glomerular Filtration Rate 70.9 mL/min (90-130); Glucose 173 mg/dL (65-115); Lipase 4 U/L (13-60); Osmolality Calculated 283 mOsm/kg (285-295); Potassium 4.1 mmol/L (3.5-5.1); Sodium 134 mmol/L (136-145); Total Bilirubin 0.9 mg/dL (0.15-1.2); Total Protein 5.3 g/dL (6.6-8.7)
--- NOTE | 2022-03-18 12:22 | W.ED.WEAKNES ---
HPI - Weakness General: Chief complaint: Weakness Stated complaint: N/V/ WEAKNESS Time Seen by Provider: 03/18/22 10:12 Source: patient Mode of arrival: EMS History of Present Illness: 71-year-old female with a known history of pancreatic mass with what appears to be pancreatic cancer with metastasis to the liver. She been seen here several times for persistent nausea and vomiting. She is going to be having a biopsy of the mass tomorrow she went to her primary care doctor's office to get a PT PTT done and was noted to be hypotensive with persistent nausea vomiting still complaining of pain. She was hospitalized last week. Discharged the following day. She denies any medic easy melena hematemesis coffee-ground emesis. MD Complaint: generalized weakness Onset (ago): day(s) Duration: constant Location: generalized (abdominal) Severity: moderate Relieving factors: none Exacerbating factors: none Associated symptoms: Reports nausea and vomiting; Denies chest pain, chills, confusion, melena, decreased appetite, diaphoresis, dysuria, easy bruising, fever(s), headache(s), myalgias, rash, short of breath or syncope Review of Systems Const: Denies: fever(s), chills, fatigue, malaise or diaphoresis ENMT: Denies: throat pain, ear or mastoid pain, nasal discharge or nasal congestion Card: Denies: chest pain, palpitations or syncope Resp: Denies: dyspnea, productive cough or non-productive cough GI: Reports: abdominal pain, nausea and vomiting; Denies: hematemesis, coffee ground emesis or melena : Denies: flank pain, difficulty voiding, dysuria, urinary frequency or urinary urgency Skin/Breast: Denies: rash or pruritus Neuro: Denies: headache(s), numbness in extremities or confusion Jose M/Lymph: Denies: easy bruising PFSH ED PFSH: Medical History Acute pyelonephritis Anxiety and depression Atrial fibrillation -rate controlled -telemetry monitoring -has previously declined AC; follows up with cardiology Chronic diarrhea of unknown origin COVID-19 Positive test 06/17/2020 and 06/23/2020. Diabetic ketoacidosis Diverticulosis DVT (deep venous thrombosis) Dyslipidemia Encounter for screening laboratory testing for COVID-19 virus History of colon polyps on colonoscopy 2018 History of colon polyps HTN (hypertension) Hypotension Hypothyroidism Hypovolemia dehydration Lesion of liver Low back pain Mild cognitive impairment Mitral regurgitation Nausea & vomiting Opiate overdose Osteoporosis Pancreas cyst Peripheral vascular disease Scleroderma Syncope due to orthostatic hypotension Type 1 diabetes Vasovagal near-syncope Surgical History H/O cardiac catheterization 2015, moderate disease no flow-limiting H/O dilation and curettage History of colonoscopy Status post endovenous radiofrequency ablation of saphenous vein Family History Father CAD (coronary artery disease) Mother Hypertension CAD (coronary artery disease) Hyperlipidemia Sister Hypertension Diabetes Grandfather CAD (coronary artery disease) PATERNAL Social History Smoking and tobacco status: never smoked Alcohol intake: never Lives independently: Yes Housing: House Physical Exam Const: GENERAL APPEARANCE: cooperative and comfortable ORIENTATION/CONSCIOUSNESS: Yes awake, Yes oriented to person, Yes oriented to place and Yes oriented to time HENMT: COMMON NORMALS: normocephalic and atraumatic HEAD & SCALP: normocephalic and atraumatic Neck/C-Spine: COMMON NORMALS: no JVD Resp: COMMON NORMALS: normal respiratory effort, No retractions, No use of accessory muscles and clear to auscultation bilaterally AUSCULTATION: clear to auscultation bilaterally Cardio: COMMON NORMALS: no JVD, regular rate, regular rhythm and No murmurs present (Cardio) RATE: regular rate RHYTHM: regular rhythm GI: COMMON NORMALS: Soft to palpation and No hepatosplenomegaly present AUSCULTATION: Yes normoactive bowel sounds PALPATION: Yes Soft to palpation, No Tenderness to palpation present (GI), No Guarding due to palpation present (GI) and Yes No hepatosplenomegaly present Extremity: COMMON NORMALS: normal to inspection, capillary refill normal, no clubbing, cyanosis or edema, no calf tenderness and no pedal edema Neuro: SENSORIUM/ORIENTATION: Yes oriented to person, Yes oriented to place and Yes oriented to time Skin: COMMON NORMALS: no rashes or lesions noted GENERAL SKIN EXAM: no rashes or lesions noted Course Vital Signs: Vital signs: Vital Signs Pulse Rate 108 H 03/18/22 15:00 Respiratory Rate 18 03/18/22 14:34 Blood Pressure 153/94 03/18/22 15:00 Pulse Oximetry 99 03/18/22 15:00 MDM - Weakness Medical Decision Making We will admit for persistent nausea and vomiting and pain controlled. Discussed with hospitalist orders written Medical Records I reviewed the patient's medical records. Lab Data I reviewed the patient's lab results. : 03/18/22 10:48 03/18/22 10:48 Laboratory Results WBC 5.5 10^3/uL (4.0-10.0) 03/18/22 10:48 RBC 3.57 10^6/uL (4.1-5.3) L 03/18/22 10:48 Hgb 10.7 g/dL (11.5-15.3) L 03/18/22 10:48 Hct 34.0 % (37.0-47.0) L 03/18/22 10:48 MCV 95.2 fl (81-99) 03/18/22 10:48 MCH 30.0 pg (28.0-34.0) 03/18/22 10:48 MCHC 31.5 g/dL (30.0-36.0) 03/18/22 10:48 RDW 17.8 % (12.1-15.1) H 03/18/22 10:48 Plt Count 239 10^3/cmm (130-400) 03/18/22 10:48 MPV 10.0 fL (7.4-10.4) 03/18/22 10:48 Neut % (Auto) 81.3 % 03/18/22 10:48 Lymph % (Auto) 10.0 % 03/18/22 10:48 [place] % (Auto) 7.1 % 03/18/22 10:48 Eos % (Auto) 0.7 % 03/18/22 10:48 Baso % (Auto) 0.5 % 03/18/22 10:48 Neut # (Auto) 4.45 10^3/uL (1.8-7.7) 03/18/22 10:48 Lymph # (Auto) 0.6 10^3/uL (0.8-4.8) L 03/18/22 10:48 [place] # (Auto) 0.4 10^3/uL (0.2-0.9) 03/18/22 10:48 Eos # (Auto) 0.0 10^3/uL (0.0-0.8) 03/18/22 10:48 Baso # (Auto) 0.0 10^3/uL (0.0-0.1) 03/18/22 10:48 Nucleated RBC % (auto) 0 % 03/18/22 10:48 Nucleated RBCs # 0.0 /100WBC 03/18/22 10:48 Sodium 134 mmol/L (136-145) L 03/18/22 10:48 Potassium 4.1 mmol/L (3.5-5.1) 03/18/22 10:48 Chloride 96 mmol/L (98-107) L 03/18/22 10:48 Carbon Dioxide 29 mmol/L (22-29) 03/18/22 10:48 Anion Gap 13.1 (5-19) 03/18/22 10:48 BUN 15 mg/dL (8-23) 03/18/22 10:48 Creatinine 0.8 mg/dL (0.5-0.9) 03/18/22 10:48 GFR Calculation 70.9 mL/min (90-130) L 03/18/22 10:48 Glucose 173 mg/dL (65-115) H 03/18/22 10:48 Calculated Osmolality 283 mOsm/kg (285-295) L 03/18/22 10:48 Calcium 8.5 mg/dL (8.5-10.5) 03/18/22 10:48 Total Bilirubin 0.9 mg/dL (0.15-1.2) 03/18/22 10:48 AST 157 U/L (0-32) H 03/18/22 10:48 ALT 107 U/L (0-33) H 03/18/22 10:48 Alkaline Phosphatase 412 IU/L (35-105) H 03/18/22 10:48 Total Protein 5.3 g/dL (6.6-8.7) L 03/18/22 10:48 Albumin 2.5 g/dL (3.5-5.2) L 03/18/22 10:48 Globulin 2.8 g/dL (1.3-4.6) 03/18/22 10:48 Lipase 4 U/L (13-60) L 03/18/22 10:48 Urine Color Yellow (Yellow) 03/18/22 13:03 Urine Appearance Clear (CLEAR) 03/18/22 13:03 Urine pH 5 (5-7) 03/18/22 13:03 Ur Specific [place] 1.015 (1.005-1.030) 03/18/22 13:03 Urine Protein Neg (Negative) 03/18/22 13:03 Urine Glucose (UA) Norm (Normal) 03/18/22 13:03 Urine Ketones Negative (Negative) 03/18/22 13:03 Urine Blood Neg (Negative) 03/18/22 13:03 Urine Nitrate Positive (Negative) H 03/18/22 13:03 Urine Bilirubin Neg (Negative) 03/18/22 13:03 Urine Urobilinogen 1 mg/dL (Negative) H 03/18/22 13:03 Ur Leukocyte Esterase 1+ (Negative) H 03/18/22 13:03 Urine RBC 0-4 /hpf (0-2) H 03/18/22 13:03 Urine WBC 15-25 /hpf (0-5) H 03/18/22 13:03 Ur Squamous Epith Cells 10-15 /hpf (0-5) H 03/18/22 13:03 Amorphous Sediment Not Reportable 03/18/22 13:03 Urine Bacteria 3+ /hpf (NONE) H 03/18/22 13:03 Discharge Plan Discharge Admit Provider: Yaritza Pascual Condition: Stable Coding Level of Care Code ED Air Purifier Servicer for Chg Fwd Exam Comprehensive
[2022-03-18] MEDS: morphine 4 mg/mL SDV 1 mL IVP (12:49)
[2022-03-18] MEDS: promethazine 25 mg/mL SDV 1 mL IM (12:58)
[2022-03-18 13:34] LABS: Urine Appearance Clear (CLEAR); Urine Color Yellow (Yellow)
[2022-03-18 13:35] LABS: Add Urine Microscopic? YES; Bilirubin Urine Neg (Negative); Blood Urine Neg (Negative); Glucose Urine UA Norm (Normal); Ketones Urine Negative (Negative); Leukocyte Esterase Urine 1+ (Negative); Nitrate Urine Positive (Negative); Protein Urine Neg (Negative); Specific Gravity, Urine 1.015 (1.005-1.030); Urobilinogen Urine 1 mg/dL (Negative); pH Urine 5 (5-7)
[2022-03-18 13:41] LABS: Add Urine Culture? Yes; Bacteria Urine 3+ /hpf; RBC Urine 0-4 /hpf (0-2); WBC Urine 15-25 /hpf (0-5)
[2022-03-18] MEDS: morphine 4 mg/mL SDV 1 mL 6 MG IVP (14:34)
--- NOTE | 2022-03-18 15:37 | PM.HP ---
Providers/Chief Complaint Admitting Physician: Yaritza Pascual MD Primary Care Provider: Andrea Flores MD Chief Complaint: N/V/ WEAKNESS History of Present Illness Kaylee Cardoso is a 71 year old female with past medical history of hypothyroidism, newly diagnosed pancreatic mass (most likely pancreatic cancer), type 1 diabetes mellitus, depression presented to the ER with intractable pain. She was recently admitted to our hospital on 07 March and discharged the next day with outpatient prescription for biopsy of pancreatic head. She was sent home on morphine 30 mg every 12 hours as needed along with hydrocodone 7.5 3 times daily as needed. Family brought her in stating that she has been having a lot of pain and because of that having dry heaving. They are stating that the pain meds are not helping at all. Patient stated that she has been wanting to sleep but has not had a chance to take a nap at all due to the pain. They cannot manage pain at home at all. She does have a biopsy scheduled for tomorrow morning ultrasound-guided. She is on Eliquis 5 mg once a day as discussed with her doctor previously. They do have a referral for Dr. Rascon as well but have not been to his clinic yet. Pain is all across the abdomen in a bandlike pattern, 8 out of 10 in intensity at this time. Nausea present. She has not vomited yet. She also had a large bowel movement in the ER which was black mixed with dark black/brown. She went to her primary care doctor's office and was noted to be hypotensive with persistent nausea vomiting and therefore came to the hospital. ED course: Blood pressure 153/94, respiratory rate 18, pulse 108, pulse ox 99%. Medications/Allergies Home Medications Medication Instructions Recorded Confirmed Last Taken Type aspirin 81 mg tablet,delayed 81 mg PO DAILY 02/17/21 03/18/22 03/15/22 History release calcium carbonate 500 mg calcium 1,000 mg PO DAILY 02/17/21 03/18/22 03/15/22 History (1,250 mg) chewable tablet sertraline 100 mg tablet 100 mg PO BEDTIME 02/17/21 03/18/22 03/17/22 History blood-glucose sensor (Dexcom G6 12/05/21 03/18/22 Unknown History Sensor) insulin lispro 100 unit/mL See Rx Instructions .ROUTE 12/05/21 03/18/22 Unknown Rx subcutaneous solution (Humalog .COMPLEX #30 ml U-100 Insulin) nitroglycerin 0.4 mg sublingual 0.4 mg SUBLINGUAL Q5M PRN 01/16/22 03/18/22 Unknown History tablet (Nitrostat) carvedilol 12.5 mg tablet 6.25 mg PO BID #0 tab 01/19/22 03/18/22 03/15/22 Rx ondansetron HCl 4 mg tablet 4 - 8 mg PO Q8H PRN #10 tab 01/19/22 03/18/22 Unknown Rx calcium polycarbophil 625 mg 1,250 mg PO BID #60 tab 02/20/22 03/18/22 03/15/22 Rx tablet (FiberCon) levothyroxine 200 mcg tablet 200 mcg PO DAILY #30 tab 02/20/22 03/18/22 03/15/22 Rx levothyroxine 25 mcg tablet 25 mcg PO DAILY #30 tab 02/20/22 03/18/22 03/15/22 Rx hydrocodone 7.5 mg-acetaminophen 1 tab PO TID PRN 30 Days #90 tab 03/06/22 03/18/22 Unknown Rx 325 mg tablet apixaban 5 mg tablet 5 mg PO DAILY 03/10/22 03/18/22 03/15/22 History ibandronate 150 mg tablet (Boniva) 150 mg PO Q30D 03/10/22 03/18/22 Unknown History ibuprofen 800 mg tablet 800 mg PO TID PRN #90 tab 03/11/22 03/18/22 Unknown Rx metoclopramide HCl 5 mg tablet See Rx Instructions .ROUTE .COMPLEX 03/18/22 03/18/22 03/17/22 History morphine 30 mg tablet,extended 30 mg PO Q12H 03/18/22 03/18/22 Unknown History release Allergies Allergy/AdvReac Type Severity Reaction Status Date / Time diphenhydramine Allergy ADR-Muscle Verified 03/18/22 08:54 [From Benadryl] Pain Penicillins Allergy ALGY-Anaphy Verified 03/18/22 08:54 laxis Tetanus Vaccines and Toxoid Allergy ALGY-Rash Verified 03/18/22 08:54 trazodone Allergy ALGY-Joint Verified 03/18/22 08:54 Pain zolpidem [From Ambien] Allergy Unconscious Verified 03/18/22 08:54 PFSH Acute PFSH: Medical History Acute pyelonephritis Anxiety and depression Atrial fibrillation -rate controlled -telemetry monitoring -has previously declined AC; follows up with cardiology Chronic diarrhea of unknown origin COVID-19 Positive test 06/17/2020 and 06/23/2020. Diabetic ketoacidosis Diverticulosis DVT (deep venous thrombosis) Dyslipidemia Encounter for screening laboratory testing for COVID-19 virus History of colon polyps on colonoscopy 2018 History of colon polyps HTN (hypertension) Hypotension Hypothyroidism Hypovolemia dehydration Lesion of liver Low back pain Mild cognitive impairment Mitral regurgitation Nausea & vomiting Opiate overdose Osteoporosis Pancreas cyst Peripheral vascular disease Scleroderma Syncope due to orthostatic hypotension Type 1 diabetes Vasovagal near-syncope Surgical History H/O cardiac catheterization 2014, moderate disease no flow-limiting H/O dilation and curettage History of colonoscopy Status post endovenous radiofrequency ablation of saphenous vein Family History Father CAD (coronary artery disease) Mother Hypertension CAD (coronary artery disease) Hyperlipidemia Sister Hypertension Diabetes Grandfather CAD (coronary artery disease) PATERNAL Social History Smoking and tobacco status: never smoked Alcohol intake: never Lives independently: Yes Housing: House Vitals/I&O/Wt Last Vital Signs Pulse 108 H 03/18/22 15:00 Resp 18 03/18/22 14:34 BP 153/94 03/18/22 15:00 Pulse Ox 99 03/18/22 15:00 03/18/22 03/18/22 03/18/22 06:59 14:59 22:59 Intake Total 1000 / 1000 1000 / 2000 Balance 1000 / 1000 1000 / 1999 Weight last 48 hrs Weight 68.039 kg Physical Exam Narrative: General: Alert oriented x3, patient seen laying in bed almost in position, able to talk and respond in short phrases secondary to pain. HEENT: Normocephalic, atraumatic, EOMI, breathing normally on room air. Cardio: Regular rate rhythm, normal S1-S2, no murmurs Respiratory: Clear to auscultation bilaterally GI: Abdomen soft, tender to palpation all 4 quadrant, with most tenderness at RUQ and epigastric area, bowel sounds hypoactive to absent Extremities: no edema, no cyanosis Data : 03/19/22 08:45 03/19/22 08:45 Micro: Microbiology 03/18/22 12:04 Blood Culture - Preliminary Blood SPECIMEN COLLECTED 03/18/22 10:48 Blood Culture - Preliminary Blood SPECIMEN COLLECTED A&P Assessment and plan (1) Hypotension: Status: Acute (2) Type 1 diabetes: Status: Acute (3) Mass of pancreas: Status: Acute (4) Lesion of liver: Status: Acute (5) Anxiety and depression: Status: Acute (6) Peripheral vascular disease: Status: Acute (7) Diverticulosis: Status: Acute (8) Dyslipidemia: Status: Acute (9) Mitral regurgitation: Status: Acute Plan #Recently diagnosed pancreatic mass (most likely pancreatic adenocarcinoma) with liver mets #Nausea, dry heaving, vomiting present at admission #Hx of DVT #Type 1 Diabetes #Hypertension #Anxiety and depression #Atrial fibrillation - Will manage pain in hospital - Nausea control, zofran, reglan PRN - Oxycontin 10 bid, hydrocodone 10 q6H PRN - Will give 1x dilaudid now - Check CT abdomen pelvis w/ contrast - Plan for biopsy in AM under ultrasound guidance - SSI - NPO for now, may have clear liquid if tolerates. NPO at midnight for biopsy - Continue levothyroxine, sertraline - Hold aspirin and eliquis for biopsy - Start protonix 40 IV BID - Check FOBT - Monitor labs - Reportedly had an MRI at [place]. Will request for records - Check BCx, Check Urinalysis FULL Code DVT PPX: SCDS Sister at bedside updated. Attestations Medical Necessity Statement*: Will cross > 2 midnights for management of nausea, pain Coding Level of Care Code Acute Flight Controls Engineer for Chg Fwd Diagnoses Hypotension I95.9 Type 1 diabetes E10.9 Mass of pancreas K86.89 Lesion of liver K76.9 Anxiety and depression F41.9; F32.A Peripheral vascular disease I73.9 Diverticulosis K57.90 Dyslipidemia E78.5 Mitral regurgitation I34.0
[2022-03-18] MEDS: HYDROmorphone 1 mg/mL INJ 1 mL 0.5 MG IVP ×2 (15:56→16:35)
[2022-03-18] MEDS: sodium chloride 0.9% 1,000 ML 75 ML IV (16:02)
[2022-03-18] MEDS: sodium chloride 0.9% 1,000 ML 125 ML IV (16:22)
[2022-03-18] MEDS: scopolamine 1.5 Patch 1 PATCH TRANSDERMA (16:35)
--- NOTE | 2022-03-18 16:35 | CTR_ITS ---
PROCEDURE INFORMATION: Exam: CT Abdomen And Pelvis With Contrast Exam date and time: 03/18/2022 6:13 PM Age: 71 years old Clinical indication: Abdominal tenderness and bloating; Additional info: Absent bowel sounds, severe abdominal pain TECHNIQUE: Imaging protocol: Computed tomography of the abdomen and pelvis with contrast. Radiation optimization: All CT scans at this facility use at least one of these dose optimization techniques: automated exposure control; mA and/or kV adjustment per patient size (includes targeted exams where dose is matched to clinical indication); or iterative reconstruction. Contrast material: OMNIPAQUE 350; Contrast volume: 990 ml; Contrast route: INTRAVENOUS (IV); COMPARISON: MRI Abdomen w/wo* [id number] 03/13/2022 8:00 AM RADIATION DOSE METRICS: Total DLP (mGy-cm): 928.46 FINDINGS: Liver: Multifocal somewhat low-density heterogeneous lesions throughout the liver measuring up to 12 mm, similar to prior exam likely reflecting metastatic disease. Gallbladder and bile ducts: Gallbladder appears somewhat prominent, ultrasound could further evaluate this. Common bile duct dilated to 10 mm and pancreatic duct dilated to 8.2 mm, similar to prior exam likely secondary to obstruction from the pancreatic head mass. Pancreas: Complex 3 cm mass seen in the pancreatic head concerning for a primary pancreatic malignancy. Spleen: Normal. No splenomegaly. Adrenal glands: Normal. No mass. Kidneys and ureters: Bilateral renal cysts, negative for follow-up advised. Right kidney interpolar region somewhat low-density wedge-shaped area, similar to prior exam, series 4, image 30 perhaps reflecting a focal pyelonephritis, metastatic disease not excluded. Stomach and bowel: Unremarkable. No obstruction. No mucosal thickening. Appendix: No evidence of appendicitis. Intraperitoneal space: Unremarkable. No free air. No significant fluid collection. Vasculature: Unremarkable. No abdominal aortic aneurysm. Lymph nodes: Unremarkable. No enlarged lymph nodes. Urinary bladder: Unremarkable as visualized. Reproductive: Unremarkable as visualized. Bones/joints: Unremarkable. No acute fracture. Soft tissues: Unremarkable. Other findings: Small amount nonspecific fluid in the pelvis. CT/CT abdomen pelvis w con* [id number] IMPRESSION: 1. Multifocal somewhat low-density heterogeneous lesions throughout the liver measuring up to 12 mm, similar to prior exam likely reflecting metastatic disease. 2. Gallbladder appears somewhat prominent, ultrasound could further evaluate this. 3. Complex 3 cm mass seen in the pancreatic head concerning for a primary pancreatic malignancy. 4. Common bile duct dilated to 10 mm and pancreatic duct dilated to 8.2 mm, similar to prior exam likely secondary to obstruction from the pancreatic head mass. 5. Bilateral renal cysts, negative for follow-up advised. 6. Right kidney interpolar region somewhat low-density wedge-shaped area, similar to prior exam, series 4, image 30 perhaps reflecting a focal pyelonephritis, metastatic disease not excluded. 7. Small amount nonspecific fluid in the pelvis. COMMENTS: Consistent with the [employer]'s Incidental Findings Committee white paper (J Am Armando Radiol 2018): Any incidental renal lesion less than 1 cm or classified as too small to characterize, or any incidental cystic renal lesion characterized as simple-appearing, is likely benign. No follow-up imaging is recommended for these lesions per consensus recommendations based on imaging criteria.
[2022-03-18] MEDS: metoclopramide 5 mg/mL SDV 2 mL IVP ×2 (16:41)
[2022-03-18 16:48] LABS: Glucose Point of Care 232 mg/dL (70-110)
[2022-03-18] MEDS: pantoprazole 40 mg SDV IVP (16:58)
[2022-03-18] MEDS: insulin lispro 100 unit/1 mL SUBCUT (17:08)
[2022-03-18 17:18] LABS: Iron 17 ug/dL (37-145); Percent Saturation 11.4 % (20-50); Total Iron Binding Capacity 148 mcg/dl; Unsaturated Iron Binding 131 ug/dL (112-347)
--- NOTE | 2022-03-18 17:23 | PC.NURSE ---
Patient arrived to floor via WC with c/o of unmanageable pain off the scale. C/o N/V with no emesis. Patient is pale, absent bowel sounds, sister(s) at bedside. Pain is not relieved with pain medications per MAR. physician is aware and putting orders in. AAOx4, HR and BP elevated. Room is clean and clutter free with call light in reach.
[2022-03-18 17:52] LABS: Lactate (Lactic Acid level) 1.7 mmol/L (0.5-2.2)
[2022-03-18] MEDS: iohexol 350 mg/mL 100 mL Btl IV (18:10)
[2022-03-18] MEDS: HYDROcodone-acetaminophen 10-325 mg Tablet 1 TAB PO (19:47)
[2022-03-18] MEDS: carvedilol 6.25 mg Tablet PO (21:00)
[2022-03-18] MEDS: sennosides 8.6 mg Tablet 17.2 MG PO (21:00)
[2022-03-18] MEDS: sertraline 100 mg Tablet PO (21:00)
[2022-03-18] MEDS: oxyCODONE 10 mg ER (12 HR) Tablet PO (21:01)
[2022-03-18 21:24] LABS: Glucose Point of Care 85 mg/dL (70-110)
[2022-03-18] MEDS: ondansetron 2 mg/ML SDV 2 mL 4 MG IVP (22:23)
[2022-03-19] VITALS (10 sets, daily range): BP systolic 146–164; BP diastolic 79–88; PULSE 106–122; RESP 12–20; TEMP 36.5–37.5; O2SAT 92–98
[2022-03-19] MEDS: HYDROmorphone 1 mg/mL INJ 1 mL 0.5 MG IVP (00:20)
[2022-03-19] MEDS: sodium chloride 0.9% 1,000 ML 125 ML IV ×4 (00:22→23:36)
--- NOTE | 2022-03-19 02:20 | ECG_ITS ---
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 Measurements Intervals [place] Rate: 107 P: 69 MN: 155 QRS: 75 QRSD: 90 T: 56 QT: 343 QTc: 458 Interpretive Statements SINUS TACHYCARDIA ABNORMAL RHYTHM ECG Compared to ECG 01/16/2022 00:01:55 Sinus rhythm no longer present Sinus arrhythmia no longer present T-wave abnormality no longer present Possible ischemia no longer present Electronically Signed On 03-19-2022 21:14:09 CDT by Destiny Salinas M.D. [id number]
[2022-03-19] MEDS: metoclopramide 5 mg/mL SDV 2 mL IVP ×2 (02:36→19:48)
[2022-03-19] MEDS: HYDROmorphone 1 mg/mL INJ 1 mL IVP ×3 (02:36→08:28)
--- NOTE | 2022-03-19 04:20 | ECG_ITS ---
[facility] Test Date: 2022-03-19 Pat Name: Kaylee Cardoso Department: Room: 256 Gender: Female Inbound Telemarketer: : 1950 Requested By: Patrice Christina Order Number: [id number] Reading MD: Destiny Salinas M.D. Measurements Intervals [place] Rate: 106 P: 78 SC: 156 QRS: 82 QRSD: 93 T: 64 QT: 338 QTc: 450 Interpretive Statements SINUS TACHYCARDIA ABNORMAL RHYTHM ECG Compared to ECG 03/19/2022 02:38:09 No significant changes Electronically Signed On 03-19-2022 21:19:39 CDT by Destiny Salinas M.D. [id number]
[2022-03-19] MEDS: pantoprazole 40 mg SDV IVP ×2 (06:08→18:13)
[2022-03-19 06:33] LABS: Glucose Point of Care 276 mg/dL (70-110)
--- NOTE | 2022-03-19 08:17 | PM.PN ---
Subjective Subjective: Seen this AM. Pt asleep. Sister at bedside. She states pt just slept after getting pain medication. I did not wake up the pt, she appeared comfortable. SHe will be going for biopsy soon Vitals/I&O/Wt Last Vital Signs Temp 97.7 F 03/19/22 10:14 Pulse 122 H 03/19/22 10:14 Resp 12 03/19/22 10:14 BP 164/88 03/19/22 10:14 Pulse Ox 94 03/19/22 10:14 03/18/22 03/19/22 03/19/22 22:59 06:59 14:59 Intake Total 1146.25 / 2146.25 1000 / 3146.25 1000 / 1000 Output Total 400 / 400 200 / 600 Balance 746.25 / 1746.25 800 / 2546.25 1000 / 1000 Weight last 48 hrs Weight 68.039 kg Physical Exam Narrative: General: APpears more comfortable then yesterday and asleep. Did not wake up the patient. HEENT: Normocephalic, atraumatic, EOMI, breathing normally on room air saturating 97% Cardio: Regular rate rhythm, normal S1-S2, no murmurs Respiratory: Clear to auscultation bilaterally GI: Abdomen soft, tender to palpation all 4 quadrant, with most tenderness at RUQ and epigastric area, bowel sounds hypoactive to absent. Pain better controlled at this time. Extremities: no edema, no cyanosis ? Data : 03/19/22 08:45 03/19/22 08:45 Micro: Microbiology 03/18/22 12:04 Blood Culture - Preliminary Blood NEGATIVE TO DATE 03/18/22 10:48 Blood Culture - Preliminary Blood NEGATIVE TO DATE 03/18/22 13:03 Urine Culture - Preliminary Urine,Clean Catch Gram Negative Rods A&P Assessment and plan (1) Type 1 diabetes: Status: Acute (2) Lesion of liver: Status: Acute (3) Mass of pancreas: Status: Acute (4) Anxiety and depression: Status: Acute (5) Dyslipidemia: Status: Acute Plan #Recently diagnosed pancreatic mass (most likely pancreatic adenocarcinoma) with liver mets #Nausea, dry heaving, vomiting present at admission #Hx of DVT #Type 1 Diabetes #Hypertension #Anxiety and depression #Atrial fibrillation - Will manage pain in hospital - Nausea control, zofran, reglan PRN - Oxycontin 10 bid, hydrocodone 10 q6H PRN - Pt has been getting IV dilaudid 1 mg q2 hours since last night. Will hold for now and cut back a little to prevent overdose. - CT abd pelvis showed worsening bile duct dilation with mass enlarged compared to prior study. - Plan for biopsy in AM under ultrasound guidance today - SSI - NPO for now, may have clear liquid if tolerates. NPO at midnight for biopsy - Continue levothyroxine, sertraline - Hold aspirin and eliquis for biopsy - Continue protonix 40 IV BID - Check FOBT - Monitor labs - Reportedly had an MRI at [place]. Will request for records - UCx positive for gram negative rods, will start on ciprofloxacin IV (does have hx of e.coli uti in recent past as well) FULL Code DVT PPX: SCDS Sister at bedside updated. Attestations Medical Necessity Statement*: Pain uncontrolled still. Continue to manage nausea, pain Coding Level of Care Code Acute Software Configuration Specialist for g Fwd Diagnoses Type 1 diabetes E10.9 Lesion of liver K76.9 Mass of pancreas K86.89 Anxiety and depression F41.9; F32.A Dyslipidemia E78.5
--- NOTE | 2022-03-19 08:20 | ECG_ITS ---
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 Measurements Intervals [place] Rate: 111 P: 61 [place]: 132 QRS: 77 QRSD: 101 T: 62 QT: 359 QTc: 490 Interpretive Statements SINUS TACHYCARDIA MODERATE ST DEPRESSION [0.05+ mV ST DEPRESSION] Compared to ECG 03/19/2022 05:04:19 ST (T wave) deviation now present Electronically Signed On 03-19-2022 21:20:17 CDT by Destiny Salinas M.D. [id number]
[2022-03-19] MEDS: ciprofloxacin 400 MG/200 ML PREMIX 200 MG IV ×3 (08:39→23:35)
[2022-03-19 09:22] LABS: Basophils % 0.1 %; Hematocrit 30.1 % (37.0-47.0); Hemoglobin 9.2 g/dL (11.5-15.3); Lymphocytes # 0.8 10^3/uL (0.8-4.8); Lymphocytes % 10.3 %; Mean Corpuscular HGB Conc 30.6 g/dL (30.0-36.0); Mean Corpuscular Hemoglobin 29.8 pg (28.0-34.0); Mean Corpuscular Volume 97.4 fl (81-99); Mean Platelet Volume 10.1 fL (7.4-10.4); Monocytes # 0.4 10^3/uL (0.2-0.9); Monocytes % 4.6 %; Neutrophils # 6.37 10^3/uL (1.8-7.7); Neutrophils % 84.6 %; Nucleated Red Blood Cells % 0 %; Platelet Count 233 10^3/cmm (130-400); Red Blood Count 3.09 10^6/uL (4.1-5.3); White Blood Count 7.5 10^3/uL (4.0-10.0)
[2022-03-19 09:31] LABS: INR 1.48 (0.8-1.2)
--- NOTE | 2022-03-19 09:40 | PC.CHAP ---
Pastoral Care Encounter/Spiritual Assessment Type of Contact [] Declined wood craftsman visit [] Patient/Family/Request visit [] Outpatient visit [] Follow-up visit [] Physician referral [] Code/Alert [x] Routine visit [] Staff referral [] Actively dying [] Patient sleeping [] Family support [] [] Out of room [] Palliative care [x] [x] Receiving care in room [] Pre-surgical visit [] Trauma [xx] Long length of stay [] ICU visit [] Other: Relational/Emotional Strength [x] Patient feels connected with others/family/visitors/staff [] Distress [] Loneliness/isolation [] Abandonment Spirituality of Patient [x] Person of Andreea [] Attends Sabianist of their Andreea [x] Believes in Prayer [] Reads Bible or Rastafarian materials [] There are Spiritual issues to be addressed Art Coordinator Interventions [x] Prayer [x] Active listening [x] Non-anxious presence [xd] Spiritual/emotional support [] Crisis/trauma care [x] Spiritual counseling [] Bereavement support [] Provided bereavement packet [] Provided Bible/devotional materials [] Provided toy/stuffed animal, coloring book to patient or family member [] Provided Communion [] Anointing/Harvey [] Salvation [x] Completed spiritual assessment [] Other: Impact on Illness or Injury [] Angry [] Fearful [] Anxious [] Often cries [] Exhaustion [] Unable to work [] Unable to attend scientology [] Unable to walk/stand [] Unable to read [] Unable to drive [] Unable to eat/drink [] Unable to sleep [] Unable to be with family [] Patient intubated [] Other: Summary with family +1 they will make desions about her care Time spent with patient 10 mins
[2022-03-19 09:48] LABS: Troponin(5th) Baseline 17 ng/L (0-10)
[2022-03-19 09:57] LABS: Creatine Phosphokinase 47 U/L (26-192)
[2022-03-19 10:07] LABS: Alanine Aminotransferase 79 U/L (0-33); Albumin Level 2.4 g/dL (3.5-5.2); Alkaline Phosphatase 360 IU/L (35-105); Anion Gap 21.8 (5-19); Aspartate Amino Transferase 78 U/L (0-32); Blood Urea Nitrogen 15 mg/dL (8-23); Calcium 7.4 mg/dL (8.5-10.5); Carbon Dioxide 18 mmol/L (22-29); Chloride 100 mmol/L (98-107); Globulin 2.6 g/dL (1.3-4.6); Glomerular Filtration Rate 157.8 mL/min (90-130); Glucose 290 mg/dL (65-115); Osmolality Calculated 293 mOsm/kg (285-295); Potassium 3.8 mmol/L (3.5-5.1); Sodium 136 mmol/L (136-145)
[2022-03-19 10:11] LABS: Creatinine Clr Calc Pharmacy 63.4415
--- NOTE | 2022-03-19 10:17 | US_ITS ---
WS: [id number] Limited abdomen ultrasound. HISTORY: Patient presents for possible ultrasound guided biopsy of metastatic lesions within the live r or pancreatic head mass. Prior imaging studies are reviewed. Patient was heavily sedated prior to being evaluate for this examination. Patient is unable to scooter ate and hold her breath. The small metastatic lesions within the liver are centrally located. The more peripheral lesions are not well visualized. Patient was unable to hold her breath in order for access by ultrasound-guided b iopsy. Pancreatic head mass is also identified but heavily encased by vessels. There is a dominant ar garrett encasing the superficial course of this pancreatic mass. US/US abdomen limited [id number] IMPRESSION: 1. Unsuccessful attempt at biopsying metastatic lesions in the liver and the pa ncreatic head mass. Patient was unable to cooperate for this examination and ho ld her breath. 2. Unsuccessful attempt at pancreatic head mass biopsy due to encasing artery. 3. Discussed with Dr. Pascual. Surgical biopsy or endoscopic ultrasound biopsy may be helpful.
[2022-03-19 11:45] LABS: Glucose Point of Care 359 mg/dL (70-110)
--- NOTE | 2022-03-19 11:54 | CT_ITS ---
WS: [id number] CT HEAD TECHNIQUE: Noncontrast CT of the head obtained from the skullbase to the vertex. CLINICAL INFORMATION: altered mental status COMPARISON: March 07, 2022 DLP: 1266.[address] scans at [facility] use at least one of these dose optimization techniques: automated e xposure control; mA and/or kV adjustment per patient size (includes targeted exams where dose is matc hed to clinical indication); or iterative reconstruction. FINDINGS: No evidence of intracranial hemorrhage or mass effect. Ventricular system and basal cisterns are sanchez nt. Mild small vessel changes with moderate parenchymal volume loss. No extra-axial fluid collections . No evidence of mass or mass effect. Benign dural calcification. Paranasal sinuses and mastoid air cells are well aerated. .Normal visualized soft tissues. CT/CT head wo con* [id number] IMPRESSION: 1. No evidence of intracranial hemorrhage or mass effect. 2. Mild small vessel changes. Moderate parenchymal volume loss. 3. No acute intracranial findings.
[2022-03-19] MEDS: ondansetron 2 mg/ML SDV 2 mL 4 MG IVP ×2 (12:02→22:22)
[2022-03-19] MEDS: insulin lispro 100 unit/1 mL SUBCUT ×2 (12:02→20:58)
[2022-03-19 12:09] LABS: Troponin 5 2HR 16.45 ng/L (0-10)
[2022-03-19 12:10] LABS: Troponin 5 2HR Delta -0.55 ABS# (0-10)
[2022-03-19 15:49] LABS: Troponin 5 6HR 15.42 ng/L (0-10)
[2022-03-19 15:52] LABS: Troponin 5 6HR Delta -1.58 ng/L (0-12)
[2022-03-19 17:08] LABS: Glucose Point of Care 172 mg/dL (70-110)
--- NOTE | 2022-03-19 18:02 | PM.CONSULT ---
Providers/Reason For Consult Consulting Physician/Specialty*: Medical oncology Reason for Consult*: Pancreatic cancer Requesting Physician: Yaritza Pascual MD Attending Physician: Yaritza Pascual MD Primary Care Provider: Andrea Flores MD History of Present Illness History of Present Illness This is a 71-year-old woman with suspected metastatic pancreatic cancer. She has multiple medical illnesses including hypertension, hyperlipidemia, and type 1 diabetes, which is managed on an insulin pump. She also has peripheral arterial disease, a history of congestive heart failure and a history of atrial fibrillation, and she has a history of lower extremity deep vein thrombosis and pulmonary embolism, for which she has been on chronic anticoagulation with apixaban. In December 2021 she was admitted to the hospital with fatigue, abdominal pain, nausea/vomiting, and diarrhea. A noncontrast CT abdomen/pelvis showed nonspecific findings. These included some mild fat stranding at the head of the pancreas felt to be possibly secondary to pancreatitis. She was treated for pyelonephritis, urine culture growing E. coli. On 03/02/2022 she presented to the emergency room with right flank pain, which she said had persisted following the hospitalization in December. Her CT abdomen/pelvis reported a 1.9 x 1.8 cm cystic lesion in the pancreatic head. Also noted was pancreatic edema possibly due to pancreatitis. Multiple low-attenuation lesions in the liver, the largest measuring about 1.4 cm, were suspicious for metastatic disease. She was discharged home with plans for outpatient evaluation. On 03/07/2022 she was admitted to the hospital after returning to the emergency room with multiple complaints which included back pain, nausea/vomiting, and weakness. The ER visit had been prompted by a fall at home. Her repeat CT abdomen/pelvis showed similar findings in the pancreas and liver. CT of the lumbar spine showed degenerative changes throughout the visualized spine but with no evidence for severe spinal canal stenosis or significant neural foraminal narrowing. There was no evidence for metastatic disease. She was again discharged home with scheduled outpatient evaluation. An MRI of the abdomen was done at [facility] on 03/13/2022. That study showed a mass in the head of the pancreas measuring approximately 5.6 x 3.8 cm. There was associated narrowing of the distal common bile duct. Numerous nodules were seen throughout the left and right lobes of the liver with peripheral continuous enhancement, suspicious for metastatic disease. The largest in the left lobe measured 1.3 cm and 1.2 x 1.4 cm in the right lobe. There was no evidence for other metastatic disease. Small retroperitoneal lymph nodes measured less than 1 cm. The included bones/joints were noted to be unremarkable. On 03/18/2022 she was admitted to the hospital again with intractable pain. Her pain management has been problematic, as she reported no getting no relief at home with a combination of extended release morphine and hydrocodone/APAP and she has been prone to getting oversedated on IV hydromorphone in the hospital. Her repeat CT abdomen/pelvis reported a complex mass in the pancreatic head measuring 3 cm with common bile duct dilated 10 mm and pancreatic duct dilated to 8.2 mm. Multiple low-density lesions throughout the liver appeared similar to the previous study. At the time of this visit she is alert and responding appropriately. She is in significant discomfort with pain in her mid to lower back radiating around to the abdomen at the level of the umbilicus. She has generally weak and she has very limited activity. ECOG score is 3. Her appetite and oral intake have been poor, and she has been having nausea with vomiting or dry heaves. She does not have much cough, and she has not been having shortness of breath or chest pain. She had been having chronic diarrhea, but she is now just having soft stool without nikki diarrhea. She has had some burning with urination. She is not having any other joint or bone pain. She does have some neuropathy associated with her diabetes. Review of Systems Narrative: Constitutional: She has generally weak. Appetite is poor. She has had some weight loss. No fever, night sweats, or hot flashes. ECOG score is 3. Eyes:?No change in vision. ENMT: No sinus congestion/drainage. No mouth sores. No sore throat or difficulty swallowing. Hematologic/Lymphatic: She has easy bruising. Respiratory: No shortness of breath. She has only a little bit of cough. No pleuritic pain or hemoptysis. Cardiovascular: No angina pain. No palpitations. Gastrointestinal: She has nausea with vomiting or dry heaves. No heartburn or acid reflux. She was having diarrhea. Stools are now soft but without nikki diarrhea. No blood in the stool or black stools. Genitourinary: She is having some dysuria. No hematuria. No urinary frequency. No urgency or incontinence. Musculoskeletal: She has pain in the mid to lower back. No other joint or bone pain. Integumentary: No skin rash or other skin changes. Neurologic: No headache or dizziness. She has neuropathy with the diabetes. Psych:?No anxiety and depression. Medications/Allergies Home Medications Medication Instructions Recorded Confirmed Last Taken Type aspirin 81 mg tablet,delayed 81 mg PO DAILY 02/17/21 03/18/22 03/15/22 History release calcium carbonate 500 mg calcium 1,000 mg PO DAILY 02/17/21 03/18/22 03/15/22 History (1,250 mg) chewable tablet sertraline 100 mg tablet 100 mg PO BEDTIME 02/17/21 03/18/22 03/17/22 History blood-glucose sensor (Dexcom G6 12/05/21 03/18/22 Unknown History Sensor) insulin lispro 100 unit/mL See Rx Instructions .ROUTE 12/05/21 03/18/22 Unknown Rx subcutaneous solution (Humalog .COMPLEX #30 ml U-100 Insulin) nitroglycerin 0.4 mg sublingual 0.4 mg SUBLINGUAL Q5M PRN 01/16/22 03/18/22 Unknown History tablet (Nitrostat) carvedilol 12.5 mg tablet 6.25 mg PO BID #0 tab 01/19/22 03/18/22 03/15/22 Rx ondansetron HCl 4 mg tablet 4 - 8 mg PO Q8H PRN #10 tab 01/19/22 03/18/22 Unknown Rx calcium polycarbophil 625 mg 1,250 mg PO BID #60 tab 02/20/22 03/18/22 03/15/22 Rx tablet (FiberCon) levothyroxine 200 mcg tablet 200 mcg PO DAILY #30 tab 02/20/22 03/18/22 03/15/22 Rx levothyroxine 25 mcg tablet 25 mcg PO DAILY #30 tab 02/20/22 03/18/22 03/15/22 Rx hydrocodone 7.5 mg-acetaminophen 1 tab PO TID PRN 30 Days #90 tab 03/06/22 03/18/22 Unknown Rx 325 mg tablet apixaban 5 mg tablet 5 mg PO DAILY 03/10/22 03/18/22 03/15/22 History ibandronate 150 mg tablet (Boniva) 150 mg PO Q30D 03/10/22 03/18/22 Unknown History ibuprofen 800 mg tablet 800 mg PO TID PRN #90 tab 03/11/22 03/18/22 Unknown Rx metoclopramide HCl 5 mg tablet See Rx Instructions .ROUTE .COMPLEX 03/18/22 03/18/22 03/17/22 History morphine 30 mg tablet,extended 30 mg PO Q12H 03/18/22 03/18/22 Unknown History release Allergies Allergy/AdvReac Type Severity Reaction Status Date / Time diphenhydramine Allergy ADR-Muscle Verified 03/18/22 08:54 [From Benadryl] Pain Penicillins Allergy ALGY-Anaphy Verified 03/18/22 08:54 laxis Tetanus Vaccines and Toxoid Allergy ALGY-Rash Verified 03/18/22 08:54 trazodone Allergy ALGY-Joint Verified 03/18/22 08:54 Pain zolpidem [From Ambien] Allergy Unconscious Verified 03/18/22 08:54 Current Medications Generic Name Dose Route Start Last Admin Trade Name Freq PRN Reason Stop Dose Admin Hydrocodone Bitart/Acetaminophen 1 tab 03/18/22 15:42 03/18/22 19:47 Hydrocodone-Acetaminophen 10-325 Mg Tablet PO 1 tab Q4H PRN Administration MODERATE PAIN Carvedilol 6.25 mg 03/18/22 21:00 03/19/22 08:46 Carvedilol 6.25 Mg Tablet PO Not Given BID@0900,2100 KARMA Docusate Sodium 100 mg 03/18/22 18:00 03/19/22 08:47 Docusate Sodium 100 Mg Capsule PO Not Given BID KARMA Sodium Chloride 1,000 mls @ 125 mls/hr 03/18/22 15:45 03/19/22 16:19 Sodium Chloride 0.9% IV 125 mls/hr .Q8H KARMA Administration Ciprofloxacin/Dextrose 400 mg in 200 mls @ 200 mls/hr 03/19/22 08:15 03/19/22 16:18 Cipro IV 200 mls/hr Q8H KARMA Administration Protocol Insulin Human Lispro 0 unit 03/18/22 18:00 03/19/22 12:02 Insulin Lispro 100 Unit/1 Ml SUBCUT 14 unit TIDWM KARMA Administration Protocol Levothyroxine Sodium 25 mcg 03/19/22 09:00 03/19/22 08:47 Levothyroxine 25 Mcg Tablet PO Not Given DAILY KARMA Levothyroxine Sodium 200 mcg 03/19/22 09:00 03/19/22 08:47 Levothyroxine 200 Mcg Tablet PO Not Given DAILY KARMA Metoclopramide HCl 5 mg 03/18/22 15:43 03/19/22 02:36 Metoclopramide 5 Mg/Ml Sdv 2 Ml IVP 5 mg Q6H PRN Administration NAUSEA AND VOMITING Ondansetron HCl 4 mg 03/18/22 15:28 03/19/22 12:02 Ondansetron 2 Mg/Ml Sdv 2 Ml IVP 4 mg Q6H PRN Administration NAUSEA AND VOMITING Oxycodone HCl 10 mg 03/18/22 21:00 03/19/22 08:47 Oxycodone 10 Mg Er (12 Hr) Tablet PO Not Given BID@0900,2100 KARMA Pantoprazole Sodium 40 mg 03/18/22 16:45 03/19/22 06:08 Pantoprazole 40 Mg Sdv IVP 40 mg Q12H KARMA Administration Scopolamine 1 patch 03/18/22 17:00 03/18/22 16:35 Scopolamine 1.5 Patch TRANSDERMA 1 patch Q3D KARMA Administration Senna 17.2 mg 03/18/22 21:00 03/18/22 21:00 Sennosides 8.6 Mg Tablet PO 17.2 mg BEDTIME KARMA Administration Sertraline HCl 100 mg 03/18/22 21:00 03/18/22 21:00 Sertraline 100 Mg Tablet PO 100 mg BEDTIME KARMA Administration PFSH Acute PFSH: Medical History Acute pyelonephritis Anxiety and depression Atrial fibrillation -rate controlled -telemetry monitoring -has previously declined AC; follows up with cardiology Chronic diarrhea of unknown origin COVID-19 Positive test 06/17/2020 and 06/23/2020. Diabetic ketoacidosis Diverticulosis DVT (deep venous thrombosis) Dyslipidemia Encounter for screening laboratory testing for COVID-19 virus History of colon polyps on colonoscopy 2018 History of colon polyps HTN (hypertension) Hypotension Hypothyroidism Hypovolemia dehydration Lesion of liver Low back pain Mild cognitive impairment Mitral regurgitation Nausea & vomiting Opiate overdose Osteoporosis Pancreas cyst Peripheral vascular disease Scleroderma Syncope due to orthostatic hypotension Type 1 diabetes Vasovagal near-syncope Surgical History H/O cardiac catheterization 2015, moderate disease no flow-limiting H/O dilation and curettage History of colonoscopy Status post endovenous radiofrequency ablation of saphenous vein Family History Father CAD (coronary artery disease) Mother Hypertension CAD (coronary artery disease) Hyperlipidemia Sister Hypertension Diabetes Grandfather CAD (coronary artery disease) PATERNAL Social History Smoking and tobacco status: never smoked Alcohol intake: never Lives independently: Yes Housing: House Vitals/I&O/Wt Last Vital Signs Temp 98.6 F 03/19/22 16:00 Pulse 106 H 03/19/22 16:00 Resp 16 03/19/22 16:00 BP 160/84 03/19/22 16:00 Pulse Ox 97 03/19/22 16:00 03/19/22 03/19/22 03/19/22 06:59 14:59 22:59 Intake Total 1000 / 3146.25 1200 / 1200 962.5 / 2162.5 Output Total 200 / 600 Balance 800 / 2546.25 1200 / 1200 962.5 / 2162.5 Weight last 48 hrs Weight 68.039 kg Physical Exam Narrative: Constitutional: She he appears generally weak, and she appears to be in discomfort. Eyes: Sclerae nonicteric. Conjunctivae clear. ENMT: Mouth is dry. There are no lesions noted in the oral cavity. Hematologic/Lymphatic: No cervical, clavicular, or axillary adenopathy. Respiratory: Lungs sound clear with good air movement bilaterally. Cardiovascular: Heart rhythm is regular. There is no murmur, gallop, or rub noted. Abdomen: Soft. There is slight tenderness in the right upper quadrant. Liver is not enlarged. Spleen is not palpable. There is no abdominal mass or ascites noted and there is no inguinal adenopathy. Back: There is some tenderness in the spine beginning at the upper lumbar area and extending to the sacrum. Extremities: No edema. Pedal pulses are palpable bilaterally. Integumentary: No rashes. No suspicious skin lesions noted. Neurologic: No focal neurologic deficits noted. Data : 03/19/22 08:45 03/19/22 08:45 Micro: Microbiology 03/18/22 12:04 Blood Culture - Preliminary Blood NEGATIVE TO DATE 03/18/22 10:48 Blood Culture - Preliminary Blood NEGATIVE TO DATE 03/18/22 13:03 Urine Culture - Preliminary Urine,Clean Catch Gram Negative Rods A&P Assessment and plan (1) Mass of pancreas: This is a 71-year-old woman with CT and MRI evidence of a pancreatic head mass and multiple lesions involving both lobes of the liver. The appearance is consistent with metastatic pancreatic cancer. She has had some typical associated symptoms including weakness/fatigue and nausea with vomiting or dry heaves. Her main complaint, though, has been severe pain, which currently localizes to the lower back at the level of the umbilicus. There is some radiation of pain around to the abdominal area, but she otherwise is not really having abdominal pain. Her management has been problematic, as she was getting no significant benefit with oral pain medication at home and she has had problems with oversedation associated with IV hydromorphone administered in the hospital. I am also uncertain as to the specific cause for her pain, as it is not in a location which would be typical for pain associated with a primary pancreatic tumor or with metastatic lesions in the liver. I reviewed the CT and MRI findings with the patient and her sisters. We discussed the fact that the probability is very high that she has pancreatic cancer and that it has spread to the liver. It is therefore an operable and incurable. The usual treatment in her situation would be a trial of chemotherapy with gemcitabine/Abraxane, as she would clearly not be an appropriate candidate for the FOLFIRINOX chemotherapy regimen. Response rates with the gemcitabine/Abraxane regimen would be in the range of 25%, at best, and there would still be risk for significant treatment related toxicities. Other possible treatment options would be gemcitabine monotherapy, but with response rate in the range of 15%. There also may be a possibility for a targeted therapy or immunotherapy, but the likelihood of either those being available is relatively low with pancreatic cancer, as it would depend on corroborative findings on biopsy. The main focus at this point is her pain management, and I have suggested a trial of a fentanyl patch at 25 mcg/h together with small doses of either IV hydromorphone or IV morphine as needed. In the meantime, if she does opt to pursue treatment for the pancreatic cancer, she will require transfer or referral to a facility where ERCP is available, and I will try and arrange that tomorrow. In the meantime, an MRI of the lumbar spine also may be helpful for evaluation of her pain, and also may be helpful to get tumor markers. Status: Acute Coding Level of Care Code Acute Loading Dock Helper for Beatriz Ramirez Diagnoses Mass of pancreas K86.89
[2022-03-19] MEDS: docusate sodium 100 mg Capsule PO (18:13)
[2022-03-19] MEDS: fentaNYL 25 mcg Patch 1 PATCH TRANSDERMA (18:14)
[2022-03-19] MEDS: carvedilol 6.25 mg Tablet PO (20:58)
[2022-03-19] MEDS: morphine 4 mg/mL SDV 1 mL 2 MG IVP (20:58)
[2022-03-19] MEDS: sennosides 8.6 mg Tablet 17.2 MG PO (20:58)
[2022-03-19] MEDS: sertraline 100 mg Tablet PO (20:58)
[2022-03-19 21:03] LABS: Glucose Point of Care 260 mg/dL (70-110)
[2022-03-20 00:02] LABS: Carcinoembryonic Antigen 63.4 ng/mL (0.0-4.7)
[2022-03-20 00:05] LABS: Cancer Antigen 19 9 > 10000 U/mL (0-35)
[2022-03-20] MEDS: metoclopramide 5 mg/mL SDV 2 mL IVP ×2 (01:32→08:03)
[2022-03-20 04:22] VITALS: RESP 16
[2022-03-20] MEDS: morphine 4 mg/mL SDV 1 mL 2 MG IVP ×4 (04:22→18:43)
[2022-03-20] MEDS: ondansetron 2 mg/ML SDV 2 mL 4 MG IVP ×3 (04:22→17:43)
[2022-03-20] MEDS: pantoprazole 40 mg SDV IVP ×2 (04:23→15:40)
[2022-03-20 06:30] LABS: Glucose Point of Care 276 mg/dL (70-110)
[2022-03-20 08:00] VITALS: BP 159/81; PULSE 102; RESP 14; TEMP 36.7; O2SAT 94
[2022-03-20] MEDS: ciprofloxacin 400 MG/200 ML PREMIX 200 MG IV ×2 (08:07→15:41)
[2022-03-20] MEDS: sodium chloride 0.9% 1,000 ML 125 ML IV ×2 (08:09→15:39)
[2022-03-20] MEDS: insulin lispro 100 unit/1 mL SUBCUT ×2 (08:11→12:10)
--- NOTE | 2022-03-20 09:00 | MR_ITS ---
WS: [id number] MRI LUMBAR SPINE WITH AND WITHOUT CONTRAST. HISTORY: back pain, abdominal pain, patient has known liver metastasis and a pancreatic mass. COMPARISON: Prior CT 03/07/2022 TECHNIQUE: Sagittal and axial multisequence imaging is submitted. Sagittal and axial T1 fat sat seque nces post-MultiHance 15 cc IV. Increase in the thoracic kyphosis. No compression fractures in the cervical and thoracic spine. 6 lumbar type vertebral bodies are evident. S1 will be counted as a lumbarized vertebral body. Increa se in the lumbar lordosis. Disc spaces and vertebral body heights are normal. Signal within the vertebral bodies in the thecal s ac is normal. No metastatic lesions or abnormal T2 signal. Conus terminates normally at L1. L1-L2: Normal. L2-L3: Normal. L3-L4: Normal. L4-L5: Mild disc bulging. Mild facet arthritis. L5-S1: Mild disc bulging and facet arthritis. Ligamentum flavum hypertrophy with mild encroachment in to the thecal sac. Rudimentary disc. No stenosis. Postcontrast images are negative for discitis or osteomyelitis. No enhancing bone lesions. No enhance ment along the conus or within the nerve roots. Bilateral renal cysts. These are very small and subcentimeter. There are small, subcentimeter nodules in the very inferior RIGHT lobe of the liver. Patient has known hepatic metastatic disease. MR/MR lumbar spine wo/w con [id number] IMPRESSION: 1. No significant stenosis or disc protrusions throughout the lumbar spine. 2. No evidence for metastatic disease to the lumbar spine or cord compression.
[2022-03-20] MEDS: gadobenate dimeglumine 20 mL vial IV (10:51)
[2022-03-20] MEDS: levothyroxine 25 mcg Tablet PO (10:56)
[2022-03-20] MEDS: docusate sodium 100 mg Capsule PO ×2 (10:56→17:44)
[2022-03-20] MEDS: carvedilol 6.25 mg Tablet PO (10:56)
[2022-03-20] MEDS: levothyroxine 200 mcg Tablet PO (10:56)
[2022-03-20 11:56] LABS: Glucose Point of Care 225 mg/dL (70-110)
[2022-03-20 12:00] VITALS: BP 156/82; PULSE 100; RESP 14; TEMP 36.7; O2SAT 95
--- NOTE | 2022-03-20 12:37 | PM.PN ---
Subjective Subjective: Seen this AM. No acute events overnight. Pain a lot better controlled. Going for MRI this AM. Vitals/I&O/Wt Last Vital Signs Temp 98.0 F 03/20/22 12:00 Pulse 100 03/20/22 12:00 Resp 14 03/20/22 12:00 BP 156/82 03/20/22 12:00 Pulse Ox 95 03/20/22 12:00 03/19/22 03/20/22 03/20/22 22:59 06:59 14:59 Intake Total 1162.5 / 2362.5 1110.417 / 3472.917 1440 / 1440 Output Total 800 / 800 0 / 800 800 / 800 Balance 362.5 / 1562.5 1110.417 / 2672.917 640 / 640 Physical Exam Narrative: General: APpears more comfortable HEENT: Normocephalic, atraumatic, EOMI, breathing normally on room air saturating 97% Cardio: Regular rate rhythm, normal S1-S2, no murmurs Respiratory: Clear to auscultation bilaterally GI: Abdomen soft, tender to palpation all 4 quadrant, bowel sounds hypoactive to absent. Pain better controlled at this time. Extremities: no edema, no cyanosis Data : 03/19/22 08:45 03/19/22 08:45 Micro: Microbiology 03/18/22 12:04 Blood Culture - Preliminary Blood NEGATIVE TO DATE 03/18/22 10:48 Blood Culture - Preliminary Blood NEGATIVE TO DATE 03/18/22 13:03 Urine Culture - Preliminary Urine,Clean Catch Gram Negative Rods A&P Assessment and plan (1) Type 1 diabetes: Status: Acute (2) Mass of pancreas: Status: Acute (3) Lesion of liver: Status: Acute (4) Anxiety and depression: Status: Acute (5) Dyslipidemia: Status: Acute (6) Pancreatic cancer: Status: Acute (7) Metastases to the liver: Status: Acute Plan #Recently diagnosed pancreatic mass (most likely pancreatic adenocarcinoma) with liver mets #Nausea, dry heaving, vomiting present at admission #Hx of DVT #Type 1 Diabetes #Hypertension #Anxiety and depression #Atrial fibrillation #Diabetic gastroparesis - Will manage pain in hospital - Nausea control, zofran, reglan PRN - Fentanyl patch, morphine 2 mg IV q2H PRn - CT abd pelvis showed worsening bile duct dilation with mass enlarged compared to prior study. - US unable to obtain biopsy. Recommend higher level of care. Transfer to [facility] once bed available. Pt accepted by Dr. Hunt. Dr. Rascon coordinated the transfer. - SSI - Clear liquid diet. - Continue levothyroxine, sertraline - Hold aspirin and eliquis for biopsy - Continue protonix 40 IV BID - Monitor labs - MRI abdomen reviewed by oncology. 5.6CM pancreatic head mass with liver mets. - UCx positive for gram negative rods, Continue ciprofloxacin IV (does have hx of e.coli uti in recent past as well) - Vitamin K to be given today, - Add scheduled reglan TID. FULL Code DVT PPX: SCDS Sister at bedside updated. Attestations Medical Necessity Statement*: Tranfer to [facility] once bed available. Pt accepted by Dr. Hunt there. Coding Level of Care Code Acute Manager Product Support for Chg Fwd Diagnoses Type 1 diabetes E10.9 Mass of pancreas K86.89 Lesion of liver K76.9 Anxiety and depression F41.9; F32.A Dyslipidemia E78.5 Pancreatic cancer C25.9 Metastases to the liver C78.7
--- NOTE | 2022-03-20 12:44 | P.TS_ITS ---
Transfer Summary Providers Date of Admission: 03/18/22 13:43 Date of Discharge/Transfer: 03/21/22 Attending Provider at Admission: Yaritza Pascual MD Attending Provider at Transfer: Yaritza Pascual MD Primary Care Provider: Andrea Flores MD Transfer Plans: Anticipated date of transfer: 03/21/22 . Diagnoses at Discharge Discharge Diagnosis (1) Type 1 diabetes: Status: Acute (2) Mass of pancreas: Status: Acute (3) Lesion of liver: Status: Acute (4) Anxiety and depression: Status: Acute (5) Dyslipidemia: Status: Acute (6) Pancreatic cancer: Status: Acute (7) Metastases to the liver: Status: Acute Reason for Visit Reason for Visit N/V/ WEAKNESS Brief History: Kaylee Cardoso is a 71 year old female with past medical history of hypothyroidism, newly diagnosed pancreatic mass (most likely pancreatic cancer), type 1 diabetes mellitus, depression presented to the ER with intractable pain.? She was recently admitted to our hospital on 07 March and discharged the next day with outpatient prescription for biopsy of pancreatic head.? She was sent home on morphine 30 mg every 12 hours as needed along with hydrocodone 7.5 3 times daily as needed.? Family brought her in stating that she has been having a lot of pain and because of that having dry heaving.? They are stating that the pain meds are not helping at all.? Patient stated that she has been wanting to sleep but has not had a chance to take a nap at all due to the pain.? They cannot manage pain at home at all.? She does have a biopsy scheduled for tomorrow morning ultrasound-guided.? She is on Eliquis 5 mg once a day as discussed with her doctor previously.? They do have a referral for Dr. Rascon as well but have not been to his clinic yet.? Pain is all across the abdomen in a bandlike pattern, 8 out of 10 in intensity at this time.? Nausea present.? She has not vomited yet.? She also had a large bowel movement in the ER which was black mixed with dark black/brown.? She went to her primary care doctor's office and was noted to be hypotensive with persistent nausea vomiting and therefore came to the hospital. ED course: Blood pressure 153/94, respiratory rate 18, pulse 108, pulse ox 99%. Hospital Course Hospital Course Patient was admitted for pain control with newly diagnosed pancreatic mass. When she presented to the hospital she was intractable pain. CT abdomen pelvis was done which ruled out any acute abdomen. Pancreatic mass appeared larger and compressing common bile duct and pancreatic duct. MRI abdomen was also done recently as an outpatient at [facility]. Records were requested. They did show increasing mass in 5.6 cm pancreatic head. Patient went for ultrasound-guided pancreatic mass biopsy during hospital stay which was unable to be done due to location. Discussed with radiology in detail and they recommended open surgical biopsy versus endoscopic. Patient's case was discussed with Dr. Rascon on-call oncologist. He saw the patient in co nsultation. Dr. Rascon recommended to transfer the patient to [facility]. Dr. Rascon coordinated the transfer. Patient was accepted by Dr. Hunt at [facility]. Patient was transferred to the hospital in stable condition. Initially on admission there was a report of dark bowel movement. FOBT was ordered. However she did not have another bowel movement during hospital stay. Hemoglobin did remain stable. Aspirin and Eliquis were being held at this time in anticipation of biopsy. Patient does have a history of diabetic gastroparesis. She was placed on scheduled Reglan with every meal. Clear liquid diet was started. For pain she was placed on fentanyl patch 25 daily, morphine 2 mg IV every 2 hours as needed. This may need to be switched to immediate release formulation when patient is ready to go home. When seen day 2 of hospital stay patient's pain was much better controlled. She also underwent MRI lumbar spine to rule out metastatic disease which was also negative. Patient will be transferred to [facility] for further work-up and management of pancreatic mass. Throughout hospital stay family was updated extensively regarding plan of care. Physical Exam Narrative: General: APpears more comfortable HEENT: Normocephalic, atraumatic, EOMI, breathing normally on room air saturating 97% Cardio: Regular rate rhythm, normal S1-S2, no murmurs Respiratory: Clear to auscultation bilaterally GI: Abdomen soft, tender to palpation all 4 quadrant,? bowel sounds hypoactive to absent. Pain better controlled at this time. Extremities: no edema, no cyanosis TS Data Studies Completed and Pending Pending at discharge Category Date Time Status Blood Culture Stat Lab 03/18/22 12:04 Results Complete Blood Count w/Auto AM LABS Lab 03/20/22 04:00 Ordered Comprehensive Metabolic Panel AM LABS Lab 03/20/22 04:00 Ordered Magnesium AM LABS Lab 03/20/22 04:00 Ordered Occult Blood Stool [Immunochemical Fecal OCB] Stat Lab 03/18/22 16:37 Uncollected Urine Culture Stat Lab 03/18/22 13:03 Results Labs from last 24 hours 03/20/22 03/20/22 03/19/22 11:44 06:16 20:46 POC Glucose 225 H 276 H 260 H Troponin T Hi Sens 6Hr Troponin T Hi Sens 6Hr Delta Carcinoembryonic Ag CA 19-9 Antigen 03/19/22 03/19/22 03/19/22 17:02 14:47 14:47 POC Glucose 172 H Troponin T Hi Sens 6Hr 15.42 H Troponin T Hi Sens 6Hr Delta -1.58 L Carcinoembryonic Ag 63.4 H CA 19-9 Antigen > 92562 H Completed Studies During Hospitalization Category Date Time Status CT abdomen pelvis w con* [id number] Stat Cat Scan 03/18/22 16:[address] head wo con* [id number] Stat Cat Scan 03/19/22 11:54 Completed MR lumbar spine wo/w con [id number] Routine MRI 03/20/22 09:00 Completed US abdomen limited [id number] Routine Ultrasound 03/19/22 10:17 Completed Laboratory Last Values WBC 7.5 10^3/uL (4.0-10.0) 03/19/22 08:45 RBC 3.09 10^6/uL (4.1-5.3) L 03/19/22 08:45 Hgb 9.2 g/dL (11.5-15.3) L 03/19/22 08:45 Hct 30.1 % (37.0-47.0) L 03/19/22 08:45 MCV 97.4 fl (81-99) 03/19/22 08:45 MCH 29.8 pg (28.0-34.0) 03/19/22 08:45 MCHC 30.6 g/dL (30.0-36.0) 03/19/22 08:45 RDW 18.0 % (12.1-15.1) H 03/19/22 08:45 Plt Count 233 10^3/cmm (130-400) 03/19/22 08:45 MPV 10.1 fL (7.4-10.4) 03/19/22 08:45 Neut % (Auto) 84.6 % 03/19/22 08:45 Lymph % (Auto) 10.3 % 03/19/22 08:45 [place] % (Auto) 4.6 % 03/19/22 08:45 Eos % (Auto) 0.0 % 03/19/22 08:45 Baso % (Auto) 0.1 % 03/19/22 08:45 Neut # (Auto) 6.37 10^3/uL (1.8-7.7) 03/19/22 08:45 Lymph # (Auto) 0.8 10^3/uL (0.8-4.8) 03/19/22 08:45 [place] # (Auto) 0.4 10^3/uL (0.2-0.9) 03/19/22 08:45 Eos # (Auto) 0.0 10^3/uL (0.0-0.8) 03/19/22 08:45 Baso # (Auto) 0.0 10^3/uL (0.0-0.1) 03/19/22 08:45 Nucleated RBC % (auto) 0 % 03/19/22 08:45 Nucleated RBCs # 0.0 /100WBC 03/19/22 08:45 PT 18.30 SECONDS (12.1-14.9) H 03/19/22 08:45 INR 1.48 (0.8-1.2) H 03/19/22 08:45 Sodium 136 mmol/L (136-145) 03/19/22 08:45 Potassium 3.8 mmol/L (3.5-5.1) 03/19/22 08:45 Chloride 100 mmol/L (98-107) 03/19/22 08:45 Carbon Dioxide 18 mmol/L (22-29) L 03/19/22 08:45 Anion Gap 21.8 (5-19) H 03/19/22 08:45 BUN 15 mg/dL (8-23) 03/19/22 08:45 Creatinine 0.4 mg/dL (0.5-0.9) L 03/19/22 08:45 GFR Calculation 157.8 mL/min (90-130) H 03/19/22 08:45 Glucose 290 mg/dL (65-115) H 03/19/22 08:45 POC Glucose 225 mg/dL (70-110) H 03/20/22 11:44 Calculated Osmolality 293 mOsm/kg (285-295) 03/19/22 08:45 Lactate 1.7 mmol/L (0.5-2.2) 03/18/22 17:17 Calcium 7.4 mg/dL (8.5-10.5) L 03/19/22 08:45 Iron 17 ug/dL (37-145) L 03/18/22 10:48 TIBC 148 mcg/dl 03/18/22 10:48 % Saturation 11.4 % (20-50) L 03/18/22 10:48 Unsat Iron Binding 131 ug/dL (112-347) 03/18/22 10:48 Total Bilirubin 1.0 mg/dL (0.15-1.2) 03/19/22 08:45 AST 78 U/L (0-32) H 03/19/22 08:45 ALT 79 U/L (0-33) H 03/19/22 08:45 Alkaline Phosphatase 360 IU/L (35-105) H 03/19/22 08:45 Creatine Kinase 47 U/L (26-192) 03/19/22 08:45 Troponin T Baseline 17 ng/L (0-10) H 03/19/22 08:45 Troponin T 120 Minute 16.45 ng/L (0-10) H 03/19/22 11:30 Delta Troponin T -0.55 ABS# (0-10) L 03/19/22 11:30 Troponin T Hi Sens 6Hr 15.42 ng/L (0-10) H 03/19/22 14:47 Troponin T Hi Sens 6Hr Delta -1.58 ng/L (0-12) L 03/19/22 14:47 Total Protein 5.0 g/dL (6.6-8.7) L 03/19/22 08:45 Albumin 2.4 g/dL (3.5-5.2) L 03/19/22 08:45 Globulin 2.6 g/dL (1.3-4.6) 03/19/22 08:45 Lipase 4 U/L (13-60) L 03/18/22 10:48 Carcinoembryonic Ag 63.4 ng/mL (0.0-4.7) H 03/19/22 14:47 CA 19-9 Antigen > 21056 U/mL (0-35) H 03/19/22 14:47 Urine Color Yellow (Yellow) 03/18/22 13:03 Urine Appearance Clear (CLEAR) 03/18/22 13:03 Urine pH 5 (5-7) 03/18/22 13:03 Ur Specific Coleman 1.015 (1.005-1.030) 03/18/22 13:03 Urine Protein Neg (Negative) 03/18/22 13:03 Urine Glucose (UA) Norm (Normal) 03/18/22 13:03 Urine Ketones Negative (Negative) 03/18/22 13:03 Urine Blood Neg (Negative) 03/18/22 13:03 Urine Nitrate Positive (Negative) H 03/18/22 13:03 Urine Bilirubin Neg (Negative) 03/18/22 13:03 Urine Urobilinogen 1 mg/dL (Negative) H 03/18/22 13:03 Ur Leukocyte Esterase 1+ (Negative) H 03/18/22 13:03 Urine RBC 0-4 /hpf (0-2) H 03/18/22 13:03 Urine WBC 15-25 /hpf (0-5) H 03/18/22 13:03 Ur Squamous Epith Cells 10-15 /hpf (0-5) H 03/18/22 13:03 Amorphous Sediment Not Reportable 03/18/22 13:03 Urine Bacteria 3+ /hpf (NONE) H 03/18/22 13:03 Radiology Impressions Abdomen/Pelvis CT 03/18/22 16:35 IMPRESSION: 1. Multifocal somewhat low-density heterogeneous lesions throughout the liver measuring up to 12 mm, similar to prior exam likely reflecting metastatic disease. 2. Gallbladder appears somewhat prominent, ultrasound could further evaluate this. 3. Complex 3 cm mass seen in the pancreatic head concerning for a primary pancreatic malignancy. 4. Common bile duct dilated to 10 mm and pancreatic duct dilated to 8.2 mm, similar to prior exam likely secondary to obstruction from the pancreatic head mass. 5. Bilateral renal cysts, negative for follow-up advised. 6. Right kidney interpolar region somewhat low-density wedge-shaped area, similar to prior exam, series 4, image 30 perhaps reflecting a focal pyelonephritis, metastatic disease not excluded. 7. Small amount nonspecific fluid in the pelvis. COMMENTS: Consistent with the [employer]'s Incidental Findings Committee white paper (J Am Armando Radiol 2018): Any incidental renal lesion less than 1 cm or classified as too small to characterize, or any incidental cystic renal lesion characterized as simple-appearing, is likely benign. No follow-up imaging is recommended for these lesions per consensus recommendations based on imaging criteria. Abdomen Ultrasound 03/19/22 10:17 IMPRESSION: 1. Unsuccessful attempt at biopsying metastatic lesions in the liver and the pancreatic head mass. Patient was unable to cooperate for this examination and hold her breath. 2. Unsuccessful attempt at pancreatic head mass biopsy due to encasing artery. 3. Discussed with Dr. Pascual. Surgical biopsy or endoscopic ultrasound biopsy may be helpful. Head CT 03/19/22 11:54 IMPRESSION: 1. No evidence of intracranial hemorrhage or mass effect. 2. Mild small vessel changes. Moderate parenchymal volume loss. 3. No acute intracranial findings. Lumbar Spine MRI 03/20/22 09:00 IMPRESSION: 1. No significant stenosis or disc protrusions throughout the lumbar spine. 2. No evidence for metastatic disease to the lumbar spine or cord compression. Recent Clincial Data Last Vital Signs Temp 98.0 F 03/20/22 12:00 Pulse 100 03/20/22 12:00 Resp 14 03/20/22 12:00 BP 156/82 03/20/22 12:00 Pulse Ox 95 03/20/22 12:00 Vital Signs Temp Pulse Resp BP Pulse Ox 03/20/22 12:00 98.0 F 100 14 156/82 95 03/20/22 08:00 98.1 F 102 H 14 159/81 94 03/20/22 04:22 16 Intake & Output/Weight 03/18/22 03/19/22 03/20/22 03/21/22 06:59 06:59 06:59 06:59 Intake Total 3146.25 / 3146.25 3472.917 / 3472.917 1440 / 1440 Output Total 600 / 600 800 / 800 800 / 800 Balance 2546.25 / 2546.25 2672.917 / 2672.917 640 / 640 Weight 68.039 kg Vitals Last Vital Signs Temp 98.0 F 03/20/22 12:00 Pulse 100 03/20/22 12:00 Resp 14 03/20/22 12:00 BP 156/82 03/20/22 12:00 Pulse Ox 95 03/20/22 12:00 TS Medications Medications Hydrocodone Bitart/Acetaminophen (Hydrocodone-Acetaminophen 10-325 Mg Tablet) 1 tab PO Q4H PRN PRN Reason: MODERATE PAIN Last Admin: 03/18/22 19:47 Dose: 1 tab Documented by: Carvedilol (Carvedilol 6.25 Mg Tablet) 6.25 mg PO BID@0900,2100 [facility] Last Admin: 03/20/22 10:56 Dose: 6.25 mg Documented by: Dextrose (Dextrose 50% Syringe 50 Ml) 25 ml IVP ONCE PRN; Protocol PRN Reason: hypoglycemia protocol Dextrose (Dextrose 50% Syringe 50 Ml) 50 ml IVP PRN PRN; Protocol PRN Reason: hypoglycemia protocol Docusate Sodium (Docusate Sodium 100 Mg Capsule) 100 mg PO BID [facility] Last Admin: 03/20/22 10:56 Dose: 100 mg Documented by: Fentanyl (Fentanyl 25 Mcg Patch) 1 patch TRANSDERMA Q72H [facility] Last Admin: 03/19/22 18:14 Dose: 1 patch Documented by: Glucagon (Glucagon 1 Mg/Ml Inj 1 Ml) 1 mg IM ONCE PRN; Protocol PRN Reason: Adult Acute Hypoglycemia Prot. Sodium Chloride (Sodium Chloride 0.9%) 1,000 mls @ 125 mls/hr IV .Q8H [facility] Last Admin: 03/20/22 08:09 Dose: 125 mls/hr Documented by: Dextrose (D5w) 500 mls @ 100 mls/hr IV ONCE PRN; Protocol PRN Reason: Adult Acute Hypoglycemia Prot Ciprofloxacin/Dextrose (Cipro) 400 mg in 200 mls @ 200 mls/hr IV Q8H [facility]; Protocol Last Infusion: 03/20/22 09:26 Dose: Infused Documented by: Insulin Human Lispro (Insulin Lispro 100 Unit/1 Ml) 0 unit SUBCUT TIDWM [facility]; Protocol Last Admin: 03/20/22 12:10 Dose: 8 unit Documented by: Levothyroxine Sodium (Levothyroxine 25 Mcg Tablet) 25 mcg PO DAILY [facility] Last Admin: 03/20/22 10:56 Dose: 25 mcg Documented by: Levothyroxine Sodium (Levothyroxine 200 Mcg Tablet) 200 mcg PO DAILY [facility] Last Admin: 03/20/22 10:56 Dose: 200 mcg Documented by: Metoclopramide HCl (Metoclopramide 10 Mg Tablet) 5 mg PO AC&BEDTIME [facility] Morphine Sulfate (Morphine 4 Mg/Ml Sdv 1 Ml) 2 mg IVP Q2H PRN PRN Reason: SEVERE PAIN Last Admin: 03/20/22 09:15 Dose: 2 mg Documented by: Naloxone HCl (Naloxone 0.4 Mg/Ml Sdv) 0.4 mg IVP PRN PRN PRN Reason: RESPIRATORY RATE < 8/MIN Ondansetron HCl (Ondansetron 2 Mg/Ml Sdv 2 Ml) 4 mg IVP Q6H PRN PRN Reason: NAUSEA AND VOMITING Last Admin: 03/20/22 10:56 Dose: 4 mg Documented by: Oxycodone HCl (Oxycodone 10 Mg Er (12 Hr) Tablet) 10 mg PO BID@0900,2100 [facility] Last Admin: 03/19/22 08:47 Dose: Not Given Documented by: Pantoprazole Sodium (Pantoprazole 40 Mg Sdv) 40 mg IVP Q12H [facility] Last Admin: 03/20/22 04:23 Dose: 40 mg Documented by: Scopolamine (Scopolamine 1.5 Patch) 1 patch TRANSDERMA Q3D [facility] Last Admin: 03/18/22 16:35 Dose: 1 patch Documented by: Senna (Sennosides 8.6 Mg Tablet) 17.2 mg PO BEDTIME [facility] Last Admin: 03/19/22 20:58 Dose: 17.2 mg Documented by: Sertraline HCl (Sertraline 100 Mg Tablet) 100 mg PO BEDTIME [facility] Last Admin: 03/19/22 20:58 Dose: 100 mg Documented by: Discontinued Medications Apixaban (Apixaban 5 Mg Tablet) 5 mg PO DAILY [facility] Aspirin (Aspirin 81 Mg Ec Tablet) 81 mg PO DAILY [facility] Diphenhydramine HCl (Diphenhydramine 50 Mg/Ml Sdv 1ml) 50 mg IVP ONCE ONE Stop: 03/18/22 11:08 Last Admin: 03/18/22 11:32 Dose: Not Given Documented by: Fentanyl (Fentanyl 50 Mcg/Ml Inj 2ml) 25 mcg IVP Q5M PRN PRN Reason: ANESTHESIA Haloperidol Lactate (Haloperidol Inj 5 Mg/Ml Inj 1 Ml) 2.5 mg IVP ONCE ONE Stop: 03/18/22 11:08 Last Admin: 03/18/22 11:31 Dose: 2.5 mg Documented by: Heparin Sodium (Porcine) (Heparin 5,000 Unit/Ml Inj 1 Ml) 5,000 unit SUBCUT Q12H [facility] Last Admin: 03/18/22 16:23 Dose: Not Given Documented by: Hydromorphone HCl (Hydromorphone 1 Mg/Ml Inj 1 Ml) 0.5 mg IVP ONCE ONE Stop: 03/18/22 15:43 Last Admin: 03/18/22 15:56 Dose: 0.5 mg Documented by: Hydromorphone HCl (Hydromorphone 1 Mg/Ml Inj 1 Ml) 0.5 mg IVP ONCE ONE Stop: 03/18/22 16:28 Last Admin: 03/18/22 16:35 Dose: 0.5 mg Documented by: Hydromorphone HCl (Hydromorphone 1 Mg/Ml Inj 1 Ml) 0.5 mg IVP Q4H PRN PRN Reason: SEVERE PAIN Last Admin: 03/19/22 00:20 Dose: 0.5 mg Documented by: Hydromorphone HCl (Hydromorphone 1 Mg/Ml Inj 1 Ml) 1 mg IVP Q4H PRN PRN Reason: SEVERE PAIN Last Admin: 03/19/22 02:36 Dose: 1 mg Documented by: Hydromorphone HCl (Hydromorphone 1 Mg/Ml Inj 1 Ml) 1 mg IVP Q2H PRN PRN Reason: SEVERE PAIN Last Admin: 03/19/22 08:28 Dose: 1 mg Documented by: Sodium Chloride (Sodium Chloride 0.9%) 1,000 mls @ 999 mls/hr IV .Q1H1M [facility] Stop: 03/18/22 13:15 Last Infusion: 03/18/22 15:29 Dose: Infused Documented by: Dextrose/Sodium Chloride (Dextrose 5%-Sod Chloride 0.45%) 1,000 mls @ 150 mls/hr IV .Q6H40M [facility] Last Admin: 03/18/22 16:23 Dose: Not Given Documented by: Sodium Chloride (Sodium Chloride 0.9%) 1,000 mls @ 75 mls/hr IV .[id number] [facility] Last Infusion: 03/18/22 16:23 Dose: Infused Documented by: Iohexol (Iohexol 350 Mg/Ml 100 Ml Btl) 0 ml IV ONCE ONE Stop: 03/18/22 18:10 Last Admin: 03/18/22 18:10 Dose: 95 ml Documented by: Metoclopramide HCl (Metoclopramide 5 Mg/Ml Sdv 2 Ml) 5 mg IVP Q6H PRN PRN Reason: NAUSEA AND VOMITING Last Admin: 03/20/22 08:03 Dose: 5 mg Documented by: Metoclopramide HCl (Metoclopramide 5 Mg/Ml Sdv 2 Ml) 5 mg IVP ONCE ONE Stop: 03/18/22 16:27 Last Admin: 03/18/22 16:41 Dose: 5 mg Documented by: Midazolam HCl (Midazolam 1 Mg/Ml Inj 2 Ml) 1 mg IVP Q5MIN PRN PRN Reason: ANESTHESIA Morphine Sulfate (Morphine 4 Mg/Ml Sdv 1 Ml) 4 mg IVP ONCE ONE Stop: 03/18/22 12:28 Last Admin: 03/18/22 12:49 Dose: 4 mg Documented by: Morphine Sulfate (Morphine 4 Mg/Ml Sdv 1 Ml) 6 mg IVP ONCE ONE Stop: 03/18/22 13:54 Last Admin: 03/18/22 14:34 Dose: 6 mg Documented by: Morphine Sulfate (Morphine 4 Mg/Ml Sdv 1 Ml) 4 mg IVP Q4H PRN PRN Reason: SEVERE PAIN Morphine Sulfate (Morphine Er (12 Hr) 15 Mg Tablet) 15 mg PO BID KARMA Ondansetron HCl (Ondansetron 2 Mg/Ml Sdv 2 Ml) 4 mg IVP ONCE ONE Stop: 03/18/22 12:29 Last Admin: 03/18/22 12:59 Dose: Not Given Documented by: Promethazine HCl (Promethazine 25 Mg/Ml Sdv 1 Ml) 25 mg IM ONCE ONE Stop: 03/18/22 12:52 Last Admin: 03/18/22 12:58 Dose: 25 mg Documented by: Promethazine HCl (Promethazine 25 Mg/Ml Sdv 1 Ml) 12.5 mg IM Q6H PRN PRN Reason: NAUSEA Allergies diphenhydramine [From Benadryl] Allergy (Verified 03/18/22 08:54) ADR-Muscle Pain Penicillins Allergy (Verified 03/18/22 08:54) ALGY-Anaphylaxis Tetanus Vaccines and Toxoid Allergy (Verified 03/18/22 08:54) ALGY-Rash trazodone Allergy (Verified 03/18/22 08:54) ALGY-Joint Pain zolpidem [From Ambien] Allergy (Verified 03/18/22 08:54) Unconscious Home Medications aspirin 81 mg tablet,delayed release 81 mg PO DAILY 02/17/21 [History Confirmed 03/18/22] calcium carbonate 500 mg calcium (1,250 mg) chewable tablet 1,000 mg PO DAILY 02/17/21 [History Confirmed 03/18/22] sertraline 100 mg tablet 100 mg PO BEDTIME 02/17/21 [History Confirmed 03/18/22] blood-glucose sensor (Dexcom G6 Sensor) 12/05/21 [History Confirmed 03/18/22] insulin lispro 100 unit/mL subcutaneous solution (Humalog U-100 Insulin) See Rx Instructions .ROUTE .COMPLEX #30 ml 12/05/21 [Rx Confirmed 03/18/22] nitroglycerin 0.4 mg sublingual tablet (Nitrostat) 0.4 mg SUBLINGUAL Q5M PRN 01/16/22 [History Confirmed 03/18/22] carvedilol 12.5 mg tablet 6.25 mg PO BID #0 tab 01/19/22 [Rx Confirmed 03/18/22] ondansetron HCl 4 mg tablet 4 - 8 mg PO Q8H PRN #10 tab 01/19/22 [Rx Confirmed 03/18/22] calcium polycarbophil 625 mg tablet (FiberCon) 1,250 mg PO BID #60 tab 02/20/22 [Rx Confirmed 03/18/22] levothyroxine 200 mcg tablet 200 mcg PO DAILY #30 tab 02/20/22 [Rx Confirmed 03/18/22] levothyroxine 25 mcg tablet 25 mcg PO DAILY #30 tab 02/20/22 [Rx Confirmed 03/18/22] hydrocodone 7.5 mg-acetaminophen 325 mg tablet 1 tab PO TID PRN 30 Days #90 tab 03/06/22 [Rx Confirmed 03/18/22] apixaban 5 mg tablet 5 mg PO DAILY 03/10/22 [History Confirmed 03/18/22] ibandronate 150 mg tablet (Boniva) 150 mg PO Q30D 03/10/22 [History Confirmed 03/18/22] ibuprofen 800 mg tablet 800 mg PO TID PRN #90 tab 03/11/22 [Rx Confirmed 03/18/22] metoclopramide HCl 5 mg tablet See Rx Instructions .ROUTE .COMPLEX 03/18/22 [History Confirmed 03/18/22] morphine 30 mg tablet,extended release 30 mg PO Q12H 03/18/22 [History Confirmed 03/18/22] Discharge Plan Discharge Patient Disposition: Xfer Other Condition: Stable Prescriptions: No Action hydrocodone-acetaminophen 7.5-325 mg tablet 1 tab PO TID PRN (Reason: abdominal pain) 30 Days Qty: 90 0RF Rx Instructions: new Liver and pancreatic lesions ibuprofen 800 mg tablet 800 mg PO TID PRN (Reason: Pain) Qty: 90 1RF (DME) Dexcom G6 Sensor Device See Rx Instructions .Route 0RF Rx Instructions: As directed insulin lispro [Humalog U-100 Insulin] 100 unit/mL solution See Rx Instructions .ROUTE .COMPLEX Qty: 30 5RF Rx Instructions: inject up to 50 units via insulin pump once daily for basal, bolus and correctional insulin. 340B medication levothyroxine 25 mcg tablet 25 mcg PO DAILY Qty: 30 5RF Rx Instructions: Add this to the 200 mcg so she is taking 225 mcg daily. levothyroxine 200 mcg tablet 200 mcg PO DAILY Qty: 30 5RF Rx Instructions: Add to the 25 mcg so she is taking 225 mcg daily calcium polycarbophil [FiberCon] 625 mg tablet 1,250 mg PO BID Qty: 60 1RF sertraline 100 mg tablet 100 mg PO BEDTIME 0RF aspirin 81 mg Tablet,Delayed Release (Dr/Ec) 81 mg PO DAILY 0RF calcium carbonate 500 mg calcium (1,250 mg) Tablet,Chewable 1,000 mg PO DAILY 0RF morphine 30 mg Tablet Extended Release 30 mg PO Q12H 0RF metoclopramide HCl 5 mg Tablet See Rx Instructions .ROUTE .COMPLEX 0RF Rx Instructions: 5 mg orally three times daily with meals and at bedtime ibandronate [Boniva] 150 mg tablet 150 mg PO Q30D 0RF apixaban 5 mg tablet 5 mg PO DAILY 0RF nitroglycerin [Nitrostat] 0.4 mg Tablet, Sublingual 0.4 mg SUBLINGUAL Q5M PRN (Reason: Chest Pain) 0RF Rx Instructions: do not exceed 3 doses per episode carvedilol 12.5 mg tablet 6.25 mg PO BID Qty: 0 0RF ondansetron HCl 4 mg tablet 4 - 8 mg PO Q8H PRN (Reason: Nausea And Vomiting) Qty: 10 0RF Referrals: Andrea Flores MD [Primary Care Provider] - Patient Instructions: Opioid Safety Transfer Attestations Time Spent in Transfer Care: greater than 30 min Status at Transfer: Cognitive status at transfer: cognitively intact ; Behavioral status at transfer: cooperative and independent in ADL's ; Quality Metrics Clinical Quality Measures [ No reported AMI, CVA or VTE this stay] Coding Level of Care Code Acute Pyrometallurgical Engineer for g Fwd Diagnoses Type 1 diabetes E10.9 Mass of pancreas K86.89 Lesion of liver K76.9 Anxiety and depression F41.9; F32.A Dyslipidemia E78.5 Pancreatic cancer C25.9 Metastases to the liver C78.7
[2022-03-20 13:34] LABS: Basophils % 0.1 %; Hematocrit 26.5 % (37.0-47.0); Hemoglobin 8.9 g/dL (11.5-15.3); Lymphocytes # 0.7 10^3/uL (0.8-4.8); Lymphocytes % 6.7 %; Mean Corpuscular HGB Conc 33.6 g/dL (30.0-36.0); Mean Corpuscular Hemoglobin 29.7 pg (28.0-34.0); Mean Corpuscular Volume 88.3 fl (81-99); Mean Platelet Volume 9.9 fL (7.4-10.4); Monocytes # 0.4 10^3/uL (0.2-0.9); Neutrophils # 9.27 10^3/uL (1.8-7.7); Neutrophils % 88.6 %; Nucleated Red Blood Cells % 0 %; Platelet Count 202 10^3/cmm (130-400); Red Cell Distribution Width 17.2 % (12.1-15.1); White Blood Count 10.5 10^3/uL (4.0-10.0)
[2022-03-20 13:58] LABS: Alanine Aminotransferase 56 U/L (0-33); Albumin Level 2.6 g/dL (3.5-5.2); Alkaline Phosphatase 324 IU/L (35-105); Anion Gap 15.6 (5-19); Aspartate Amino Transferase 37 U/L (0-32); Blood Urea Nitrogen 10 mg/dL (8-23); Calcium 7.4 mg/dL (8.5-10.5); Carbon Dioxide 21 mmol/L (22-29); Chloride 101 mmol/L (98-107); Globulin 2.2 g/dL (1.3-4.6); Glomerular Filtration Rate 157.8 mL/min (90-130); Glucose 180 mg/dL (65-115); Magnesium 1.5 mg/dL (1.7-2.3); Osmolality Calculated 284 mOsm/kg (285-295); Sodium 135 mmol/L (136-145); Total Bilirubin 0.5 mg/dL (0.15-1.2); Total Protein 4.8 g/dL (6.6-8.7)
[2022-03-20 14:33] LABS: Creatinine Clr Calc Pharmacy 63.4415; Potassium 2.6 mmol/L (3.5-5.1)
[2022-03-20 15:40] VITALS: RESP 18
[2022-03-20 15:45] VITALS: BP 146/80; PULSE 86; RESP 14; TEMP 36.9; O2SAT 95
--- NOTE | 2022-03-20 17:01 | PC.NURSE ---
Spoke with Renae at the [facility] transfer center at 1045 on 03/20/22. [facility] accepted patient but was waiting on a bed. Renae Garrido RN called to inform us of a bed number on . Room number 908. Called report to Cheryl CARTER at [phone] phone number [phone].
[2022-03-20 17:06] LABS: Glucose Point of Care 163 mg/dL (70-110)
[2022-03-20] MEDS: metoclopramide 10 mg Tablet 5 MG PO (18:12)
[2022-03-20] MEDS: lidocaine 1% 5 ML in potassium chloride premix 100 ML 25 ML IV (18:15)
--- NOTE | 2022-03-20 19:34 | PC.NURSE ---
Discharge Note Patient discharged to [facility] via ambulance accompanied by ems crew. Discharge instructions reviewed with patient and/or field service representative. Mobile pharmacy medications and/or prescriptions provided. Belongings/home medications returned.
[2022-03-20 20:09] VITALS: BP 146/80; PULSE 86; RESP 14; TEMP 36.9; O2SAT 95
== END 2022-03-20 17:30 | disposition short-term general hospital (02) | DRG 948 ==
LOC: ER 12:23 → MEDSURG 15:05
PROVIDERS: Internal Medicine; Internal Medicine Medical Oncology; Physician Assistant; Radiology Diagnostic Radiology; Admitting Provider Internal Medicine; Emergency Provider Family Medicine; PCP Family Medicine Adult Medicine; Visit Provider Internal Medicine
DX: G89.3 Neoplasm related pain (acute) (chronic) (principal); K86.9 Disease of pancreas, unspecified; I95.9 Hypotension, unspecified; F41.8 Other specified anxiety disorders; I48.91 Unspecified atrial fibrillation; Z86.16 Personal history of COVID-19; E10.42 Type 1 diabetes mellitus with diabetic polyneuropathy; E10.51 Type 1 diabetes mellitus with diabetic peripheral angiopathy without gangrene; E10.43 Type 1 diabetes mellitus with diabetic autonomic (poly)neuropathy; K31.84 Gastroparesis; Z86.718 Personal history of other venous thrombosis and embolism; E78.5 Hyperlipidemia, unspecified; I11.0 Hypertensive heart disease with heart failure; I50.9 Heart failure, unspecified; E03.9 Hypothyroidism, unspecified; M54.50 Low back pain, unspecified; I34.0 Nonrheumatic mitral (valve) insufficiency; M81.0 Age-related osteoporosis without current pathological fracture; Z96.41 Presence of insulin pump (external) (internal); Z86.711 Personal history of pulmonary embolism; Z79.82 Long term (current) use of aspirin; Z79.891 Long term (current) use of opiate analgesic; R30.0 Dysuria; K76.9 Liver disease, unspecified
CPT/HCPCS: 36415; 36416; 70450; 72158; 74177; 76705; 80053; 81001; 82378; 82550; 82962; 83540; 83550; 83605; 83690; 83735; 84484; 85025; 85610; 86301; 87040; 87077; 87086; 87186; 93005; 96372; A9577; C9113; J0744; J1170; J1630; J1815; J2270; J2405; J2550; J2765; J3480; J7030; J8597; Q9967

== ENCOUNTER 2022-03-31 10:10 | Oncology outpatient (recurring) (ONCR) | payer MEDICARE, SELFPAY ==
[2022-03-30] MEDS: sodium chloride 0.9% 500 ML IV (11:05)
[2022-03-30] MEDS: ondansetron 2 mg/ML SDV 2 mL 8 MG IVP (11:05)
[2022-03-30 13:44] VITALS: BP 102/66; PULSE 66; RESP 18; TEMP 36.4; O2SAT 98
[2022-03-30 13:55] LABS: Add Urine Microscopic? YES; Bilirubin Urine Neg (Negative); Blood Urine Neg (Negative); Glucose Urine UA Norm (Normal); Ketones Urine 1+ (Negative); Leukocyte Esterase Urine Negative (Negative); Nitrate Urine Negative (Negative); Protein Urine Neg (Negative); Urine Appearance Hazy (CLEAR); Urine Color Yellow (Yellow); Urobilinogen Urine 1 mg/dL (Negative); pH Urine 5 (5-7)
[2022-03-30 13:57] LABS: Add Urine Culture? Yes; Bacteria Urine 4+ /hpf; Squamous Epithelial Cell Urine 0-4 /hpf (0-5); WBC Urine 15-25 /hpf (0-5)
[2022-03-31] MEDS: ondansetron 2 mg/ML SDV 2 mL 8 MG IVP (10:49)
[2022-03-31] MEDS: sodium chloride 0.9% 500 ML 999 ML IV (10:52)
[2022-03-31 11:48] LABS: Basophils % 0.2 %; Eosinophils # 0.1 10^3/uL (0.0-0.8); Eosinophils % 1.3 %; Hematocrit 32.2 % (37.0-47.0); Hemoglobin 9.7 g/dL (11.5-15.3); Lymphocytes # 0.8 10^3/uL (0.8-4.8); Lymphocytes % 8.9 %; Mean Corpuscular HGB Conc 30.1 g/dL (30.0-36.0); Mean Corpuscular Hemoglobin 29.6 pg (28.0-34.0); Mean Corpuscular Volume 98.2 fl (81-99); Monocytes # 0.7 10^3/uL (0.2-0.9); Monocytes % 8.1 %; Neutrophils # 7.24 10^3/uL (1.8-7.7); Neutrophils % 80.4 %; Nucleated Red Blood Cells % 0 %; Platelet Count 171 10^3/cmm (130-400); Red Blood Count 3.28 10^6/uL (4.1-5.3); Red Cell Distribution Width 16.5 % (12.1-15.1)
[2022-03-31 12:18] LABS: Alanine Aminotransferase 17 U/L (0-33); Albumin Level 2.1 g/dL (3.5-5.2); Alkaline Phosphatase 355 IU/L (35-105); Aspartate Amino Transferase 40 U/L (0-32); Blood Urea Nitrogen 11 mg/dL (8-23); Calcium 7.9 mg/dL (8.5-10.5); Carbon Dioxide 26 mmol/L (22-29); Chloride 100 mmol/L (98-107); Globulin 2.9 g/dL (1.3-4.6); Glucose 88 mg/dL (65-115); Osmolality Calculated 281 mOsm/kg (285-295); Sodium 136 mmol/L (136-145); Total Bilirubin 0.4 mg/dL (0.15-1.2)
[2022-03-31 12:19] LABS: Anion Gap 13.7 (5-19); Potassium 3.7 mmol/L (3.5-5.1)
[2022-03-31 15:39] VITALS: BP 132/78; PULSE 60; RESP 18; TEMP 36.6; O2SAT 97
--- NOTE | 2022-03-31 15:42 | PC.NURSE ---
PATIENT CAME IN FOR HYDRATION 500 NS WITH iv ZOFRAN DUE TO NAUSEA . SISTER WAS WITH HER GIVING INFORMATION THAT SHE HAD A HARD TIME GETTING MEDICATIONS LAST EVENING BUT FINALLY WAS ABLE TO AND SHE DIDNT SLEEP WELL BUT NO OTHER SEVERE PAIN BUT EXTREMELY TIRED.
== END 2022-04-29 23:59 | disposition home or self-care (01) ==
PROVIDERS: PCP Family Medicine Adult Medicine; Visit Provider Internal Medicine Medical Oncology
DX: C25.0 Malignant neoplasm of head of pancreas (principal); Z53.9 Procedure and treatment not carried out, unspecified reason
CPT/HCPCS: 80053; 81001; 85025; 87077; 87086; 87186; 96365; 96366; 96375; 99214; 99215; J2405; J7040

== ENCOUNTER 2022-04-04 16:19 | Emergency (ER) | payer MEDICARE, SELFPAY ==
[2022-04-04 16:23] VITALS: BP 92/63; PULSE 95; RESP 16; TEMP 36.7; O2SAT 92; BMI 23.3
--- NOTE | 2022-04-04 16:29 | XRR_ITS ---
PROCEDURE INFORMATION: Exam: XR Chest Exam date and time: 04/04/2022 5:05 PM Age: 71 years old Clinical indication: Cough and dyspnea; Additional info: Dyspnea/cough TECHNIQUE: Imaging protocol: Radiologic exam of the chest. Views: 1 view. COMPARISON: CR (CHEST, ) 01/15/2022 11:51 PM FINDINGS: Lungs: Unremarkable. No consolidation. Pleural spaces: Unremarkable. No pleural effusion. No pneumothorax. Heart/Mediastinum: Unremarkable. No cardiomegaly. Bones/joints: Unremarkable. XR/XR chest 1V portable [id number] IMPRESSION: No acute findings.
--- NOTE | 2022-04-04 16:29 | CTR_ITS ---
PROCEDURE INFORMATION: Exam: CT Head Without Contrast Exam date and time: 04/04/2022 5:41 PM Age: 71 years old Clinical indication: Altered mental status/memory loss; Confusion or disorientation; Patient HX: Pancreatic cancer; Additional info: AMS TECHNIQUE: Imaging protocol: Computed tomography of the head without contrast. Radiation optimization: All CT scans at this facility use at least one of these dose optimization techniques: automated exposure control; mA and/or kV adjustment per patient size (includes targeted exams where dose is matched to clinical indication); or iterative reconstruction. COMPARISON: OT CT head wo con* [id number] 03/21/2022 6:50 PM RADIATION DOSE METRICS: Total DLP (mGy-cm): 1061.58 FINDINGS: Brain: Mild diffuse white matter disease likely reflecting chronic microvascular ischemic changes. Cerebral ventricles: No ventriculomegaly. Paranasal sinuses: Visualized sinuses are unremarkable. No fluid levels. Mastoid air cells: Visualized mastoid air cells are well aerated. Bones/joints: Unremarkable. No acute fracture. Soft tissues: Unremarkable. CT/CT head wo con* [id number] IMPRESSION: Negative for intracranial hemorrhage or mass effect.
--- NOTE | 2022-04-04 16:29 | ECG_ITS ---
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 Measurements Intervals [place] Rate: 80 P: 45 CT: 135 QRS: 26 QRSD: 88 T: 43 QT: 385 QTc: 445 Interpretive Statements SINUS RHYTHM WITH SINUS ARRHYTHMIA Compared to ECG 03/19/2022 08:51:10 Sinus tachycardia no longer present ST (T wave) deviation no longer present Electronically Signed On 04-04-2022 19:14:33 CDT by Destiny Salinas M.D. [id number]
[2022-04-04 16:44] VITALS: BP 92/63; PULSE 95; RESP 16; TEMP 36.7; O2SAT 92
[2022-04-04 16:54] LABS: ABG PCO2 45.1 mmHg (35-45); ABG PH Result 7.36 (7.35-7.45); Alveolar-Arterial Oxygen Gradi 7.1 mmHg (5-10); Arterial Blood Gas Hematocrit 26.9 % (37-47); Blood Gas Allen Test Pos; Blood Gas Operator Identificat MONRO; Blood Gas Sample Site Brachial, right; Blood Gas Sample Type Arterial; Carboxyhemoglobin 0.7 %THgb (0.4-20.1); HCO3 ABG 25.6 mmol/L (22-26); HGB O2 Sat 93.8 % (95-100); Ionized Calcium Level - ABG 1.2 mmol/L (1.1-1.4); Methemoglobin 1.5 % (0.4-1.5); Oxygen Device NC; Oxygen Saturation ABG 95.9; PO2 ABG 89.2 mmHg (80.0-100.0); Potassium Level - ABG 4.2 mmol/L (3.5-5.0); Total Hemoglobin 8.8 g/dL (12-16)
--- NOTE | 2022-04-04 17:00 | W.ED.AMS ---
HPI - Altered Mental Status General: Chief Complaint: Altered Mental Status Stated Complaint: ACCIDENTAL OVERDOSE Time Seen by Provider: 04/04/22 16:21 [facility] PFSH: Medical History (Updated 03/30/22 @ 19:13 by Geoffrey Rascon MD) Anxiety and depression Atrial fibrillation -rate controlled -telemetry monitoring -has previously declined AC; follows up with cardiology Chronic diarrhea of unknown origin COVID-19 Positive test 06/17/2020 and 06/23/2020. Diabetic ketoacidosis DVT (deep venous thrombosis) Dyslipidemia History of colon polyps on colonoscopy 2017 History of hypertension Hypotension Hypothyroidism Hypovolemia dehydration Low back pain Mild cognitive impairment Mitral regurgitation Opiate overdose Unintentional Osteoporosis Peripheral vascular disease Scleroderma Syncope due to orthostatic hypotension Type 1 diabetes UTI (urinary tract infection) Vasovagal near-syncope Surgical History (Updated 03/30/22 @ 19:13 by Geoffrey Rascon MD) H/O cardiac catheterization 2014, moderate disease no flow-limiting H/O dilation and curettage History of colonoscopy S/P ERCP (03/21/22) With placement of biliary stent Status post endovenous radiofrequency ablation of saphenous vein Family History Father CAD (coronary artery disease) Mother Hypertension CAD (coronary artery disease) Hyperlipidemia Sister Hypertension Diabetes Grandfather CAD (coronary artery disease) PATERNAL Social History Smoking and tobacco status: never smoked Alcohol intake: never Lives independently: Yes Housing: House Course Vital Signs: Vital signs: Vital Signs Temperature 98.0 F 04/04/22 16:44 Pulse Rate 95 04/04/22 16:44 Respiratory Rate 16 04/04/22 16:44 Blood Pressure 92/63 04/04/22 16:44 Pulse Oximetry 92 04/04/22 16:44 Oxygen Delivery Me thod 04/04/22 16:44 Oxygen Flow Rate 2 04/04/22 16:44 MDM - Altered Mental Status Lab Data Laboratory Results Specimen Type Arterial 04/04/22 16:41 Sample Site Brachial, right 04/04/22 16:41 ABG pH 7.36 (7.35-7.45) 04/04/22 16:41 ABG pCO2 45.1 mmHg (35-45) H 04/04/22 16:41 ABG pO2 89.2 mmHg (80.0-100.0) 04/04/22 16:41 ABG HCO3 25.6 mmol/L (22-26) 04/04/22 16:41 ABG O2 Saturation 95.9 04/04/22 16:41 ABG Base Excess 0.0 mmol/L (-2.0-2.0) 04/04/22 16:41 Stephen Test Pos 04/04/22 16:41 A-a O2 Gradient 7.1 mmHg (5-10) 04/04/22 16:41 Hematocrit 26.9 % (37-47) L 04/04/22 16:41 Hgb O2 Saturation 93.8 % (95-100) L 04/04/22 16:41 Carboxyhemoglobin 0.7 %THgb (0.4-20.1) 04/04/22 16:41 Methemoglobin 1.5 % (0.4-1.5) 04/04/22 16:41 Total Hemoglobin 8.8 g/dL (12-16) L 04/04/22 16:41 Sodium 131.0 mmol/L (131-143) 04/04/22 16:41 Potassium 4.2 mmol/L (3.5-5.0) 04/04/22 16:41 Glucose 258.0 mg/dL (70-115) H 04/04/22 16:41 Ionized Calcium 1.2 mmol/L (1.1-1.4) 04/04/22 16:41 O2 Delivery Device Nc 04/04/22 16:41 O2 Liters/Min 2.0 % 04/04/22 16:41 FiO2 28.0 % 04/04/22 16:[address] Instructor ID Tea 04/04/22 16:41 Discharge Plan Discharge Condition: Stable Prescriptions: No Action hydrocodone-acetaminophen 7.5-325 mg tablet 1 tab PO TID PRN (Reason: abdominal pain) 30 Days Qty: 90 0RF Rx Instructions: new Liver and pancreatic lesions ibuprofen 800 mg tablet 800 mg PO TID PRN (Reason: Pain) Qty: 90 1RF ciprofloxacin HCl 500 mg tablet 500 mg PO BID Qty: 14 0RF (DME) Dexcom G6 Sensor Device See Rx Instructions .Route Rx Instructions: As directed insulin lispro [Humalog U-100 Insulin] 100 unit/mL solution See Rx Instructions .ROUTE .COMPLEX Qty: 30 5RF Rx Instructions: inject up to 50 units via insulin pump once daily for basal, bolus and correctional insulin. 340B medication ondansetron 8 mg tablet,disintegrating 8 mg PO Q4H PRN (Reason: nausea and vomiting) 14 Days Qty: 60 0RF fentanyl 25 mcg/hr patch 72 hour 1 patch transdermal Q72H 30 Days Qty: 10 0RF scopolamine base 1 mg over 3 days patch 3 day 1 patch transdermal Q3D Qty: 10 0RF sulfamethoxazole-trimethoprim [Bactrim DS] 800-160 mg tablet 1 tab PO BID Qty: 10 0RF morphine 15 mg tablet extended release 15 mg PO Q12H 30 Days Qty: 60 0RF morphine concentrate 100 mg/5 mL (20 mg/mL) solution 20 mg PO Q2H PRN (Reason: pain) 30 Days Qty: 60 0RF Rx Instructions: Max dose: 6mls/day levothyroxine 25 mcg tablet 25 mcg PO DAILY Qty: 30 5RF Rx Instructions: Add this to the 200 mcg so she is taking 225 mcg daily. levothyroxine 200 mcg tablet 200 mcg PO DAILY Qty: 30 5RF Rx Instructions: Add to the 25 mcg so she is taking 225 mcg daily calcium polycarbophil [FiberCon] 625 mg tablet 1,250 mg PO BID Qty: 60 1RF sertraline 100 mg tablet 100 mg PO BEDTIME aspirin 81 mg Tablet,Delayed Release (Dr/Ec) 81 mg PO DAILY calcium carbonate 500 mg calcium (1,250 mg) Tablet,Chewable 1,000 mg PO DAILY metoclopramide HCl 5 mg Tablet See Rx Instructions .ROUTE .COMPLEX Rx Instructions: 5 mg orally three times daily with meals and at bedtime ibandronate [Boniva] 150 mg tablet 150 mg PO Q30D apixaban 5 mg tablet 5 mg PO DAILY nitroglycerin [Nitrostat] 0.4 mg Tablet, Sublingual 0.4 mg SUBLINGUAL Q5M PRN (Reason: Chest Pain) Rx Instructions: do not exceed 3 doses per episode carvedilol 12.5 mg tablet 6.25 mg PO BID Qty: 0 0RF ondansetron HCl 4 mg tablet 4 - 8 mg PO Q8H PRN (Reason: Nausea And Vomiting) Qty: 10 0RF Referrals: Andrea Flores MD [Primary Care Provider] - Coding Level of Care Code ED Complaints Coordinator for Beatriz Ramirez
--- NOTE | 2022-04-04 17:17 | ED_ITS ---
Documented by User: Jamie Carrillo DO 04/17/22 09:03 HPI - General Adult General: Chief complaint: Altered Mental Status Stated complaint: ACCIDENTAL OVERDOSE Time Seen by Provider: 04/04/22 16:21 Source: EMS Mode of arrival: EMS History of Present Illness: 71-year-old female presents to the emergency room with report of altered status. Patient has known pancreatic cancer the family believes she may have taken extra pain medications. She is awake and alert unlabored respirations she is not complaining of anything she answers all questions relatively appropriately when stimulated. But she is somewhat drowsy. She is adamant that she was not trying to harm herself. Onset (ago): hour(s) Severity: mild Pain Consistency: intermittent Associated symptoms: Reports confusion, decreased appetite, malaise and weakness; Deny chest pain, cough, diaphoresis, dyspnea, fevers/chills, headache(s), nausea, rash, palpitations, seizures, short of breath, syncope or vomiting Treatments prior to arrival: none Review of Systems Const: Reports: fatigue and malaise; Denies: fever(s), chills or diaphoresis ENMT: Denies: throat pain, ear or mastoid pain, nasal discharge or nasal congestion Card: Denies: chest pain, palpitations or syncope Resp: Denies: dyspnea GI: Denies: nausea or vomiting : Denies: flank pain, difficulty voiding, dysuria, urinary frequency or urinary urgency Skin/Breast: Denies: rash Neuro: Reports: confusion; Denies: headache(s) PFS ED PFSH: Medical History Anxiety and depression Atrial fibrillation -rate controlled -telemetry monitoring -has previously declined AC; follows up with cardiology Chronic diarrhea of unknown origin COVID-19 Positive test 06/17/2020 and 06/23/2020. Diabetic ketoacidosis DVT (deep venous thrombosis) Dyslipidemia History of colon polyps on colonoscopy 2018 History of hypertension Hypotension Hypothyroidism Hypovolemia dehydration Low back pain Mild cognitive impairment Mitral regurgitation Opiate overdose Unintentional Osteoporosis Peripheral vascular disease Scleroderma Syncope due to orthostatic hypotension Type 1 diabetes UTI (urinary tract infection) Vasovagal near-syncope Surgical History H/O cardiac catheterization 2015, moderate disease no flow-limiting H/O dilation and curettage History of colonoscopy S/P ERCP (03/21/22) With placement of biliary stent Status post endovenous radiofrequency ablation of saphenous vein Family History Father CAD (coronary artery disease) Mother Hypertension CAD (coronary artery disease) Hyperlipidemia Sister Hypertension Diabetes Grandfather CAD (coronary artery disease) PATERNAL Social History Smoking and tobacco status: never smoked Alcohol intake: never Lives independently: Yes Housing: House Physical Exam Const: GENERAL APPEARANCE: cooperative, comfortable and frail appearing ORIENTATION/CONSCIOUSNESS: Yes awake and Yes Other orientation findings (Sedate but easily arousable) HENMT: COMMON NORMALS: normocephalic and atraumatic HEAD & SCALP: normocephalic and atraumatic Resp: COMMON NORMALS: normal respiratory effort, No retractions, No use of accessory muscles and clear to auscultation bilaterally AUSCULTATION: clear to auscultation bilaterally Cardio: COMMON NORMALS: regular rate, regular rhythm and No murmurs present (Cardio) RATE: regular rate RHYTHM: regular rhythm GI: COMMON NORMALS: Soft to palpation and No hepatosplenomegaly present AUSCULTATION: Yes normoactive bowel sounds PALPATION: Yes Soft to palpation, No Tenderness to palpation present (GI), No Guarding due to palpation present (GI) and Yes No hepatosplenomegaly present Extremity: COMMON NORMALS: normal to inspection, capillary refill normal, no clubbing, cyanosis or edema, no calf tenderness and no pedal edema Skin: COMMON NORMALS: no rashes or lesions noted GENERAL SKIN EXAM: no rashes or lesions noted Course Vital Signs: Vital signs: Vital Signs Temperature 98.0 F 04/04/22 16:44 Pulse Rate 80 04/04/22 22:36 Respiratory Rate 16 04/04/22 22:36 Blood Pressure 114/72 04/04/22 22:36 Pulse Oximetry 94 04/04/22 22:36 Oxygen Delivery Me thod 04/04/22 19:07 Oxygen Flow Rate 2 04/04/22 19:07 MDM - General Adult Medical Decision Making Care signed out to Dr. Juarez at change of shift. See final notes for diagnosis and disposition. Patient presents here with weakness likely due to her pain medication patient otto ad had her fentanyl patch removed she is more awake and alert she states she feels much better her blood pressures here been normal patient's work-up was normal as well we are can hold the fentanyl patch she is to do lower doses of her morphine as well she is to follow-up with her oncologist and return if worsening patient and family understands agrees to plan. Medical Records I reviewed the patient's medical records. Lab Data I reviewed the patient's lab results. : 04/04/22 17:30 04/04/22 17:30 Radiology Impressions Chest X-Ray 04/04/22 16:29 IMPRESSION: No acute findings. Head CT 04/04/22 16:29 IMPRESSION: Negative for intracranial hemorrhage or mass effect. Laboratory Results WBC 9.7 10^3/uL (4.0-10.0) 04/04/22 17:30 RBC 3.05 10^6/uL (4.1-5.3) L 04/04/22 17:30 Hgb 9.3 g/dL (11.5-15.3) L 04/04/22 17:30 Hct 29.7 % (37.0-47.0) L 04/04/22 17:30 MCV 97.4 fl (81-99) 04/04/22 17:30 MCH 30.5 pg (28.0-34.0) 04/04/22 17:30 MCHC 31.3 g/dL (30.0-36.0) 04/04/22 17:30 RDW 16.1 % (12.1-15.1) H 04/04/22 17:30 Plt Count 156 10^3/cmm (130-400) 04/04/22 17:30 MPV 10.0 fL (7.4-10.4) 04/04/22 17:30 Neut % (Auto) 85.4 % 04/04/22 17:30 Lymph % (Auto) 7.8 % 04/04/22 17:30 [place] % (Auto) 4.8 % 04/04/22 17:30 Eos % (Auto) 1.3 % 04/04/22 17:30 Baso % (Auto) 0.3 % 04/04/22 17:30 Neut # (Auto) 8.26 10^3/uL (1.8-7.7) H 04/04/22 17:30 Lymph # (Auto) 0.8 10^3/uL (0.8-4.8) 04/04/22 17:30 [place] # (Auto) 0.5 10^3/uL (0.2-0.9) 04/04/22 17:30 Eos # (Auto) 0.1 10^3/uL (0.0-0.8) 04/04/22 17:30 Baso # (Auto) 0.0 10^3/uL (0.0-0.1) 04/04/22 17:30 Nucleated RBC % (auto) 0 % 04/04/22 17:30 Nucleated RBCs # 0.0 /100WBC 04/04/22 17:30 Specimen Type Arterial 04/04/22 16:41 Sample Site Brachial, right 04/04/22 16:41 ABG pH 7.36 (7.35-7.45) 04/04/22 16:41 ABG pCO2 45.1 mmHg (35-45) H 04/04/22 16:41 ABG pO2 89.2 mmHg (80.0-100.0) 04/04/22 16:41 ABG HCO3 25.6 mmol/L (22-26) 04/04/22 16:41 ABG O2 Saturation 95.9 04/04/22 16:41 ABG Base Excess 0.0 mmol/L (-2.0-2.0) 04/04/22 16:41 Stephen Test Pos 04/04/22 16:41 A-a O2 Gradient 7.1 mmHg (5-10) 04/04/22 16:41 Hematocrit 26.9 % (37-47) L 04/04/22 16:41 Hgb O2 Saturation 93.8 % (95-100) L 04/04/22 16:41 Carboxyhemoglobin 0.7 %THgb (0.4-20.1) 04/04/22 16:41 Methemoglobin 1.5 % (0.4-1.5) 04/04/22 16:41 Total Hemoglobin 8.8 g/dL (12-16) L 04/04/22 16:41 Sodium 131.0 mmol/L (131-143) 04/04/22 16:41 Potassium 4.2 mmol/L (3.5-5.0) 04/04/22 16:41 Glucose 258.0 mg/dL (70-115) H 04/04/22 16:41 Ionized Calcium 1.2 mmol/L (1.1-1.4) 04/04/22 16:41 O2 Delivery Device Nc 04/04/22 16:41 O2 Liters/Min 2.0 % 04/04/22 16:41 FiO2 28.0 % 04/04/22 16:41 Direct Chill Caster ID [place] 04/04/22 16:41 Sodium 131 mmol/L (136-145) L 04/04/22 17:30 Potassium 4.3 mmol/L (3.5-5.1) 04/04/22 17:30 Chloride 94 mmol/L (98-107) L 04/04/22 17:30 Carbon Dioxide 24 mmol/L (22-29) 04/04/22 17:30 Anion Gap 17.3 (5-19) 04/04/22 17:30 BUN 12 mg/dL (8-23) 04/04/22 17:30 Creatinine 0.7 mg/dL (0.5-0.9) 04/04/22 17:30 GFR Calculation 82.7 mL/min (90-130) L 04/04/22 17:30 Glucose 243 mg/dL (65-115) H 04/04/22 17:30 Calculated Osmolality 280 mOsm/kg (285-295) L 04/04/22 17:30 Calcium 8.1 mg/dL (8.5-10.5) L 04/04/22 17:30 Total Bilirubin 0.3 mg/dL (0.15-1.2) 04/04/22 17:30 AST 34 U/L (0-32) H 04/04/22 17:30 ALT 14 U/L (0-33) 04/04/22 17:30 Alkaline Phosphatase 424 IU/L (35-105) H 04/04/22 17:30 Total Protein 5.6 g/dL (6.6-8.7) L 04/04/22 17:30 Albumin 2.5 g/dL (3.5-5.2) L 04/04/22 17:30 Globulin 3.1 g/dL (1.3-4.6) 04/04/22 17:30 Urine Color Yellow (Yellow) 04/04/22 18:05 Urine Appearance Sl hazy (CLEAR) 04/04/22 18:05 Urine pH 6 (5-7) 04/04/22 18:05 Ur Specific [place] 1.010 (1.005-1.030) 04/04/22 18:05 Urine Protein Neg (Negative) 04/04/22 18:05 Urine Glucose (UA) Norm (Normal) 04/04/22 18:05 Urine Ketones Negative (Negative) 04/04/22 18:05 Urine Blood Neg (Negative) 04/04/22 18:05 Urine Nitrate Negative (Negative) 04/04/22 18:05 Urine Bilirubin Neg (Negative) 04/04/22 18:05 Urine Urobilinogen 1 mg/dL (Negative) H 04/04/22 18:05 Ur Leukocyte Esterase Trace (Negative) H 04/04/22 18:05 Urine RBC None /hpf (0-2) 04/04/22 18:05 Urine WBC 15-25 /hpf (0-5) H 04/04/22 18:05 Ur Squamous Epith Cells 0-4 /hpf (0-5) H 04/04/22 18:05 Amorphous Sediment Not Reportable 04/04/22 18:05 Urine Bacteria 4+ /hpf (NONE) H 04/04/22 18:05 Salicylates < 0.3 mg/dL (3-10) L 04/04/22 17:30 Urine Opiates Screen Positive ng/mL (Negative) H 04/04/22 18:05 Acetaminophen < 5.0 ug/mL (10-30) L 04/04/22 17:30 Ur Barbiturates Screen Negative ng/mL (Negative) 04/04/22 18:05 Ur Phencyclidine Scrn Negative ng/mL (Negative) 04/04/22 18:05 Ur Amphetamines Screen Negative ng/mL (Negative) 04/04/22 18:05 U Benzodiazepines Scrn Positive ng/mL (Negative) H 04/04/22 18:05 Urine Cocaine Screen Negative ng/mL (Negative) 04/04/22 18:05 U Marijuana (THC) Screen Negative ng/mL (Negative) 04/04/22 18:05 Ethyl Alcohol < 10 mg/dL (0-10) 04/04/22 17:30 Discharge Plan Discharge Patient Disposition: Home Clinical Impression: Weakness Condition: Stable Prescriptions: No Action ibuprofen 800 mg tablet 800 mg PO TID PRN (Reason: Pain) Qty: 90 1RF (DME) Dexcom G6 Sensor Device See Rx Instructions .Route Rx Instructions: As directed insulin lispro [Humalog U-100 Insulin] 100 unit/mL solution See Rx Instructions .ROUTE .COMPLEX Qty: 30 5RF Rx Instructions: inject up to 50 units via insulin pump once daily for basal, bolus and correctional insulin. 340B medication ondansetron 8 mg tablet,disintegrating 8 mg PO Q4H PRN (Reason: nausea and vomiting) 14 Days Qty: 60 0RF fentanyl 25 mcg/hr patch 72 hour 1 patch transdermal Q72H 30 Days Qty: 10 0RF scopolamine base 1 mg over 3 days patch 3 day 1 patch transdermal Q3D Qty: 10 0RF morphine concentrate 100 mg/5 mL (20 mg/mL) solution 20 mg PO Q2H PRN (Reason: pain) 30 Days Qty: 60 0RF Rx Instructions: Max dose: 6mls/day levothyroxine 200 mcg tablet 200 mcg PO DAILY Qty: 30 5RF Relistor 12 mg/0.6 mL syringe 12 mg SUBCUT Q48H PRN (Reason: constipation) Qty: 0.6 8RF sertraline 100 mg tablet 100 mg PO BEDTIME metoclopramide HCl 5 mg Tablet See Rx Instructions .ROUTE .COMPLEX Rx Instructions: 5 mg orally three times daily with meals and at bedtime ibandronate [Boniva] 150 mg tablet 150 mg PO Q30D apixaban 5 mg tablet 5 mg PO QAM nitroglycerin [Nitrostat] 0.4 mg Tablet, Sublingual 0.4 mg SUBLINGUAL Q5M PRN (Reason: Chest Pain) Rx Instructions: do not exceed 3 doses per episode carvedilol 12.5 mg tablet 6.25 mg PO BID Qty: 0 0RF Senna-S 8.6-50 mg Tablet 2 tab PO BID FiberCon 625 mg Tablet 1,250 mg PO BID PRN (Reason: Diarrhea) morphine 15 mg tablet extended release 30 mg PO Q12H naloxone 4 mg/actuation [place],Non-Aerosol 4 mg INTRANASAL Q3M PRN (Reason: OVERDOSE) Rx Instructions: spray 1 dose into ONE nostril; alternate nostrils w each dose until help arrives Discharge Orders: Discharge ED (Routine); Ordered 04/04/22 Ordered By: Kendra Juarez Referrals: Andrea Flores MD [Primary Care Provider] - Discharge Diet: Advance as tolerated Discharge Activity: Resume usual activity Patient Instructions: Weakness (ED) Coding Level of Care Code ED Dewaxer for Chg Fwd Exam Detailed Documented by User: Kendra Juarez MD 04/04/22 21:44 HPI - General Adult General: Chief complaint: Altered Mental Status Stated complaint: ACCIDENTAL OVERDOSE Time Seen by Provider: 04/04/22 16:21 History of Present Illness: . PFSH ED PFSH: Medical History Anxiety and depression Atrial fibrillation -rate controlled -telemetry monitoring -has previously declined AC; follows up with cardiology Chronic diarrhea of unknown origin COVID-19 Positive test 06/17/2020 and 06/23/2020. Diabetic ketoacidosis DVT (deep venous thrombosis) Dyslipidemia History of colon polyps on colonoscopy 2018 History of hypertension Hypotension Hypothyroidism Hypovolemia dehydration Low back pain Mild cognitive impairment Mitral regurgitation Opiate overdose Unintentional Osteoporosis Peripheral vascular disease Scleroderma Syncope due to orthostatic hypotension Type 1 diabetes UTI (urinary tract infection) Vasovagal near-syncope Surgical History H/O cardiac catheterization 2014, moderate disease no flow-limiting H/O dilation and curettage History of colonoscopy S/P ERCP (03/21/22) With placement of biliary stent Status post endovenous radiofrequency ablation of saphenous vein Family History Father CAD (coronary artery disease) Mother Hypertension CAD (coronary artery disease) Hyperlipidemia Sister Hypertension Diabetes Grandfather CAD (coronary artery disease) PATERNAL Social History Smoking and tobacco status: never smoked Alcohol intake: never Lives independently: Yes Housing: House Course Vital Signs: Vital signs: Vital Signs Temperature 98.0 F 04/04/22 16:44 Pulse Rate 80 04/04/22 22:36 Respiratory Rate 16 04/04/22 22:36 Blood Pressure 114/72 04/04/22 22:36 Pulse Oximetry 94 04/04/22 22:36 Oxygen Delivery Me thod 04/04/22 19:07 Oxygen Flow Rate 2 04/04/22 19:07 MDM - General Adult Medical Decision Making Patient presents here with weakness likely due to her pain medication patient had had her fentanyl patch removed she is more awake and alert she states she feels much better her blood pressures here been normal patient's work-up was normal as well we are can hold the fentanyl patch she is to do lower doses of her morphine as well she is to follow-up with her oncologist and return if worsening patient and family understands agrees to plan. Lab Data : 04/04/22 17:30 04/04/22 17:30 Radiology Impressions Chest X-Ray 04/04/22 16:29 IMPRESSION: No acute findings. Head CT 04/04/22 16:29 IMPRESSION: Negative for intracranial hemorrhage or mass effect. Laboratory Results WBC 9.7 10^3/uL (4.0-10.0) 04/04/22 17:30 RBC 3.05 10^6/uL (4.1-5.3) L 04/04/22 17:30 Hgb 9.3 g/dL (11.5-15.3) L 04/04/22 17:30 Hct 29.7 % (37.0-47.0) L 04/04/22 17:30 MCV 97.4 fl (81-99) 04/04/22 17:30 MCH 30.5 pg (28.0-34.0) 04/04/22 17:30 MCHC 31.3 g/dL (30.0-36.0) 04/04/22 17:30 RDW 16.1 % (12.1-15.1) H 04/04/22 17:30 Plt Count 156 10^3/cmm (130-400) 04/04/22 17:30 MPV 10.0 fL (7.4-10.4) 04/04/22 17:30 Neut % (Auto) 85.4 % 04/04/22 17:30 Lymph % (Auto) 7.8 % 04/04/22 17:30 [place] % (Auto) 4.8 % 04/04/22 17:30 Eos % (Auto) 1.3 % 04/04/22 17:30 Baso % (Auto) 0.3 % 04/04/22 17:30 Neut # (Auto) 8.26 10^3/uL (1.8-7.7) H 04/04/22 17:30 Lymph # (Auto) 0.8 10^3/uL (0.8-4.8) 04/04/22 17:30 [place] # (Auto) 0.5 10^3/uL (0.2-0.9) 04/04/22 17:30 Eos # (Auto) 0.1 10^3/uL (0.0-0.8) 04/04/22 17:30 Baso # (Auto) 0.0 10^3/uL (0.0-0.1) 04/04/22 17:30 Nucleated RBC % (auto) 0 % 04/04/22 17:30 Nucleated RBCs # 0.0 /100WBC 04/04/22 17:30 Specimen Type Arterial 04/04/22 16:41 Sample Site Brachial, right 04/04/22 16:41 ABG pH 7.36 (7.35-7.45) 04/04/22 16:41 ABG pCO2 45.1 mmHg (35-45) H 04/04/22 16:41 ABG pO2 89.2 mmHg (80.0-100.0) 04/04/22 16:41 ABG HCO3 25.6 mmol/L (22-26) 04/04/22 16:41 ABG O2 Saturation 95.9 04/04/22 16:41 ABG Base Excess 0.0 mmol/L (-2.0-2.0) 04/04/22 16:41 Stephen Test Pos 04/04/22 16:41 A-a O2 Gradient 7.1 mmHg (5-10) 04/04/22 16:41 Hematocrit 26.9 % (37-47) L 04/04/22 16:41 Hgb O2 Saturation 93.8 % (95-100) L 04/04/22 16:41 Carboxyhemoglobin 0.7 %THgb (0.4-20.1) 04/04/22 16:41 Methemoglobin 1.5 % (0.4-1.5) 04/04/22 16:41 Total Hemoglobin 8.8 g/dL (12-16) L 04/04/22 16:41 Sodium 131.0 mmol/L (131-143) 04/04/22 16:41 Potassium 4.2 mmol/L (3.5-5.0) 04/04/22 16:41 Glucose 258.0 mg/dL (70-115) H 04/04/22 16:41 Ionized Calcium 1.2 mmol/L (1.1-1.4) 04/04/22 16:41 O2 Delivery Device Nc 04/04/22 16:41 O2 Liters/Min 2.0 % 04/04/22 16:41 FiO2 28.0 % 04/04/22 16:41 Direct Chill Caster ID [place] 04/04/22 16:41 Sodium 131 mmol/L (136-145) L 04/04/22 17:30 Potassium 4.3 mmol/L (3.5-5.1) 04/04/22 17:30 Chloride 94 mmol/L (98-107) L 04/04/22 17:30 Carbon Dioxide 24 mmol/L (22-29) 04/04/22 17:30 Anion Gap 17.3 (5-19) 04/04/22 17:30 BUN 12 mg/dL (8-23) 04/04/22 17:30 Creatinine 0.7 mg/dL (0.5-0.9) 04/04/22 17:30 GFR Calculation 82.7 mL/min (90-130) L 04/04/22 17:30 Glucose 243 mg/dL (65-115) H 04/04/22 17:30 Calculated Osmolality 280 mOsm/kg (285-295) L 04/04/22 17:30 Calcium 8.1 mg/dL (8.5-10.5) L 04/04/22 17:30 Total Bilirubin 0.3 mg/dL (0.15-1.2) 04/04/22 17:30 AST 34 U/L (0-32) H 04/04/22 17:30 ALT 14 U/L (0-33) 04/04/22 17:30 Alkaline Phosphatase 424 IU/L (35-105) H 04/04/22 17:30 Total Protein 5.6 g/dL (6.6-8.7) L 04/04/22 17:30 Albumin 2.5 g/dL (3.5-5.2) L 04/04/22 17:30 Globulin 3.1 g/dL (1.3-4.6) 04/04/22 17:30 Urine Color Yellow (Yellow) 04/04/22 18:05 Urine Appearance Sl hazy (CLEAR) 04/04/22 18:05 Urine pH 6 (5-7) 04/04/22 18:05 Ur Specific [place] 1.010 (1.005-1.030) 04/04/22 18:05 Urine Protein Neg (Negative) 04/04/22 18:05 Urine Glucose (UA) Norm (Normal) 04/04/22 18:05 Urine Ketones Negative (Negative) 04/04/22 18:05 Urine Blood Neg (Negative) 04/04/22 18:05 Urine Nitrate Negative (Negative) 04/04/22 18:05 Urine Bilirubin Neg (Negative) 04/04/22 18:05 Urine Urobilinogen 1 mg/dL (Negative) H 04/04/22 18:05 Ur Leukocyte Esterase Trace (Negative) H 04/04/22 18:05 Urine RBC None /hpf (0-2) 04/04/22 18:05 Urine WBC 15-25 /hpf (0-5) H 04/04/22 18:05 Ur Squamous Epith Cells 0-4 /hpf (0-5) H 04/04/22 18:05 Amorphous Sediment Not Reportable 04/04/22 18:05 Urine Bacteria 4+ /hpf (NONE) H 04/04/22 18:05 Salicylates < 0.3 mg/dL (3-10) L 04/04/22 17:30 Urine Opiates Screen Positive ng/mL (Negative) H 04/04/22 18:05 Acetaminophen < 5.0 ug/mL (10-30) L 04/04/22 17:30 Ur Barbiturates Screen Negative ng/mL (Negative) 04/04/22 18:05 Ur Phencyclidine Scrn Negative ng/mL (Negative) 04/04/22 18:05 Ur Amphetamines Screen Negative ng/mL (Negative) 04/04/22 18:05 U Benzodiazepines Scrn Positive ng/mL (Negative) H 04/04/22 18:05 Urine Cocaine Screen Negative ng/mL (Negative) 04/04/22 18:05 U Marijuana (THC) Screen Negative ng/mL (Negative) 04/04/22 18:05 Ethyl Alcohol < 10 mg/dL (0-10) 04/04/22 17:30 Discharge Plan Discharge Patient Disposition: Home Clinical Impression: Weakness Condition: Stable Prescriptions: No Action ibuprofen 800 mg tablet 800 mg PO TID PRN (Reason: Pain) Qty: 90 1RF (DME) Dexcom G6 Sensor Device See Rx Instructions .Route Rx Instructions: As directed insulin lispro [Humalog U-100 Insulin] 100 unit/mL solution See Rx Instructions .ROUTE .COMPLEX Qty: 30 5RF Rx Instructions: inject up to 50 units via insulin pump once daily for basal, bolus and correctional insulin. 340B medication ondansetron 8 mg tablet,disintegrating 8 mg PO Q4H PRN (Reason: nausea and vomiting) 14 Days Qty: 60 0RF fentanyl 25 mcg/hr patch 72 hour 1 patch transdermal Q72H 30 Days Qty: 10 0RF scopolamine base 1 mg over 3 days patch 3 day 1 patch transdermal Q3D Qty: 10 0RF morphine concentrate 100 mg/5 mL (20 mg/mL) solution 20 mg PO Q2H PRN (Reason: pain) 30 Days Qty: 60 0RF Rx Instructions: Max dose: 6mls/day levothyroxine 200 mcg tablet 200 mcg PO DAILY Qty: 30 5RF Relistor 12 mg/0.6 mL syringe 12 mg SUBCUT Q48H PRN (Reason: constipation) Qty: 0.6 8RF sertraline 100 mg tablet 100 mg PO BEDTIME metoclopramide HCl 5 mg Tablet See Rx Instructions .ROUTE .COMPLEX Rx Instructions: 5 mg orally three times daily with meals and at bedtime ibandronate [Boniva] 150 mg tablet 150 mg PO Q30D apixaban 5 mg tablet 5 mg PO QAM nitroglycerin [Nitrostat] 0.4 mg Tablet, Sublingual 0.4 mg SUBLINGUAL Q5M PRN (Reason: Chest Pain) Rx Instructions: do not exceed 3 doses per episode carvedilol 12.5 mg tablet 6.25 mg PO BID Qty: 0 0RF Senna-S 8.6-50 mg Tablet 2 tab PO BID FiberCon 625 mg Tablet 1,250 mg PO BID PRN (Reason: Diarrhea) morphine 15 mg tablet extended release 30 mg PO Q12H naloxone 4 mg/actuation [place],Non-Aerosol 4 mg INTRANASAL Q3M PRN (Reason: OVERDOSE) Rx Instructions: spray 1 dose into ONE nostril; alternate nostrils w each dose until help arrives Discharge Orders: Discharge ED (Routine); Ordered 04/04/22 Ordered By: Kendra Juarez Referrals: Andrea Flores MD [Primary Care Provider] - Discharge Diet: Advance as tolerated Discharge Activity: Resume usual activity Patient Instructions: Weakness (ED) Coding Level of Care Code ED Dewaxer for Beatriz Ramirez Exam Detailed
[2022-04-04 17:39] LABS: Basophils % 0.3 %; Eosinophils # 0.1 10^3/uL (0.0-0.8); Eosinophils % 1.3 %; Hematocrit 29.7 % (37.0-47.0); Hemoglobin 9.3 g/dL (11.5-15.3); Lymphocytes # 0.8 10^3/uL (0.8-4.8); Lymphocytes % 7.8 %; Mean Corpuscular HGB Conc 31.3 g/dL (30.0-36.0); Mean Corpuscular Hemoglobin 30.5 pg (28.0-34.0); Mean Corpuscular Volume 97.4 fl (81-99); Monocytes # 0.5 10^3/uL (0.2-0.9); Monocytes % 4.8 %; Neutrophils # 8.26 10^3/uL (1.8-7.7); Neutrophils % 85.4 %; Nucleated Red Blood Cells % 0 %; Platelet Count 156 10^3/cmm (130-400); Red Blood Count 3.05 10^6/uL (4.1-5.3); Red Cell Distribution Width 16.1 % (12.1-15.1); White Blood Count 9.7 10^3/uL (4.0-10.0)
[2022-04-04 18:14] LABS: Alanine Aminotransferase 14 U/L (0-33); Albumin Level 2.5 g/dL (3.5-5.2); Alkaline Phosphatase 424 IU/L (35-105); Anion Gap 17.3 (5-19); Aspartate Amino Transferase 34 U/L (0-32); Blood Urea Nitrogen 12 mg/dL (8-23); Calcium 8.1 mg/dL (8.5-10.5); Carbon Dioxide 24 mmol/L (22-29); Chloride 94 mmol/L (98-107); Globulin 3.1 g/dL (1.3-4.6); Glomerular Filtration Rate 82.7 mL/min (90-130); Glucose 243 mg/dL (65-115); Osmolality Calculated 280 mOsm/kg (285-295); Potassium 4.3 mmol/L (3.5-5.1); Sodium 131 mmol/L (136-145); Total Bilirubin 0.3 mg/dL (0.15-1.2); Total Protein 5.6 g/dL (6.6-8.7)
[2022-04-04 18:27] LABS: Amphetamines Screen Urine Negative (Negative); Barbiturates Screen Urine Negative (Negative); Benzodiazepines Screen Urine Positive (Negative); Cocaine Screen Urine Negative (Negative); Opiate Screen Urine Positive (Negative); PCP Screen Urine Negative (Negative); THC Screen Urine Negative (Negative)
[2022-04-04 18:40] LABS: Add Urine Microscopic? YES; Bilirubin Urine Neg (Negative); Blood Urine Neg (Negative); Glucose Urine UA Norm (Normal); Ketones Urine Negative (Negative); Leukocyte Esterase Urine Trace (Negative); Nitrate Urine Negative (Negative); Protein Urine Neg (Negative); Urine Appearance SL Hazy (CLEAR); Urine Color Yellow (Yellow); Urobilinogen Urine 1 mg/dL (Negative); pH Urine 6 (5-7)
[2022-04-04 18:41] LABS: Add Urine Culture? Yes; Bacteria Urine 4+ /hpf; Squamous Epithelial Cell Urine 0-4 /hpf (0-5); WBC Urine 15-25 /hpf (0-5)
[2022-04-04 18:53] VITALS: BP 103/71; PULSE 97; RESP 26; O2SAT 94
[2022-04-04 18:56] LABS: Acetaminophen < 5.0 ug/mL (10-30); Alcohol Level < 10 mg/dL (0-10); Salicylate < 0.3 mg/dL (3-10)
[2022-04-04 19:07] VITALS: BP 94/61; PULSE 89; RESP 22; O2SAT 96
[2022-04-04] MEDS: sodium chloride 0.9% 1,000 ML 999 ML IV (19:26)
[2022-04-04 21:00] VITALS: BP 114/72; PULSE 80; RESP 16; O2SAT 94
[2022-04-04 22:36] VITALS: BP 114/72; PULSE 80; RESP 16; O2SAT 94
== END 2022-04-04 22:38 | disposition home or self-care (01) ==
PROVIDERS: Family Medicine; Emergency Provider Emergency Medicine; PCP Family Medicine Adult Medicine
DX: R53.1 Weakness (principal); Z79.82 Long term (current) use of aspirin; Z79.4 Long term (current) use of insulin; E78.5 Hyperlipidemia, unspecified; I10 Essential (primary) hypertension; E10.9 Type 1 diabetes mellitus without complications
CPT/HCPCS: 36600; 51701; 70450; 71045; 80051; 80053; 80306; 80307; 81001; 82330; 82805; 85025; 87077; 87086; 87186; 93005; 99285; J7030

== ENCOUNTER 2022-04-12 17:09 | Inpatient (IN) | payer MEDICARE, SELFPAY ==
--- NOTE | 2022-04-12 17:10 | CTR_ITS ---
PROCEDURE INFORMATION: Exam: CT Abdomen And Pelvis With Contrast Exam date and time: 04/12/2022 6:12 PM Age: 71 years old Clinical indication: Nausea and vomiting; Abdominal pain; Additional info: Abd pain TECHNIQUE: Imaging protocol: Computed tomography of the abdomen and pelvis with contrast. Radiation optimization: All CT scans at this facility use at least one of these dose optimization techniques: automated exposure control; mA and/or kV adjustment per patient size (includes targeted exams where dose is matched to clinical indication); or iterative reconstruction. Contrast material: OMNI 350; Contrast volume: 80 ml; Contrast route: INTRAVENOUS (IV); COMPARISON: 1. OT CT abdomen wo/w con [id number] 03/23/2022 12:[address] abdomen pelvis w con* [id number] 03/18/2022 6:13 PM RADIATION DOSE METRICS: Total DLP (mGy-cm): 467.39 FINDINGS: Lungs: Interval slight worsening of the right posterior basilar atelectasis and improvement in the left posterior basilar atelectasis. Pleural spaces: Mild right and minimal left pleural effusions representing interval slight worsening on the right and significant improvement on the left. Liver: Interval increase in size and number of the soft tissue density masses in the liver. Gallbladder and bile ducts: Interval disappearance of the gallbladder distension. One small gas bubble still probably present in the gallbladder neck. Slight pneumobilia evident as on 03/23/2022. Disappearance of the intrahepatic biliary ductal dilatation since 03/18/2022. Pancreas: Apparent interval enlargement of the approximately 4.7 cm deep by 5.4 cm wide heterogeneous mass with central necrosis in the pancreatic head. Extension of a stent in the common bile duct through the right side of the mass as on 03/23/2022. Pancreatic ductal dilatation still present. Spleen: Still no splenomegaly. Adrenal glands: No interval large adrenal mass. Kidneys and ureters: No change in the renal masses consistent with simple cysts. Continued ill-defined region of slightly decreased density in the posterolateral cortex of the right upper kidney, noted on 03/18/2022 to have a somewhat wedge-shaped configuration. Still no hydronephrosis. Stomach and bowel: Disappearance of the duodenal dilatation since 03/23/2022. No interval bowel obstruction. Appendix: Still no appendicitis. Intraperitoneal space: Still no free air. Interval increase in the mild free fluid in the pelvis Vasculature: Continued patency of the main portal vein as well as the splenic vein. Occlusion of the distal SMV still present. Still no aortic aneurysm. Continued atherosclerosis. Tight stenosis of the proximal celiac artery still present, with median arcuate ligament syndrome not excluded. Continued mild right and minimal left ovarian varices. Lymph nodes: Increase in size of multiple lymph nodes in the upper abdomen and in the retrocrural space since 03/18/2022. One node along the posterior medial aspect of the upper pancreatic head now 10 mm in diameter. Enlarged anterior peripancreatic nodes also now present. Urinary bladder: Interval appearance of gas in the anterior aspect of the moderately-distended bladder raising the possibility of recent catheterization. Reproductive: Unremarkable as visualized. Bones/joints: Developmental variant of 6 lumbar vertebral bodies with articulation of the L6 transverse processes with the sacrum. No significant change in the lobulated slightly heterogeneous sclerotic focus in the area of mild concavity of the right posterior margin of S1. Small very dense sclerotic focus in L6 and another in the left sacrum still present. No new bony lesion. Soft tissues: Focal densities and gas bubbles in the subcutaneous fat of the anterior abdominal wall consistent with prior injections. CT/CT abdomen pelvis w con* [id number] IMPRESSION: 1. Interval enlargement of the pancreatic head mass consistent with a primary malignancy and prominent worsening of the metastatic disease in the liver. Interval worsening of the metastatic adenopathy and slight increase in the ascites, also. 2. Stent in the common bile duct in good position as on 03/23/2022. No current biliary ductal dilatation. 3. Interval changes in the pleural effusions and bibasilar atelectasis detailed above. 4. Continued ill-defined region of slightly decreased density in the right upper kidney, cause unclear although a focus of infectious disease not excluded. Multiple renal cysts still present. 5. Disappearance of the duodenal dilatation since 03/23/2022. 6. Continued occlusion of the distal SMV, but patency of the main portal and splenic veins. Other findings detailed above.
--- NOTE | 2022-04-12 17:13 | ED_ITS ---
HPI - General Adult General: Chief complaint: Nausea/Vomiting/Diarrhea Stated complaint: ABD PAIN Time Seen by Provider: 04/12/22 17:10 History of Present Illness: Patient is 71-year-old female history of pancreatic cancer presenting to the emergency room complains abdominal pain naus ea vomiting. For the last day, patient has had significant vomiting with decreased p.o. intake. Patient's family called EMS as patient was brought to the emergency room. On arrival, patient occasionally answers questions. History is limited per encounter. Onset:earlier today Duration:ongoing Location:home Severity:moderate Associated symptoms: Reports nausea and vomiting; Deny chest pain, dyspnea, rash or palpitations Review of Systems Const: Denies: fever(s) or chills Eyes: Denies: change in vision ENMT: Denies: mouth pain Card: Denies: chest pain or palpitations Resp: Denies: dyspnea or non-productive cough GI: Reports: abdominal pain, nausea and vomiting; Denies: diarrhea : Denies: dysuria Musc: Denies: extremity pain Skin/Breast: Denies: rash or new lesions Neuro: Denies: weakness in extremities Psych: Reports: other (Normal mood) Jose M/Lymph: Denies: easy bruising PFSH ED PFSH: Medical History Anxiety and depression Atrial fibrillation -rate controlled -telemetry monitoring -has previously declined AC; follows up with cardiology Chronic diarrhea of unknown origin COVID-19 Positive test 06/17/2020 and 06/23/2020. Diabetic ketoacidosis DVT (deep venous thrombosis) Dyslipidemia History of colon polyps on colonoscopy 2018 History of hypertension Hypotension Hypothyroidism Hypovolemia dehydration Low back pain Mild cognitive impairment Mitral regurgitation Opiate overdose Unintentional Osteoporosis Peripheral vascular disease Scleroderma Syncope due to orthostatic hypotension Type 1 diabetes UTI (urinary tract infection) Vasovagal near-syncope Surgical History H/O cardiac catheterization 2015, moderate disease no flow-limiting H/O dilation and curettage History of colonoscopy S/P ERCP (03/21/22) With placement of biliary stent Status post endovenous radiofrequency ablation of saphenous vein Family History Father CAD (coronary artery disease) Mother Hypertension CAD (coronary artery disease) Hyperlipidemia Sister Hypertension Diabetes Grandfather CAD (coronary artery disease) PATERNAL Social History Smoking and tobacco status: never smoked Alcohol intake: never Lives independently: Yes Housing: House Physical Exam Const: COMMON NORMALS: alert HENMT: COMMON NORMALS: atraumatic HEAD & SCALP: atraumatic MOUTH: moist mucous membranes not abnormal Eye: COMMON NORMALS: EOMs intact bilaterally and conjunctivae normal CONJUNCTIVA: Yes conjunctivae normal Neck/C-Spine: COMMON NORMALS: full ROM and supple Resp: COMMON NORMALS: normal respiratory effort and clear to auscultation bilaterally AUSCULTATION: clear to auscultation bilaterally Cardio: COMMON NORMALS: regular rate RATE: regular rate GI: COMMON NORMALS: Soft to palpation PALPATION: Yes Soft to palpation OTHER: +moderate midepigastric abd focal TTP. NO guarding rebound, guarding, rigidity. No CVA tenderness to percussion. Neg Hollingsworth/Neg McBurney's point tenderness, no suprabupic tenderness to palpation. Extremity: COMMON NORMALS: full ROM Neuro: SENSORIUM/ORIENTATION: Yes alert MOTOR EXAM: No Abnormal motor strength present and Other motor observations present (no focal motor deficits) Psych: COMMON NORMALS: speech normal SPEECH: Yes normal speech MOOD & AFFECT: Yes euthymic mood Course Vital Signs: Vital signs: Vital Signs Pulse Rate 112 H 04/12/22 17:26 Respiratory Rate 18 04/12/22 20:05 Blood Pressure 167/112 04/12/22 20:05 Pulse Oximetry 97 04/12/22 20:05 MDM - General Adult Medical Decision Making 71-year-old female with history of atrial fibrillation, DVT, DKA, hypothyroidism, pancreatic cancer presenting to the emergency room for concerns of midepigastric abdominal pain, N/V. She should see showing worsening metastatic disease. Patient continues to have intermittent pain today. Patient per family has been having difficulty swallowing. Family is female placing patient on hospice. I have performed shared decision with making with family who at this time would like patient to be admitted for G-tube placement. I have consulted Dr. Carbajal who will follow the case. Disposition: admission Lab Data : 04/12/22 18:26 04/12/22 18:26 Radiology Impressions Abdomen/Pelvis CT 04/12/22 17:10 IMPRESSION: 1. Interval enlargement of the pancreatic head mass consistent with a primary malignancy and prominent worsening of the metastatic disease in the liver. Interval worsening of the metastatic adenopathy and slight increase in the ascites, also. 2. Stent in the common bile duct in good position as on 03/23/2022. No current biliary ductal dilatation. 3. Interval changes in the pleural effusions and bibasilar atelectasis detailed above. 4. Continued ill-defined region of slightly decreased density in the right upper kidney, cause unclear although a focus of infectious disease not excluded. Multiple renal cysts still present. 5. Disappearance of the duodenal dilatation since 03/23/2022. 6. Continued occlusion of the distal SMV, but patency of the main portal and splenic veins. Other findings detailed above. Laboratory Results WBC 7.7 10^3/uL (4.0-10.0) 04/12/22 18: RBC 2.94 10^6/uL (4.1-5.3) L 04/12/22 18: Hgb 8.8 g/dL (11.5-15.3) L 04/12/22 18: Hct 29.9 % (37.0-47.0) L 04/12/22 18: MCV 101.7 fl (81-99) H 04/12/22 18: MCH 29.9 pg (28.0-34.0) 04/12/22 18: MCHC 29.4 g/dL (30.0-36.0) L 04/12/22 18: RDW 16.4 % (12.1-15.1) H 04/12/22 18: Plt Count 109 10^3/cmm (130-400) L 04/12/22 18: MPV 10.3 fL (7.4-10.4) 04/12/22 18: Neut % (Auto) 82.7 % 04/12/22 18: Lymph % (Auto) 7.3 % 04/12/22 18: Haakon % (Auto) 9.2 % 04/12/22 18: Eos % (Auto) 0.1 % 04/12/22 18: Baso % (Auto) 0.3 % 04/12/22 18: Neut # (Auto) 6.39 10^3/uL (1.8-7.7) 04/12/22 18:26 Lymph # (Auto) 0.6 10^3/uL (0.8-4.8) L 04/12/22 18:26 Haakon # (Auto) 0.7 10^3/uL (0.2-0.9) 04/12/22 18:26 Eos # (Auto) 0.0 10^3/uL (0.0-0.8) 04/12/22 18: Baso # (Auto) 0.0 10^3/uL (0.0-0.1) 04/12/22 18: Nucleated RBC % (auto) 0 % 04/12/22 18: Nucleated RBCs # 0.0 /100WBC 04/12/22 18:26 Sodium 130 mmol/L (136-145) L 04/12/22 18:26 Potassium 3.4 mmol/L (3.5-5.1) L 04/12/22 18: Chloride 92 mmol/L (98-107) L 04/12/22 18: Carbon Dioxide 25 mmol/L (22-29) 04/12/22 18:26 Anion Gap 16.4 (5-19) 04/12/22 18:26 BUN 10 mg/dL (8-23) 04/12/22 18: Creatinine 0.4 mg/dL (0.5-0.9) L 04/12/22 18:26 GFR Calculation 157.8 mL/min (90-130) H 04/12/22 18: Glucose 210 mg/dL (65-115) H 04/12/22 18:26 Calculated Osmolality 275 mOsm/kg (285-295) L 04/12/22 18:26 Lactate 1.0 mmol/L (0.5-2.2) 04/12/22 18: Calcium 7.3 mg/dL (8.5-10.5) L 04/12/22 18: Total Bilirubin 0.5 mg/dL (0.15-1.2) 04/12/22 18:26 AST 47 U/L (0-32) H 04/12/22 18:26 ALT 17 U/L (0-33) 04/12/22 18:26 Alkaline Phosphatase 267 IU/L (35-105) H 04/12/22 18:26 Total Protein 4.4 g/dL (6.6-8.7) L 04/12/22 18:26 Albumin 2.0 g/dL (3.5-5.2) L 04/12/22 18:26 Globulin 2.4 g/dL (1.3-4.6) 04/12/22 18:26 Lipase 4 U/L (13-60) L 04/12/22 18:26 Serum Ketones Positive (Negative) H 04/12/22 18:26 Imaging Data Other Imaging: Radiologist's impression: [employer] [id number] [address] Scan Report Signed Patient: Kaylee Cardoso Unit #: [id number] : 1950 Age/Sex: 71 / F ADM Date: 04/12/22 Loc: ER Room/Bed: Attending Dr: Ordering Provider/Ordering MD: Bakari Recinos MD Date of Service: 04/12/22 Procedure(s): CT abdomen pelvis w con* [id number] Accession Number(s): [id number] Report Number: [id number] PROCEDURE INFORMATION: Exam: CT Abdomen And Pelvis With Contrast Exam date and time: 04/12/2022 6:12 PM Age: 71 years old Clinical indication: Nausea and vomiting; Abdominal pain; Additional info: Abd pain TECHNIQUE: Imaging protocol: Computed tomography of the abdomen and pelvis with contrast. Radiation optimization: All CT scans at this facility use at least one of these dose optimization techniques: automated exposure control; mA and/or kV adjustment per patient size (includes targeted exams where dose is matched to clinical indication); or iterative reconstruction. Contrast material: OMNI 350; Contrast volume: 80 ml; Contrast route: INTRAVENOUS (IV);? COMPARISON: 1. OT CT abdomen wo/w con [id number] 03/23/2022 12:[address] abdomen pelvis w con* [id number] 03/18/2022 6:13 PM RADIATION DOSE METRICS: Total DLP (mGy-cm): 467.39 FINDINGS: Lungs: Interval slight worsening of the right posterior basilar atelectasis and improvement in the left posterior basilar atelectasis. Pleural spaces: Mild right and minimal left pleural effusions representing interval slight worsening on the right and significant improvement on the left. Liver: Interval increase in size and number of the soft tissue density masses in the liver. Gallbladder and bile ducts: Interval disappearance of the gallbladder distension. One small gas bubble still probably present in the gallbladder neck. Slight pneumobilia evident as on 03/23/2022. Disappearance of the intrahepatic biliary ductal dilatation since 03/18/2022. Pancreas: Apparent interval enlargement of the approximately 4.7 cm deep by 5.4 cm wide heterogeneous mass with central necrosis in the pancreatic head. Extension of a stent in the common bile duct through the right side of the mass as on 03/23/2022. Pancreatic ductal dilatation still present. Spleen: Still no splenomegaly. Adrenal glands: No interval large adrenal mass. Kidneys and ureters: No change in the renal masses consistent with simple cysts. Continued ill-defined region of slightly decreased density in the posterolateral cortex of the right upper kidney, noted on 03/18/2022 to have a somewhat wedge-shaped configuration. Still no hydronephrosis. Stomach and bowel: Disappearance of the duodenal dilatation since 03/23/2022. No interval bowel obstruction. Appendix: Still no appendicitis. Intraperitoneal space: Still no free air. Interval increase in the mild free fluid in the pelvis Vasculature: Continued patency of the main portal vein as well as the splenic vein. Occlusion of the distal SMV still present. Still no aortic aneurysm. Continued atherosclerosis. Tight stenosis of the proximal celiac artery still present, with median arcuate ligament syndrome not excluded.? Continued mild right and minimal left ovarian varices. Lymph nodes: Increase in size of multiple lymph nodes in the upper abdomen and in the retrocrural space since 03/18/2022. One node along the posterior medial aspect of the upper pancreatic head now 10 mm in diameter. Enlarged anterior peripancreatic nodes also now present. Urinary bladder: Interval appearance of gas in the anterior aspect of the moderately-distended bladder raising the possibility of recent catheterization. Reproductive: Unremarkable as visualized. Bones/joints: Developmental variant of 6 lumbar vertebral bodies with articulation of the L6 transverse processes with the sacrum. No significant change in the lobulated slightly heterogeneous sclerotic focus in the area of mild concavity of the right posterior margin of S1. Small very dense sclerotic focus in L6 and another in the left sacrum still present. No new bony lesion. Soft tissues: Focal densities and gas bubbles in the subcutaneous fat of the anterior abdominal wall consistent with prior injections. CT/CT abdomen pelvis w con* [id number] IMPRESSION: 1. Interval enlargement of the pancreatic head mass consistent with a primary malignancy and prominent worsening of the metastatic disease in the liver. Interval worsening of the metastatic adenopathy and slight increase in the ascites, also. 2. Stent in the common bile duct in good position as on 03/23/2022. No current biliary ductal dilatation. 3. Interval changes in the pleural effusions and bibasilar atelectasis detailed above. 4. Continued ill-defined region of slightly decreased density in the right upper kidney, cause unclear although a focus of infectious disease not excluded. Multiple renal cysts still present. 5. Disappearance of the duodenal dilatation since 03/23/2022. 6. Continued occlusion of the distal SMV, but patency of the main portal and splenic veins. Other findings detailed above. ? Dictated By: Mayra Piña MD Signed By: Mayra Piña MD Signed Date/Time: 04/12/221937 DD/ 11 Discharge Plan Discharge Patient Disposition: Admitted As Inpatient Clinical Impression: Abdominal pain, Metastatic cancer Condition: Stable Coding Level of Care Code ED Dictaphone Technician for Chg Fwd Exam Comprehensive
[2022-04-12 17:26] VITALS: BP 110/79; PULSE 112; RESP 16; O2SAT 97
[2022-04-12] MEDS: iohexol 350 mg/mL 100 mL Btl IV (18:19)
[2022-04-12 18:39] LABS: Basophils % 0.3 %; Eosinophils % 0.1 %; Hematocrit 29.9 % (37.0-47.0); Hemoglobin 8.8 g/dL (11.5-15.3); Lymphocytes # 0.6 10^3/uL (0.8-4.8); Lymphocytes % 7.3 %; Mean Corpuscular HGB Conc 29.4 g/dL (30.0-36.0); Mean Corpuscular Hemoglobin 29.9 pg (28.0-34.0); Mean Corpuscular Volume 101.7 fl (81-99); Mean Platelet Volume 10.3 fL (7.4-10.4); Monocytes # 0.7 10^3/uL (0.2-0.9); Monocytes % 9.2 %; Neutrophils # 6.39 10^3/uL (1.8-7.7); Neutrophils % 82.7 %; Nucleated Red Blood Cells % 0 %; Platelet Count 109 10^3/cmm (130-400); Red Blood Count 2.94 10^6/uL (4.1-5.3); Red Cell Distribution Width 16.4 % (12.1-15.1); White Blood Count 7.7 10^3/uL (4.0-10.0)
[2022-04-12 18:51] LABS: Ketone (Acetest) Serum Positive (Negative)
[2022-04-12 19:03] LABS: Alanine Aminotransferase 17 U/L (0-33); Alkaline Phosphatase 267 IU/L (35-105); Anion Gap 16.4 (5-19); Aspartate Amino Transferase 47 U/L (0-32); Blood Urea Nitrogen 10 mg/dL (8-23); Calcium 7.3 mg/dL (8.5-10.5); Carbon Dioxide 25 mmol/L (22-29); Chloride 92 mmol/L (98-107); Globulin 2.4 g/dL (1.3-4.6); Glomerular Filtration Rate 157.8 mL/min (90-130); Glucose 210 mg/dL (65-115); Lipase 4 U/L (13-60); Osmolality Calculated 275 mOsm/kg (285-295); Potassium 3.4 mmol/L (3.5-5.1); Sodium 130 mmol/L (136-145); Total Bilirubin 0.5 mg/dL (0.15-1.2); Total Protein 4.4 g/dL (6.6-8.7)
[2022-04-12] MEDS: sodium chloride 0.9% 500 ML IV (19:08)
[2022-04-12 19:26] VITALS: RESP 18; O2SAT 98
[2022-04-12] MEDS: morphine 4 mg/mL SDV 1 mL 2 MG IVP (19:26)
[2022-04-12] MEDS: ondansetron 2 mg/ML SDV 2 mL 4 MG IVP (19:27)
[2022-04-12 20:05] VITALS: BP 167/112; RESP 18; O2SAT 97
[2022-04-12 20:50] LABS: Add Urine Microscopic? YES; Bilirubin Urine 1+ (Negative); Blood Urine Neg (Negative); Glucose Urine UA Norm (Normal); Ketones Urine Negative (Negative); Leukocyte Esterase Urine 1+ (Negative); Nitrate Urine Negative (Negative); Protein Urine Neg (Negative); Urine Appearance Hazy (CLEAR); Urine Color Yellow (Yellow); Urobilinogen Urine 1 mg/dL (Negative); pH Urine 6 (5-7)
[2022-04-12 20:51] LABS: Add Urine Culture? Yes; Bacteria Urine 4+ /hpf; RBC Urine 0-4 /hpf (0-2)
--- NOTE | 2022-04-12 21:31 | PC.NURSE ---
Tried to call report, no answer
--- NOTE | 2022-04-12 21:33 | PM.CONSULT ---
Providers/Reason For Consult Consulting Physician/Specialty*: this is a history and physical note Reason for Consult*: this is a history and physical Attending Physician: Jonatan Leahy MD Primary Care Provider: Andrea Flores MD History of Present Illness History of Present Illness This is not a consult note, this is a history and physical note Kaylee Cardoso is a 71 year old female with a past medical history of metastatic pancreatic cancer with metastasis to the liver, status post biliary stent placement, atrial fibrillation on Eliquis, hypertension, hyperlipidemia, type 1 diabetes, intractable pain, congestive heart failure, with intractable nausea, intractable, who presents [facility] due to fatigue, malaise, decreased appetite, increased pain, increased nausea. Patient was recently seen by Dr. Rascon, discussions were made about overall goals of care, patient wants to pursue chemotherapy at some point, she is placed on fentanyl for pain control however she is not able to tolerate fentanyl. She is on alternating 50 mg p.o. every 12 hours extended release and morphine concentrate, scopolamine patch, however she continues to have nausea, continues to have poor appetite, she also complains of abdominal pain, she has a UTI, she is on Bactrim, no fevers, chills, no cough, Review of Systems Const: Reports: fatigue and malaise; Denies: fever(s) Card: Denies: chest pain Resp: Denies: dyspnea GI: Reports: abdominal pain and nausea Medications/Allergies Home Medications Medication Instructions Recorded Confirmed Last Taken Type aspirin 81 mg tablet,delayed 81 mg PO DAILY 02/17/21 04/06/22 03/15/22 History release calcium carbonate 500 mg calcium 1,000 mg PO DAILY 02/17/21 04/06/22 03/15/22 History (1,250 mg) chewable tablet sertraline 100 mg tablet 100 mg PO BEDTIME 02/17/21 04/06/22 03/17/22 History blood-glucose sensor (Dexcom G6 12/05/21 04/06/22 Unknown History Sensor) insulin lispro 100 unit/mL See Rx Instructions .Route 12/05/21 04/06/22 Unknown Rx subcutaneous solution (Humalog .COMPLEX #30 mL U-100 Insulin) nitroglycerin 0.4 mg sublingual 0.4 mg sublingual Q5M PRN Chest 01/16/22 04/06/22 Unknown History tablet (Nitrostat) Pain carvedilol 12.5 mg tablet 6.25 mg PO BID #0 tabs 01/19/22 04/06/22 03/15/22 Rx ondansetron HCl 4 mg tablet 4 - 8 mg PO Q8H PRN Nausea And 01/19/22 04/06/22 Unknown Rx Vomiting #10 tabs calcium polycarbophil 625 mg 1,250 mg PO BID diarrhea #60 tabs 02/20/22 04/06/22 03/15/22 Rx tablet (FiberCon) levothyroxine 200 mcg tablet 200 mcg PO DAILY #30 tabs 02/20/22 04/06/22 03/15/22 Rx levothyroxine 25 mcg tablet 25 mcg PO DAILY #30 tabs 02/20/22 04/06/22 03/15/22 Rx hydrocodone 7.5 mg-acetaminophen 1 tab PO TID PRN abdominal pain 30 03/06/22 04/06/22 Unknown Rx 325 mg tablet days #90 tabs apixaban 5 mg tablet 5 mg PO DAILY circulation 03/10/22 04/06/22 03/15/22 History ibandronate 150 mg tablet (Boniva) 150 mg PO Q30D 03/10/22 04/06/22 Unknown History ibuprofen 800 mg tablet 800 mg PO TID PRN Pain #90 tabs 03/11/22 04/06/22 Unknown Rx metoclopramide HCl 5 mg tablet See Rx Instructions .Route .COMPLEX 03/18/22 04/06/22 03/17/22 History ciprofloxacin HCl 500 mg tablet 500 mg PO BID uti #14 tabs 03/27/22 04/06/22 Unknown Rx fentanyl 25 mcg/hr transdermal 1 patch transdermal Q72H 30 days 03/30/22 03/30/22 Unknown Rx patch #10 ea ondansetron 8 mg disintegrating 8 mg PO Q4H PRN nausea and 03/30/22 03/30/22 Unknown Rx tablet vomiting 14 days #60 tabs scopolamine base 1 mg over 3 days 1 patch transdermal Q3D #10 ea 03/30/22 03/30/22 Unknown Rx transdermal patch sulfamethoxazole 800 1 tab PO BID #10 tabs 03/30/22 03/30/22 Unknown Rx mg-trimethoprim 160 mg tablet (Bactrim DS) morphine 15 mg tablet,extended 15 mg PO Q12H 30 days #60 tabs 04/03/22 04/03/22 Unknown Rx release morphine concentrate 100 mg/5 mL 20 mg PO Q2H PRN pain 30 days #60 04/03/22 04/03/22 Unknown Rx (20 mg/mL) oral solution mL methylnaltrexone 12 mg/0.6 mL 12 mg (0.6 mL) SUBCUT Q48H PRN 04/10/22 Unknown Rx subcutaneous syringe (Relistor) constipation #0.6 mL Allergies Allergy/AdvReac Type Severity Reaction Status Date / Time diphenhydramine Allergy ADR-Muscle Verified 04/04/22 16:31 [From Benadryl] Pain Penicillins Allergy ALGY-Anaphy Verified 04/04/22 16:31 laxis Tetanus Vaccines and Toxoid Allergy ALGY-Rash Verified 04/04/22 16:31 trazodone Allergy ALGY-Joint Verified 04/04/22 16:31 Pain zolpidem [From Ambien] Allergy Unconscious Verified 04/04/22 16:31 PFSH Acute PFSH: Medical History Anxiety and depression Atrial fibrillation -rate controlled -telemetry monitoring -has previously declined AC; follows up with cardiology Chronic diarrhea of unknown origin COVID-19 Positive test 06/17/2020 and 06/23/2020. Diabetic ketoacidosis DVT (deep venous thrombosis) Dyslipidemia History of colon polyps on colonoscopy 2018 History of hypertension Hypotension Hypothyroidism Hypovolemia dehydration Low back pain Mild cognitive impairment Mitral regurgitation Opiate overdose Unintentional Osteoporosis Peripheral vascular disease Scleroderma Syncope due to orthostatic hypotension Type 1 diabetes UTI (urinary tract infection) Vasovagal near-syncope Surgical History H/O cardiac catheterization 2015, moderate disease no flow-limiting H/O dilation and curettage History of colonoscopy S/P ERCP (03/21/22) With placement of biliary stent Status post endovenous radiofrequency ablation of saphenous vein Family History Father CAD (coronary artery disease) Mother Hypertension CAD (coronary artery disease) Hyperlipidemia Sister Hypertension Diabetes Grandfather CAD (coronary artery disease) PATERNAL Social History Smoking and tobacco status: never smoked Alcohol intake: never Lives independently: Yes Housing: House Vitals/I&O/Wt Last Vital Signs Pulse 112 H 04/12/22 17:26 Resp 18 04/12/22 20:05 BP 167/112 04/12/22 20:05 Pulse Ox 97 04/12/22 20:05 Physical Exam Const: COMMON NORMALS: no acute distress and patient oriented x3 GENERAL APPEARANCE: frail appearing NUTRITIONAL APPEARANCE: cachectic HENMT: COMMON NORMALS: normocephalic HEAD & SCALP: normocephalic Neck/C-Spine: COMMON NORMALS: no JVD Resp: COMMON NORMALS: normal respiratory effort, No retractions, No use of accessory muscles and clear to auscultation bilaterally AUSCULTATION: clear to auscultation bilaterally Cardio: COMMON NORMALS: no JVD, regular rate, regular rhythm, S1 normal heart sound present and S2 normal heart sound present RATE: regular rate RHYTHM: regular rhythm HEART SOUNDS: S1 normal heart sound present and S2 normal heart sound present GI: COMMON NORMALS: Normal to inspection, nondistended, normoactive bowel sounds present, Soft to palpation, non-tender, no masses and no bruits PALPATION: Yes Soft to palpation and Yes Tenderness to palpation present (GI) (Mild generalized tenderness) Extremity: COMMON NORMALS: capillary refill normal, no clubbing, cyanosis or edema, no calf tenderness and no pedal edema Neuro: COMMON NORMALS: patient oriented x3 Psych: COMMON NORMALS: mental status grossly normal Data : 04/12/22 18:26 04/12/22 18:26 A&P Assessment and plan (1) Intractable nausea and vomiting: Status: Acute (2) Intractable pain: Status: Acute (3) Cancer related pain: Status: Acute (4) Dehydration: Status: Acute (5) Metastatic cancer: Status: Acute (6) Malignant neoplasm of head of pancreas: Status: Acute (7) Metastases to the liver: Status: Acute (8) Type 1 diabetes: Status: Acute (9) Lesion of liver: Status: Acute (10) Anxiety and depression: Status: Acute Plan Intractable nausea, vomiting, pain -Cancer-related pain -Dilaudid 1 mg every 2 hours as needed -Reglan, Zofran, promethazine for nausea -clear liquids -Consult speech therapy, consult nutrition -Full code -Eliquis for DVT prophylaxis Metastatic pancreatic cancer, with biliary stent placement -Patient wants to pursue chemotherapy at some point Abdominal ascites, abdominal pain -Very unlikely to be spontaneous bacterial peritonitis, but given her abdominal pain, her nausea vomiting we will start her on Cipro and Flagyl UTI, Cipro as above Atrial fibrillation, hold Coreg, is on Eliquis 5 mg p.o. daily Type 1 diabetes mellitus, family is unsure what her insulin pump is set at -We will have to call her primary care in the morning to get the settings for her insulin pump -Continue insulin pump for now, -Check blood sugars every 8 hours Hyponatremia, secondary to dehydration, IV fluids Hypokalemia, replace Serum ketone Positive, blood sugar 210, anion gap normal at 16.4, bicarb normal at 25, likely sec to dehydration Consult Attestations Medical Necessity Statement: Patient requires hospitalization, outpatient with observation, for intractable nausea, vomiting, pain, cancer pain, dehydration, hypokalemia Coding Level of Care Code 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
[2022-04-12 21:35] LABS: ABG PCO2 42.4 mmHg (35-45); ABG PH Result 7.45 (7.35-7.45); Alveolar-Arterial Oxygen Gradi 2.3 mmHg (5-10); Arterial Blood Gas Hematocrit 30.3 % (37-47); Base Excess ABG 4.6 mmol/L (-2.0-2.0); Blood Gas Allen Test Pos; Blood Gas LPM 2.5 %; Blood Gas Sample Site Radial, left; Blood Gas Sample Type Arterial; Carboxyhemoglobin 0.9 %THgb (0.4-20.1); HCO3 ABG 29.1 mmol/L (22-26); HGB O2 Sat 95.9 % (95-100); Ionized Calcium Level - ABG 1.1 mmol/L (1.1-1.4); Methemoglobin 1.2 % (0.4-1.5); Oxygen Device NC; Oxygen Saturation ABG 97.9; PO2 ABG 79.1 mmHg (80.0-100.0); Potassium Level - ABG 3.4 mmol/L (3.5-5.0); Total Hemoglobin 9.9 g/dL (12-16)
[2022-04-12 22:16] VITALS: BP 128/90; PULSE 112; RESP 14; TEMP 36.7; O2SAT 99
[2022-04-12 22:19] VITALS: BMI 25.8
[2022-04-12 23:01] LABS: Procalcitonin 0.07 ng/mL (0-0.5)
[2022-04-12 23:13] LABS: Magnesium 1.3 mg/dL (1.7-2.3); Phosphorus 2.8 mg/dL (2.5-4.5)
[2022-04-13] VITALS (13 sets, daily range): BP systolic 109–157; BP diastolic 70–93; PULSE 91–119; RESP 12–18; TEMP 36.3–36.6; O2SAT 91–100
[2022-04-13] MEDS: dextrose 5%-sod chloride 0.9% 1,000 ML 100 ML IV ×3 (00:03→23:34)
[2022-04-13] MEDS: pantoprazole 40 mg SDV IVP ×3 (00:07→21:22)
[2022-04-13] MEDS: ciprofloxacin 400 MG/200 ML PREMIX 200 MG IV ×3 (00:07→22:09)
[2022-04-13] MEDS: metroNIDAZOLE IV 500 MG/100 ML PREMIX 100 MG IV ×4 (00:11→22:09)
[2022-04-13 00:25] LABS: Lactic Sepsis W/Reflex 1.1 mmol/L (0.5-2.2)
[2022-04-13] MEDS: scopolamine 1.5 Patch 1 PATCH TRANSDERMA (01:03)
[2022-04-13] MEDS: ondansetron 2 mg/ML SDV 2 mL 4 MG IVP ×3 (01:03→21:36)
[2022-04-13] MEDS: magnesium sulfate premix 4 GM/100 ML PREMIX IV (01:08)
[2022-04-13] MEDS: lidocaine 1% 5 ML in potassium chloride premix 100 ML 25 ML IV (03:16)
[2022-04-13 05:23] LABS: Basophils % 0.1 %; Eosinophils % 0.4 %; Hematocrit 28.2 % (37.0-47.0); Hemoglobin 8.9 g/dL (11.5-15.3); Lymphocytes # 0.8 10^3/uL (0.8-4.8); Lymphocytes % 10.8 %; Mean Corpuscular HGB Conc 31.6 g/dL (30.0-36.0); Mean Corpuscular Hemoglobin 30.4 pg (28.0-34.0); Mean Corpuscular Volume 96.2 fl (81-99); Mean Platelet Volume 10.4 fL (7.4-10.4); Monocytes # 0.8 10^3/uL (0.2-0.9); Monocytes % 10.8 %; Neutrophils # 5.75 10^3/uL (1.8-7.7); Neutrophils % 77.5 %; Nucleated Red Blood Cells % 0 %; Platelet Count 127 10^3/cmm (130-400); Red Blood Count 2.93 10^6/uL (4.1-5.3); White Blood Count 7.4 10^3/uL (4.0-10.0)
[2022-04-13 05:31] LABS: INR 1.78 (0.8-1.2)
[2022-04-13 05:44] LABS: Alanine Aminotransferase 21 U/L (0-33); Alkaline Phosphatase 299 IU/L (35-105); Anion Gap 11.5 (5-19); Aspartate Amino Transferase 52 U/L (0-32); Blood Urea Nitrogen 10 mg/dL (8-23); Calcium 7.4 mg/dL (8.5-10.5); Carbon Dioxide 31 mmol/L (22-29); Chloride 96 mmol/L (98-107); Globulin 2.7 g/dL (1.3-4.6); Glomerular Filtration Rate 157.8 mL/min (90-130); Glucose 227 mg/dL (65-115); Osmolality Calculated 286 mOsm/kg (285-295); Potassium 3.5 mmol/L (3.5-5.1); Sodium 135 mmol/L (136-145); Total Bilirubin 0.5 mg/dL (0.15-1.2); Total Protein 4.7 g/dL (6.6-8.7)
[2022-04-13 05:47] LABS: Cholesterol 100 mg/dL (0-200); HDL Cholesterol 37 mg/dL (60-100); LDL Cholesterol Calculated 47 mg/dL (50-129); LDL HDL Ratio 1.27 RATIO (0.00-3.22); NT Pro B Type Natriuretic Pept 1152 pg/mL (0-125); Triglycerides 78 mg/dL (0-150)
[2022-04-13 05:53] LABS: Thyroid Stimulating Hormone 14.01 uIU/mL (0.27-4.20)
[2022-04-13 06:04] LABS: Estmated Average Glucose 94; Hemoglobin A1C 4.9 % (4.0-6.0)
[2022-04-13] MEDS: HYDROmorphone 1 mg/mL INJ 1 mL IVP ×5 (08:54→21:37)
[2022-04-13] MEDS: calcium carbonate 500 mg Chew Tablet 1000 MG PO (09:48)
[2022-04-13] MEDS: levothyroxine 200 mcg Tablet PO (09:48)
[2022-04-13] MEDS: levothyroxine 25 mcg Tablet PO (09:48)
[2022-04-13] MEDS: carvedilol 12.5 mg Tablet 6.25 MG PO (09:49)
[2022-04-13] MEDS: apixaban 5 mg Tablet PO (09:52)
--- NOTE | 2022-04-13 10:39 | PC.CHAP ---
Pastoral Care Encounter/Spiritual Assessment Type of Contact [] Declined scada technician visit [] Patient/Family/Request visit [] Outpatient visit [] Follow-up visit [] Physician referral [] Code/Alert [x] Routine visit [] Staff referral [] Actively dying [] Patient sleeping [] Family support [] [] Out of room [] Palliative care [] [] Receiving care in room [] Pre-surgical visit [] Trauma [] Long length of stay [] ICU visit [] Other: Relational/Emotional Strength [x] Patient feels connected with others/family/visitors/staff [] Distress [] Loneliness/isolation [] Abandonment Spirituality of Patient [x] Person of [place]ree[place] [x] Attends Uatsdin of their [place] [x] Believes in Prayer [] Reads Bible or Cheondoism materials [] There are Spiritual issues to be addressed Rehab Physician Interventions [] Prayer [] Active listening [] Non-anxious presence [] Spiritual/emotional support [] Crisis/trauma care [] Spiritual counseling [] Bereavement support [] Provided bereavement packet [] Provided Bible/devotional materials [] Provided toy/stuffed animal, coloring book to patient or family member [] Provided Communion [] Anointing/[place] [] Salvation [] Completed spiritual assessment [] Other: Impact on Illness or Injury Angry [] Fearful [] Anxious [] Often cries [] Exhaustion [] Unable to work [] Unable to attend jew [] Unable to walk/stand [] Unable to read [] Unable to drive [] Unable to eat/drink [] Unable to sleep [] Unable to be with family [] Patient intubated [] Other: Summary Time spent with patient 10 min
--- NOTE | 2022-04-13 11:01 | CTR_ITS ---
PROCEDURE INFORMATION: Exam: CT Head Without Contrast Exam date and time: 04/13/2022 1:40 PM Age: 71 years old Clinical indication: Injury or trauma; Fall; Blunt trauma (contusions or hematomas); Consciousness not specified; Injury details: Fell 4 days ago n/v; Patient HX: HX of pancreatic cancer; Additional info: Fall 4d ago, hit head. N/v TECHNIQUE: Imaging protocol: Computed tomography of the head without contrast. Radiation optimization: All CT scans at this facility use at least one of these dose optimization techniques: automated exposure control; mA and/or kV adjustment per patient size (includes targeted exams where dose is matched to clinical indication); or iterative reconstruction. COMPARISON: CT head wo con* [id number] 04/04/2022 5:41 PM RADIATION DOSE METRICS: Total DLP (mGy-cm): 1095.68 FINDINGS: Brain: Stable atrophic changes without evidence of intracranial bleed. Cerebral ventricles: No ventriculomegaly. Paranasal sinuses: Visualized sinuses are unremarkable. No fluid levels. Mastoid air cells: Visualized mastoid air cells are well aerated. Bones/joints: Unremarkable. No acute fracture. Soft tissues: Unremarkable. CT/CT head wo con* [id number] IMPRESSION: No change.
[2022-04-13] MEDS: metoclopramide 5 mg/mL SDV 2 mL IVP ×3 (11:12→23:35)
[2022-04-13] MEDS: bisacodyl 10 mg Supp PR (12:28)
--- NOTE | 2022-04-13 14:05 | PC.OT ---
Patient did not arouse on therapist attempts to perform assessment.
[2022-04-13 18:50] LABS: Bacillus cereus group Not Detected (NOT DETECT); Bacillus subtillis group Not Detected (NOT DETECT); Corynebacterium Not Detected (NOT DETECT); Cutibacterium acnes (P.acnes) Not Detected (NOT DETECT); Enterococcus Not Detected (NOT DETECT); Enterococcus faecalis Not Detected (NOT DETECT); Enterococcus faecium Not Detected (NOT DETECT); Lactobacillus species Not Detected (NOT DETECT); Listeria Not Detected (NOT DETECT); Listeria monocytogenes Not Detected (NOT DETECT); Micrococcus Not Detected (NOT DETECT); Pan Candida Not Detected (NOT DETECT); Pan Gram-Negative Not Detected (NOT DETECT); Staphylococcus epidermidis Not Detected (NOT DETECT); Staphylococcus lugdunensis Not Detected (NOT DETECT); Staphylococcus species Detected (NOT DETECT); Streptococcus agalactiae Not Detected (NOT DETECT); Streptococcus anginosus group Not Detected (NOT DETECT); Streptococcus pneumoniae Not Detected (NOT DETECT); Streptococcus pyogenes Not Detected (NOT DETECT); Streptococcus species Not Detected (NOT DETECT); mecA Detected (NOT DETECT); mecC Not Detected (NOT DETECT)
--- NOTE | 2022-04-13 19:11 | P.PN_ITS ---
Subjective Subjective: This morning she was very nauseated, having abdominal and back pain. This improved somewhat after pain medication and nausea medication, although this was also causing her to be somewhat sleepy. Still has not had a BM. She had apparently received Relistor with success x1 previously, her, and that had significantly offset her pain control resulting in quite a bit of pain. Discussed lidocaine patch for lower back pain. Vitals/I&O/Wt Last Vital Signs Temp 97.4 F L 04/13/22 11:14 Pulse 102 H 04/13/22 16:00 Resp 18 04/13/22 16:00 BP 134/84 04/13/22 16:00 Pulse Ox 92 04/13/22 16:00 O2 Del Method 04/13/22 16:00 04/13/22 04/13/22 04/13/22 06:59 14:59 22:59 Intake Total 900 / 900 1405 / 1405 100 / 1505 Output Total 500 / 500 Balance 400 / 400 1405 / 1405 100 / 1505 Weight last 48 hrs Weight 70.392 kg Physical Exam Narrative: Daughter accompanies her at bedside. Const: GENERAL APPEARANCE: cooperative OTHER: Somnolent after pain medication and nausea medication. Wakes up to voice. HENMT: COMMON NORMALS: oropharynx normal Neck/C-Spine: COMMON NORMALS: no JVD Resp: COMMON NORMALS: normal respiratory effort and clear to auscultation bilaterally AUSCULTATION: clear to auscultation bilaterally Cardio: COMMON NORMALS: no JVD, regular rhythm, S1 normal heart sound present, S2 normal heart sound present and No murmurs present (Cardio) RHYTHM: regular rhythm HEART SOUNDS: S1 normal heart sound present and S2 normal heart sound present GI: COMMON NORMALS: Soft to palpation AUSCULTATION: Yes Hypoactive bowel sounds present PALPATION: Yes Soft to palpation OTHER: Nontender in areas other than upper abdomen Extremity: COMMON NORMALS: no joint enlargement and no pedal edema Neuro: COMMON NORMALS: moves all extremities Skin: COMMON NORMALS: no rashes or lesions noted GENERAL SKIN EXAM: no rashes or lesions noted Urinary Catheter Management: Br[place]: Cath Placed During This Visit: yes Reason for Continuing Indwelling Catheter: Acute Urinary Retention or Obstruction Urinary Catheter Date of Insertion: 04/13/22 Urinary Catheter Time of Insertion: 00:40 Data : 04/13/22 04:36 04/13/22 04:36 Micro: Microbiology 04/12/22 23:42 Blood Culture - Preliminary Blood 04/12/22 23:42 Blood Culture - Preliminary Blood SPECIMEN COLLECTED A&P Assessment and plan (1) Intractable nausea and vomiting: For now continue bowel rest. Continue nausea control. Continue Protonix. Continue bowel regimen to assist with severe constipation. Bowel sounds are diminished. Unfortunately need for pain control likely has been contributing to some degree of ileus as well. Unfortunately did not do very well with Relistor in terms of pain control, appears to have had some reversal of pain medication, although did have a bowel movement. Status: Acute (2) Intractable pain: Add lidocaine patch for back pain. Status: Acute (3) Cancer related pain: Status: Acute (4) Dehydration: Unfortunately with very poor appetite recently, very poor oral intake. PEG tube appears has been given some consideration on admission, although currently would not yet be ready. Appears to have some degree of possibly ileus. She is also been having some persistent nausea and vomiting. Also bad constipation. Continue to optimize as above. Feeding tube may still need to be considered given significant difficulties with oral intake and medication intake recently. Daughter states she sometimes has been unable to finish antibiotic courses for UTI leading to recurrence due to p oor appetite/oral intake. Status: Acute (5) Metastatic cancer: Has been wanting to sitter/dry chemotherapy with oncology should her c ondition/functional status improve. Status: Acute (6) Malignant neoplasm of head of pancreas: Status: Acute (7) Metastases to the liver: Extensive metastatic disease to the liver. Status: Acute (8) Type 1 diabetes: Status: Acute (9) Lesion of liver: Status: Acute (10) Anxiety and depression: Status: Acute Plan Abdominal ascites, abdominal pain: Continue empiric antibiotics for now. Eliquis would need to be held in case paracentesis was needed. UTI, Cipro as above Atrial fibrillation, Coreg, is on Eliquis 5 mg p.o. daily. Type 1 diabetes mellitus: SSI. For now transition to lantus 10 units. Requested insulin regimen to be obtained from PCP office. Hyponatremia, secondary to dehydration, IV fluids Hypokalemia, replaced. Recheck. Check magnesium. Serum ketone Positive, blood sugar 210, anion gap normal at 16.4, bicarb normal at 25, likely sec to dehydration Attestations Medical Necessity Statement*: Continue admission for assessment of management of persistent nausea and vomiting, optimization of pain control in setting of severe constipation lady with metastatic pancreatic cancer. 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
[2022-04-13 20:04] LABS: Glucose Point of Care 137 mg/dL (70-110)
[2022-04-13] MEDS: lidocaine 5% Patch 1 PATCH TOPICAL (21:22)
[2022-04-13 22:03] LABS: Glucose Point of Care 156 mg/dL (70-110)
[2022-04-14] VITALS (11 sets, daily range): BP systolic 153–166; BP diastolic 78–96; PULSE 91–105; RESP 12–20; TEMP 36.6–36.9; O2SAT 94–99
[2022-04-14] MEDS: HYDROmorphone 1 mg/mL INJ 1 mL IVP (00:11)
[2022-04-14 00:42] LABS: Glucose Point of Care 252 mg/dL (70-110)
[2022-04-14] MEDS: morphine 4 mg/mL SDV 1 mL 2 MG IVP ×4 (02:13→16:03)
[2022-04-14] MEDS: ondansetron 2 mg/ML SDV 2 mL 4 MG IVP ×2 (03:51→11:18)
[2022-04-14 04:42] LABS: Glucose Point of Care 244 mg/dL (70-110)
[2022-04-14 06:02] LABS: Basophils % 0.1 %; Hematocrit 29.2 % (37.0-47.0); Hemoglobin 9.1 g/dL (11.5-15.3); Lymphocytes # 0.7 10^3/uL (0.8-4.8); Lymphocytes % 8.5 %; Mean Corpuscular HGB Conc 31.2 g/dL (30.0-36.0); Mean Corpuscular Hemoglobin 30.1 pg (28.0-34.0); Mean Corpuscular Volume 96.7 fl (81-99); Mean Platelet Volume 10.6 fL (7.4-10.4); Monocytes # 0.5 10^3/uL (0.2-0.9); Monocytes % 6.6 %; Neutrophils # 6.54 10^3/uL (1.8-7.7); Nucleated Red Blood Cells % 0 %; Platelet Count 107 10^3/cmm (130-400); Red Blood Count 3.02 10^6/uL (4.1-5.3); Red Cell Distribution Width 15.9 % (12.1-15.1); White Blood Count 7.8 10^3/uL (4.0-10.0)
[2022-04-14] MEDS: metroNIDAZOLE IV 500 MG/100 ML PREMIX 100 MG IV ×2 (06:10→16:02)
[2022-04-14] MEDS: metoclopramide 5 mg/mL SDV 2 mL IVP (06:10)
[2022-04-14 06:17] LABS: INR 1.98 (0.8-1.2)
[2022-04-14 06:28] LABS: Alanine Aminotransferase 21 U/L (0-33); Albumin Level 2.1 g/dL (3.5-5.2); Alkaline Phosphatase 296 U/L (35-105); Anion Gap 12.5 (5-19); Aspartate Amino Transferase 35 U/L (0-32); Blood Urea Nitrogen 8 mg/dL (8-23); Calcium 7.6 mg/dL (8.5-10.5); Carbon Dioxide 27 mmol/L (22-29); Chloride 99 mmol/L (98-107); Globulin 2.8 g/dL (1.3-4.6); Glomerular Filtration Rate 157.8 mL/min (90-130); Glucose 268 mg/dL (65-115); Magnesium 1.6 mg/dL (1.7-2.3); Osmolality Calculated 288 mOsm/kg (285-295); Potassium 3.5 mmol/L (3.5-5.1); Sodium 135 mmol/L (136-145); Total Bilirubin 0.6 mg/dL (0.15-1.2); Total Protein 4.9 g/dL (6.6-8.7)
[2022-04-14 06:54] LABS: Glucose Point of Care 309 mg/dL (70-110)
[2022-04-14] MEDS: promethazine 25 mg/mL SDV 1 mL 12.5 MG IM ×2 (08:36→17:05)
[2022-04-14 08:50] LABS: Glucose Point of Care 238 mg/dL (70-110)
[2022-04-14] MEDS: ciprofloxacin 400 MG/200 ML PREMIX 200 MG IV (11:26)
[2022-04-14] MEDS: pantoprazole 40 mg SDV IVP (11:27)
--- NOTE | 2022-04-14 13:46 | PC.OT ---
Visited with patient's sister offering assistance with possible equipment needed for home discharge. She politely requests to defer this conversation until d/c time is closer.
[2022-04-14] MEDS: dextrose 5%-sod chloride 0.9% 1,000 ML 100 ML IV (14:02)
[2022-04-14] MEDS: acetaminophen 325 mg Tablet 650 MG PO ×2 (14:04→23:27)
[2022-04-14 17:06] LABS: Glucose Point of Care 226 mg/dL (70-110)
[2022-04-14] MEDS: methylnaltrexone 12 /0.6 mL INJ 12 MG SUBCUT (18:17)
--- NOTE | 2022-04-14 18:42 | PC.NURSE ---
PER DR. COATES WE WILL LEAVE THE IV OUT OVERNIGHT, AND ORDERS HAVE BEEN PLACED FOR PT TO HAVE A MIDLINE PLACED TOMORROW.
--- NOTE | 2022-04-14 19:32 | PC.NURSE ---
Patient sister requested to hold off on doing enema to see how effect Relistor shot will be. Night RN notifed.
[2022-04-14] MEDS: morphine 4 mg/mL SDV 1 mL 2 MG IM (20:26)
[2022-04-14] MEDS: ondansetron 2 mg/ML SDV 2 mL 4 MG IM (20:27)
[2022-04-14 21:11] LABS: Glucose Point of Care 248 mg/dL (70-110)
--- NOTE | 2022-04-14 22:00 | PM.PN ---
Subjective Subjective: Nausea, upper abdominal and mid/lower back pain. Continues to require pain medication administration. Requiring nausea medication. Not tolerating eating by mouth. So far no bowel movement. She for now does not want to yet consider hospice care. Vitals/I&O/Wt Last Vital Signs Temp 98.5 F 04/14/22 20:00 Pulse 99 04/14/22 20:00 Resp 16 04/14/22 20:26 BP 156/88 04/14/22 20:00 Pulse Ox 96 04/14/22 20:00 O2 Del Method 04/14/22 20:00 04/14/22 04/14/22 04/14/22 06:59 14:59 22:59 Intake Total 220 / 3425 1560 / 1560 60 / 1620 Output Total 520 / 840 Balance -300 / 2585 1560 / 1560 60 / 1620 Weight last 48 hrs Weight 70.392 kg Physical Exam Narrative: Family at bedside. Const: COMMON NORMALS: patient oriented x3 and alert GENERAL APPEARANCE: cooperative ORIENTATION/CONSCIOUSNESS: Yes awake OTHER: Wakes up to voice. HENMT: COMMON NORMALS: oropharynx normal Neck/C-Spine: COMMON NORMALS: no JVD Resp: COMMON NORMALS: normal respiratory effort and clear to auscultation bilaterally AUSCULTATION: clear to auscultation bilaterally Cardio: COMMON NORMALS: no JVD, regular rhythm, S1 normal heart sound present, S2 normal heart sound present and No murmurs present (Cardio) RHYTHM: regular rhythm HEART SOUNDS: S1 normal heart sound present and S2 normal heart sound present GI: COMMON NORMALS: Normal to inspection, nondistended, normoactive bowel sounds present, Soft to palpation and non-tender AUSCULTATION: Yes Hypoactive bowel sounds present PALPATION: Yes Soft to palpation OTHER: Nontender in areas other than upper abdomen Extremity: COMMON NORMALS: no joint enlargement and no pedal edema Neuro: COMMON NORMALS: patient oriented x3 and moves all extremities SENSORIUM/ORIENTATION: Yes alert Skin: COMMON NORMALS: no rashes or lesions noted GENERAL SKIN EXAM: no rashes or lesions noted Urinary Catheter Management: Brantley: Cath Placed During This Visit: yes Reason for Continuing Indwelling Catheter: Other Urinary Catheter Date of Insertion: 04/13/22 Urinary Catheter Time of Insertion: 00:40 Data : 04/14/22 05:38 04/14/22 05:38 Micro: Microbiology 04/12/22 23:42 Blood Culture - Preliminary Blood Staphylococcus sp coag neg 04/12/22 20:03 Urine Culture - Preliminary Urine,Clean Catch Gram Negative Rods 04/12/22 23:42 Blood Culture - Preliminary Blood NEGATIVE TO DATE A&P Assessment and plan (1) Intractable nausea and vomiting: Lost IV, so nausea medications had to be transitioned to IM. Difficult peripheral access, requesting midline catheter. We held off initially due to noted 1/4 gram-positive cocci in blood culture. Discussed with her and family. So far no further growth, this appears to be coagulase-negative staph. Still no bowel movement. Diminished bowel sounds. Definitely opiates contributing also to some degree of ileus/constipation. We discussed Relistor and this is requested. Additionally milk and molasses enema. For now continue bowel rest. Continue nausea control. Continue Protonix. Continue bowel regimen to assist with severe constipation. Bowel sounds are diminished. Unfortunately need for pain control likely has been contributing to some degree of ileus as well. Unfortunately did not do very well with Relistor in terms of pain control, appears to have had some reversal of pain medication, although did have a bowel movement. Status: Acute (2) Intractable pain: Minimal response to lidocaine patch. Continue acetaminophen. Unfortunately also has to continue opioids due to severity. Discussed NSAIDs not a good option in her condition. Change morphine to IM for now due to loss of IV access. Status: Acute (3) Cancer related pain: Status: Acute (4) Dehydration: Continue IV hydration. Discussed long-term may require a feeding tube, although currently not an option given bad constipation, possibly pseudoobstruction. Unfortunately with very poor appetite recently, very poor oral intake. PEG tube appears has been given some consideration on admission, although currently would not yet be ready. Appears to have some degree of possibly ileus. She is also been having some persistent nausea and vomiting. Also bad constipation. Continue to optimize as above. Feeding tube may still need to be considered given significant difficulties with oral intake and medication intake recently. Daughter states she sometimes has been unable to finish antibiotic courses for UTI leading to recurrence due to poor appetite/oral intake. Status: Acute (5) Metastatic cancer: Has been wanting to sitter/dry chemotherapy with oncology should her condition/functional status improve. Does not want to consider hospice yet. Status: Acute (6) Malignant neoplasm of head of pancreas: Status: Acute (7) Metastases to the liver: Extensive metastatic disease to the liver. Status: Acute (8) Type 1 diabetes: Status: Acute (9) Lesion of liver: Status: Acute (10) Anxiety and depression: Status: Acute Plan Abdominal ascites, abdominal pain: Continue empiric antibiotics for now. On hold for now until IV access can be reestablished. Cannot tolerate anything by mouth. Eliquis held for now in anticipation of possible paracentesis. UTI, Cipro as above Atrial fibrillation, Coreg, Eliquis on hold Type 1 diabetes mellitus: SSI. For now transition to lantus 10 units. Requested insulin regimen to be obtained from PCP office. Hyponatremia, secondary to dehydration, IV fluids Hypokalemia, replaced. Recheck. Check magnesium. Diabetes: She continues on insulin pump at 1.43 units/h which she has been on through this hospitalization as per discussion with her family. This is a 55% decrease from her usual dose 2.6 units/h, which was adjusted down by her family to try to avoid hypoglycemia. We did start yesterday 10 units also nightly of Lantus. For now discussed will not change the regimen unless needs further adjustment depending on glucose. Continue to pump infusion unchanged. Serum ketone Positive, blood sugar 210, anion gap normal at 16.4, bicarb normal at 25, likely sec to dehydration Attestations Medical Necessity Statement*: Continue admission for reassess of intractable nausea and vomiting in setting of metastatic pancreatic cancer, severe constipation, pseudoobstruction, in the setting of opioid use. Difficult to control pain. 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
[2022-04-14] MEDS: lidocaine 5% Patch 1 PATCH TOPICAL (22:26)
[2022-04-14] MEDS: enoxaparin 40 mg/0.4 mL Syringe SUBCUT (22:27)
[2022-04-14] MEDS: carvedilol 12.5 mg Tablet 6.25 MG PO (22:27)
[2022-04-15] VITALS (13 sets, daily range): BP systolic 128–158; BP diastolic 77–96; PULSE 89–108; RESP 14–18; TEMP 36.8–37.3; O2SAT 92–97
[2022-04-15] MEDS: morphine 4 mg/mL SDV 1 mL 2 MG IM ×3 (00:24→08:53)
[2022-04-15] MEDS: promethazine 25 mg/mL SDV 1 mL 12.5 MG IM ×3 (00:28→18:46)
[2022-04-15 01:12] LABS: Glucose Point of Care 187 mg/dL (70-110)
[2022-04-15] MEDS: ondansetron 2 mg/ML SDV 2 mL 4 MG IM (04:34)
[2022-04-15 05:53] LABS: Basophils % 0.2 %; Eosinophils % 0.5 %; Hematocrit 27.1 % (37.0-47.0); Hemoglobin 8.5 g/dL (11.5-15.3); Lymphocytes # 0.8 10^3/uL (0.8-4.8); Mean Corpuscular HGB Conc 31.4 g/dL (30.0-36.0); Mean Corpuscular Hemoglobin 29.7 pg (28.0-34.0); Mean Corpuscular Volume 94.8 fl (81-99); Mean Platelet Volume 11.1 fL (7.4-10.4); Monocytes # 0.5 10^3/uL (0.2-0.9); Monocytes % 8.8 %; Neutrophils # 4.59 10^3/uL (1.8-7.7); Neutrophils % 76.7 %; Nucleated Red Blood Cells % 0 %; Platelet Count 105 10^3/cmm (130-400); Red Blood Count 2.86 10^6/uL (4.1-5.3); Red Cell Distribution Width 15.6 % (12.1-15.1)
[2022-04-15 05:59] LABS: INR 2.16 (0.8-1.2)
[2022-04-15 06:06] LABS: Alanine Aminotransferase 16 U/L (0-33); Albumin Level 1.8 g/dL (3.5-5.2); Alkaline Phosphatase 256 U/L (35-105); Anion Gap 11.3 (5-19); Aspartate Amino Transferase 23 U/L (0-32); Blood Urea Nitrogen 8 mg/dL (8-23); Calcium 7.1 mg/dL (8.5-10.5); Carbon Dioxide 26 mmol/L (22-29); Chloride 99 mmol/L (98-107); Globulin 2.5 g/dL (1.3-4.6); Glomerular Filtration Rate 219.9 mL/min (90-130); Glucose 269 mg/dL (65-115); Magnesium 1.4 mg/dL (1.7-2.3); Osmolality Calculated 284 mOsm/kg (285-295); Potassium 3.3 mmol/L (3.5-5.1); Sodium 133 mmol/L (136-145); Total Bilirubin 0.5 mg/dL (0.15-1.2); Total Protein 4.3 g/dL (6.6-8.7)
[2022-04-15 06:21] LABS: Glucose Point of Care 286 mg/dL (70-110)
[2022-04-15] MEDS: acetaminophen 325 mg Tablet 650 MG PO ×2 (06:31→23:36)
[2022-04-15] MEDS: carvedilol 12.5 mg Tablet 6.25 MG PO ×2 (10:00→18:45)
[2022-04-15] MEDS: calcium carbonate 500 mg Chew Tablet 1000 MG PO (10:00)
[2022-04-15] MEDS: levothyroxine 200 mcg Tablet PO (10:01)
[2022-04-15] MEDS: docusate sodium 100 mg Capsule PO ×2 (10:01→18:45)
[2022-04-15] MEDS: pantoprazole 40 mg SDV IVP ×2 (10:01→22:50)
[2022-04-15] MEDS: levothyroxine 25 mcg Tablet PO (10:01)
[2022-04-15] MEDS: polyethylene glycol 3350 Pkt 17 gm PO ×2 (10:01→18:45)
[2022-04-15 12:02] LABS: Glucose Point of Care 343 mg/dL (70-110)
--- NOTE | 2022-04-15 14:16 | PM.PN ---
Subjective Subjective: She is doing slightly better today. Less nausea. Has not vomited. Overnight she was able to slowly finish an Ensure clear. This morning after Relistor had a small bowel movement. Vitals/I&O/Wt Last Vital Signs Temp 98.3 F 04/15/22 12:00 Pulse 108 H 04/15/22 12:00 Resp 18 04/15/22 12:00 BP 143/96 04/15/22 12:00 Pulse Ox 92 04/15/22 11:25 O2 Del Method 04/15/22 11:25 04/14/22 04/15/22 04/15/22 22:59 06:59 14:59 Intake Total 360 / 1920 1240 / 1240 Output Total 700 / 700 100 / 800 Balance -340 / 1220 -100 / 1120 1240 / 1240 Physical Exam Narrative: Family at bedside. Const: COMMON NORMALS: patient oriented x3 and alert GENERAL APPEARANCE: cooperative ORIENTATION/CONSCIOUSNESS: Yes awake OTHER: Wakes up to voice. HENMT: COMMON NORMALS: oropharynx normal Neck/C-Spine: COMMON NORMALS: no JVD Resp: COMMON NORMALS: normal respiratory effort and clear to auscultation bilaterally AUSCULTATION: clear to auscultation bilaterally Cardio: COMMON NORMALS: no JVD, regular rhythm, S1 normal heart sound present, S2 normal heart sound present and No murmurs present (Cardio) RHYTHM: regular rhythm HEART SOUNDS: S1 normal heart sound present and S2 normal heart sound present GI: COMMON NORMALS: Normal to inspection, nondistended, normoactive bowel sounds present, Soft to palpation and non-tender AUSCULTATION: Yes Hypoactive bowel sounds present PALPATION: Yes Soft to palpation OTHER: Tender upper abdomen Extremity: COMMON NORMALS: no joint enlargement and no pedal edema Neuro: COMMON NORMALS: patient oriented x3 and moves all extremities SENSORIUM/ORIENTATION: Yes alert Skin: COMMON NORMALS: no rashes or lesions noted GENERAL SKIN EXAM: no rashes or lesions noted Urinary Catheter Management: Brantley: Cath Placed During This Visit: yes Reason for Continuing Indwelling Catheter: Other Urinary Catheter Date of Insertion: 04/13/22 Urinary Catheter Time of Insertion: 00:40 Data : 04/15/22 05:33 04/15/22 05:33 A&P Assessment and plan (1) Intractable nausea and vomiting: Slightly better today with intermittent both Zofran and Phenergan. Discussed with her family, and they are curious about additional options at home due to severity of nausea intermittently where she cannot take oral medications and Zofran film is not enough. Discussed we could consider potential prescription for IM Phenergan after discharge given this commendation has worked for her here. Trial of oral intake as tolerating. So far has tolerated a bottle of Ensure clear overnight. Small bowel movement with Relistor. Continue bowel regimen. May need to repeat Relistor. Continue Protonix. Continue bowel regimen to assist with severe constipation. Bowel sounds are diminished. Unfortunately need for pain control likely has been contributing to some degree of ileus as well. Status: Acute (2) Intractable pain: Continues to require opioids for pain control. Minimal response to lidocaine patch. Continue acetaminophen. Unfortunately also has to continue opioids due to severity. Discussed NSAIDs not a good option in her condition. Status: Acute (3) Cancer related pain: Status: Acute (4) Dehydration: IV access obtained w midline. Resume IV hydration. Discussed long-term may require a feeding tube, although currently not an option given bad constipation, possibly pseudoobstruction. Unfortunately with very poor appetite recently, very poor oral intake. PEG tube appears has been given some consideration on admission, although currently would not yet be ready. Appears to have some degree of possibly ileus. She is also been having some persistent nausea and vomiting. Also bad constipation. Continue to optimize as above. Feeding tube may still need to be considered given significant difficulties with oral intake and medication intake recently. Daughter states she sometimes has been unable to finish antibiotic courses for UTI leading to recurrence due to poor appetite/oral intake. Status: Acute (5) Metastatic cancer: Has been wanting to sitter/dry chemotherapy with oncology should her condition/functional status improve. Does not want to consider hospice yet. Status: Acute (6) Malignant neoplasm of head of pancreas: Status: Acute (7) Metastases to the liver: Extensive metastatic disease to the liver. Status: Acute (8) Type 1 diabetes: She continues on insulin pump at 1.43 units/h although this has been paused as she is run out of insulin. Family is going to bring insulin, but as per discussion with them if unable to we will increase nightly Lantus dose. Which she has been on through this hospitalization as per discussion with her family. This is a 55% decrease from her usual dose 2.6 units/h, which was adjusted down by her family to try to avoid hypoglycemia. We did start yesterday 10 units also nightly of Lantus. Status: Acute (9) Lesion of liver: Status: Acute (10) Anxiety and depression: Status: Acute Plan Abdominal ascites, abdominal pain: Continue empiric antibiotics for now. On hold for now until IV access can be reestablished. Cannot tolerate anything by mouth. Eliquis held for now in anticipation of possible paracentesis. UTI, Cipro as above Atrial fibrillation, Coreg, Eliquis on hold Hyponatremia, secondary to dehydration, IV fluids Hypokalemia, replaced. Recheck. Check magnesium. Serum ketone positive on presentation, likely secondary to poor oral intake, anion gap normal at 16.4, bicarb normal at 25 Attestations Medical Necessity Statement*: Continue admission for optimization of control of nausea and pain with metastatic pancreatic cancer, limited ability for any oral intake, trial of clear liquids, IV hydration, management of severe constipation exacerbated by requirement for opioids for pain control. 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
[2022-04-15] MEDS: ondansetron 2 mg/ML SDV 2 mL 4 MG IVP ×2 (14:21→20:56)
[2022-04-15] MEDS: morphine 4 mg/mL SDV 1 mL 2 MG IVP ×2 (14:21→20:57)
[2022-04-15] MEDS: dextrose 5%-sod chloride 0.9% 1,000 ML 100 ML IV (14:24)
[2022-04-15 15:50] LABS: Glucose Point of Care 357 mg/dL (70-110)
[2022-04-15] MEDS: metroNIDAZOLE IV 500 MG/100 ML PREMIX 100 MG IV (16:06)
[2022-04-15] MEDS: metoclopramide 5 mg/mL SDV 2 mL IVP ×2 (16:07→23:27)
[2022-04-15 17:25] LABS: Glucose Point of Care 334 mg/dL (70-110)
[2022-04-15] MEDS: magnesium sulfate premix 2 GM/50 ML PIGGYBACK IV (18:40)
--- NOTE | 2022-04-15 19:34 | PC.NURSE ---
Patient's family, Myra has controlled patient's insulin pump throughout the day depending on POC Glucose.
[2022-04-15] MEDS: lidocaine 1% 5 ML in potassium chloride premix 100 ML 50 ML IV (21:12)
[2022-04-15] MEDS: lidocaine 5% Patch 1 PATCH TOPICAL (21:15)
[2022-04-15] MEDS: insulin glargine 100 units/1 mL 10 UNIT SUBCUT (21:15)
[2022-04-15] MEDS: enoxaparin 40 mg/0.4 mL Syringe SUBCUT (21:25)
[2022-04-15 22:48] LABS: Glucose Point of Care 157 mg/dL (70-110)
[2022-04-15] MEDS: ciprofloxacin 400 MG/200 ML PREMIX 200 MG IV (23:21)
[2022-04-15] MEDS: CLONazepam 0.5 mg Tablet 0.25 MG PO (23:35)
[2022-04-16] VITALS (12 sets, daily range): BP systolic 123–152; BP diastolic 80–95; PULSE 54–115; RESP 12–18; TEMP 36.4–36.8; O2SAT 93–98
[2022-04-16] MEDS: metroNIDAZOLE IV 500 MG/100 ML PREMIX 100 MG IV ×3 (00:23→16:13)
[2022-04-16] MEDS: scopolamine 1.5 Patch 1 PATCH TRANSDERMA (00:23)
[2022-04-16] MEDS: promethazine 25 mg/mL SDV 1 mL 12.5 MG IM ×3 (01:39→20:05)
[2022-04-16] MEDS: morphine 4 mg/mL SDV 1 mL 2 MG IVP ×5 (01:45→20:20)
[2022-04-16] MEDS: dextrose 5%-sod chloride 0.9% 1,000 ML 100 ML IV ×3 (01:50→22:48)
[2022-04-16 03:13] LABS: Basophils % 0.2 %; Eosinophils # 0.1 10^3/uL (0.0-0.8); Eosinophils % 0.5 %; Hemoglobin 8.6 g/dL (11.5-15.3); Lymphocytes # 0.5 10^3/uL (0.8-4.8); Lymphocytes % 5.3 %; Mean Corpuscular HGB Conc 31.9 g/dL (30.0-36.0); Mean Corpuscular Hemoglobin 30.2 pg (28.0-34.0); Mean Corpuscular Volume 94.7 fl (81-99); Mean Platelet Volume 10.8 fL (7.4-10.4); Monocytes # 0.6 10^3/uL (0.2-0.9); Neutrophils # 7.93 10^3/uL (1.8-7.7); Neutrophils % 86.3 %; Nucleated Red Blood Cells % 0 %; Platelet Count 107 10^3/cmm (130-400); Red Blood Count 2.85 10^6/uL (4.1-5.3); Red Cell Distribution Width 15.5 % (12.1-15.1); White Blood Count 9.2 10^3/uL (4.0-10.0)
[2022-04-16] MEDS: ondansetron 2 mg/ML SDV 2 mL 4 MG IVP ×3 (03:18→16:12)
[2022-04-16 03:42] LABS: Alanine Aminotransferase 16 U/L (0-33); Alkaline Phosphatase 257 U/L (35-105); Anion Gap 13.4 (5-19); Aspartate Amino Transferase 25 U/L (0-32); Blood Urea Nitrogen 11 mg/dL (8-23); Calcium 7.4 mg/dL (8.5-10.5); Carbon Dioxide 26 mmol/L (22-29); Chloride 100 mmol/L (98-107); Globulin 2.2 g/dL (1.3-4.6); Glomerular Filtration Rate 157.8 mL/min (90-130); Glucose 102 mg/dL (65-115); Magnesium 1.8 mg/dL (1.7-2.3); Osmolality Calculated 282 mOsm/kg (285-295); Potassium 3.4 mmol/L (3.5-5.1); Sodium 136 mmol/L (136-145); Total Bilirubin 0.4 mg/dL (0.15-1.2); Total Protein 4.2 g/dL (6.6-8.7)
[2022-04-16 03:55] LABS: Glucose Point of Care 83 mg/dL (70-110)
[2022-04-16 05:22] LABS: Glucose Point of Care 95 mg/dL (70-110)
[2022-04-16] MEDS: metoclopramide 5 mg/mL SDV 2 mL IVP ×3 (07:29→20:25)
[2022-04-16] MEDS: carvedilol 12.5 mg Tablet 6.25 MG PO ×2 (08:24→18:42)
[2022-04-16] MEDS: levothyroxine 25 mcg Tablet PO (08:24)
[2022-04-16] MEDS: docusate sodium 100 mg Capsule PO ×2 (08:24→18:42)
[2022-04-16] MEDS: aspirin 81 mg EC Tablet PO (08:24)
[2022-04-16] MEDS: levothyroxine 200 mcg Tablet PO (08:24)
[2022-04-16] MEDS: calcium carbonate 500 mg Chew Tablet 1000 MG PO (08:24)
[2022-04-16] MEDS: lidocaine 5% Patch 1 PATCH TOPICAL (08:26)
[2022-04-16] MEDS: aztreonam 1,000 MG in sodium chloride 0.9% (plus) 50 ML 100 MG IV ×2 (08:33→22:35)
[2022-04-16] MEDS: polyethylene glycol 3350 Pkt 17 gm PO ×2 (08:36→18:42)
[2022-04-16] MEDS: pantoprazole 40 mg SDV IVP ×2 (09:18→23:16)
--- NOTE | 2022-04-16 09:31 | PC.SOCIAL ---
IMM update IMM Updated with patient and family at bedside. Verbalized an understanding. Copy Pg 2 provided. Initialled, dated, timed, and placed in chart.
--- NOTE | 2022-04-16 11:39 | CTR_ITS ---
PROCEDURE INFORMATION: Exam: CT Head Without Contrast Exam date and time: 04/16/2022 12:07 PM Age: 71 years old Clinical indication: Injury or trauma; Blunt trauma (contusions or hematomas); Consciousness not specified; Injury date: 04/16/22; Injury details: Fall x today hit head. Patient HX: HX of pancreatic cancer TECHNIQUE: Imaging protocol: Computed tomography of the head without contrast. Radiation optimization: All CT scans at this facility use at least one of these dose optimization techniques: automated exposure control; mA and/or kV adjustment per patient size (includes targeted exams where dose is matched to clinical indication); or iterative reconstruction. COMPARISON: CT head wo con* [id number] 04/13/2022 1:40 PM RADIATION DOSE METRICS: Total DLP (mGy-cm): 1095.58 FINDINGS: Brain: No hemorrhage, mass effect or midline shift. No acute, major vascular distribution infarction identified. There is foci of decreased attenuation in the periventricular and subcortical white matter, likely representing chronic small vessel ischemic changes. Mild cerebral volume loss is present. No intra-axial or extra-axial fluid collection seen. Cerebral ventricles: No ventriculomegaly. Paranasal sinuses: Visualized sinuses are unremarkable. No fluid levels. Mastoid air cells: Visualized mastoid air cells are well aerated. Bones/joints: Unremarkable. No acute fracture. Soft tissues: Unremarkable. CT/CT head wo con* [id number] IMPRESSION: No acute intracranial abnormality.
--- NOTE | 2022-04-16 13:20 | PM.PN ---
Subjective Subjective: Today she reported feeling a little bit better in terms of nausea. Feels she is very much lacking in energy. Later on try to get up on her own, fell down hitting her head on the bedside table with a small cut. Vitals/I&O/Wt Last Vital Signs Temp 98.3 F 04/16/22 12:00 Pulse 115 H 04/16/22 12:00 Resp 18 04/16/22 12:00 BP 136/83 04/16/22 12:00 Pulse Ox 95 04/16/22 12:00 O2 Del Method 04/16/22 12:00 O2 Flow Rate 2 04/15/22 20:00 04/15/22 04/16/22 04/16/22 22:59 06:59 14:59 Intake Total 270 / 1510 1375 / 2885 1630 / 1630 Output Total 700 / 700 300 / 1000 Balance -430 / 810 1075 / 1885 1630 / 1630 Physical Exam Const: COMMON NORMALS: patient oriented x3 and alert GENERAL APPEARANCE: cooperative ORIENTATION/CONSCIOUSNESS: Yes awake OTHER: Wakes up to voice. HENMT: COMMON NORMALS: oropharynx normal Neck/C-Spine: COMMON NORMALS: no JVD Resp: COMMON NORMALS: normal respiratory effort and clear to auscultation bilaterally AUSCULTATION: clear to auscultation bilaterally Cardio: COMMON NORMALS: no JVD, regular rhythm, S1 normal heart sound present, S2 normal heart sound present and No murmurs present (Cardio) RHYTHM: regular rhythm HEART SOUNDS: S1 normal heart sound present and S2 normal heart sound present GI: COMMON NORMALS: Normal to inspection, nondistended, normoactive bowel sounds present, Soft to palpation and non-tender AUSCULTATION: Yes Hypoactive bowel sounds present PALPATION: Yes Soft to palpation Extremity: COMMON NORMALS: no joint enlargement and no pedal edema Neuro: COMMON NORMALS: patient oriented x3 and moves all extremities SENSORIUM/ORIENTATION: Yes alert Skin: COMMON NORMALS: no rashes or lesions noted GENERAL SKIN EXAM: no rashes or lesions noted Urinary Catheter Management: Brantley: Cath Placed During This Visit: yes Reason for Continuing Indwelling Catheter: Other Urinary Catheter Date of Insertion: 04/13/22 Urinary Catheter Time of Insertion: 00:40 Data : 04/16/22 02:35 04/16/22 02:35 Micro: Microbiology 04/12/22 20:03 Urine Culture - Final Urine,Clean Catch Escherichia coli A&P Assessment and plan (1) Intractable nausea and vomiting: So far this appears to be improving. She has not had additional vomiting as of yet. Continue trial of oral intake, will advance to full liquid diet. Continue optimization of nausea control. Intermittent Zofran and Phenergan. Discussed with her family, and they are curious about additional options at home due to severity of nausea intermittently where she cannot take oral medications and Zofran film is not enough. Discussed we could consider potential prescription for IM Phenergan after discharge given this commendation has worked for her here. Small bowel movement after Relistor. Continue bowel regimen. May need to repeat Relistor. Continue Protonix. Continue bowel regimen to assist with severe constipation. Bowel sounds are diminished. Unfortunately need for pain control likely has been contributing to some degree of ileus as well. Eliquis has been held, reaching out to radiology to discuss possible paracentesis. As per discussion fluid slightly increased since last scan, but small amount deep in the pelvis/cul-de-sac, not reachable at this time. Status: Acute (2) Intractable pain: Continues to require opioids for pain control. Minimal response to lidocaine patch. Continue acetaminophen. Unfortunately also has to continue opioids due to severity. Discussed NSAIDs not a good option in her condition. Status: Acute (3) UTI (urinary tract infection): With MDR E. coli, resistant to ciprofloxacin. Stop Cipro. She is allergic to penicillin, switched to aztreonam. Status: Acute (4) Cancer related pain: Status: Acute (5) Dehydration: IV hydration. Discussed long-term may require a feeding tube, although currently not an option given bad constipation, possibly pseudoobstruction. Unfortunately with very poor appetite recently, very poor oral intake. PEG tube appears has been given some consideration on admission, although currently would not yet be ready. Appears to have some degree of possibly ileus. She is also been having some persistent nausea and vomiting. Also bad constipation. Continue to optimize as above. Feeding tube may still need to be considered given significant difficulties with oral intake and medication intake recently. Daughter states she sometimes has been unable to finish antibiotic courses for UTI leading to recurrence due to poor appetite/oral intake. Status: Acute (6) Metastatic cancer: Has been wanting to sitter/dry chemotherapy with oncology should her condition/functional status improve. Does not want to consider hospice yet. With deconditioning, poor functional capacity at this time. PT, OT, mobilize as tolerated. Fall precautions. Status: Acute (7) Malignant neoplasm of head of pancreas: Status: Acute (8) Metastases to the liver: Extensive metastatic disease to the liver. Status: Acute (9) Type 1 diabetes: She continues on insulin pump at 1.43 units/h although this has been paused as she is run out of insulin. Family is going to bring insulin, but as per discussion with them if unable to we will increase nightly Lantus dose. Which she has been on through this hospitalization as per discussion with her family. This is a 55% decrease from her usual dose 2.6 units/h, which was adjusted down by her family to try to avoid hypoglycemia. Lantus 10 units nightly. Status: Acute (10) Lesion of liver: Status: Acute (11) Anxiety and depression: Status: Acute Plan Fall today when get up from bed unassisted, hit her head on the edge of the table with small cut. CT of the head obtained, unremarkable. Maintain fall precautions. Abdominal ascites, abdominal pain: Antibiotic changed to resistant organism growing in urine. As per discussion with radiology small ascites fluid slightly increased since last scan, but small amount deep in the pelvis/cul-de-sac, not reachable at this time. Pain likely related to enlarging pancreatic cancer with metastatic disease. Atrial fibrillation, Coreg, if continues to be able to tolerate oral intake, resume Eliquis. Hyponatremia, secondary to dehydration, resolved with IV fluids Hypokalemia, replaced. Recheck. Replace magnesium. Serum ketone positive on presentation, likely secondary to poor oral intake, anion gap normal at 16.4, bicarb normal at 25 Attestations Medical Necessity Statement*: Continue admission for management of recurrent nausea, vomiting, abdominal pain with pancreatic cancer, poor oral intake, results and in the duration, hyponatremia, treatment of MDR UTI, advancement of diet. Post discharge planning. 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
[2022-04-16 13:56] LABS: Glucose Point of Care 198 mg/dL (70-110)
[2022-04-16] MEDS: lidocaine 1% 5 ML in potassium chloride premix 100 ML 25 ML IV (14:19)
[2022-04-16] MEDS: sertraline 100 mg Tablet PO (22:36)
[2022-04-16] MEDS: enoxaparin 40 mg/0.4 mL Syringe SUBCUT (22:38)
[2022-04-17] VITALS (12 sets, daily range): BP systolic 132–164; BP diastolic 83–95; PULSE 87–108; RESP 13–20; TEMP 36.3–36.7; O2SAT 92–97
[2022-04-17] MEDS: metroNIDAZOLE IV 500 MG/100 ML PREMIX 100 MG IV ×4 (00:22→23:01)
[2022-04-17] MEDS: ondansetron 2 mg/ML SDV 2 mL 4 MG IVP ×4 (00:41→19:19)
[2022-04-17] MEDS: morphine 4 mg/mL SDV 1 mL 2 MG IVP ×5 (00:42→18:58)
[2022-04-17] MEDS: promethazine 25 mg/mL SDV 1 mL 12.5 MG IM ×3 (01:50→23:01)
[2022-04-17] MEDS: metoclopramide 5 mg/mL SDV 2 mL IVP ×4 (02:00→22:03)
[2022-04-17 02:17] LABS: Glucose Point of Care 301 mg/dL (70-110)
[2022-04-17 02:41] LABS: Eosinophils % 0.1 %; Hematocrit 27.8 % (37.0-47.0); Hemoglobin 8.8 g/dL (11.5-15.3); Lymphocytes # 0.9 10^3/uL (0.8-4.8); Lymphocytes % 11.5 %; Mean Corpuscular HGB Conc 31.7 g/dL (30.0-36.0); Mean Corpuscular Hemoglobin 29.7 pg (28.0-34.0); Mean Corpuscular Volume 93.9 fl (81-99); Mean Platelet Volume 11.7 fL (7.4-10.4); Monocytes # 0.4 10^3/uL (0.2-0.9); Monocytes % 5.7 %; Neutrophils % 82.2 %; Nucleated Red Blood Cells % 0 %; Platelet Count 88 10^3/cmm (130-400); Red Blood Count 2.96 10^6/uL (4.1-5.3); Red Cell Distribution Width 15.6 % (12.1-15.1); White Blood Count 7.7 10^3/uL (4.0-10.0)
[2022-04-17 03:01] LABS: Alanine Aminotransferase 17 U/L (0-33); Albumin Level 1.9 g/dL (3.5-5.2); Alkaline Phosphatase 268 U/L (35-105); Anion Gap 12.7 (5-19); Aspartate Amino Transferase 25 U/L (0-32); Blood Urea Nitrogen 9 mg/dL (8-23); Calcium 7.2 mg/dL (8.5-10.5); Carbon Dioxide 25 mmol/L (22-29); Chloride 101 mmol/L (98-107); Globulin 2.6 g/dL (1.3-4.6); Glomerular Filtration Rate 157.8 mL/min (90-130); Glucose 297 mg/dL (65-115); Magnesium 1.6 mg/dL (1.7-2.3); Osmolality Calculated 290 mOsm/kg (285-295); Potassium 3.7 mmol/L (3.5-5.1); Sodium 135 mmol/L (136-145); Total Bilirubin 0.5 mg/dL (0.15-1.2); Total Protein 4.5 g/dL (6.6-8.7)
[2022-04-17 06:48] LABS: Glucose Point of Care 113 mg/dL (70-110)
[2022-04-17] MEDS: fluticasone nasal spray 16gm Btl 1 SPRAY NASAL ×3 (08:19→18:33)
[2022-04-17 09:19] LABS: Glucose Point of Care 374 mg/dL (70-110)
[2022-04-17] MEDS: magnesium sulfate premix 2 GM/50 ML PIGGYBACK IV (09:54)
[2022-04-17] MEDS: pantoprazole 40 mg SDV IVP ×2 (10:12→21:23)
[2022-04-17] MEDS: lidocaine 5% Patch 1 PATCH TOPICAL (10:12)
[2022-04-17] MEDS: levothyroxine 25 mcg Tablet PO (10:13)
[2022-04-17] MEDS: carvedilol 12.5 mg Tablet 6.25 MG PO ×2 (10:13→18:31)
[2022-04-17] MEDS: levothyroxine 200 mcg Tablet PO (10:19)
--- NOTE | 2022-04-17 10:59 | XR_ITS ---
WS: [id number] Acute abdomen series, portable, 04/17/2022 Clinical Data: vomiting, assess if any obstruction Comparison: CT abdomen pelvis, 04/12/2022. Findings: In the chest there are no nodules, masses or effusions. The heart is normal. The pulmonary vascularity is not increased. There is minimal opacity over the surface of the left diaphragm which m ay be atelectasis or pneumonia. The aortic arch is tortuous. There are monitor leads on the chest and upper abdominal wall. There is a right PICC line which ends in the axillary vein. No free air is seen beneath the diaphragms. No abnormal intra-abdominal masses or calcifications are seen. There is a biliary stent in the right upper quadrant. There is a large amount of fecal material throughout the colon. No dilated small bowel loops are seen. XR/XR acute abdomen series [id number] Impression: 1. Atherosclerosis. 2. No evidence of small bowel obstruction. 3. Large amount of fecal material in the colon. 4. Minimal patchy opacity over surface of left diaphragm.
[2022-04-17 11:41] LABS: Glucose Point of Care 262 mg/dL (70-110)
[2022-04-17] MEDS: aztreonam 1,000 MG in sodium chloride 0.9% (plus) 50 ML 100 MG IV ×2 (12:22→21:24)
[2022-04-17] MEDS: lanolin oint 7 gm 1 APPLIC TOPICAL (12:29)
[2022-04-17 17:37] LABS: Glucose Point of Care 153 mg/dL (70-110)
--- NOTE | 2022-04-17 17:41 | PC.NURSE ---
Blood glucose level of 153
[2022-04-17] MEDS: bisacodyl 10 mg Supp PR (18:30)
[2022-04-17] MEDS: docusate sodium 100 mg Capsule PO (18:32)
[2022-04-17] MEDS: polyethylene glycol 3350 Pkt 17 gm PO (18:32)
--- NOTE | 2022-04-17 19:12 | P.PN_ITS ---
Subjective Subjective: Today she is having less pain. She is more alert, she is sitting up in the chair. Her daughter states she is still not tolerating food or drink. Things keep coming back up. No additional bowel movement. Vitals/I&O/Wt Last Vital Signs Temp 97.3 F L 04/17/22 16:00 Pulse 87 04/17/22 16:00 Resp 17 04/17/22 18:58 BP 137/83 04/17/22 16:00 Pulse Ox 96 04/17/22 16:00 O2 Del Method 04/17/22 16:00 O2 Flow Rate 4 04/17/22 16:00 04/17/22 04/17/22 04/17/22 06:59 14:59 22:59 Intake Total 210 / 3392 230 / 230 100 / 330 Output Total 1100 / 1100 900 / 900 Balance -890 / 2292 -670 / -670 100 / -570 Physical Exam Narrative: Family at bedside. Const: COMMON NORMALS: patient oriented x3 and alert GENERAL APPEARANCE: cooperative ORIENTATION/CONSCIOUSNESS: Yes awake HENMT: COMMON NORMALS: oropharynx normal Neck/C-Spine: COMMON NORMALS: no JVD Resp: COMMON NORMALS: normal respiratory effort and clear to auscultation bilaterally AUSCULTATION: clear to auscultation bilaterally Cardio: COMMON NORMALS: no JVD, regular rhythm, S1 normal heart sound present, S2 normal heart sound present and No murmurs present (Cardio) RHYTHM: regular rhythm HEART SOUNDS: S1 normal heart sound present and S2 normal heart sound present GI: COMMON NORMALS: Normal to inspection, nondistended, normoactive bowel sounds present and Soft to palpation AUSCULTATION: Yes Hypoactive bowel sounds present PALPATION: Yes Soft to palpation Extremity: COMMON NORMALS: no joint enlargement and no pedal edema Neuro: COMMON NORMALS: patient oriented x3 and moves all extremities SENSORIUM/ORIENTATION: Yes alert Skin: COMMON NORMALS: no rashes or lesions noted GENERAL SKIN EXAM: no rashes or lesions noted Urinary Catheter Management: Brantley: Cath Placed During This Visit: yes Reason for Continuing Indwelling Catheter: Other Urinary Catheter Date of Insertion: 04/13/22 Urinary Catheter Time of Insertion: 00:40 Data : 04/17/22 01:28 04/17/22 01:28 Micro: Microbiology 04/12/22 23:42 Blood Culture - Final Blood Staphylococcus sp coag neg A&P Assessment and plan (1) Intractable nausea and vomiting: Pain is actually better today and she is more alert, still with that she is still unable to keep anything down including liquids or medications. So far no additional bowel movement. Requested to collect suppositories, will also give additional dose of Relistor. Discussed with her and daughter, they are requesting to consider regarding feeding tube. Discussed with surgery, recommendation is for additional assessment with Gastrografin upper GI study. Abdominal series x-ray with large amount of fecal matter in the colon. Continue optimization of nausea control. Intermittent Zofran and Phenergan. Discussed with her family, and they are curious about additional options at home due to severity of nausea intermittently where she cannot take oral medications and Zofran film is not enough. Discussed we could consider potential prescription for IM Phenergan after discharge given this commendation has worked for her here. Continue Protonix. Continue bowel regimen to assist with severe constipation. Eliquis has been held, reaching out to radiology to discuss possible paracentesis. As per discussion fluid slightly increased since last scan, but small amount deep in the pelvis/cul-de-sac, not reachable at this time. Status: Acute (2) Intractable pain: Continues to require opioids for pain control. Minimal response to lidocaine patch. Continue acetaminophen. Unfortunately also has to continue opioids due to severity. Discussed NSAIDs not a good option in her condition. Status: Acute (3) UTI (urinary tract infection): With MDR E. coli, resistant to ciprofloxacin. Stop Cipro. She is allergic to p enicillin, switched to aztreonam. Status: Acute (4) Cancer related pain: Status: Acute (5) Dehydration: IV hydration discontinued. Noted some worsening oxygenation. Also persistent peripheral edema. Mostly likely due to poor nutrition, low albumin 1.9. However, hold additional IV fluids for now so as to avoid fluid overload. She and her daughter are interested in discussing regarding feeding tube. Discussed that this may pose some challenges, especially since it will not solve the problem with constipation and pseudoobstruction. Additional assessment with Gastrografin. Requesting evaluation by surgery. Unfortunately with very poor appetite recently, very poor oral intake. PEG tube appears has been given some consideration on admission, although currently would not yet be ready. Appears to have some degree of possibly ileus. She is also been having some persistent nausea and vomiting. Also bad constipation. Continue to optimize as above. Feeding tube may still need to be considered given significant difficulties with oral intake and medication intake recently. Daughter states she sometimes has been unable to finish antibiotic courses for UTI leading to recurrence due to poor appetite/oral intake. Status: Acute (6) Metastatic cancer: Has been wanting to sitter/dry chemotherapy with oncology should her condition/functional status improve. Does not want to consider hospice yet. With deconditioning, poor functional capacity at this time. PT, OT, mobilize as tolerated. Fall precautions. Status: Acute (7) Malignant neoplasm of head of pancreas: Status: Acute (8) Metastases to the liver: Extensive metastatic disease to the liver. Status: Acute (9) Type 1 diabetes: Glucose is better controlled, although variable. She continues on insulin pump at 1.43 units/h although this has been paused as she is run out of insulin. Family is going to bring insulin, but as per discussion with them if unable to we will increase nightly Lantus dose. Which she has been on through this hospitalization as per discussion with her family. This is a 55% decrease from her usual dose 2.6 units/h, which was adjusted down by her family to try to avoid hypoglycemia. Lantus 10 units nightly. Status: Acute (10) Lesion of liver: Status: Acute (11) Anxiety and depression: Status: Acute Plan Fall 04/16 when get up from bed unassisted, hit her head on the edge of the table with small cut. CT of the head obtained, unremarkable. Maintain fall precautions. Abdominal ascites, abdominal pain: Antibiotic changed to resistant organism growing in urine. As per discussion with radiology small ascites fluid slightly increased since last scan, but small amount deep in the pelvis/cul-de-sac, not reachable at this time. Pain likely related to enlarging pancreatic cancer with metastatic disease. Atrial fibrillation, Coreg, if continues to be able to tolerate oral intake, resume Eliquis. Hyponatremia, secondary to dehydration, resolved with IV fluids Hypokalemia, replaced. Recheck. Replace magnesium. Serum ketone positive on presentation, likely secondary to poor oral intake Attestations Medical Necessity Statement*: Continue admission for additional assessment of persistent nausea, vomiting, assessment for obstruction in setting of enlarging pancreatic mass. Coding Level of Care Code Acute Pharmacist Critical Care for Beatriz Fwd Diagnoses Intractable nausea and vomiting R11.2 Intractable pain R52 UTI (urinary tract infection) N39.0 Cancer related pain G89.3 Dehydration E86.0 Metastatic cancer C79.9 Malignant neoplasm of head of pancreas C25.0 Metastases to the liver C78.7 Type 1 diabetes E10.9 Lesion of liver K76.9 Anxiety and depression F41.9; F32.A
[2022-04-17 19:44] LABS: Glucose Point of Care 158 mg/dL (70-110)
[2022-04-17] MEDS: methylnaltrexone 12 /0.6 mL INJ 12 MG SUBCUT (20:08)
--- NOTE | 2022-04-17 20:59 | PC.NURSE ---
Dr. Leahy notified of patient asking for something for her nerves. Family member at bedside states that she was taking Klonopin a couple of days ago and it didn't seem to help.
[2022-04-17] MEDS: sertraline 100 mg Tablet PO (21:23)
[2022-04-17] MEDS: ALPRAZolam 0.5 mg Tablet 0.25 MG PO ×2 (21:23→23:01)
[2022-04-17] MEDS: enoxaparin 40 mg/0.4 mL Syringe SUBCUT (21:23)
--- NOTE | 2022-04-17 22:45 | PC.NURSE ---
Patient states it's not working and is asking for the other half of the Xanax pill. Dr. Leahy notified.
--- NOTE | 2022-04-17 23:33 | PC.NURSE ---
Patient vomited very shortly after receiving second dose of Xanax. Dr. Leahy notified.
[2022-04-18] VITALS (12 sets, daily range): BP systolic 109–147; BP diastolic 63–90; PULSE 95–116; RESP 14–16; TEMP 36.6–36.9; O2SAT 92–98
[2022-04-18 00:04] LABS: Glucose Point of Care 206 mg/dL (70-110)
[2022-04-18] MEDS: morphine 4 mg/mL SDV 1 mL 2 MG IVP ×5 (00:44→20:23)
[2022-04-18] MEDS: ondansetron 2 mg/ML SDV 2 mL 4 MG IVP ×5 (02:41→23:08)
--- NOTE | 2022-04-18 02:51 | PC.NURSE ---
Sister at bedside. Patient and sister refuse our sliding scale insulin. Sister states she is a brittle diabetic. I don't want to give her anything until she is 260 on her blood sugar. They refused insulin at beginning of shift. At this time, sugar was 292. Sister and patient educated that 8 units Humalog is due per sliding scale. Sister and patient refuse 8 units and will only take 3. They also refuse to use our insulin and want to use their home insulin. Sister administers 3 units of patient's home Humalog at this time.
[2022-04-18 03:03] LABS: Basophils % 0.1 %; Eosinophils % 0.1 %; Hematocrit 26.6 % (37.0-47.0); Hemoglobin 8.4 g/dL (11.5-15.3); Lymphocytes # 0.9 10^3/uL (0.8-4.8); Lymphocytes % 8.3 %; Mean Corpuscular HGB Conc 31.6 g/dL (30.0-36.0); Mean Corpuscular Hemoglobin 29.8 pg (28.0-34.0); Mean Corpuscular Volume 94.3 fl (81-99); Mean Platelet Volume 11.2 fL (7.4-10.4); Monocytes # 0.4 10^3/uL (0.2-0.9); Monocytes % 3.6 %; Neutrophils # 9.12 10^3/uL (1.8-7.7); Neutrophils % 87.6 %; Nucleated Red Blood Cells % 0 %; Platelet Count 84 10^3/cmm (130-400); Red Blood Count 2.82 10^6/uL (4.1-5.3); Red Cell Distribution Width 15.4 % (12.1-15.1); White Blood Count 10.4 10^3/uL (4.0-10.0)
[2022-04-18 03:12] LABS: Glucose Point of Care 292 mg/dL (70-110)
[2022-04-18 03:24] LABS: Alanine Aminotransferase 17 U/L (0-33); Albumin Level 1.8 g/dL (3.5-5.2); Alkaline Phosphatase 268 U/L (35-105); Anion Gap 11.4 (5-19); Aspartate Amino Transferase 27 U/L (0-32); Blood Urea Nitrogen 9 mg/dL (8-23); Calcium 7.3 mg/dL (8.5-10.5); Carbon Dioxide 25 mmol/L (22-29); Chloride 102 mmol/L (98-107); Globulin 2.7 g/dL (1.3-4.6); Glomerular Filtration Rate 157.8 mL/min (90-130); Glucose 266 mg/dL (65-115); Magnesium 1.6 mg/dL (1.7-2.3); Osmolality Calculated 288 mOsm/kg (285-295); Potassium 3.4 mmol/L (3.5-5.1); Sodium 135 mmol/L (136-145); Total Bilirubin 0.6 mg/dL (0.15-1.2); Total Protein 4.5 g/dL (6.6-8.7)
[2022-04-18] MEDS: metoclopramide 5 mg/mL SDV 2 mL IVP ×2 (04:59→20:22)
--- NOTE | 2022-04-18 06:40 | PC.NURSE ---
Patient and sister refusing for blood sugar to be checked at this time.
[2022-04-18 08:21] LABS: Glucose Point of Care 197 mg/dL (70-110)
[2022-04-18] MEDS: metroNIDAZOLE IV 500 MG/100 ML PREMIX 100 MG IV ×2 (09:03→17:55)
[2022-04-18] MEDS: magnesium sulfate premix 2 GM/50 ML PIGGYBACK IV (10:22)
[2022-04-18] MEDS: lidocaine 1% 5 ML in potassium chloride premix 100 ML 25 ML IV (10:22)
[2022-04-18] MEDS: pantoprazole 40 mg SDV IVP ×2 (10:25→21:54)
[2022-04-18] MEDS: bisacodyl 10 mg Supp PR (10:32)
--- NOTE | 2022-04-18 10:36 | PC.SOCIAL ---
IMM Update pg 2 of IMM updated and reviewed w/ sister Myra. Copy provided. Copy in chart dated and initialed.
[2022-04-18] MEDS: aztreonam 1,000 MG in sodium chloride 0.9% (plus) 50 ML 100 MG IV (12:20)
[2022-04-18] MEDS: lidocaine 5% Patch 1 PATCH TOPICAL (12:24)
[2022-04-18 13:32] LABS: Glucose Point of Care 271 mg/dL (70-110)
[2022-04-18] MEDS: fluticasone nasal spray 16gm Btl 1 SPRAY NASAL (13:35)
[2022-04-18] MEDS: insulin lispro 100 unit/1 mL SUBCUT (13:40)
--- NOTE | 2022-04-18 15:10 | PM.PN ---
Subjective Subjective: She feels perhaps a tiny bit better, but has not been eating still. No additional bowel movement after Relistor. Her mouth feels dry. Vitals/I&O/Wt Last Vital Signs Temp 97.8 F 04/18/22 12:00 Pulse 100 04/18/22 12:00 Resp 16 04/18/22 12:00 BP 115/63 04/18/22 12:00 Pulse Ox 95 04/18/22 12:00 O2 Del Method 04/18/22 12:00 O2 Flow Rate 4 04/17/22 16:00 04/18/22 04/18/22 04/18/22 06:59 14:59 22:59 Intake Total 100 / 480 200 / 200 Output Total 500 / 1400 Balance -400 / -920 200 / 200 Physical Exam Narrative: Sister at bedside. Const: COMMON NORMALS: patient oriented x3 and alert GENERAL APPEARANCE: cooperative ORIENTATION/CONSCIOUSNESS: Yes awake OTHER: Wakes up to voice. HENMT: COMMON NORMALS: oropharynx normal Neck/C-Spine: COMMON NORMALS: no JVD Resp: COMMON NORMALS: normal respiratory effort and clear to auscultation bilaterally AUSCULTATION: clear to auscultation bilaterally Cardio: COMMON NORMALS: no JVD, regular rhythm, S1 normal heart sound present, S2 normal heart sound present and No murmurs present (Cardio) RHYTHM: regular rhythm HEART SOUNDS: S1 normal heart sound present and S2 normal heart sound present GI: COMMON NORMALS: Normal to inspection, nondistended, normoactive bowel sounds present, Soft to palpation and non-tender AUSCULTATION: Yes Hypoactive bowel sounds present PALPATION: Yes Soft to palpation OTHER: Tender upper abdomen Extremity: COMMON NORMALS: no joint enlargement and no pedal edema Neuro: COMMON NORMALS: patient oriented x3 and moves all extremities SENSORIUM/ORIENTATION: Yes alert Skin: COMMON NORMALS: no rashes or lesions noted GENERAL SKIN EXAM: no rashes or lesions noted Urinary Catheter Management: Brantley: Cath Placed During This Visit: yes Reason for Continuing Indwelling Catheter: Other Urinary Catheter Date of Insertion: 04/13/22 Urinary Catheter Time of Insertion: 00:40 Data : 04/18/22 02:45 04/18/22 02:45 Micro: Microbiology 04/12/22 23:42 Blood Culture - Final Blood NO GROWTH AFTER 5 DAYS 04/12/22 23:42 Blood Culture - Final Blood Staphylococcus sp coag neg A&P Assessment and plan (1) Intractable nausea and vomiting: On abdominal series still having significant constipation. Discussed with her and her sister. We will additionally repeat Relistor, will give milk of molasses enema. Additionally have requested Gastrografin upper GI study, but I am informed this cannot be done until Wednesday. We will give her some temporary support with TPN for now. Discussed again with surgeon on-call. Given recurrent nausea and vomiting inability to keep down almost any food or drink she may benefit from feeding jejunostomy possibly with venting gastrostomy which will be discussed with them. This would allow her to get nutrition, but also medications, as well as laxatives to continue bowel regimen with ongoing need for pain medications. For now continue to hold Eliquis. For now only on Lovenox prophylactic dose. Continue optimization of nausea control. Intermittent Zofran and Phenergan. Discussed with her family, and they are curious about additional options at home due to severity of nausea intermittently where she cannot take oral medications and Zofran film is not enough. Discussed we could consider potential prescription for IM Phenergan after discharge given this commendation has worked for her here. Continue Protonix. Status: Acute (2) Intractable pain: Continues to require opioids for pain control. Minimal response to lidocaine patch. Continue acetaminophen. Unfortunately also has to continue opioids due to severity. Avoid NSAIDs. Status: Acute (3) UTI (urinary tract infection): With MDR E. coli, resistant to ciprofloxacin. Aztreonam. Status: Acute (4) Cancer related pain: Status: Acute (5) Dehydration: Noted some worsening oxygenation. Also persistent peripheral edema. Mostly likely due to poor nutrition, low albumin 1.9. Will additionally give albumin. Start TPN She and her daughter are interested in discussing regarding feeding tube. Unfortunately with very poor appetite recently, very poor oral intake. Status: Acute (6) Metastatic cancer: Has been wanting to still consider chemotherapy with oncology should her condition/functional status improve. Does not want to consider hospice yet. With deconditioning, poor functional capacity at this time. PT, OT, mobilize as tolerated. Fall precautions. Status: Acute (7) Malignant neoplasm of head of pancreas: Status: Acute (8) Metastases to the liver: Extensive metastatic disease to the liver. Status: Acute (9) Type 1 diabetes: Glucose is better controlled, although variable. She continues on insulin pump at 1.43 units/h although this has been paused as she is run out of insulin. Family is going to bring insulin, but as per discussion with them if unable to we will increase nightly Lantus dose. Which she has been on through this hospitalization as per discussion with her family. This is a 55% decrease from her usual dose 2.6 units/h, which was adjusted down by her family to try to avoid hypoglycemia. Lantus 10 units nightly. Status: Acute (10) Lesion of liver: Status: Acute (11) Anxiety and depression: Status: Acute Plan Fall 04/16 when get up from bed unassisted, hit her head on the edge of the table with small cut. CT of the head obtained, unremarkable. Maintain fall precautions. Abdominal ascites, abdominal pain: Antibiotic changed to resistant organism growing in urine. As per discussion with radiology small ascites fluid slightly increased since last scan, but small amount deep in the pelvis/cul-de-sac, not reachable at this time. Pain likely related to enlarging pancreatic cancer with metastatic disease. Atrial fibrillation, Coreg, if continues to be able to tolerate oral intake, hold Eliquis Hyponatremia, secondary to dehydration, resolved with IV fluids Hypokalemia, replacing. Recheck. Replace magnesium. 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 Attestations Medical Necessity Statement*: Continue admission for assessment management of inability to maintain oral intake or take oral medications, recurrent nausea and vomiting in setting of pancreatic cancer. Coding Level of Care Code Acute Barrel Assembler Helper for g Fwd Diagnoses Intractable nausea and vomiting R11.2 Intractable pain R52 UTI (urinary tract infection) N39.0 Cancer related pain G89.3 Dehydration E86.0 Metastatic cancer C79.9 Malignant neoplasm of head of pancreas C25.0 Metastases to the liver C78.7 Type 1 diabetes E10.9 Lesion of liver K76.9 Anxiety and depression F41.9; F32.A
[2022-04-18] MEDS: methylnaltrexone 12 /0.6 mL INJ 12 MG SUBCUT (16:02)
[2022-04-18 17:00] LABS: Glucose Point of Care 212 mg/dL (70-110)
--- NOTE | 2022-04-18 21:32 | PC.NURSE ---
Patient c/o pain. PRN Morphine given at 2022. Family member at bedside said the last time she was in the hospital that Hydrocodone worked for her. Dr. Leahy notified.
[2022-04-18] MEDS: sertraline 100 mg Tablet PO (21:55)
[2022-04-18] MEDS: enoxaparin 40 mg/0.4 mL Syringe SUBCUT (21:55)
[2022-04-18] MEDS: HYDROcodone-acetaminophen 5-325 mg Tablet 1 TAB PO (21:55)
[2022-04-18 22:22] LABS: Glucose Point of Care 279 mg/dL (70-110)
[2022-04-18] MEDS: AA-Dex 5%-20% w/Lytes 1,000 ML 10 ML IV (22:26)
--- NOTE | 2022-04-18 22:30 | PC.NURSE ---
Patient vomited shortly after receiving PO Zoloft and [place].
--- NOTE | 2022-04-18 22:34 | PC.NURSE ---
2 1/2 units insulin given per family/patient request from family's home medication. Patient/family refusing our insulin sliding scale.
[2022-04-18] MEDS: promethazine 25 mg/mL SDV 1 mL 12.5 MG IM (22:38)
--- NOTE | 2022-04-18 22:45 | PC.NURSE ---
Patient recieved Zofran, Phenergan, and Reglan in last 4 hours. Patient unable to hold down PO medications. Patient has frequent vomiting. Patient still has pain. see orders.
[2022-04-18] MEDS: HYDROmorphone 1 mg/mL INJ 1 mL 0.5 MG IVP (23:07)
[2022-04-18] MEDS: scopolamine 1.5 Patch 1 PATCH TRANSDERMA (23:08)
[2022-04-19] VITALS (11 sets, daily range): BP systolic 129–155; BP diastolic 63–83; PULSE 60–114; RESP 12–18; TEMP 36.6–37; O2SAT 92–94
[2022-04-19] MEDS: aztreonam 1,000 MG in sodium chloride 0.9% (plus) 50 ML 100 MG IV ×2 (00:34→13:04)
[2022-04-19 01:22] LABS: Glucose Point of Care 226 mg/dL (70-110)
[2022-04-19] MEDS: metroNIDAZOLE IV 500 MG/100 ML PREMIX 100 MG IV ×3 (01:24→18:39)
--- NOTE | 2022-04-19 01:29 | PC.NURSE ---
Patient did not sleep previous night. Patient was c/o pain tonight. 0.5 mg Dialudid given per order. Patient is now resting with eyes closed, however patient is lethargic. Unable to do enema at this time due to lethargy. Patient is also confused at times and unable to follow instructions well. VSS on room air. OPAL present.
--- NOTE | 2022-04-19 04:01 | PC.NURSE ---
Family member at bedside wanting PRN Dilaudid given at this time. Nurse educated family member that patient is very lethargic and does not appear to be in pain. Patient states, I'm just telling you my aunt wanted me to set an alarm every time it was due so that we stay on top of it. Family member educated again that patient is lethargic and appears to be resting comfortably.
[2022-04-19 04:47] LABS: Basophils % 0.1 %; Eosinophils % 0.1 %; Hematocrit 26.2 % (37.0-47.0); Hemoglobin 8.1 g/dL (11.5-15.3); Lymphocytes # 1.1 10^3/uL (0.8-4.8); Lymphocytes % 9.8 %; Mean Corpuscular HGB Conc 30.9 g/dL (30.0-36.0); Mean Corpuscular Hemoglobin 30.1 pg (28.0-34.0); Mean Corpuscular Volume 97.4 fl (81-99); Mean Platelet Volume 10.9 fL (7.4-10.4); Monocytes # 0.5 10^3/uL (0.2-0.9); Monocytes % 4.7 %; Neutrophils # 9.21 10^3/uL (1.8-7.7); Neutrophils % 84.7 %; Nucleated Red Blood Cells % 0 %; Platelet Count 106 10^3/cmm (130-400); Red Blood Count 2.69 10^6/uL (4.1-5.3); White Blood Count 10.9 10^3/uL (4.0-10.0)
[2022-04-19 05:07] LABS: Alanine Aminotransferase 18 U/L (0-33); Albumin Level 2.1 g/dL (3.5-5.2); Alkaline Phosphatase 263 U/L (35-105); Anion Gap 14.9 (5-19); Aspartate Amino Transferase 39 U/L (0-32); Blood Urea Nitrogen 10 mg/dL (8-23); Calcium 7.4 mg/dL (8.5-10.5); Carbon Dioxide 22 mmol/L (22-29); Chloride 103 mmol/L (98-107); Globulin 2.4 g/dL (1.3-4.6); Glomerular Filtration Rate 157.8 mL/min (90-130); Glucose 269 mg/dL (65-115); Magnesium 1.7 mg/dL (1.7-2.3); Osmolality Calculated 291 mOsm/kg (285-295); Potassium 3.9 mmol/L (3.5-5.1); Sodium 136 mmol/L (136-145); Total Bilirubin 0.5 mg/dL (0.15-1.2); Total Protein 4.5 g/dL (6.6-8.7)
[2022-04-19] MEDS: ondansetron 2 mg/ML SDV 2 mL 8 MG IVP ×3 (05:31→19:22)
--- NOTE | 2022-04-19 06:42 | PC.NURSE ---
Patient was pulling at IV when this RN walks in room. Nurse moves patient's hand away from IV. Patient states I'm telling on you. Nurse states for what? Patient closes her eyes and becomes silent. Nurse asks patient sweetheart, how is your pain doing? Patient mocks nurse stating sweetheart, honey, look at you. Nurse asks patient Would you like to be repositioned? Patient smiles and closes her eyes and does not answer question. Patient wants to get up to bedside commode. Nurse attempts to help patient. Patient states don't touch me. You better get away from me. Patient becomes wobbly as the family member assists the patient to the bedside commode. Patient looks at this nurse and states, If I fall, it's on your watch.
[2022-04-19 06:44] LABS: Glucose Point of Care 311 mg/dL (70-110)
--- NOTE | 2022-04-19 06:54 | PC.NURSE ---
Patient awake and alert at this time and able to ambulate to BSC with assist. Patient c/o pain and asking for pain medication.
[2022-04-19] MEDS: HYDROmorphone 1 mg/mL INJ 1 mL 0.5 MG IVP ×2 (06:58→19:11)
[2022-04-19] MEDS: metoclopramide 5 mg/mL SDV 2 mL IVP ×2 (06:58→18:33)
[2022-04-19 10:03] LABS: Glucose Point of Care 417 mg/dL (70-110)
[2022-04-19] MEDS: lidocaine 5% Patch 1 PATCH TOPICAL (10:17)
[2022-04-19] MEDS: insulin lispro 100 unit/1 mL SUBCUT ×3 (10:17→19:30)
[2022-04-19] MEDS: pantoprazole 40 mg SDV IVP (10:20)
[2022-04-19 11:23] LABS: Glucose Point of Care 426 mg/dL (70-110)
--- NOTE | 2022-04-19 12:29 | PM.CONSULT ---
Providers/Reason For Consult Consulting Physician/Specialty*: Dr. Mandeep Danielle, DO/General surgery Reason for Consult*: Possible feeding tube Attending Physician: Patrice Christina Primary Care Provider: Andrea Flores MD History of Present Illness History of Present Illness Kaylee Cardoso is a 71 year old female with metastatic pancreatic cancer who came into the hospital with deterioration due to nausea and vomiting as well as significant uncontrollable pain. She has been unable to keep any food down. She is currently somnolent on significant pain medication. When she wakes up she is in significant pain. According to the chart she is wanting to pursue chemotherapy. The family is unsure how they want to proceed with her future care at this time. HPI and ROS are limited secondary to the patient's somnolence Review of Systems General: Reports: ROS unobtainable due to medical condition Medications/Allergies Home Medications Medication Instructions Recorded Confirmed Last Taken Type sertraline 100 mg tablet 100 mg PO BEDTIME 02/17/21 04/13/22 03/17/22 History blood-glucose sensor (Dexcom G6 12/05/21 04/13/22 Unknown History Sensor) insulin lispro 100 unit/mL See Rx Instructions .Route 12/05/21 04/13/22 Unknown Rx subcutaneous solution (Humalog .COMPLEX #30 mL U-100 Insulin) nitroglycerin 0.4 mg sublingual 0.4 mg sublingual Q5M PRN Chest 01/16/22 04/13/22 Unknown History tablet (Nitrostat) Pain carvedilol 12.5 mg tablet 6.25 mg PO BID #0 tabs 01/19/22 04/13/22 03/15/22 Rx levothyroxine 200 mcg tablet 200 mcg PO DAILY #30 tabs 02/20/22 04/13/22 03/15/22 Rx apixaban 5 mg tablet 5 mg PO QAM circulation 03/10/22 04/13/22 03/15/22 History ibandronate 150 mg tablet (Boniva) 150 mg PO Q30D 03/10/22 04/13/22 Unknown History ibuprofen 800 mg tablet 800 mg PO TID PRN Pain #90 tabs 03/11/22 04/13/22 Unknown Rx metoclopramide HCl 5 mg tablet See Rx Instructions .Route .COMPLEX 03/18/22 04/13/22 03/17/22 History fentanyl 25 mcg/hr transdermal 1 patch transdermal Q72H 30 days 03/30/22 04/13/22 Unknown Rx patch #10 ea ondansetron 8 mg disintegrating 8 mg PO Q4H PRN nausea and 03/30/22 04/13/22 Unknown Rx tablet vomiting 14 days #60 tabs scopolamine base 1 mg over 3 days 1 patch transdermal Q3D #10 ea 03/30/22 04/13/22 Unknown Rx transdermal patch morphine concentrate 100 mg/5 mL 20 mg PO Q2H PRN pain 30 days #60 04/03/22 04/13/22 Unknown Rx (20 mg/mL) oral solution mL methylnaltrexone 12 mg/0.6 mL 12 mg (0.6 mL) SUBCUT Q48H PRN 04/10/22 04/13/22 04/10/22 Rx subcutaneous syringe (Relistor) constipation #0.6 mL calcium polycarbophil 625 mg 1,250 mg PO BID PRN Diarrhea 04/13/22 04/13/22 Unknown History tablet (FiberCon) morphine 15 mg tablet,extended 30 mg PO Q12H 04/13/22 04/13/22 Unknown History release naloxone 4 mg/actuation nasal spray 4 mg intranasal Q3M PRN OVERDOSE 04/13/22 04/13/22 Unknown History sennosides 8.6 mg-docusate sodium 2 tab PO BID 04/13/22 04/13/22 Unknown History 50 mg tablet (Senna-S) Allergies Allergy/AdvReac Type Severity Reaction Status Date / Time diphenhydramine Allergy ADR-Muscle Verified 04/04/22 16:31 [From Benadryl] Pain Penicillins Allergy ALGY-Anaphy Verified 04/04/22 16:31 laxis Tetanus Vaccines and Toxoid Allergy ALGY-Rash Verified 04/04/22 16:31 trazodone Allergy ALGY-Joint Verified 04/04/22 16:31 Pain zolpidem [From Ambien] Allergy Unconscious Verified 04/04/22 16:31 Current Medications Generic Name Dose Route Start Last Admin Trade Name Freq PRN Reason Stop Dose Admin Acetaminophen 650 mg 04/12/22 22:16 04/15/22 23:36 Acetaminophen 325 Mg Tablet PO 650 mg Q6H PRN Administration Mild/Mod Pain Or Temp >/= 101 Alprazolam 0.25 mg 04/17/22 22:50 04/17/22 23:01 Alprazolam 0.5 Mg Tablet PO 0.25 mg ONCE PRN Administration ANXIETY Aspirin 81 mg 04/13/22 09:00 04/18/22 13:37 Aspirin 81 Mg Ec Tablet PO Not Given DAILY [facility] Bisacodyl 10 mg 04/17/22 18:00 04/18/22 10:32 Bisacodyl 10 Mg Supp MI 10 mg DAILY [facility]ARMA Administration Calcium Carbonate 1,000 mg 04/13/22 09:00 04/18/22 13:37 Calcium Carbonate 500 Mg Chew Tablet PO Not Given DAILY [facility] Carvedilol 6.25 mg 04/13/22 09:00 04/18/22 17:59 Carvedilol 12.5 Mg Tablet PO Not Given BID [facility] Docusate Sodium 100 mg 04/13/22 09:00 04/18/22 17:59 Docusate Sodium 100 Mg Capsule PO Not Given BID [facility]MA Enoxaparin Sodium 40 mg 04/14/22 22:15 04/18/22 21:55 Enoxaparin 40 Mg/0.4 Ml Syringe SUBCUT 40 mg Q24H KARMA Administration Fluticasone Propionate 1 spray 04/17/22 08:00 04/18/22 17:59 Fluticasone Nasal [place] 16gm Btl NASAL Not Given BID KARMA Hydromorphone HCl 0.5 mg 04/18/22 22:47 04/19/22 06:58 Hydromorphone 1 Mg/Ml Inj 1 Ml IVP 0.5 mg Q4H PRN Administration PAIN Dextrose/Sodium Chloride 1,000 mls @ 100 mls/hr 04/12/22 22:16 04/16/22 22:48 Dextrose 5%-Sod Chloride 0.9% IV 100 mls/hr .Q10H KARMA Administration Metronidazole 500 mg in 100 mls @ 100 mls/hr 04/12/22 23:00 04/19/22 09:57 Flagyl Iv IV 100 mls/hr Q8H [facility] Administration Protocol Aztreonam 1,000 mg/ Sodium 50 mls @ 100 mls/hr 04/16/22 09:00 04/19/22 01:03 Chloride IV Infused Q12H [facility] Infusion Protocol Amino Acids/Electrolytes 1,000 mls @ 10 mls/hr 04/18/22 20:00 04/19/22 05:28 Clinimix E 5%-20% IV 20 mls/hr .Q24H [facility] Infusion Insulin Glargine 10 unit 04/13/22 21:00 04/18/22 22:25 Insulin Glargine 100 Units/1 Ml SUBCUT Not Given BEDTIME [facility] Insulin Human Lispro 0 unit 04/13/22 19:45 04/19/22 10:17 Insulin Lispro 100 Unit/1 Ml SUBCUT 4 unit Q6H [facility]MA Administration Protocol Lanolin 1 applic 04/17/22 11:06 04/17/22 12:29 Lanolin Oint 7 Gm TOPICAL 1 applic PRN PRN Administration DRYNESS Levothyroxine Sodium 25 mcg 04/13/22 09:00 04/18/22 13:38 Levothyroxine 25 Mcg Tablet PO Not Given DAILY [facility] Levothyroxine Sodium 200 mcg 04/13/22 09:00 04/18/22 13:39 Levothyroxine 200 Mcg Tablet PO Not Given DAILY [facility] Lidocaine 1 patch 04/13/22 21:00 04/19/22 10:17 Lidocaine 5% Patch TOPICAL [id number] [facility] Administration Metoclopramide HCl 5 mg 04/12/22 22:16 04/19/22 06:58 Metoclopramide 5 Mg/Ml Sdv 2 Ml IVP 5 mg Q6H PRN Administration NAUSEA AND VOMITING Ondansetron HCl 8 mg 04/18/22 22:48 04/19/22 05:31 Ondansetron 2 Mg/Ml Sdv 2 Ml IVP 8 mg Q6H PRN Administration vomiting, or N/V if npo Pantoprazole Sodium 40 mg 04/12/22 22:16 04/19/22 10:20 Pantoprazole 40 Mg Sdv IVP 40 mg Q12H [facility]MA Administration Polyethylene Glycol 17 gm 04/13/22 18:00 04/18/22 17:59 Polyethylene Glycol 3350 Pkt 17 Gm PO Not Given BID [facility] Scopolamine 1 patch 04/13/22 00:00 04/18/22 23:08 Scopolamine 1.5 Patch TRANSDERMA 1 patch Q3D [facility]MA Administration Sertraline HCl 100 mg 04/13/22 21:00 04/18/22 21:55 Sertraline 100 Mg Tablet PO 100 mg BEDTIME [facility]ARMA Administration PFSH Acute PFSH: Medical History Anxiety and depression Atrial fibrillation -rate controlled -telemetry monitoring -has previously declined AC; follows up with cardiology Chronic diarrhea of unknown origin COVID-19 Positive test 06/17/2020 and 06/23/2020. Diabetic ketoacidosis DVT (deep venous thrombosis) Dyslipidemia History of colon polyps on colonoscopy 2017 History of hypertension Hypotension Hypothyroidism Hypovolemia dehydration Low back pain Mild cognitive impairment Mitral regurgitation Opiate overdose Unintentional Osteoporosis Peripheral vascular disease Scleroderma Syncope due to orthostatic hypotension Type 1 diabetes UTI (urinary tract infection) Vasovagal near-syncope Surgical History H/O cardiac catheterization 2014, moderate disease no flow-limiting H/O dilation and curettage History of colonoscopy S/P ERCP (03/21/22) With placement of biliary stent Status post endovenous radiofrequency ablation of saphenous vein Family History Father CAD (coronary artery disease) Mother Hypertension CAD (coronary artery disease) Hyperlipidemia Sister Hypertension Diabetes Grandfather CAD (coronary artery disease) PATERNAL Social History Smoking and tobacco status: never smoked Alcohol intake: never Lives independently: Yes Housing: House Vitals/I&O/Wt Last Vital Signs Temp 97.8 F 04/19/22 11:08 Pulse 106 H 04/19/22 11:08 Resp 18 04/19/22 11:08 BP 129/79 04/19/22 11:08 Pulse Ox 93 04/19/22 11:08 O2 Del Method 04/19/22 11:08 O2 Flow Rate 95 04/19/22 11:08 04/18/22 04/19/22 04/19/22 22:59 06:59 14:59 Intake Total 305 / 505 220.333 / 725.333 Output Total 250 / 250 500 / 750 Balance 55 / 255 -279.667 / -24.667 Physical Exam Narrative: General : Patient is well developed , no acute distress, somnolent Head : Normal cephalic, a-traumatic. Ears : Pinnae and external canal are normal. Hearing is normal. Eyes : PERRLA, Sclera and injection are normal. No conjunctival discharge. Nose : Mucous membranes are without erythema. Throat : buccal mucosa is normal, gums are without significant recession or hypertrophy. Lungs : Equal chest rise bilaterally, no use of accessory muscles, trachea is midline. Cor : Rate and rhythm are normal. Abdomen : Soft, ND, NT, no g/r/m Extremities : No edema, no cyanosis or clubbing, dorsalis pedis pulses are present bilaterally, non-tender to palpation of calves. Upper extremities are normal bilaterally. Back : non-tender to palpation, no CVA tenderness. Neuro : No focal deficits Urinary Catheter Management: Brantley: Cath Placed During This Visit: yes Reason for Continuing Indwelling Catheter: Other Urinary Catheter Date of Insertion: 04/13/22 Urinary Catheter Time of Insertion: 00:40 Data : 04/19/22 04:35 04/19/22 04:35 A&P Assessment and plan (1) Cancer related pain: Status: Acute (2) Intractable nausea and vomiting: Status: Acute (3) Malignant neoplasm of head of pancreas: Status: Acute (4) Metastatic cancer: Status: Acute Plan I spoke with the patient's granddaughter about the options of placing a feeding J-tube and a venting G-tube for nutrition and palliation. Family is unsure of what route to go forward. I discussed hospice as well. The family is going to talk further about their options. Tentatively I plan on placing a feeding jejunostomy tube and a venting gastrostomy tube on Wednesday. Hospice is also a good option for this patient which I will further discuss with the family. Continue parenteral nutrition Coding Level of Care Code Acute Rn Anesthesiology for Chg Fwd Diagnoses Cancer related pain G89.3 Intractable nausea and vomiting R11.2 Malignant neoplasm of head of pancreas C25.0 Metastatic cancer C79.9
[2022-04-19 17:14] LABS: Glucose Point of Care 330 mg/dL (70-110)
--- NOTE | 2022-04-19 17:14 | P.PN_ITS ---
Subjective Subjective: States she has been feeling somnolent. Has been still in pain. Also granddaughter states is still what she tries to eat or medications comes back up after about 10 minutes. Had a small bowel movement yesterday. Vitals/I&O/Wt Last Vital Signs Temp 98.6 F 04/19/22 15:41 Pulse 110 H 04/19/22 15:41 Resp 16 04/19/22 15:41 BP 130/63 04/19/22 15:41 Pulse Ox 93 04/19/22 11:08 O2 Del Method 04/19/22 11:08 O2 Flow Rate 95 04/19/22 11:08 04/19/22 04/19/22 04/19/22 06:59 14:59 22:59 Intake Total 220.333 / 725.333 Output Total 500 / 750 750 / 750 Balance -279.667 / -24.667 -750 / -750 Physical Exam Narrative: Granddaughter at bedside. Const: COMMON NORMALS: patient oriented x3 and alert GENERAL APPEARANCE: cooperative ORIENTATION/CONSCIOUSNESS: Yes awake OTHER: Wakes up to voice. HENMT: COMMON NORMALS: oropharynx normal Neck/C-Spine: COMMON NORMALS: no JVD Resp: COMMON NORMALS: normal respiratory effort and clear to auscultation bilaterally AUSCULTATION: clear to auscultation bilaterally Cardio: COMMON NORMALS: no JVD, regular rhythm, S1 normal heart sound present, S2 normal heart sound present and No murmurs present (Cardio) RHYTHM: regular rhythm HEART SOUNDS: S1 normal heart sound present and S2 normal heart sound present GI: COMMON NORMALS: Normal to inspection, nondistended, normoactive bowel sounds present, Soft to palpation and non-tender AUSCULTATION: Yes Hypoactive bowel sounds present PALPATION: Yes Soft to palpation OTHER: Tender upper abdomen Extremity: COMMON NORMALS: no joint enlargement and no pedal edema Neuro: COMMON NORMALS: patient oriented x3 and moves all extremities SENSORIUM/ORIENTATION: Yes alert Skin: COMMON NORMALS: no rashes or lesions noted GENERAL SKIN EXAM: no rashes or lesions noted Urinary Catheter Management: Brantley: Cath Placed During This Visit: yes Reason for Continuing Indwelling Catheter: Other Urinary Catheter Date of Insertion: 04/13/22 Urinary Catheter Time of Insertion: 00:40 Data : 04/19/22 04:35 04/19/22 04:35 A&P Assessment and plan (1) Intractable nausea and vomiting: Small BM last night. Repeat Relistor. Started on TPN. Discussions regarding consideration of feeding tube. For now continue to hold Eliquis. For now only on Lovenox prophylactic dose. Continue optimization of nausea control. Intermittent Zofran and Phenergan. Discussed with her family, and they are curious about additional options at home due to severity of nausea intermittently where she cannot take oral medications and Zofran film is not enough. Discussed we could consider potential prescription for IM Phenergan after discharge given this commendation has worked for her here. Continue Protonix. Status: Acute (2) Intractable pain: Continues to require opioids for pain control. Minimal response to lidocaine patch. Continue acetaminophen. Unfortunately also has to continue opioids due to severity. Avoid NSAIDs. Status: Acute (3) UTI (urinary tract infection): With MDR E. coli, resistant to ciprofloxacin. Aztreonam. Recurrent infection, possible chronic cystitis? Follow-up with urology. Status: Acute (4) Cancer related pain: Status: Acute (5) Dehydration: Noted some worsening oxygenation. Also persistent peripheral edema. Mostly likely due to poor nutrition, low albumin. Received albumin 04/18. Started TPN She and her daughter are interested in discussing regarding feeding tube. Unfortunately with very poor appetite recently, very poor oral intake. Status: Acute (6) Metastatic cancer: Has been wanting to still consider chemotherapy with oncology should her condition/functional status improve. Does not want to consider hospice yet. With deconditioning, poor functional capacity at this time. PT, OT, mobilize as tolerated. Fall precautions. Status: Acute (7) Malignant neoplasm of head of pancreas: Status: Acute (8) Metastases to the liver: Extensive metastatic disease to the liver. Status: Acute (9) Type 1 diabetes: Glucose is better controlled, although variable. She continues on insulin pump at 1.43 units/h although this has been paused as she is run out of insulin. Family is going to bring insulin, but as per discussion with them if unable to we will increase nightly Lantus dose. Which she has been on through this hospitalization as per discussion with her family. This is a 55% decrease from her usual dose 2.6 units/h, which was adjusted down by her family to try to avoid hypoglycemia. Lantus 10 units nightly. Status: Acute (10) Lesion of liver: Status: Acute (11) Anxiety and depression: Status: Acute Plan Fall 04/16 when get up from bed unassisted, hit her head on the edge of the table with small cut. CT of the head obtained, unremarkable. Maintain fall precautions. Abdominal ascites, abdominal pain: Antibiotic changed to resistant organism growing in urine. As per discussion with radiology small ascites fluid slightly increased since last scan, but small amount deep in the pelvis/cul-de-sac, not reachable at this time. Pain likely related to enlarging pancreatic cancer with metastatic disease. Atrial fibrillation, Coreg, if continues to be able to tolerate oral intake, hold Eliquis Hyponatremia, secondary to dehydration, resolved with IV fluids Hypokalemia, replacing. Recheck. Replace magnesium. 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 Hypothyroidism: Giurgius unable to reestablish enteric intake, consider switch to IV levothyroxine. Attestations Medical Necessity Statement*: Continue admission due to persistent/recurrent nausea vomiting, inability to tolerate oral intake in the setting of enlarging, metastatic pancreatic cancer, continue discussions regarding feeding tube, goals of care, intravenous antibiotics and nutrition, post discharge planning. Coding Level of Care Code Acute Photographic Laboratory Supervisor for Chg Fwd Exam Comprehensive Diagnoses Intractable nausea and vomiting R11.2 Intractable pain R52 UTI (urinary tract infection) N39.0 Cancer related pain G89.3 Dehydration E86.0 Metastatic cancer C79.9 Malignant neoplasm of head of pancreas C25.0 Metastases to the liver C78.7 Type 1 diabetes E10.9 Lesion of liver K76.9 Anxiety and depression F41.9; F32.A
--- NOTE | 2022-04-19 20:50 | PC.NURSE ---
Upon arrival this morning patient was resting well in bed with eyes closed. Patient was difficult to arouse but would eventually open eyes and give minimal verbal responses. Patient denied any pain. Patient was transferred to [facility] with standby assist. Upon returning to bed patient was again minimally responsive to verbal cues from nurse or family but would blink eyes. Patient was able to clinch her jaw and shake her head in a no to taking any oral medications. Patient's granddaughter then requested patient have her dilaudid and zofran again as it was time for it . Explained to granddaughter that patient was very difficult to arouse and did not show any signs of pain. Explained that we could give zofran to prevent breakthrough nausea as it should not cause sedation. Patient continued to rest throughout the day.Patient's granddaughter requested insulin and wanted to give patient 2 and 3 units per dose once blood sugars were drawn. Patient's Humalog was pulled up out of med room fridge and family administered patient's own insulin per their sliding scale. Patient was able to open eyes and smile at this nurse around 6 pm. Patient's sister, Myra then requested nausea medicine, pain medication, and insulin. Explained to sister that patient had been very sedated throughout the day and if we continued to give her the entire Dilaudid dose she would remain sedated and complicate patient care as we would not be able to determine if patient sedation was due to dilaudid, disease process, or other new concerns arising. Patient's sister reported understanding and agreed to give the patient reglan. Patient continued to arouse more than she had throughout the entire day. Patient began to state she wasn't feeling well and Myra became aggitated wanting insulin to administer to patient. Explained to patient's sister that patient is now on TPN and patient is no longer receiving insulin continuously via the insulin pump and may require more coverage. This nurse called and discussed situation with Dr Christina who is okay with patient's family determining sliding scale and using her own Humalog. Educated patient's sister on the need for slightly more coverage with TPN and no insulin pump and she made the decision to administer 5 units of patient's own Humalog. Patient was then given 0.25 mg Dilaudid as patient stated she was having pain all over. After discussion with Myra regarding sedation concerns it was decided to give the patient the half dose of 0.25 mg and family was in agreement. Patient was dry heaving and was given 8 mg Zofran just prior to Dilaudid as to keep the dilaudid from further upsetting her stomach. Discussion of wanting patient to remain alert and awake to discuss wishes for PEG tube placement, as well as for patient monitoring and safety concerns, were reviewed with Myra as well.
[2022-04-19 21:26] LABS: Glucose Point of Care 336 mg/dL (70-110)
[2022-04-19] MEDS: acetaminophen 1,000 MG/100 ML PIGGYBACK 400 MG IV (21:26)
[2022-04-19] MEDS: magnesium sulfate premix 2 GM/50 ML PIGGYBACK IV (21:36)
[2022-04-19] MEDS: insulin glargine 100 units/1 mL 10 UNIT SUBCUT (21:42)
--- NOTE | 2022-04-19 22:11 | PC.NURSE ---
Patient has a blood sugar of 336 at 9:30 pm after talking with the sister in her room she expressed that she the patient Mrs. Cardoso is a type 1 diabetic and that she bottoms out quickly. After calling Dr. Leahy and explaining the situation he said to go ahead and give her 3 units as the sister requested. Sisters name is Myra.
--- NOTE | 2022-04-19 22:41 | PHA.FALL ---
A Pharmacy Consult Was Conducted For Kaylee Cardoso Due To: Atkinson Fall Scale Risk Level: High Fall Risk On 04/19/22 08:00 And A Medication Fall Risk Score Greater Than 10. The Recommendations Are As Follows: Medications are listed with separate side effects, may be additive in combination Medications included in Beers Criteria: Promethazine- Highly anticholinergic; clearance reduced with advanced age, and tolerance develops when used as hypnotic; increased risk of confusion, dry mouth, constipation, and other anticholinergic effects/toxicity. Scopalamine - Highly anticholinergic, uncertain effectiveness Alprazolam - Older adults have increased sensitivity to benzodiazepines and decreased metabolism of long-acting agents. In general, all benzodiazepines increase risk of cognitive impairment, delirium, falls, fractures, and motor vehicle accidents in older adults Insulin, sliding scale- Higher risk of hypoglycemia without improvement in hyperglycemia management regardless of care setting. Metoclopramide - Can cause extrapyramidal effects including tardive dyskinesia; risk may be further increased in frail older adults Medications High risk attributed to falls in older adults Sertraline - sedation/fatigue/lethargy, postural/orthostatic hypotension, dizziness, blurred vision, confusion, syncope Alprazolam - sedation/fatigue/lethargy, postural/orthostatic hypotension, dizziness, decreased neuromuscular function/ataxia, decreased memory/cognitive impairment, confusion, syncope coreg - sedation/fatigue/lethargy, decreased alertness, postural/orthostatic hypotension, dizziness, decreased neuromuscular function/ataxia, syncope hydromorphone - sedation/fatigue/lethargy, decreased alertness, postural/orthostatic hypotension, dizziness, decreased neuromuscularfunction/ataxia, decreased memory/cognitive impairment, blurred vision, confusion, arrhythmias, syncope promethazine - Central nervous system depression, Dizziness, Extrapyramidal disease, Sedated, Somnolence metoclopramide -sedation/fatigue/lethargy, dizziness, confusion
[2022-04-20] VITALS (15 sets, daily range): BP systolic 126–163; BP diastolic 65–96; PULSE 70–104; RESP 12–18; TEMP 36.7–37.1; O2SAT 92–96
[2022-04-20 00:08] LABS: Glucose Point of Care 320 mg/dL (70-110)
[2022-04-20] MEDS: enoxaparin 40 mg/0.4 mL Syringe SUBCUT ×2 (00:41→23:44)
[2022-04-20] MEDS: metroNIDAZOLE IV 500 MG/100 ML PREMIX 100 MG IV ×4 (00:41→23:44)
[2022-04-20] MEDS: pantoprazole 40 mg SDV IVP ×3 (00:41→23:43)
[2022-04-20] MEDS: lidocaine 5% Patch 1 PATCH TOPICAL ×3 (00:42→22:57)
[2022-04-20] MEDS: ondansetron 2 mg/ML SDV 2 mL 8 MG IVP ×4 (01:38→22:02)
[2022-04-20 02:21] LABS: Glucose Point of Care 274 mg/dL (70-110)
[2022-04-20 05:48] LABS: Basophils % 0.1 %; Eosinophils % 0.3 %; Hematocrit 24.7 % (37.0-47.0); Hemoglobin 7.8 g/dL (11.5-15.3); Lymphocytes # 1.3 10^3/uL (0.8-4.8); Lymphocytes % 12.6 %; Mean Corpuscular HGB Conc 31.6 g/dL (30.0-36.0); Mean Corpuscular Hemoglobin 30.8 pg (28.0-34.0); Mean Corpuscular Volume 97.6 fl (81-99); Mean Platelet Volume 10.6 fL (7.4-10.4); Monocytes # 0.5 10^3/uL (0.2-0.9); Monocytes % 5.2 %; Neutrophils # 8.13 10^3/uL (1.8-7.7); Neutrophils % 80.9 %; Nucleated Red Blood Cells % 0 %; Platelet Count 99 10^3/cmm (130-400); Red Blood Count 2.53 10^6/uL (4.1-5.3); Red Cell Distribution Width 16.3 % (12.1-15.1); White Blood Count 10.1 10^3/uL (4.0-10.0)
[2022-04-20] MEDS: HYDROmorphone 1 mg/mL INJ 1 mL 0.5 MG IVP ×5 (05:49→22:01)
[2022-04-20 06:15] LABS: Alanine Aminotransferase 16 U/L (0-33); Alkaline Phosphatase 281 U/L (35-105); Anion Gap 7.9 (5-19); Aspartate Amino Transferase 28 U/L (0-32); Blood Urea Nitrogen 11 mg/dL (8-23); Calcium 7.1 mg/dL (8.5-10.5); Carbon Dioxide 27 mmol/L (22-29); Chloride 106 mmol/L (98-107); Globulin 2.3 g/dL (1.3-4.6); Glomerular Filtration Rate 157.8 mL/min (90-130); Glucose 254 mg/dL (65-115); Magnesium 1.9 mg/dL (1.7-2.3); Osmolality Calculated 294 mOsm/kg (285-295); Sodium 138 mmol/L (136-145); Total Bilirubin 0.5 mg/dL (0.15-1.2); Total Protein 4.3 g/dL (6.6-8.7)
[2022-04-20 06:35] LABS: Potassium 2.9 mmol/L (3.5-5.1)
[2022-04-20 08:32] LABS: Glucose Point of Care 243 mg/dL (70-110)
[2022-04-20] MEDS: aztreonam 1,000 MG in sodium chloride 0.9% (plus) 50 ML 50 MG IV (09:02)
[2022-04-20] MEDS: fluticasone nasal spray 16gm Btl 1 SPRAY NASAL (09:05)
[2022-04-20] MEDS: lidocaine 1% 5 ML in potassium chloride premix 100 ML 25 ML IV (09:07)
[2022-04-20] MEDS: insulin lispro 100 unit/1 mL SUBCUT (09:08)
[2022-04-20] MEDS: AA-Dex 5%-20% w/Lytes 1,000 ML 20 ML IV (09:30)
[2022-04-20 11:20] LABS: Glucose Point of Care 212 mg/dL (70-110)
--- NOTE | 2022-04-20 15:40 | PM.PN ---
Subjective Subjective: Patient is very somnolent upon exam today. She wakes up to calling her name, however does not participate in conversation. Whispers a few words but states she is tired and goes right back to sleep. Her sister is at bedside. Medications: Reviewed: Yes Vitals/I&O/Wt Last Vital Signs Temp 98.0 F 04/20/22 11:44 Pulse 100 04/20/22 14:00 Resp 18 04/20/22 13:31 BP 163/96 04/20/22 11:44 Pulse Ox 93 04/20/22 11:44 O2 Del Method 04/20/22 11:44 O2 Flow Rate 95 04/20/22 08:00 04/20/22 04/20/22 04/20/22 06:59 14:59 22:59 Intake Total 2355.667 / 2355.667 Output Total 1200 / 1200 Balance 1155.667 / 1155.667 Physical Exam Narrative: General: Chronically ill-appearing anemic lady lying in bed in no acute distress. She is lethargic, somnolent. Wakes up to calling name however does not participate in conversation. HEENT: PERRLA, pupils bilaterally equal and reactive, pallors not present She did not permit rest of the examination stating she wants to rest. Urinary Catheter Management: Brantley: Cath Placed During This Visit: yes Reason for Continuing Indwelling Catheter: Acute Urinary Retention or Obstruction Urinary Catheter Date of Insertion: 04/13/22 Urinary Catheter Time of Insertion: 00:40 Data : 04/20/22 05:34 04/20/22 05:34 A&P Assessment and plan (1) Intractable nausea and vomiting: Most likely as a result of advancing pancreatic malignancy along with liver involvement. Symptoms at time of examination appear to be controlled, however sister at bedside reports that any attempts at eating resulted in nausea and vomiting. She is unable to keep any medications or food down. Currently on antiemetic regimen with Reglan, Phenergan, scopolamine patch and Zofran. There has been ongoing discussion regarding placement of a venting PEG and feeding jejunostomy tube with patient's granddaughter. Sister is at bedside who states she is not aware of the plan and would like more information. I have discussed with her that with advancing malignancy being the likely cause of her nausea over several months, placement of a feeding tube may or may not be able to control her symptoms. While there will be an alternate way of feeding her with a jejunostomy and drain her gastric contents with the venting PEG tube, it is unlikely that she will derive great nutritional benefit with this approach. Patient's sister states that her goals of care are to improve her nutritional status to the point of being able to obtain her next round of chemotherapy. Given patient's deconditioned state currently, poor overall functional status, should we attempt improvement in nutrition this way it is likely to take several months, if at all this approach works. Her malignancy in the interim continues to increase and get worse. By the time we attempt to achieve the appropriate nutritional status, her malignancy may not be amenable to further treatment. I have discussed her oncology care with her outpatient oncologist. Patient's family would like to discuss her future options with Dr. Rascon today before making any final decisions. She has currently been started on TPN. Patient has previously declined hospice. I have discussed with the family to consider palliative care given her overall poor functional status and if unable to tolerate chemo Status: Acute (2) Intractable pain: Continues to require opioids for pain control. Minimal response to lidocaine patch. Continue acetaminophen. Unfortunately also has to continue opioids due to severity. Avoid NSAIDs. Status: Acute (3) UTI (urinary tract infection): With MDR E. coli, resistant to ciprofloxacin. Aztreonam to complete a short course. Discontinue metronidazole Status: Acute (4) Cancer related pain: Status: Acute (5) Dehydration: Noted some worsening oxygenation. Also persistent peripheral edema. Mostly likely due to poor nutrition, low albumin. Received albumin Status: Acute (6) Metastatic cancer: Has been wanting to still consider chemotherapy with oncology should her condition/functional status improve. Does not want to consider hospice yet. With deconditioning, poor functional capacity at this time. PT, OT, mobilize as tolerated. Fall precautions. Status: Acute (7) Malignant neoplasm of head of pancreas: Status: Acute (8) Metastases to the liver: Extensive metastatic disease to the liver. Status: Acute (9) Type 1 diabetes: Glucose is better controlled, although variable. She has removed her insulin pump. continue her insulin sliding scale Status: Acute (10) Lesion of liver: Status: Acute (11) Anxiety and depression: Status: Acute Plan Fall 04/16 when get up from bed unassisted, hit her head on the edge of the table with small cut. CT of the head obtained, unremarkable. Maintain fall precautions. Abdominal ascites, possibly malignant Atrial fibrillation, Coreg, if continues to be able to tolerate oral intake, hold Eliquis Hyponatremia, secondary to dehydration, resolved with IV fluids Hypokalemia, replacing. Recheck. Replace magnesium. 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 Hypothyroidism: Giurgius unable to reestablish enteric intake, consider switch to IV levothyroxine. Attestations Medical Necessity Statement*: ongoing goals of care, TPN, poorly controlled nausea Coding Level of Care Code Acute Environmental Maintenance Worker for Chg Fwd Diagnoses Intractable nausea and vomiting R11.2 Intractable pain R52 UTI (urinary tract infection) N39.0 Cancer related pain G89.3 Dehydration E86.0 Metastatic cancer C79.9 Malignant neoplasm of head of pancreas C25.0 Metastases to the liver C78.7 Type 1 diabetes E10.9 Lesion of liver K76.9 Anxiety and depression F41.9; F32.A
[2022-04-20 17:06] LABS: Glucose Point of Care 250 mg/dL (70-110)
[2022-04-20] MEDS: promethazine 25 mg/mL SDV 1 mL IM (18:15)
--- NOTE | 2022-04-20 18:35 | PC.NURSE ---
Patient resting in bed, frequent turns when asked and agreeable. Family at bedside, patient has rested good portion of the day and has been difficult to understand when awake as shes mumbled. AAOx2, pain medication and antiemetics given round the clock according to MAR. Patients sister requesting IV tylenol to assist in pain control as it worked well the other day. BP and HR elevated throughout shift. Patient does not have insulin pump connected and family requesting amount given after knowing dose per sliding scale. Room is clean and clutter free with call light in reach. Will give report to oncoming nurse at shift change at bedside. Patient did state, i don't think I want the peg tube. Sister said, If thats what you want sis but we have some time to think on it. Sister has been at bedside and supportive.
[2022-04-20] MEDS: insulin glargine 100 units/1 mL 10 UNIT SUBCUT (22:01)
[2022-04-21] VITALS (14 sets, daily range): BP systolic 138–168; BP diastolic 81–103; PULSE 80–108; RESP 14–18; TEMP 36.6–37.3; O2SAT 91–94
[2022-04-21] MEDS: insulin lispro 100 unit/1 mL SUBCUT (00:01)
[2022-04-21 00:38] LABS: Glucose Point of Care 295 mg/dL (70-110)
[2022-04-21] MEDS: HYDROmorphone 1 mg/mL INJ 1 mL 0.5 MG IVP ×5 (02:09→20:57)
[2022-04-21] MEDS: ondansetron 2 mg/ML SDV 2 mL 8 MG IVP ×3 (04:20→18:55)
[2022-04-21 06:11] LABS: Glucose Point of Care 224 mg/dL (70-110)
[2022-04-21] MEDS: promethazine 25 mg/mL SDV 1 mL IM (06:55)
[2022-04-21 06:57] LABS: Basophils % 0.1 %; Eosinophils % 0.2 %; Hemoglobin 8.5 g/dL (11.5-15.3); Lymphocytes # 1.3 10^3/uL (0.8-4.8); Lymphocytes % 14.5 %; Mean Corpuscular HGB Conc 30.4 g/dL (30.0-36.0); Mean Corpuscular Hemoglobin 29.6 pg (28.0-34.0); Mean Corpuscular Volume 97.6 fl (81-99); Mean Platelet Volume 10.5 fL (7.4-10.4); Monocytes # 0.5 10^3/uL (0.2-0.9); Monocytes % 5.7 %; Neutrophils % 78.3 %; Nucleated Red Blood Cells % 0.2 %; Platelet Count 116 10^3/cmm (130-400); Red Blood Count 2.87 10^6/uL (4.1-5.3); Red Cell Distribution Width 16.4 % (12.1-15.1); White Blood Count 8.8 10^3/uL (4.0-10.0)
[2022-04-21 07:19] LABS: Alanine Aminotransferase 15 U/L (0-33); Albumin Level 2.1 g/dL (3.5-5.2); Alkaline Phosphatase 324 U/L (35-105); Aspartate Amino Transferase 23 U/L (0-32); Blood Urea Nitrogen 6 mg/dL (8-23); Calcium 7.1 mg/dL (8.5-10.5); Carbon Dioxide 30 mmol/L (22-29); Globulin 2.3 g/dL (1.3-4.6); Glomerular Filtration Rate 219.9 mL/min (90-130); Glucose 223 mg/dL (65-115); Total Bilirubin 0.6 mg/dL (0.15-1.2); Total Protein 4.4 g/dL (6.6-8.7)
[2022-04-21 07:44] LABS: Anion Gap 9.9 (5-19); Chloride 101 mmol/L (98-107); Osmolality Calculated 291 mOsm/kg (285-295); Sodium 138 mmol/L (136-145)
[2022-04-21 07:54] LABS: Potassium 2.9 mmol/L (3.5-5.1)
--- NOTE | 2022-04-21 08:50 | PC.NURSE ---
Addendum entered by Ivana Horton RN 04/21/22 19:46: Patient resting in bed with sister bedside, does not want to be bothered at this time, VSS. TPN increased per protocol this nurse missed the increase and just applied. NO new events or needs at this time. Report given to oncoming nurse. Addendum entered by Ivana Horton RN 04/21/22 12:57: Patient requesting pain medication, this nurse explained to patient that we are needing to be Alert and Oriented so she can make decisions for her care. Patient stated, I just want to be left alone I don't want therapies or nothing. This nurse told patient that we have to get a doctor in the room with witnesses and patient confirmed she wanted me to get doctor. Doctor, this RN, child nurse, and nurse chemical supervisor at bedside with patient and patients sister, patient stated that she would like more days to make a decision and then clearly stated yes to the questions about wanting CPR chest compressions and ventilator and all life saving measures. Dr requested CM to get involved with this as all the documentation that she has on file shows that she does not want those things. Original Note: Patient sleeping with sister at bedside, patient did not wake up for morning assessment and agreed to come back in a little bit. Patient BP elevated with remaining VSS, TPN running per orders. Room clean and cluttered from the recliner and several chairs. Family request that they stay in room. Call light in reach. Patient not agreeable to turns at this time. Will continue to monitor.
[2022-04-21] MEDS: fluticasone nasal spray 16gm Btl 1 SPRAY NASAL (09:07)
[2022-04-21] MEDS: aztreonam 1,000 MG in sodium chloride 0.9% (plus) 50 ML 50 MG IV (09:07)
[2022-04-21] MEDS: AA-Dex 5%-20% w/Lytes 1,000 ML 20 ML IV (09:08)
[2022-04-21] MEDS: bisacodyl 10 mg Supp PR (09:10)
[2022-04-21] MEDS: lidocaine 5% Patch 1 PATCH TOPICAL (09:21)
[2022-04-21] MEDS: pantoprazole 40 mg SDV IVP ×2 (10:54→21:01)
[2022-04-21 11:15] LABS: Glucose Point of Care 210 mg/dL (70-110)
--- NOTE | 2022-04-21 12:06 | PM.PN ---
Subjective Subjective: I spoke to the patient, her daughter and Dr. Rascon altogether yesterday. There is no effective treatment for her pancreatic cancer and her prognosis is poor. At the end of the discussion, the patient determined that she did not want to seek any further treatment, including placement of a feeding tube. Vitals/I&O/Wt Last Vital Signs Temp 98.0 F 04/21/22 12:00 Pulse 107 H 04/21/22 12:00 Resp 15 04/21/22 12:00 BP 138/81 04/21/22 12:00 Pulse Ox 93 04/21/22 12:00 O2 Del Method 04/21/22 12:00 O2 Flow Rate 95 04/21/22 08:00 04/20/22 04/21/22 04/21/22 22:59 06:59 14:59 Intake Total 460 / 2815.667 100 / 2915.667 522.667 / 522.667 Output Total 1100 / 2300 400 / 400 Balance -640 / 515.667 100 / 615.667 122.667 / 122.667 Physical Exam Narrative: General: No acute distress, awake and oriented x3 Abdomen: Soft, nontender, nondistended, no guarding rebound or masses Urinary Catheter Management: Brantley: Cath Placed During This Visit: yes Reason for Continuing Indwelling Catheter: Acute Urinary Retention or Obstruction Urinary Catheter Date of Insertion: 04/13/22 Urinary Catheter Time of Insertion: 00:40 Data : 04/21/22 06:20 04/21/22 06:20 A&P Assessment and plan (1) Cancer related pain: Status: Acute (2) Intractable nausea and vomiting: Status: Acute (3) Malignant neoplasm of head of pancreas: Status: Acute (4) Metastatic cancer: Status: Acute Plan As of last night, the patient then was seeking further treatment. I recommended hospice. The daughter still unsure. Dr. Rascon was also present for this discussion. I am available for jejunostomy tube placement if necessary. However, again, it is quite possible that she just goes further downhill after a major operation that requires laparotomy, such as a jejunostomy tube. Please reconsult general surgery if needed. Attestations Medical Necessity Statement*: Further hospitalization per hospitalist Coding Level of Care Code Acute Information Systems Analyst for g Fwd Diagnoses Cancer related pain G89.3 Intractable nausea and vomiting R11.2 Malignant neoplasm of head of pancreas C25.0 Metastatic cancer C79.9
[2022-04-21] MEDS: potassium chloride premix 100 ML 25 MEQ IV (12:53)
--- NOTE | 2022-04-21 16:02 | P.PN_ITS ---
Subjective Subjective: Patient seen and care discussed multiple times today with her and family. Patient was awake, alert by this afternoon and i was able to have a conversation with her. Her sister Myra was at bedside as well. There was discussion between patient, family and Dr. Rascon yesterday that patient is not a candidate for further chemotherapeutic options and given her advancing malignancy and poor functional status, transition to palliative care might be most appropriate. Her care plan re: PEG/feeding jejunostomy was additionally discussed with Dr. Danielle yesterday evening and patient had refused surgery as parenetreal nutrition is not compatible with her [facility]. I was able to review her advanced directives in our system from 2019 which states that she would not want CPR, mechanical ventilation or tube feeding should she be diagnosed with a terminal illness. The patient stated to her nurse yesterday that she does not want any feeding tube and also does not want any further therapies. She refused her suppository and KCL supplementation today understanding the risk of cardiac arrest. When I first entered the room today, Ms Cardoso was asleep, her sister informed me that Ms. Cardoso is still contemplating placement of PEG and has not refused the procedure. About an hour later Ms. Cardoso was awake enough to communicate directly with me and told me that she has not refused the PEG and needs time to decide. She additionally states her wishes are to have chest compressions and mechanical ventilation should the situation arise when i asked her questions regarding code status. This is the opposite of her previously expressed wishes, as recently as yesterday. Her primary DPOA is her daughter Reji and secondary is her son Andrey Ziegler. Patient confirms she would still want to have her children as her DPOA. I have contacted Reji and updated her regarding events of this admission. It will be beneficial and likely provide decision making support to the patient to have a family conference tomorrow. Her daughter indicates she will visit tomorrow and try to help her mom make healthcare decisions. Medications: Reviewed: Yes Vitals/I&O/Wt Last Vital Signs Temp 98.0 F 04/21/22 15:54 Pulse 108 H 04/21/22 15:54 Resp 15 04/21/22 15:54 BP 158/99 04/21/22 15:54 Pulse Ox 91 04/21/22 15:54 O2 Del Method 04/21/22 15:54 O2 Flow Rate 95 04/21/22 08:00 04/21/22 04/21/22 04/21/22 06:59 14:59 22:59 Intake Total 100 / 2915.667 762.667 / 762.667 Output Total 400 / 400 Balance 100 / 615.667 362.667 / 362.667 Physical Exam Narrative: General: No acute distress, AO x3 when seen in the afternoon having spaced out her opiates. malnourished, chronically ill appearing lady HEENT: PERRLA, pupils bilaterally equal and reactive, pallor + Chest: Normal vesicular breath sounds, no added sounds CVS: S1-S2 regular, no murmurs, no tachycardia, no gallops, no rubs Abdomen: Soft, nontender, no organomegaly, bowel sounds present Neuro: No focal deficits, no facial deformity, AO x3, power 5/5 in all limbs Urinary Catheter Management: Brantley: Cath Placed During This Visit: yes Reason for Continuing Indwelling Catheter: Acute Urinary Retention or Obstruction Urinary Catheter Date of Insertion: 04/13/22 Urinary Catheter Time of Insertion: 00:40 Data : 04/21/22 06:20 04/21/22 06:20 A&P Assessment and plan (1) Intractable nausea and vomiting: Most likely as a result of advancing pancreatic malignancy along with liver involvement. She is unable to keep any medications or food down.Currently on TPN. Currently on antiemetic regimen with Reglan, Phenergan, scopolamine patch and Zo rosaura. Pain is currently controlled See above discussion regarding goals of care and family meeting. Status: Acute (2) Intractable pain: Continues to require opioids for pain control. Minimal response to lidocaine patch. Continue acetaminophen. continue opioids due to severity. Avoid NSAIDs. Status: Acute (3) UTI (urinary tract infection): With MDR E. coli, resistant to ciprofloxacin. Aztreonam to complete a short course. Discontinue metronidazole Status: Acute (4) Cancer related pain: Status: Acute (5) Dehydration: Noted some worsening oxygenation. Also persistent peripheral edema. Mostly likely due to poor nutrition, low albumin. Received albumin Status: Acute (6) Metastatic cancer: Discussed with her outpatient oncologist Dr. Rascon. Patient is not a good candidate for further chemotherapeutic options. Consideration for palliative care Status: Acute (7) Malignant neoplasm of head of pancreas: Status: Acute (8) Metastases to the liver: Extensive metastatic disease to the liver. Status: Acute (9) Type 1 diabetes: Glucose is better controlled, although variable. She has removed her insulin pump. continue her insulin sliding scale Status: Acute (10) Lesion of liver: Status: Acute (11) Anxiety and depression: Status: Acute Plan Fall 04/16 when get up from bed unassisted, hit her head on the edge of the table with small cut. CT of the head obtained, unremarkable. Maintain fall precautions. 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 Attestations Medical Necessity Statement*: ongoing goals of care discussion, pain and nausea management Coding Level of Care Code Acute Building Service Worker for Chg Fwd Diagnoses Intractable nausea and vomiting R11.2 Intractable pain R52 UTI (urinary tract infection) N39.0 Cancer related pain G89.3 Dehydration E86.0 Metastatic cancer C79.9 Malignant neoplasm of head of pancreas C25.0 Metastases to the liver C78.7 Type 1 diabetes E10.9 Lesion of liver K76.9 Anxiety and depression F41.9; F32.A
[2022-04-21 17:04] LABS: Glucose Point of Care 252 mg/dL (70-110)
[2022-04-21] MEDS: aztreonam 1,000 MG in sodium chloride 0.9% (plus) 50 ML 100 MG IV (20:56)
[2022-04-21] MEDS: enoxaparin 40 mg/0.4 mL Syringe SUBCUT (21:01)
[2022-04-21 21:22] LABS: Glucose Point of Care 271 mg/dL (70-110)
[2022-04-21] MEDS: insulin glargine 100 units/1 mL 10 UNIT SUBCUT (22:08)
[2022-04-21] MEDS: acetaminophen 1,000 MG/100 ML PIGGYBACK 400 MG IV (23:20)
[2022-04-21] MEDS: scopolamine 1.5 Patch 1 PATCH TRANSDERMA (23:26)
--- NOTE | 2022-04-21 23:39 | PC.NURSE ---
Refusing Relistor at this time. Family is wanting to wait until morning.
[2022-04-22] VITALS (11 sets, daily range): BP systolic 142–157; BP diastolic 84–100; PULSE 92–108; RESP 14–18; TEMP 36.3–36.9; O2SAT 90–95
[2022-04-22] MEDS: ondansetron 2 mg/ML SDV 2 mL 8 MG IVP ×3 (01:12→18:50)
[2022-04-22] MEDS: HYDROmorphone 1 mg/mL INJ 1 mL 0.5 MG IVP ×4 (01:12→20:25)
[2022-04-22 01:22] LABS: Glucose Point of Care 315 mg/dL (70-110)
--- NOTE | 2022-04-22 01:24 | PC.NURSE ---
Addendum entered by Dora Hyde RN 04/22/22 05:43: Given from patient's home medication. Addendum entered by Dora Hyde RN 04/22/22 01:32: BG 315. Original Note: 4 units Humalog given per family at this time.
[2022-04-22] MEDS: metoclopramide 5 mg/mL SDV 2 mL IVP (05:05)
[2022-04-22 05:17] LABS: Glucose Point of Care 205 mg/dL (70-110)
[2022-04-22] MEDS: acetaminophen 1,000 MG/100 ML PIGGYBACK 400 MG IV ×2 (06:27→18:08)
[2022-04-22] MEDS: methylnaltrexone 12 /0.6 mL INJ 12 MG SUBCUT (06:27)
[2022-04-22 08:23] LABS: Eosinophils # 0.1 10^3/uL (0.0-0.8); Eosinophils % 0.7 %; Hematocrit 27.5 % (37.0-47.0); Hemoglobin 8.8 g/dL (11.5-15.3); Lymphocytes # 1.2 10^3/uL (0.8-4.8); Lymphocytes % 15.1 %; Mean Corpuscular Hemoglobin 30.4 pg (28.0-34.0); Mean Corpuscular Volume 95.2 fl (81-99); Mean Platelet Volume 11.6 fL (7.4-10.4); Monocytes # 0.4 10^3/uL (0.2-0.9); Monocytes % 5.7 %; Neutrophils % 77.4 %; Nucleated Red Blood Cells % 0 %; Platelet Count 126 10^3/cmm (130-400); Red Blood Count 2.89 10^6/uL (4.1-5.3); Red Cell Distribution Width 16.4 % (12.1-15.1); White Blood Count 7.6 10^3/uL (4.0-10.0)
[2022-04-22 08:33] LABS: Alanine Aminotransferase 13 U/L (0-33); Alkaline Phosphatase 379 U/L (35-105); Blood Urea Nitrogen 6 mg/dL (8-23); Calcium 7.1 mg/dL (8.5-10.5); Carbon Dioxide 33 mmol/L (22-29); Chloride 97 mmol/L (98-107); Globulin 2.6 g/dL (1.3-4.6); Glomerular Filtration Rate 219.9 mL/min (90-130); Glucose 238 mg/dL (65-115); Osmolality Calculated 287 mOsm/kg (285-295); Sodium 136 mmol/L (136-145); Total Bilirubin 0.6 mg/dL (0.15-1.2); Total Protein 4.6 g/dL (6.6-8.7)
[2022-04-22 08:40] LABS: Anion Gap 9.5 (5-19); Aspartate Amino Transferase 30 U/L (0-32); Potassium 3.5 mmol/L (3.5-5.1)
[2022-04-22] MEDS: AA-Dex 5%-20% w/Lytes 1,000 ML 42 ML IV (09:39)
[2022-04-22] MEDS: aztreonam 1,000 MG in sodium chloride 0.9% (plus) 50 ML 100 MG IV ×2 (09:39→20:24)
[2022-04-22] MEDS: pantoprazole 40 mg SDV IVP (09:49)
[2022-04-22] MEDS: carvedilol 12.5 mg Tablet 6.25 MG PO ×2 (11:11→18:09)
[2022-04-22] MEDS: levothyroxine 25 mcg Tablet PO (11:11)
[2022-04-22] MEDS: levothyroxine 200 mcg Tablet PO (11:11)
[2022-04-22] MEDS: polyethylene glycol 3350 Pkt 17 gm PO ×2 (11:11→18:09)
[2022-04-22] MEDS: docusate sodium 100 mg Capsule PO ×2 (11:11→18:09)
[2022-04-22] MEDS: bisacodyl 10 mg Supp PR (11:13)
[2022-04-22 11:15] LABS: Glucose Point of Care 296 mg/dL (70-110)
[2022-04-22] MEDS: lidocaine 5% Patch 1 PATCH TOPICAL (11:18)
[2022-04-22] MEDS: fluticasone nasal spray 16gm Btl 1 SPRAY NASAL ×2 (11:27→18:12)
--- NOTE | 2022-04-22 11:31 | PC.NURSE ---
Patient refused Calcium Carbonate and aspirin. Patient started to fell nauseated so offered her Zofran. The sister stated she wanted to wait, thought it might make patient sleepy, the Outside Sales Executive was here and wanted sister to speak to him. Sister stated she would be outside and refrigerating machine operator would let her know if patient got sick.
--- NOTE | 2022-04-22 13:02 | PC.CHAP ---
Pastoral Care Encounter/Spiritual Assessment Type of Contact [] Declined infrastructure design engineer visit [] Patient/Family/Request visit [] Outpatient visit [] Follow-up visit [] Physician referral [] Code/Alert [x] Routine visit [] Staff referral [] Actively dying [] Patient sleeping [x] Family support [] [] Out of room [] Palliative care [] [] Receiving care in room [] Pre-surgical visit [] Trauma [] Long length of stay [] ICU visit [x] Other: have check on PT every day... sleeps a lot.. aware of presence but does not communicate Relational/Emotional Strength [] Patient feels connected with others/family/visitors/staff [] Distress [] Loneliness/isolation [] Abandonment Spirituality of Patient [] Person of [place] [] Attends Buddhist of their [place] [] Believes in Prayer [] Reads Bible or Christianity materials [] There are Spiritual issues to be addressed Mine Surveyor Interventions [x] Prayer [] Active listening [] Non-anxious presence [] Spiritual/emotional support [] Crisis/trauma care [] Spiritual counseling [] Bereavement support [] Provided bereavement packet [] Provided Bible/devotional materials [] Provided toy/stuffed animal, coloring book to patient or family member [] Provided Communion [] Anointing/[place] [] Salvation [x] Completed spiritual assessment [] Other: Impact on Illness or Injury [] Angry [] Fearful [] Anxious [] Often cries [] Exhaustion [] Unable to work [] Unable to attend evangelical [] Unable to walk/stand [] Unable to read [] Unable to drive [] Unable to eat/drink [] Unable to sleep [] Unable to be with family [] Patient intubated [] Other: Summary Time spent with patient
[2022-04-22] MEDS: insulin lispro 100 unit/1 mL SUBCUT ×2 (13:30→18:11)
--- NOTE | 2022-04-22 14:25 | PC.NURSE ---
Notified Dr. Obrien of Patients sister regulating patients insulin. Dr. Obrien stated that was okay. Patients blood sugar was 296. according to the sliding scale patient should have received 8 units. Sister stated to only give her 5 units. Five units given per sister.
--- NOTE | 2022-04-22 15:59 | P.PN_ITS ---
Subjective Subjective: Patient is asleep at the time of exam. Her sister states that patient feels better today. She was able to keep some food and her pills down this morning. She received IV Tylenol overnight which appears to work well for her. Still constipated. We are awaiting her daughter to come in for a family meeting to discuss further goals of care. Patient's sister relates that patient is still thinking about possible PEG. Medications: Reviewed: Yes Vitals/I&O/Wt Last Vital Signs Temp 98.4 F 04/22/22 12:00 Pulse 106 H 04/22/22 12:00 Resp 16 04/22/22 12:39 BP 149/100 04/22/22 12:00 Pulse Ox 90 04/22/22 12:39 O2 Del Method 04/22/22 12:00 O2 Flow Rate 95 04/22/22 08:00 04/22/22 04/22/22 04/22/22 06:59 14:59 22:59 Intake Total 474 / 1549.000 200.2 / 200.2 Output Total 500 / 2500 Balance -26 / -951.000 200.2 / 200.2 Physical Exam Narrative: General: Asleep, lady lying in bed in no acute distress. HEENT: PERRLA, pupils bilaterally equal and reactive, pallor + Detailed exam deferred today to allow for patient comfort. She states she just wants to be comfortable today. Urinary Catheter Management: Brantley: Cath Placed During This Visit: yes Reason for Continuing Indwelling Catheter: Acute Urinary Retention or Obstruction Urinary Catheter Date of Insertion: 04/13/22 Urinary Catheter Time of Insertion: 00:40 Data : 04/22/22 08:01 04/22/22 08:01 A&P Assessment and plan (1) Intractable nausea and vomiting: Most likely as a result of advancing pancreatic malignancy along with liver involvement. She is unable to keep any medications or food down.Currently on TPN. Currently on antiemetic regimen with Reglan, Phenergan, scopolamine patch and Zofran. Pain is currently controlled Extensive discussion regarding GOC, see my note from 04/21 for details. I am waiting for her daughter Reji to come in for a family meeting so we can discuss her goals of care. Status: Acute (2) Intractable pain: Continues to require opioids for pain control. Minimal response to lidocaine patch. Continue acetaminophen. continue opioids due to severity. Avoid NSAIDs. Status: Acute (3) UTI (urinary tract infection): With MDR E. coli, resistant to ciprofloxacin. Aztreonam to complete a short course. Discontinue metronidazole Status: Acute (4) Cancer related pain: Status: Acute (5) Dehydration: Noted some worsening oxygenation. Also persistent peripheral edema. Mostly likely due to poor nutrition, low albumin. Received albumin Status: Acute (6) Metastatic cancer: Discussed with her outpatient oncologist Dr. Rascon. Patient is not a good candidate for further chemotherapeutic options. Consideration for palliative care Status: Acute (7) Malignant neoplasm of head of pancreas: Status: Acute (8) Metastases to the liver: Extensive metastatic disease to the liver. Status: Acute (9) Type 1 diabetes: Glucose is better controlled, although variable. She has removed her insulin pump. continue her insulin sliding scale Status: Acute (10) Lesion of liver: Status: Acute (11) Anxiety and depression: Status: Acute Plan Fall 04/16 when get up from bed unassisted, hit her head on the edge of the table with small cut. CT of the head obtained, unremarkable. Maintain fall precautions. 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 GOC discussion ongoing. PAtient's symptoms are better with controlled pain and nausea. Sister continues to regulate insulin while in the hospital. She is still on TPN. reiterated again today by me that TPN is not a rn long term care solution. Patient's sister relays that patient is still contemplating a PEG. patient does not answer directed questions today, Awaiting family meeting with patient and her daughter Reji who is also her DPOA. Attestations Medical Necessity Statement*: ongoing GOC discussion and disposiiton planning which is dependent on decisions surrounding GOC, Feeding solutions, pain and other symptomatic management Coding Level of Care Code Acute Buttermaker Continuous Churn for Chg Fwd Diagnoses Intractable nausea and vomiting R11.2 Intractable pain R52 UTI (urinary tract infection) N39.0 Cancer related pain G89.3 Dehydration E86.0 Metastatic cancer C79.9 Malignant neoplasm of head of pancreas C25.0 Metastases to the liver C78.7 Type 1 diabetes E10.9 Lesion of liver K76.9 Anxiety and depression F41.9; F32.A
[2022-04-22 17:15] LABS: Glucose Point of Care 257 mg/dL (70-110)
--- NOTE | 2022-04-22 18:23 | PC.NURSE ---
Gave patient 6 units according to sliding scale for 257 per Sister Chel.
[2022-04-22] MEDS: insulin glargine 100 units/1 mL 10 UNIT SUBCUT (20:24)
[2022-04-22] MEDS: sertraline 100 mg Tablet PO (20:25)
[2022-04-22 20:37] LABS: Glucose Point of Care 209 mg/dL (70-110)
[2022-04-23] VITALS (9 sets, daily range): BP systolic 122–142; BP diastolic 76–88; PULSE 103–109; RESP 14–18; TEMP 36.4–36.9; O2SAT 91–95
[2022-04-23] MEDS: enoxaparin 40 mg/0.4 mL Syringe SUBCUT (01:45)
[2022-04-23] MEDS: pantoprazole 40 mg SDV IVP (01:45)
[2022-04-23 01:56] LABS: Glucose Point of Care 239 mg/dL (70-110)
[2022-04-23] MEDS: ondansetron 2 mg/ML SDV 2 mL 8 MG IVP ×3 (03:36→16:14)
[2022-04-23] MEDS: insulin lispro 100 unit/1 mL SUBCUT ×3 (06:25→18:58)
[2022-04-23 06:51] LABS: Glucose Point of Care 335 mg/dL (70-110)
[2022-04-23] MEDS: aztreonam 1,000 MG in sodium chloride 0.9% (plus) 50 ML 100 MG IV (08:55)
[2022-04-23] MEDS: AA-Dex 5%-20% w/Lytes 1,000 ML 42 ML IV (09:14)
[2022-04-23] MEDS: levothyroxine 200 mcg Tablet PO (10:29)
[2022-04-23] MEDS: polyethylene glycol 3350 Pkt 17 gm PO (10:30)
[2022-04-23] MEDS: docusate sodium 100 mg Capsule PO (10:31)
[2022-04-23] MEDS: aspirin 81 mg EC Tablet PO (10:31)
[2022-04-23] MEDS: levothyroxine 25 mcg Tablet PO (10:31)
[2022-04-23] MEDS: carvedilol 12.5 mg Tablet 6.25 MG PO ×2 (10:31→18:56)
[2022-04-23] MEDS: bisacodyl 10 mg Supp PR (10:32)
[2022-04-23] MEDS: fluticasone nasal spray 16gm Btl 1 SPRAY NASAL (10:33)
[2022-04-23] MEDS: HYDROmorphone 1 mg/mL INJ 1 mL 0.5 MG IVP ×2 (11:20→21:47)
[2022-04-23] MEDS: lidocaine 5% Patch 1 PATCH TOPICAL (11:25)
[2022-04-23 11:41] LABS: Glucose Point of Care 292 mg/dL (70-110)
--- NOTE | 2022-04-23 13:51 | PC.NURSE ---
Sister allowed this nurse to administer 8 units per sliding scale at this time for noon dose.
--- NOTE | 2022-04-23 16:18 | PM.PN ---
Subjective Subjective: patient's daughter came in today for a family conference. She requested her sister to leave the room and then had a conversation with her daughter in private. At the end of her discussion with daughter she called us back to her room. Patient states her wishes of changing her code status to DNR- no CPR or mechanical ventilation. No further escalation of care. She said she does not want PEG tube placed. She wishes to discontinue TPN. She only wishes to proceed with pain and symptom management such as nausea control etc. She realizes that not getting TPN or tube feeds will lead to malnutrition and , especially complicated by the fact that she is a tyoe 1 diabetic. She feels it is her time and is ready to let nature take its course. The conversation above was with patient, her daughter Reji and her sister Myra. Witnessed by nurses Rachel and Sarika. Her pain is better controlled today with iv tylenol. NAusea and poor po intake persisting. 1 episode of vomiting this morning Vitals/I&O/Wt Last Vital Signs Temp 97.9 F 04/23/22 12:00 Pulse 103 H 04/23/22 12:00 Resp 16 04/23/22 12:00 BP 136/84 04/23/22 12:00 Pulse Ox 93 04/23/22 11:38 O2 Del Method 04/23/22 11:38 O2 Flow Rate 95 04/23/22 08:00 04/23/22 04/23/22 04/23/22 06:59 14:59 22:59 Intake Total 1230.5 / 1230.5 Output Total 500 / 2100 Balance -500 / -1699.8 1230.5 / 1230.5 Physical Exam Narrative: Patient is alert awake and oriented x 3. Smiling today when daughter came to her room. Not examined today to allow for patient comfort Urinary Catheter Management: Brantley: Cath Placed During This Visit: yes Reason for Continuing Indwelling Catheter: Other Urinary Catheter Date of Insertion: 04/13/22 Urinary Catheter Time of Insertion: 00:40 Data : 04/22/22 08:01 04/22/22 08:01 A&P Assessment and plan (1) Intractable nausea and vomiting: Status: Acute (2) Cancer related pain: Status: Acute (3) Metastatic cancer: Status: Acute (4) Malignant neoplasm of head of pancreas: Status: Acute (5) Metastases to the liver: Status: Acute (6) Type 1 diabetes: Status: Acute Plan Patient being transitioned to palliative and hospice care today after discussion with her and her DPOA (daughter Reji). She only wishes for pain management at this time. D/c TPN. minimize medications to essential medications only continue insulin. scheduled pain medication dispo: inpatient vs home hospice Attestations Medical Necessity Statement*: transition to hospice care Coding Level of Care Code Acute Electronic News Gathering Editor for [facility] Fwd Diagnoses Intractable nausea and vomiting R11.2 Cancer related pain G89.3 Metastatic cancer C79.9 Malignant neoplasm of head of pancreas C25.0 Metastases to the liver C78.7 Type 1 diabetes E10.9
--- NOTE | 2022-04-23 16:37 | PC.NURSE ---
At the request of Dr. Obrien, I was present with her, Solo Narayan RN, the patient, her daughter, and her sister, Myra to discuss end-of-life decisions. The patient verbalized to her daughter, also DPoA, that her wishes were to not place a feeding tube at this time, keep her pain well managed, and explore her options for either inpatient or in-home Hospice. The patient will be made a AND at this time. Dr. Obrien, nursing staff, and case management will assist in gathering information for hospice providers and discuss this further with family when the need arises.
[2022-04-23 18:05] LABS: Glucose Point of Care 298 mg/dL (70-110)
[2022-04-23] MEDS: acetaminophen 1,000 MG/100 ML PIGGYBACK 400 MG IV (18:56)
[2022-04-23 21:16] LABS: Glucose Point of Care 280 mg/dL (70-110)
[2022-04-23] MEDS: metoclopramide 5 mg/mL SDV 2 mL IVP (21:46)
[2022-04-23] MEDS: insulin glargine 100 units/1 mL 10 UNIT SUBCUT (21:46)
[2022-04-23 23:33] LABS: Glucose Point of Care 176 mg/dL (70-110)
--- NOTE | 2022-04-23 23:59 | ECG_ITS ---
[facility] Test Date: 2022-04-24 Pat Name: Kaylee Cardoso Department: Room: 264 Gender: Female Director Of Customer Acquisition: : [id number] Requested By: Jonatan Leahy Order Number: [id number] Sami MD: Gelacio Quintanilla M.D. Measurements Intervals [place] Rate: 137 P: NC: QRS: 77 QRSD: 81 T: 60 QT: 292 QTc: 441 Interpretive Statements ATRIAL FIBRILLATION WITH RAPID VENTRICULAR RESPONSE NONSPECIFIC ST & T-WAVE ABNORMALITY ABNORMAL RHYTHM ECG Compared to ECG 04/04/2022 16:32:39 T-wave abnormality now present Sinus rhythm no longer present Sinus arrhythmia no longer present Electronically Signed On 04-25-2022 9:17:39 CDT by Gelacio Quintanilla M.D. [id number]
[2022-04-24] VITALS (10 sets, daily range): BP systolic 106–153; BP diastolic 73–99; PULSE 93–115; RESP 12–20; TEMP 36.4–36.7; O2SAT 89–95
--- NOTE | 2022-04-24 00:37 | P.PNCC_ITS ---
Critical Care Event Note The high probability of a clinically significant, sudden or life threatening deterioration of the patient's [] system(s) required my full and direct attention, intervention and personal management. The critical care time is as shown. This time is in addition to time spent performing any reported procedures but includes the following: [x] Data and vital sign review and interpretation [x] Patient assessment, examination and intervention [x] Documentation [x] Medication orders and management Critical Care Time Code activated: No Critical Care Time (min): 30 Additional information about critical care time: - I was advised to see patient, as her blood pressures were 90s over 50s, heart rates were in the 180s to 200s -EKG showed A. fib with RVR, but on the monitor looked like SVT -Patient was given 6 mg adenosine, heart rates came down to the low 120s, but came up to the 180s, given another 12 mg of adenosine given a liter bolus -Blood pressures 150s over 100, heart rates have slowed down, but still 120s to 140s rhythm looks like atrial fibrillation on the monitor she is alert oriented x3 -Patient is DNR/DNI, has pancreatic cancer -She was given another 5 mg IV push of metoprolol, heart rates have come down to 80s to 90s, blood pressure is 110/70, receiving fluid bolus: 40x3 -We will continue to monitor, status is critical prognosis is guarded -We will potentially schedule metoprolol if her blood pressure holds up Coding Level of Care Code Acute Pump Installation And Servicer for [facility]
[2022-04-24] MEDS: pantoprazole 40 mg SDV IVP ×2 (01:19→13:51)
--- NOTE | 2022-04-24 01:27 | PC.NURSE ---
Patient's heart rate increased to 130s around 2348. Patient's heart rate increased up to 200 bpm on heart monitor. Patient asymptomatic. Blood pressure soft with systolic 80s-90s. Oxygen saturation and respiratory rate WNL. EKG taken. Dr. Leahy to room to see patient and gives verbal orders as seen below. Patient placed on zoll monitor. 6 mg Adenosine IVP given at 0022. Crash cart opened. One liter NS bolus started. 12 mg Adenosine IVP given at 0027. 5 mg Metoprolol IVP given at 0031. Blood pressure 118/78 and heart rate 80s-90s. Will monitor.
[2022-04-24] MEDS: HYDROmorphone 1 mg/mL INJ 1 mL 0.5 MG IVP ×6 (01:56→20:35)
[2022-04-24] MEDS: ondansetron 2 mg/ML SDV 2 mL 8 MG IVP ×3 (01:56→13:51)
[2022-04-24] MEDS: metoclopramide 5 mg/mL SDV 2 mL IVP (06:08)
[2022-04-24 06:17] LABS: Glucose Point of Care 118 mg/dL (70-110)
[2022-04-24] MEDS: acetaminophen 1,000 MG/100 ML PIGGYBACK 400 MG IV ×2 (08:20→21:39)
[2022-04-24 11:08] LABS: Glucose Point of Care 90 mg/dL (70-110)
[2022-04-24] MEDS: lidocaine 5% Patch 1 PATCH TOPICAL ×2 (12:00→20:36)
--- NOTE | 2022-04-24 12:17 | PC.SOCIAL ---
IMM update IMM Updated with patient and family at bedside. Verbalized an understanding. Copy Pg 2 provided. Initialled, dated, timed, and placed in chart.
--- NOTE | 2022-04-24 15:33 | PM.PN ---
Subjective Subjective: Overnight patient was left on monitoring manager and noted to have asymptomatic run of SVT with HR 200. She received adenosine and metoprolol iv following which HR settled down. No new complaints today. pain is under control. She is unable to go to inpatient hospice as room and board not coevred by insurance. Will be going home with hospice with her daughter. Goals are again comfort measures only. Medications: Reviewed: Yes Vitals/I&O/Wt Last Vital Signs Temp 98.1 F 04/24/22 04:00 Pulse 98 04/24/22 12:00 Resp 15 04/24/22 12:00 BP 125/81 04/24/22 12:00 Pulse Ox 91 04/24/22 12:00 O2 Del Method 04/24/22 12:00 O2 Flow Rate 95 04/23/22 08:00 04/24/22 04/24/22 04/24/22 06:59 14:59 22:59 Intake Total 30 / 1895.5 0 / 0 Output Total 200 / 200 Balance -170 / 1695.5 0 / 0 Weight last 48 hrs Weight 71.849 kg Physical Exam Narrative: asleep, resting comfortably Not examiend to allow for her comfort Urinary Catheter Management: Brantley: Cath Placed During This Visit: yes Reason for Continuing Indwelling Catheter: Other Urinary Catheter Date of Insertion: 04/13/22 Urinary Catheter Time of Insertion: 00:40 Data : 04/22/22 08:01 04/22/22 08:01 A&P Assessment and plan (1) Intractable nausea and vomiting: Status: Acute (2) Cancer related pain: Status: Acute (3) Metastatic cancer: Status: Acute (4) Malignant neoplasm of head of pancreas: Status: Acute (5) Metastases to the liver: Status: Acute (6) Type 1 diabetes: Status: Acute Plan Patient with complicated course as detailed in previous progress notes, chiefly pancreatic cancer with metastatsis , intractable nausea, vomiting, cancer pain being transitioned to hospice care after discussion with her and her DPOA (daughter Reji). GOals are for comfort care management only. D/c cardiac monitoring She only wishes for pain management at this time. D/scarlet TPN. declined PEG. Minimizing medications as much as possible. Only pain medications and insulin to be kept per priority Family requesting to go home with PICC so hospice can continue iv pain meds since patient unable to keep down any medications due to vomiting. dispo: Home Hospice with daughter Attestations Medical Necessity Statement*: transition to comfort care/hospice management Coding Level of Care Code Acute Residential Appliance Repair Technician for [facility] Fwd Diagnoses Intractable nausea and vomiting R11.2 Cancer related pain G89.3 Metastatic cancer C79.9 Malignant neoplasm of head of pancreas C25.0 Metastases to the liver C78.7 Type 1 diabetes E10.9
[2022-04-24 17:05] LABS: Glucose Point of Care 45 mg/dL (70-110)
[2022-04-25 00:23] VITALS: RESP 12
[2022-04-25] MEDS: HYDROmorphone 1 mg/mL INJ 1 mL 0.5 MG IVP ×6 (00:23→21:12)
[2022-04-25] MEDS: pantoprazole 40 mg SDV IVP (00:23)
[2022-04-25] MEDS: ondansetron 2 mg/ML SDV 2 mL 4 MG IVP (00:23)
[2022-04-25] MEDS: scopolamine 1.5 Patch 1 PATCH TRANSDERMA (00:24)
[2022-04-25 08:56] VITALS: BP 125/83; PULSE 105; RESP 14; O2SAT 89
--- NOTE | 2022-04-25 08:58 | PC.NURSE ---
pt has been resting comfortably, asleep with her eyes closed. pts sister at bedside stated, she has been in pain for hours. when nursing assessment was completed pt was not alert or oriented and sleeping. pt does have some involuntary movements, but no indication of pain or discomfort. sisters at bedside refused staff training and development manager to do morning vital signs, she is sleeping, let's do them later. dpoa called and wanted vital signs taken immediately, they were taken and were wnl for this pt.
--- NOTE | 2022-04-25 10:50 | PC.NURSE ---
pt sister wanting pain medication for pt...pt is resting well mostly ...arrousing for few seconds at a time then returning to a restfull sleep...pt sisiter wants her to have iv tylenol...tylenol IV was dc today ... was notified of pt sisiters request and tylenol iv was reordered...pt sister declined all other pain/anxiety medications while waiting for tylenol
[2022-04-25] MEDS: acetaminophen 1,000 MG/100 ML PIGGYBACK 400 MG IV ×2 (11:00→17:44)
[2022-04-25 12:55] VITALS: RESP 18; O2SAT 89
--- NOTE | 2022-04-25 16:54 | PM.PN ---
Subjective Subjective: Patient appears comfortable at the time of exam. She is lying comfortably in bed, breathing is not labored. She does not appear to be in pain. Yesterday evening blood sugar was noted to be 45. Daughter was at bedside at this time. And we did discuss with her regarding blood sugar and insulin management since patient is insulin-dependent diabetic. Daughter Reji stated that in keeping with her comfort care wishes, we can discontinue fingerstick checks and treatment of hyper or hypoglycemia. Patient's insulin pump has been off for many days. Going forward fingerstick checks have been discontinued. Medications: Reviewed: Yes Vitals/I&O/Wt Last Vital Signs Temp 97.5 F L 04/24/22 19:00 Pulse 105 H 04/25/22 08:56 Resp 18 04/25/22 12:55 BP 125/83 04/25/22 08:56 Pulse Ox 89 L 04/25/22 12:55 O2 Del Method 04/25/22 08:56 O2 Flow Rate 95 04/23/22 08:00 04/25/22 04/25/22 04/25/22 06:59 14:59 22:59 Intake Total 100 / 100 Balance 100 / 100 Weight last 48 hrs Weight 71.849 kg Physical Exam Narrative: Patient appears to be comfortable. Breathing is not labored. She takes a few turns in bed by herself. Currently sleeping. Urinary Catheter Management: Brantley: Cath Placed During This Visit: yes Reason for Continuing Indwelling Catheter: Hospice/Comfort/Palliative Care Urinary Catheter Date of Insertion: 04/13/22 Urinary Catheter Time of Insertion: 00:40 Data : 04/22/22 08:01 04/22/22 08:01 A&P Assessment and plan (1) Intractable nausea and vomiting: Status: Acute (2) Cancer related pain: Status: Acute (3) Metastatic cancer: Status: Acute (4) Malignant neoplasm of head of pancreas: Status: Acute (5) Metastases to the liver: Status: Acute (6) Type 1 diabetes: Status: Acute (7) Need for comfort care: Status: Acute Plan Patient with complicated course as detailed in previous progress notes, chiefly pancreatic cancer with metastatsis , intractable nausea, vomiting, cancer pain being transitioned to hospice care after discussion with her and her DPOA (daughter Reji). GOals are for comfort care management only. Family requesting to go home with PICC so hospice can continue iv pain meds since patient unable to keep down any medications due to vomiting. Fingerstick checks and treatment of hypo or hyperglycemia additionally stopped after discussion with KARTHIK Mendoza (DAUGHTER). Her Sister Myra remains at bedside and is now in agreement with hospice and comfort care management. Dispo: Home Hospice with daughter. Anticipate discharge on 04/27 as hospice company informs us they will need some time to make arrangements for medications to be delivered to daughter's house. Attestations Medical Necessity Statement*: Comfort care management Coding Level of Care Code Acute Sales Operations Director for [facility] Fwd Diagnoses Intractable nausea and vomiting R11.2 Cancer related pain G89.3 Metastatic cancer C79.9 Malignant neoplasm of head of pancreas C25.0 Metastases to the liver C78.7 Type 1 diabetes E10.9 Need for comfort care
[2022-04-25 17:18] VITALS: RESP 14
[2022-04-25 21:12] VITALS: RESP 12
[2022-04-26 00:35] VITALS: RESP 10
[2022-04-26] MEDS: HYDROmorphone 1 mg/mL INJ 1 mL 0.5 MG IVP ×7 (00:35→23:28)
[2022-04-26] MEDS: acetaminophen 1,000 MG/100 ML PIGGYBACK 400 MG IV ×3 (02:31→18:43)
[2022-04-26 05:00] VITALS: RESP 12
--- NOTE | 2022-04-26 08:36 | PC.SOCIAL ---
IMM update IMM Updated with patient and family at bedside. Verbalized an understanding. Copy Pg 2 provided. Initialled, dated, timed, and placed in chart.
--- NOTE | 2022-04-26 12:12 | PM.PN ---
Subjective Subjective: Patient appears comfortable. No acute interim events. Medications: Reviewed: Yes Vitals/I&O/Wt Last Vital Signs Temp 97.5 F L 04/24/22 19:00 Pulse 105 H 04/25/22 08:56 Resp 12 04/26/22 05:00 BP 125/83 04/25/22 08:56 Pulse Ox 89 L 04/25/22 12:55 O2 Del Method 04/25/22 08:56 O2 Flow Rate 95 04/25/22 20:00 04/25/22 04/26/22 04/26/22 22:59 06:59 14:59 Intake Total 150 / 250 Output Total 400 / 400 200 / 600 Balance -250 / -150 -200 / -350 Physical Exam Narrative: Not examined to allow for patient comfort Urinary Catheter Management: Brantley: Cath Placed During This Visit: yes Reason for Continuing Indwelling Catheter: Hospice/Comfort/Palliative Care Urinary Catheter Date of Insertion: 04/13/22 Urinary Catheter Time of Insertion: 00:40 Data : 04/22/22 08:01 04/22/22 08:01 A&P Assessment and plan (1) Intractable nausea and vomiting: Status: Acute (2) Cancer related pain: Status: Acute (3) Metastatic cancer: Status: Acute (4) Malignant neoplasm of head of pancreas: Status: Acute (5) Metastases to the liver: Status: Acute (6) Type 1 diabetes: Status: Acute (7) Need for comfort care: Status: Acute Plan Patient was pancreatic cancer with metastasis admitted for intractable nausea vomiting and cancer pain.. Extensive discussion regarding goals of care with her and daughter and patient herself during the course of admission here. Also patient's family discussed further course with outpatient oncologist Dr. Rascon. Unfortunately patient has no further chemotherapeutic options. Patient and her daughter decided to proceed with comfort care management only. She is awaiting arrangements from home hospice to be able to discharge home Attestations Medical Necessity Statement*: Comfort care management. Coding Level of Care Code Acute Coffee Sampler for [facility] Fwd Diagnoses Intractable nausea and vomiting R11.2 Cancer related pain G89.3 Metastatic cancer C79.9 Malignant neoplasm of head of pancreas C25.0 Metastases to the liver C78.7 Type 1 diabetes E10.9 Need for comfort care
[2022-04-26 21:33] VITALS: BP 138/82; PULSE 101; RESP 17; TEMP 37.1; O2SAT 87
[2022-04-26 23:28] VITALS: RESP 17
[2022-04-26] MEDS: lidocaine 5% Patch 1 PATCH TOPICAL (23:55)
[2022-04-27] VITALS: BP 124/84; PULSE 99; RESP 17; TEMP 36.8; O2SAT 91
[2022-04-27] MEDS: HYDROmorphone 1 mg/mL INJ 1 mL 0.5 MG IVP ×5 (02:36→16:25)
[2022-04-27] MEDS: acetaminophen 1,000 MG/100 ML PIGGYBACK 400 MG IV ×3 (02:37→16:27)
--- NOTE | 2022-04-27 09:51 | PC.NURSE ---
In room to check on Lidocaine patch. Patient is sleeping and family at bedside does not want her to be disturbed.
[2022-04-27 12:00] VITALS: BP 113/78; PULSE 102; RESP 18; TEMP 36.7; O2SAT 92
--- NOTE | 2022-04-27 15:37 | PM.DCS ---
Discharge Providers Date of Admission: 04/13/22 18:59 Date of Discharge: April 27, 2022 Attending Provider at Admission: Jonatan Leahy MD Attending Provider at Discharge: Angie Obrien MD Primary Care Provider: Andrea Flores MD Diagnoses at Discharge Discharge Diagnosis (1) Intractable nausea and vomiting: Status: Acute (2) Cancer related pain: Status: Acute (3) Metastatic cancer: Status: Acute (4) Malignant neoplasm of head of pancreas: Status: Acute (5) Metastases to the liver: Status: Acute (6) Type 1 diabetes: Status: Acute (7) Need for comfort care: Status: Acute Reason for Visit Reason for Visit: ABD PAIN Brief History: Kaylee Cardoso is a 71 year old female with history of metastatic pancreatic cancer with metastasis to the liver, status post biliary stent placement, atrial fibrillation on Eliquis,? hypertension, hyperlipidemia, type 1 diabetes on insulin pump, intractable pain, congestive heart failure, with intractable nausea, who presented to [facility] due to fatigue, malaise, decreased appetite, increased pain, increased nausea, not tolerating po intake. Hospital Course Hospital Course She was admitted to the hospital and started on symptomatic management for her pain and nausea. She received treatment with IV Zofran, IV Reglan, Phenergan, scopolamine patch but her symptoms remain poorly controlled. Due to her inability to keep any food or medications down she was additionally started on TPN via PICC line during this admission. Additionally patient has intractable abdominal pain from her advancing malignancy, management which of which was complicated by the fact that she was unable to tolerate any p.o. medications. After trying multiple regimens, it appears Dilaudid 0.5 mg IV every 4 hours along with IV Tylenol 1 g every 8 hours seems to best optimize her pain. She is currently on this regimen. She was also diagnosed with an E. coli UTI for which she was treated with aztreonam. There were multiple goals of care conversations with the patient (while she was awake,oriented and alert), her DPOA Reji (daughter) and her sister Stephanie with whom she lives (but is NOT her DPOA). Initially there were discussions regarding placement of a feeding jejunostomy and a venting PEG tube earlier in the course of admission mainly with her sister, however later patient and her daughter stated that patient's wishes are not to proceed with PEG tube. Please see my progress notes during the course of admission for more details. With regards to her pancreatic cancer, patient has been noted to have advanced pancreatic malignancy along with liver involvement. Patient and her family had an extensive discussion with Dr. Rascon (her outpatient oncologist) at bedside and it was determined that patient has no effective chemotherapeutic treatment for her pancreatic cancer and her prognosis is quite poor. Given her advancing malignancy and poor functional status, transition to palliative care/hospice would be most appropriate. Her care plan re: PEG/feeding jejunostomy was additionally discussed with Dr. Danielle and patient eventually refused surgery. A family conference was completed on Apr 23 wherein patient had opportunity to discuss her care with her Daughter in private and later both of them together informed us regarding's patient's wishes. She changed her code status to DNR, decided to stop TPN, declined PEG placement, wished to proceed with pain and symptom management such as nausea control etc. only. She realized that not getting TPN or tube feeds will lead to malnutrition and , especially complicated by the fact that she is a type 1 diabetic. She stated that it is her time and she is ready to let nature take its course Additionally on 04/24, insulin was discontinued after discussion with her daughter. Patient has remained comfortable on pain and nausea regimens only since then. At time of discharge she is somnolent, lethargic, however does not appear to be in any obvious pain. Attempts were made to transition her to inpatient hospice, however room and board is not covered by insurance. Family has therefore decided to take patient home with home hospice. They requested that patient's PICC line remain in place to be able to administer iv regimen of dilaudid and tylenol at home. This appears reasonable as she has been unable to tolerate any po pain regimen and pain remained poorly controlled on Roxanol. Prescriptions have been requested from me by the home hospice company and i Have provided scripts for the next 4-5 days while they attempt to arrange further dosing with hospice physician. Physical Exam Narrative: General: No acute distress, somnolent, lethargic,laying in bed in no obvious pain. Deatiled exam not performed to allow for patient comfort Urinary Catheter Management: Brantley: Cath Placed During This Visit: yes Reason for Continuing Indwelling Catheter: Hospice/Comfort/Palliative Care Urinary Catheter Date of Insertion: 04/13/22 Urinary Catheter Time of Insertion: 00:40 Discharge Data Studies Completed and Pending Completed Studies During Hospitalization Category Date Time Status CT abdomen pelvis w con* [id number] Stat Cat Scan 04/12/22 17:[address] head wo con* [id number] Routine Cat Scan 04/13/22 11:[address] head wo con* [id number] Stat Cat Scan 04/16/22 11:39 Completed XR acute abdomen series [id number] Routine Exams 04/17/22 10:59 Completed Radiology Impressions Abdomen/Pelvis CT 04/12/22 17:10 IMPRESSION: 1. Interval enlargement of the pancreatic head mass consistent with a primary malignancy and prominent worsening of the metastatic disease in the liver. Interval worsening of the metastatic adenopathy and slight increase in the ascites, also. 2. Stent in the common bile duct in good position as on 03/23/2022. No current biliary ductal dilatation. 3. Interval changes in the pleural effusions and bibasilar atelectasis detailed above. 4. Continued ill-defined region of slightly decreased density in the right upper kidney, cause unclear although a focus of infectious disease not excluded. Multiple renal cysts still present. 5. Disappearance of the duodenal dilatation since 03/23/2022. 6. Continued occlusion of the distal SMV, but patency of the main portal and splenic veins. Other findings detailed above. Head CT 04/16/22 11:39 IMPRESSION: No acute intracranial abnormality. Chest/Abdomen X-ray 04/17/22 10:59 Impression: 1. Atherosclerosis. 2. No evidence of small bowel obstruction. 3. Large amount of fecal material in the colon. 4. Minimal patchy opacity over surface of left diaphragm. Laboratory Results WBC 7.6 10^3/uL (4.0-10.0) 04/22/22 08:01 RBC 2.89 10^6/uL (4.1-5.3) L 04/22/22 08:01 Hgb 8.8 g/dL (11.5-15.3) L 04/22/22 08:01 Hct 27.5 % (37.0-47.0) L 04/22/22 08:01 MCV 95.2 fl (81-99) 04/22/22 08:01 MCH 30.4 pg (28.0-34.0) 04/22/22 08:01 MCHC 32.0 g/dL (30.0-36.0) D 04/22/22 08:01 RDW 16.4 % (12.1-15.1) H 04/22/22 08:01 Plt Count 126 10^3/cmm (130-400) L 04/22/22 08:01 MPV 11.6 fL (7.4-10.4) H 04/22/22 08:01 Neut % (Auto) 77.4 % 04/22/22 08:01 Lymph % (Auto) 15.1 % 04/22/22 08:01 [place] % (Auto) 5.7 % 04/22/22 08:01 Eos % (Auto) 0.7 % 04/22/22 08:01 Baso % (Auto) 0.0 % 04/22/22 08:01 Neut # (Auto) 5.90 10^3/uL (1.8-7.7) 04/22/22 08:01 Lymph # (Auto) 1.2 10^3/uL (0.8-4.8) 04/22/22 08:01 [place] # (Auto) 0.4 10^3/uL (0.2-0.9) 04/22/22 08:01 Eos # (Auto) 0.1 10^3/uL (0.0-0.8) 04/22/22 08:01 Baso # (Auto) 0.0 10^3/uL (0.0-0.1) 04/22/22 08:01 Nucleated RBC % (auto) 0 % 04/22/22 08:01 Nucleated RBCs # 0.0 /100WBC 04/22/22 08:01 PT 24.40 SECONDS (12.1-14.9) H 04/15/22 05:33 INR 2.16 (0.8-1.2) H 04/15/22 05:33 Specimen Type Arterial 04/12/22 19: Sample Site Radial, left 04/12/22 19: ABG pH 7.45 (7.35-7.45) 04/12/22 19: ABG pCO2 42.4 mmHg (35-45) 04/12/22 19: ABG pO2 79.1 mmHg (80.0-100.0) L 04/12/22 19: ABG HCO3 29.1 mmol/L (22-26) H 04/12/22 19:23 ABG O2 Saturation 97.9 04/12/22 19:23 ABG Base Excess 4.6 mmol/L (-2.0-2.0) H 04/12/22 19:23 Stephen Test Pos 04/12/22 19:23 A-a O2 Gradient 2.3 mmHg (5-10) L 04/12/22 19:23 Hematocrit 30.3 % (37-47) L 04/12/22 19:23 Hgb O2 Saturation 95.9 % (95-100) 04/12/22 19:23 Carboxyhemoglobin 0.9 %THgb (0.4-20.1) 04/12/22 19: Methemoglobin 1.2 % (0.4-1.5) 04/12/22 19: Total Hemoglobin 9.9 g/dL (12-16) L 04/12/22 19:23 Sodium 134.0 mmol/L (131-143) 04/12/22 19:23 Potassium 3.4 mmol/L (3.5-5.0) L 04/12/22 19:23 Glucose 216.0 mg/dL (70-115) H 04/12/22 19:23 Ionized Calcium 1.1 mmol/L (1.1-1.4) 04/12/22 19: O2 Delivery Device Nc 04/12/22 19:23 O2 Liters/Min 2.5 % 04/12/22 19:23 Medical Interpreter ID terra 04/12/22 19:23 Sodium 136 mmol/L (136-145) 04/22/22 08:01 Potassium 3.5 mmol/L (3.5-5.1) 04/22/22 08:01 Chloride 97 mmol/L (98-107) L 04/22/22 08:01 Carbon Dioxide 33 mmol/L (22-29) H 04/22/22 08:01 Anion Gap 9.5 (5-19) 04/22/22 08:01 BUN 6 mg/dL (8-23) L 04/22/22 08:01 Creatinine 0.3 mg/dL (0.5-0.9) L 04/22/22 08:01 GFR Calculation 219.9 mL/min (90-130) H 04/22/22 08:01 Glucose 238 mg/dL (65-115) H 04/22/22 08:01 POC Glucose 45 mg/dL (70-110) L 04/24/22 16:52 Estimat Average Glucose 94 04/13/22 04:36 Hemoglobin A1c 4.9 % (4.0-6.0) 04/13/22 04:36 Calculated Osmolality 287 mOsm/kg (285-295) 04/22/22 08:01 Lactic Acid 1.1 mmol/L (0.5-2.2) 04/12/22 23:42 Lactate 1.0 mmol/L (0.5-2.2) 04/12/22 18:26 Calcium 7.1 mg/dL (8.5-10.5) L 04/22/22 08:01 Phosphorus 2.8 mg/dL (2.5-4.5) 04/12/22 18:26 Magnesium 1.9 mg/dL (1.7-2.3) 04/20/22 05:34 Total Bilirubin 0.6 mg/dL (0.15-1.2) 04/22/22 08:01 AST 30 U/L (0-32) 04/22/22 08:01 ALT 13 U/L (0-33) 04/22/22 08:01 Alkaline Phosphatase 379 U/L (35-105) H 04/22/22 08:01 NT-Pro-B Natriuret Pep 1152 pg/mL (0-125) H 04/13/22 04:36 Total Protein 4.6 g/dL (6.6-8.7) L 04/22/22 08:01 Albumin 2.0 g/dL (3.5-5.2) L 04/22/22 08:01 Globulin 2.6 g/dL (1.3-4.6) 04/22/22 08:01 Triglycerides 78 mg/dL (0-150) 04/13/22 04:36 Cholesterol 100 mg/dL (0-200) 04/13/22 04:36 LDL Cholesterol, Calc 47 mg/dL (50-129) L 04/13/22 04:36 HDL Cholesterol 37 mg/dL (60-100) L 04/13/22 04:36 LDL/HDL Ratio 1.27 RATIO (0.00-3.22) 04/13/22 04:36 Cholesterol/HDL Ratio 2.70 mg/dL (0.0-4.40) 04/13/22 04:36 Lipase 4 U/L (13-60) L 04/12/22 18:26 Procalcitonin 0.07 ng/mL (0-0.5) 04/12/22 18:26 TSH 14.01 uIU/mL (0.27-4.20) H 04/13/22 04:36 Urine Color Yellow (Yellow) 04/12/22 20:03 Urine Appearance Hazy (CLEAR) A 04/12/22 20:03 Urine pH 6 (5-7) 04/12/22 20:03 Ur Specific [place] 1.020 (1.005-1.030) 04/12/22 20:03 Urine Protein Neg (Negative) 04/12/22 20:03 Urine Glucose (UA) Norm (Normal) 04/12/22 20:03 Urine Ketones Negative (Negative) 04/12/22 20:03 Urine Blood Neg (Negative) 04/12/22 20:03 Urine Nitrate Negative (Negative) 04/12/22 20:03 Urine Bilirubin 1+ (Negative) H 04/12/22 20:03 Urine Urobilinogen 1 mg/dL (Negative) H 04/12/22 20:03 Ur Leukocyte Esterase 1+ (Negative) H 04/12/22 20:03 Urine RBC 0-4 /hpf (0-2) H 04/12/22 20:03 Urine WBC 5-10 /hpf (0-5) H 04/12/22 20:03 Ur Squamous Epith Cells 5-10 /hpf (0-5) H 04/12/22 20:03 Amorphous Sediment Not Reportable 04/12/22 20:03 Urine Bacteria 4+ /hpf (NONE) H 04/12/22 20:03 Serum Ketones Positive (Negative) H 04/12/22 18:26 Vitals Last Vital Signs Temp 98.1 F 04/27/22 12:00 Pulse 102 H 04/27/22 12:00 Resp 18 04/27/22 12:00 BP 113/78 04/27/22 12:00 Pulse Ox 92 04/27/22 12:00 O2 Del Method 04/27/22 12:00 O2 Flow Rate 95 04/27/22 08:00 Discharge Plan Discharge Patient Disposition: Hospice - Home Condition: Critical Prescriptions: New Isopto Atropine 1 % Drops 3 drp sublingual Q4H PRN (Reason: Excessive Secretions, Rattling) 30 Days Qty: 30 0RF Isopto Atropine 1 % Drops 3 drp sublingual Q4H PRN (Reason: Excessive Secretions, Rattling) 30 Days Qty: 30 0RF Continued ondansetron 8 mg tablet,disintegrating 8 mg PO Q4H PRN (Reason: nausea and vomiting) 14 Days Qty: 60 0RF fentanyl 25 mcg/hr patch 72 hour 1 patch transdermal Q72H 30 Days Qty: 10 0RF scopolamine base 1 mg over 3 days patch 3 day 1 patch transdermal Q3D Qty: 10 0RF Changed morphine concentrate 100 mg/5 mL (20 mg/mL) solution 20 mg buccal Q2H PRN (Reason: pain) 30 Days Qty: 60 0RF Rx Instructions: Max dose: 6mls/day Discontinued ibuprofen 800 mg tablet 800 mg PO TID PRN (Reason: Pain) Qty: 90 1RF (DME) Dexcom G6 Sensor Device See Rx Instructions .Route Rx Instructions: As directed insulin lispro [Humalog U-100 Insulin] 100 unit/mL solution See Rx Instructions .ROUTE .COMPLEX Qty: 30 5RF Rx Instructions: inject up to 50 units via insulin pump once daily for basal, bolus and correctional insulin. 340B medication levothyroxine 200 mcg tablet 200 mcg PO DAILY Qty: 30 5RF Relistor 12 mg/0.6 mL syringe 12 mg SUBCUT Q48H PRN (Reason: constipation) Qty: 0.6 8RF sertraline 100 mg tablet 100 mg PO BEDTIME metoclopramide HCl 5 mg Tablet See Rx Instructions .ROUTE .COMPLEX Rx Instructions: 5 mg orally three times daily with meals and at bedtime ibandronate [Boniva] 150 mg tablet 150 mg PO Q30D apixaban 5 mg tablet 5 mg PO QAM nitroglycerin [Nitrostat] 0.4 mg Tablet, Sublingual 0.4 mg SUBLINGUAL Q5M PRN (Reason: Chest Pain) Rx Instructions: do not exceed 3 doses per episode carvedilol 12.5 mg tablet 6.25 mg PO BID Qty: 0 0RF sennosides-docusate sodium [Senna-S] 8.6-50 mg Tablet 2 tab PO BID calcium polycarbophil [FiberCon] 625 mg Tablet 1,250 mg PO BID PRN (Reason: Diarrhea) morphine 15 mg tablet extended release 30 mg PO Q12H naloxone 4 mg/actuation [place],Non-Aerosol 4 mg INTRANASAL Q3M PRN (Reason: OVERDOSE) Rx Instructions: spray 1 dose into ONE nostril; alternate nostrils w each dose until help arrives Discharge Orders: Discharge Order (Routine); Ordered 04/27/22 Ordered By: Angie Faria Ambulatory Orders: DME: Commode (Order) Location: None Selected Ordered By: Patrice Christina DME: Wheelchair (Order) Location: None Selected Ordered By: Patrice Christina Referrals: Andrea Flores MD [Primary Care Provider] - Patient Instructions: Abdominal Pain (ED), Opioid Safety Discharge Attestations Time Spent in Discharge Care*: greater than 30 min Status at Discharge: Cognitive status at discharge: cognitively intact, Behavioral status at discharge: cooperative and independent in ADL's, Quality Metrics Clinical Quality Measures [ No reported AMI, CVA or VTE this stay] Coding Level of Care Code Acute Chg FW DC note Diagnoses Intractable nausea and vomiting R11.2 Cancer related pain G89.3 Metastatic cancer C79.9 Malignant neoplasm of head of pancreas C25.0 Metastases to the liver C78.7 Type 1 diabetes E10.9 Need for comfort care
--- NOTE | 2022-04-27 17:30 | PC.NURSE ---
Patient is unresponsive to everything including pain full stimuli. Patient is a hospice patient and family is at bedside and is in agreement to send patient home on hospice. Patient is leaving with a Brantley catheter, an IV in the left arm and a single lumen in the right upper arm.
[2022-04-27 17:54] VITALS: BP 113/78; PULSE 102; RESP 18; TEMP 36.7; O2SAT 92
--- NOTE | 2022-04-27 18:07 | PC.NURSE ---
All patient's belongings were returned to patient's sister Sadaf Horne including the 150 dollars in dubon she had in the pixis.
== END 2022-04-27 18:00 | disposition hospice, home (50) | DRG 948 ==
LOC: ER 19:22 → MEDSURG 21:17
PROVIDERS: Internal Medicine; Admitting Provider Family Medicine; Emergency Provider Emergency Medicine; PCP Family Medicine Adult Medicine; Visit Provider Student in an Organized Health Care Education/Training Program
DX: G89.3 Neoplasm related pain (acute) (chronic) (principal); C25.0 Malignant neoplasm of head of pancreas; C78.7 Secondary malignant neoplasm of liver and intrahepatic bile duct; N39.0 Urinary tract infection, site not specified; E87.1 Hypo-osmolality and hyponatremia; Z16.24 Resistance to multiple antibiotics; I47.1 Supraventricular tachycardia; I82.891 Chronic embolism and thrombosis of other specified veins; R11.2 Nausea with vomiting, unspecified; E10.51 Type 1 diabetes mellitus with diabetic peripheral angiopathy without gangrene; B96.20 Unspecified Escherichia coli [E. coli] as the cause of diseases classified elsewhere; I11.0 Hypertensive heart disease with heart failure; I50.9 Heart failure, unspecified; E86.0 Dehydration; E87.6 Hypokalemia; K59.03 Drug induced constipation; T40.605A Adverse effect of unspecified narcotics, initial encounter; R18.8 Other ascites; F41.9 Anxiety disorder, unspecified; F32.A Depression, unspecified; M81.0 Age-related osteoporosis without current pathological fracture; S01.91XA Laceration without foreign body of unspecified part of head, initial encounter; W18.39XA Other fall on same level, initial encounter; Y92.230 Patient room in hospital as the place of occurrence of the external cause; Z51.5 Encounter for palliative care; Z86.718 Personal history of other venous thrombosis and embolism; Z79.891 Long term (current) use of opiate analgesic; Z79.4 Long term (current) use of insulin; Z96.89 Presence of other specified functional implants; Z79.01 Long term (current) use of anticoagulants
CPT/HCPCS: 36415; 36416; 36569; 36592; 36600; 51702; 70450; 74022; 74177; 80051; 80053; 80061; 81001; 82009; 82330; 82805; 82962; 83036; 83605; 83690; 83735; 83880; 84100; 84145; 84443; 85025; 85610; 87040; 87077; 87086; 87186; 87205; 92610; 93005; 96361; 96372; 96374; 96375; 97161; 99285; C9113; G0378; J0744; J1170; J1650; J1815; J2212; J2270; J2310; J2405; J2550; J2765; J3475; J3480; J3490; J7040; P9047; Q9967; S0030